=== PATIENT | male | born 1935 | race Caucasian/White ===

== ENCOUNTER 2017-02-03 10:08 | Emergency (ER) | payer MEDICARE, MEDICAID ==
[~2017-02-03] VITALS: Ht 177.8 cm; Wt 96.6 kg
[~2017-02-03 10:08] MED LIST: APIX2.5T PO; ESOM40CA PO; FAMO-63 PO; FERR-26 PO; FLUT30CR TP; FURO40TA4 PO; GLIP10TA13 PO; HYDR-210 PO; IBUP-1060 PO; INSU100I17 SQ; INSU100I18 SQ; LEVO50TA5 PO; LISI-338 PO; LISI1TAB3 PO; METF-620 PO; MONT10TA9 PO; POTA20TA12 PO; PROM25TA10 PO; SIMV40TA3 PO; SITA100T PO; VERA120C2 PO
[2017-02-03 10:49] LABS: BASO # 0.1 x10^3/uL (0.0-0.2); BASO % 1 % (0-3); EOS % 2 % (0-3); HEMATOCRIT 44.4 % (39.0-53.0); HEMOGLOBIN 14.3 g/dL (13.0-17.5); LYMPH # 1.1 x10^3/uL (1.0-4.8); LYMPH % 12 % (24-48); MEAN CORPUSCULAR HEMOGLOBIN 28 pg (25-35); MEAN CORPUSCULAR HGB CONC 32 g/dL (31-37); MEAN CORPUSCULAR VOLUME 85 fL (79-100); MONO % 7 % (0-9); NEUT % 79 % (31-73); PLATELET COUNT 201 x10^3/uL (140-400); RED BLOOD COUNT 5.19 x10^6/uL (4.30-5.70); RED CELL DISTRIBUTION WIDTH 14.8 % (11.5-14.5); WHITE BLOOD COUNT 9.1 x10^3/uL (4.0-11.0)
--- NOTE | 2017-02-03 10:51 | PHYS DOC ---
Past Medical History Past Medical History: Diabetes-Type II Past Surgical History: Appendectomy, Tonsillectomy Alcohol Use: None Drug Use: None Adult General Chief Complaint Chief Complaint: HYPOGLYCEMIA HPI HPI 81-year-old male presenting to the emergency department today with hypoglycemia. Patient reports taking his metformin and Levemir and NovoLog earlier this morning and not eating breakfast. The patient started having slurred speech and confusion. The patient's checked the blood sugar which was in the mid 60s and called the paramedics. Upon news internship arrival the patient 's blood sugar had dropped down to the mid 30s. They gave the patient IV dextrose which improved the patient's condition. He was awake and alert after this. They rechecked his blood sugar and it was in the 190s. Onset today. Location generalized. Duration intermittent. Alleviated by IV glucose. Review of systems is negative for chest pain shortness of breath nausea vomiting fevers or chills. All other review of systems is negative unless otherwise noted in history of present illness. ED course: 81-year-old gentleman presenting to the emergency department with insulin induced hypoglycemia which was improved by EMS. The patient was given a meal in the emergency department and monitored. Blood work obtained. Chronic kidney disease noted. Not acute. He was in discharged home in stable condition. The patient was then discharged home in stable condition to follow up with their primary care physician over the next 2-3 days. They were to return if their symptoms worsened or if they were concerned for any reason. [id number] discharge instructions and return precautions were given. Patient's questions were answered to their satisfaction. Patient is comfortable plan. Review of Systems Review of Systems SEE ABOVE. Allergies Allergies Allergies Coded Allergies Type Severity Reaction Last Updated Verified No Known Drug Allergies 08/16/13 No Physical Exam Physical Exam Constitutional: Well developed, well nourished, no acute distress, non-toxic appearance. [] Patient is awake and alert and eating breakfast when I examined him. HENT: Normocephalic, atraumatic, bilateral external ears normal, oropharynx moist, no oral exudates, nose normal. [] Eyes: PERRLA, EOMI, conjunctiva normal, no discharge. [] Neck: Normal range of motion, no tenderness, supple, no stridor. [] Cardiovascular:Heart rate regular rhythm, no murmur [] Lungs & Thorax: Bilateral breath sounds clear to auscultation [] Abdomen: Bowel sounds normal, soft, no tenderness, no masses, no pulsatile masses. [] Skin: Warm, dry, no erythema, no rash. [] Back: No tenderness, no CVA tenderness. [] Extremities: No tenderness, no cyanosis, no clubbing, ROM intact, no edema. [] Neurologic: Alert and oriented X 3, normal motor function, normal sensory function, no focal deficits noted. [] Psychologic: Affect normal, judgement normal, mood normal. [] Current Patient Data Vital Signs Vital Signs Date Time Temp Pulse Resp B/P (MAP) Pulse Ox O2 Delivery O2 Flow Rate FiO2 02/03/17 12:05 94.7 94.7 02/03/17 11:24 02/03/17 11:00 62 18 94 Room Air Lab Values Laboratory Tests Test 02/03/17 10:12 02/03/17 10:35 02/03/17 11:22 02/03/17 12:02 Glucose (Fingerstick) 99 mg/dL (70-99) 77 mg/dL (70-99) White Blood Count 9.1 x10^3/uL (4.0-11.0) Red Blood Count 5.19 x10^6/uL (4.30-5.70) Hemoglobin 14.3 g/dL (13.0-17.5) Hematocrit 44.4 % (39.0-53.0) Mean Corpuscular Volume 85 fL (79-100) Mean Corpuscular Hemoglobin 28 pg (25-35) Mean Corpuscular Hemoglobin Concent 32 g/dL (31-37) Red Cell Distribution Width 14.8 % (11.5-14.5) H Platelet Count 201 x10^3/uL (140-400) Neutrophils (%) (Auto) 79 % (31-73) H Lymphocytes (%) (Auto) 12 % (24-48) L Monocytes (%) (Auto) 7 % (0-9) Eosinophils (%) (Auto) 2 % (0-3) Basophils (%) (Auto) 1 % (0-3) Neutrophils # (Auto) 7.1 x10^3uL (1.8-7.7) Lymphocytes # (Auto) 1.1 x10^3/uL (1.0-4.8) Monocytes # (Auto) 0.6 x10^3/uL (0.0-1.1) Eosinophils # (Auto) 0.2 x10^3/uL (0.0-0.7) Basophils # (Auto) 0.1 x10^3/uL (0.0-0.2) Sodium Level 147 mmol/L (136-145) H Potassium Level 3.4 mmol/L (3.5-5.1) L Chloride Level 108 mmol/L (98-107) H Carbon Dioxide Level 30 mmol/L (21-32) Anion Gap 9 (6-14) Blood Urea Nitrogen 27 mg/dL (8-26) H Creatinine 2.4 mg/dL (0.7-1.3) H Estimated GFR (Cockcroft-Gault) 26.2 Glucose Level 69 mg/dL (70-99) L Calcium Level 9.1 mg/dL (8.5-10.1) Total Bilirubin 0.3 mg/dL (0.2-1.0) Direct Bilirubin 0.2 mg/dL (0.0-0.2) Aspartate Amino Transferase (AST) 17 U/L (15-37) Alanine Aminotransferase (ALT) 21 U/L (16-63) Alkaline Phosphatase 99 U/L (46-116) Troponin I Quantitative < 0.017 ng/mL (0.000-0.055) Total Protein 7.4 g/dL (6.4-8.2) Albumin 3.9 g/dL (3.4-5.0) Lipase 87 U/L (73-393) Urine Collection Type Unknown Urine Color Yellow Urine Clarity Clear Urine pH 5.5 Urine Specific [place] 1.010 Urine Protein Negative mg/dL (NEG-TRACE) Urine Glucose (UA) Negative mg/dL (NEG) Urine Ketones (Stick) Negative mg/dL (NEG) Urine Blood Negative (NEG) Urine Nitrite Negative (NEG) Urine Bilirubin Negative (NEG) Urine Urobilinogen Dipstick 0.2 mg/dL (0.2 mg/dL) Urine Leukocyte Esterase Negative (NEG) Urine RBC 0 /HPF (0-2) Urine WBC Rare /HPF (0-4) Urine Squamous Epithelial Cells Occ /LPF Urine Bacteria 0 /HPF (0-FEW) Urine Hyaline Casts Occasional /HPF Urine Mucus Slight /LPF Test 02/03/17 12:18 Glucose (Fingerstick) 135 mg/dL (70-99) H Laboratory Tests 02/03/17 10:35 Laboratory Tests 02/03/17 10:35 EKG EKG [] Radiology/Procedures Radiology/Procedures [] Course & Med Decision Making Course & Med Decision Making Pertinent Labs and Imaging studies reviewed. (See chart for details) [] Dragon Disclaimer Dragon Disclaimer This electronic medical record was generated, in whole or in part, using a voice recognition dictation system. Departure Departure Impression: Primary Impression: Hypoglycemia Disposition: HOME, SELF-CARE Condition: STABLE Referrals: TATYANA CHANG MD (PCP) Patient Instructions: Hypoglycemia (Low Blood Sugar) Additional Instructions: Thank you for allowing us to participate in your care today. Followup with your primary care physician within 3 days to evaluate insulin dosages. Call your Primary Doctor tomorrow and inform them of your visit today. If you do not have a primary care provider you can ask for a list of our primary care providers. Return to the emergency department you have any new or concerning findings. This should be evaluated by the primary care physician and any necessary consulting services for continued management within a few days after discharge. Return to emergency room if you have any new or concerning symptoms including but not limited to fever, chills, nausea, vomiting, intractable pain, any new rashes, chest pain, shortness of air, uncontrolled bleeding, difficulty breathing, and/or vision loss. MIGNON JUDGE MD Feb 03, 2017 10:51
--- NOTE | 2017-02-03 10:56 | EKG ---
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
[2017-02-03 10:57] LABS: CALCIUM 9.1 mg/dL (8.5-10.1); CREATININE 2.4 mg/dL (0.7-1.3); GFR 26.2; POTASSIUM 3.4 mmol/L (3.5-5.1)
[2017-02-03 11:00] VITALS: BP 136/64
[2017-02-03 11:10] LABS: ALBUMIN 3.9 g/dL (3.4-5.0); DIRECT BILIRUBIN 0.2 mg/dL (0.0-0.2); TOTAL BILIRUBIN 0.3 mg/dL (0.2-1.0); TOTAL PROTEIN 7.4 g/dL (6.4-8.2)
[2017-02-03 12:28] LABS: BILIRUBIN,URINE NEGATIVE (NEG); GLUCOSE,URINE NEGATIVE (NEG); NITRITE,URINE NEGATIVE (NEG); PH,URINE 5.5; PROTEIN,URINE NEGATIVE (NEG-TRACE); UROBILINOGEN,URINE 0.2 mg/dL (0.2 mg/dL)
[2017-02-03 12:29] LABS: BACTERIA,URINE 0 /HPF (0-FEW); RBC,URINE 0 /HPF (0-2); SQUAMOUS EPITHELIAL CELL,UR OCC /LPF; WBC,URINE RARE /HPF (0-4)
== END 2017-02-03 12:55 | disposition home or self-care (01) ==
LOC: ER 10:08
DX: E11.649 Type 2 diabetes mellitus with hypoglycemia without coma (principal)
CPT/HCPCS: 36415; 80048; 80076; 81001; 82962; 83690; 84484; 85027; 93005; 99285; P9612

== ENCOUNTER 2017-06-30 07:13 | Inpatient (IN) | payer MEDICARE, MEDICAID ==
[~2017-06-30] VITALS: Ht 177.8 cm; Wt 84.9 kg
[2017-06-30] MEDS: PANTOPRAZOLE 40 MG TABLET.DR. PO SCH (07:30)
--- NOTE | 2017-06-30 07:30 | PHYS DOC ---
Past Medical History Past Medical History: Diabetes-Type II Past Surgical History: Appendectomy, Tonsillectomy Alcohol Use: None Drug Use: None Adult General Chief Complaint Chief Complaint: HYPOGLYCEMIA HPI HPI Patient is a 81 year old male who presents with hypoglycemia. He states last night he vomited and then this morning he felt fine. According EMS he sat down to eat his breakfast took his insulin and before he could eat he passed out the table. EMS was called they noted his sugar to be in the 40s and he received 1 amp of D50 and upon recheck it was 203. According EMS he is slow to respond but GCS of 15 and they state according to his that is normal for him. He denies headache, fevers, he does state he has intermittent troubles breathing, denies any chest pain, abdominal discomfort he states comes and goes. He knows he is at the hospital and its 2017. He is unsure his primary care physician is at this time. Review of Systems Review of Systems Constitutional: Denies fever or chills [] Eyes: Denies change in visual acuity, redness, or eye pain [] HENT: Denies nasal congestion or sore throat [] Respiratory: Denies cough or shortness of breath [] Cardiovascular: No additional information not addressed in HPI [] GI: Denies abdominal pain, nausea, vomiting, bloody stools or diarrhea [] : Denies dysuria or hematuria [] Musculoskeletal: Denies back pain or joint pain [] Integument: Denies rash or skin lesions [] Neurologic: Denies headache, focal weakness or sensory changes [] Endocrine: Denies polyuria or polydipsia [] All other systems were reviewed and found to be within normal limits, except as documented in this note. Current Medications Current Medications Current Medications Medications (Trade) Dose Ordered Sig/Anna Start Time Stop Time Status Last Admin Dose Admin Dextrose (Dextrose 50%-Water Syringe) 25 gm STK-MED ONCE 06/30/17 08:11 06/30/17 08:12 DC Dextrose/Sodium Chloride 1,000 ml @ 100 mls/hr 1X ONCE 06/30/17 08:15 06/30/17 18:14 06/30/17 08:19 100 MLS/HR Ondansetron HCl (Zofran) 4 mg PRN Q8HRS PRN 06/30/17 09:30 07/01/17 09:29 Allergies Allergies Allergies Coded Allergies Type Severity Reaction Last Updated Verified No Known Drug Allergies 08/16/13 No Physical Exam Physical Exam Constitutional: Well developed, well nourished, no acute distress, non-toxic appearance. [] HENT: Normocephalic, atraumatic, bilateral external ears normal, oropharynx moist, no oral exudates, nose normal. [] Eyes: PERRLA, EOMI, conjunctiva normal, no discharge. [] Neck: Normal range of motion, no tenderness, supple, no stridor. [] Cardiovascular: Irregular rhythm, tachycardic, no murmurs appreciated Lungs & Thorax: Bilateral breath sounds clear to auscultation [] Abdomen: Bowel sounds normal, soft, no tenderness, no masses, no pulsatile masses. [] Skin: Warm, dry, no erythema, no rash. [] Back: No tenderness, no CVA tenderness. [] Extremities: No tenderness, no cyanosis, no clubbing, ROM intact, no edema. [] Neurologic: Alert and oriented X 3, normal motor function, normal sensory function, no focal deficits noted. Hard of hearing, sometimes answers questions that were not asked, for instance I asked of the stomach is bothering him and he answers regarding his lungs. Psychologic: Affect normal, judgement normal, mood normal. [] Current Patient Data Vital Signs Vital Signs Date Time Temp Pulse Resp B/P (MAP) Pulse Ox O2 Delivery O2 Flow Rate FiO2 06/30/17 08:46 80 18 111/67 (82) 93 Room Air Lab Values Laboratory Tests Test 06/30/17 07:40 06/30/17 08:07 06/30/17 08:28 06/30/17 09:19 White Blood Count 13.8 x10^3/uL (4.0-11.0) H Red Blood Count 5.67 x10^6/uL (4.30-5.70) Hemoglobin 14.1 g/dL (13.0-17.5) Hematocrit 45.0 % (39.0-53.0) Mean Corpuscular Volume 79 fL (79-100) Mean Corpuscular Hemoglobin 25 pg (25-35) Mean Corpuscular Hemoglobin Concent 31 g/dL (31-37) Red Cell Distribution Width 16.3 % (11.5-14.5) H Platelet Count 235 x10^3/uL (140-400) Neutrophils (%) (Auto) 85 % (31-73) H Lymphocytes (%) (Auto) 6 % (24-48) L Monocytes (%) (Auto) 8 % (0-9) Eosinophils (%) (Auto) 0 % (0-3) Basophils (%) (Auto) 1 % (0-3) Neutrophils # (Auto) 11.8 x10^3uL (1.8-7.7) H Lymphocytes # (Auto) 0.8 x10^3/uL (1.0-4.8) L Monocytes # (Auto) 1.1 x10^3/uL (0.0-1.1) Eosinophils # (Auto) 0.0 x10^3/uL (0.0-0.7) Basophils # (Auto) 0.1 x10^3/uL (0.0-0.2) Platelet Estimate Pending Prothrombin Time 13.7 SEC (11.7-14.0) Prothrombin Time INR 1.1 (0.8-1.1) Sodium Level 141 mmol/L (136-145) Potassium Level 3.2 mmol/L (3.5-5.1) L Chloride Level 99 mmol/L (98-107) Carbon Dioxide Level 31 mmol/L (21-32) Anion Gap 11 (6-14) Blood Urea Nitrogen 39 mg/dL (8-26) H Creatinine 2.5 mg/dL (0.7-1.3) H Estimated GFR (Cockcroft-Gault) 25.0 Glucose Level 69 mg/dL (70-99) L Calcium Level 9.4 mg/dL (8.5-10.1) Magnesium Level 1.9 mg/dL (1.8-2.4) Total Bilirubin 0.9 mg/dL (0.2-1.0) Direct Bilirubin 0.3 mg/dL (0.0-0.2) H Aspartate Amino Transferase (AST) 30 U/L (15-37) Alanine Aminotransferase (ALT) 23 U/L (16-63) Alkaline Phosphatase 113 U/L (46-116) Creatine Kinase 315 U/L (39-308) H Creatine Kinase MB (Mass) 2.4 ng/mL (0.0-3.6) Creatine Kinase MB Relative Index 0.8 % (0-4) Troponin I Quantitative < 0.017 ng/mL (0.000-0.055) SI-Ufx-G-Type Natriuretic Peptide 3965 pg/mL (0-449) H Total Protein 8.0 g/dL (6.4-8.2) Albumin 3.8 g/dL (3.4-5.0) Lipase 87 U/L (73-393) Thyroid Stimulating Hormone (TSH) 3.603 uIU/mL (0.358-3.74) Glucose (Fingerstick) 48 mg/dL (70-99) *L 117 mg/dL (70-99) H 131 mg/dL (70-99) H Laboratory Tests 06/30/17 07:40 Laboratory Tests 06/30/17 07:40 EKG EKG EKG shows irregular rhythm with a heart rate of [address] elevations or concerning T-wave inversions, left anterior fascicular block, right bundle beau block noted, QTC 519 ms, as interpreted by me. EKG is similar to one performed on 02/03/17 however in normal sinus at that time Radiology/Procedures Radiology/Procedures [facility] [address] [place] [address] IMAGING REPORT Signed PATIENT: CUONG CLAIRE ACCOUNT: [id number] : 1935 LOCATION: ER AGE: 81 SEX: M EXAM STATUS: REG ER ORD. PHYSICIAN: SOLEDAD UNDERWOOD MD REASON: AMS PROCEDURE: CT HEAD WO CONTRAST PQRS Compliance Statement: One or more of the following individualized dose reduction techniques were utilized for this examination: 1. Automated exposure control 2. Adjustment of the mA and/or kV according to patient size 3. Use of iterative reconstruction technique CT HEAD WITHOUT CONTRAST History: AMS . Patient went unresponsive after dinner last night. Comparison: None. Technique: Axial images are obtained of the head from the skull base through the vertex without IV contrast. Findings: No mass-effect, midline shift, hemorrhage or obvious acute infarction is identified. Basilar cisterns are patent. The ventricles and sulci are prominent, consistent with age-related cerebral atrophy. There is also cerebellar atrophy. Bone windows demonstrate no acute calvarial abnormality. Mild mucosal thickening posterior left maxillary sinus. Mastoid air cells are well aerated. IMPRESSION: 1. No acute intracranial abnormality. 2. Age-related cerebral atrophy. DICTATED and SIGNED BY: FUNMILAYO HUYNH MD DATE: 06/30/17815 CC: SOLEDAD UNDERWOOD MD; TATYANA CHANG MD ~ [facility] [address] [place] [address] IMAGING REPORT Signed PATIENT: CUONG CLAIRE ACCOUNT: [id number] : 1935 LOCATION: ER AGE: 81 SEX: M EXAM STATUS: REG ER ORD. PHYSICIAN: SOLEDAD UNDERWOOD MD REASON: afib PROCEDURE: PORTABLE CHEST 1V AP PORTABLE CHEST Clinical Indication: afib. Comparison: AP chest 03/04/2016. Findings: The cardiomediastinal silhouette is stable. There is cardiomegaly. Left basilar airspace disease. The right lung is clear. There is no pneumothorax. There is small left pleural effusion. No obvious right pleural effusion. There is no acute bone abnormality. IMPRESSION: Small left pleural effusion and mild left basilar airspace disease. DICTATED and SIGNED BY: FUNMILAYO HUYNH MD DATE: 06/30/17 0753 CC: SOLEDAD UNDERWOOD MD; TATYANA CHANG MD ~ Impressions: Hypoglycemia Diabetes Hypothyroidism Course & Med Decision Making Course & Med Decision Making Pertinent Labs and Imaging studies reviewed. (See chart for details) Repeat glucose in the room shows approximately 130s upon arrival to the ER. He is alert and oriented. I've ordered him a meal tray and his heart rate has improved from the 1 teens to high 90s. His repeat Accu-Chek is now on the 40s at 8:15 another half amp of D50 was given he started on D5 half-normal at 100 an hour. Patient will require hospitalization secondary to his hypoglycemia. His EKG indicates A. fib and he is on eliquist per information provided by the via telephone. Patient's being admitted to Dr. Osborne in stable condition at this time. Dr Osborne was informed of the patient's history and physical exam and pertinent labs findings and interventions in the emergency department. Dragon Disclaimer Dragon Disclaimer This electronic medical record was generated, in whole or in part, using a voice recognition dictation system. Departure Departure Impression: Primary Impression: IDDM (insulin dependent diabetes mellitus) Additional Impression: Hypoglycemia Disposition: ADMITTED INPATIENT Admitting Physician: Eleni Osborne Condition: STABLE Referrals: TATYANA CHANG MD (PCP) Problem Qualifiers SOLEDAD UNDERWOOD MD Jun 30, 2017 07:30
--- NOTE | 2017-06-30 08:01 | RAD ---
AP PORTABLE CHEST Clinical Indication: afib. Comparison: AP chest 03/04/2016. Findings: The cardiomediastinal silhouette is stable. There is cardiomegaly. Left basilar airspace disease. The right lung is clear. There is no pneumothorax. There is small left pleural effusion. No obvious right pleural effusion. There is no acute bone abnormality. IMPRESSION: Small left pleural effusion and mild left basilar airspace disease.
[2017-06-30 08:03] LABS: BASO # 0.1 x10^3/uL (0.0-0.2); BASO % 1 % (0-3); EOS % 0 % (0-3); HEMOGLOBIN 14.1 g/dL (13.0-17.5); LYMPH # 0.8 x10^3/uL (1.0-4.8); LYMPH % 6 % (24-48); MEAN CORPUSCULAR HEMOGLOBIN 25 pg (25-35); MEAN CORPUSCULAR HGB CONC 31 g/dL (31-37); MEAN CORPUSCULAR VOLUME 79 fL (79-100); MONO % 8 % (0-9); NEUT % 85 % (31-73); PLATELET COUNT 235 x10^3/uL (140-400); RED BLOOD COUNT 5.67 x10^6/uL (4.30-5.70); RED CELL DISTRIBUTION WIDTH 16.3 % (11.5-14.5); WHITE BLOOD COUNT 13.8 x10^3/uL (4.0-11.0)
[2017-06-30] MEDS ORDERED: DEXTROSE 50% 25 GM / 50ML DISP.SYRIN. IV ONE ×2 (08:11→08:45)
[2017-06-30 08:12] LABS: CALCIUM 9.4 mg/dL (8.5-10.1); CREATININE 2.5 mg/dL (0.7-1.3); POTASSIUM 3.2 mmol/L (3.5-5.1)
[2017-06-30] MEDS ORDERED: IV DEXTROSE 5 %-0.45 % NACL 1,000 ML IV ONE (08:15)
[2017-06-30 08:16] LABS: ALBUMIN 3.8 g/dL (3.4-5.0); DIRECT BILIRUBIN 0.3 mg/dL (0.0-0.2); MAGNESIUM 1.9 mg/dL (1.8-2.4); TOTAL BILIRUBIN 0.9 mg/dL (0.2-1.0)
[2017-06-30 08:22] LABS: CKMB MASS 2.4 ng/mL (0.0-3.6)
--- NOTE | 2017-06-30 08:24 | RAD ---
PQRS Compliance Statement: One or more of the following individualized dose reduction techniques were utilized for this examination: 1. Automated exposure control 2. Adjustment of the mA and/or kV according to patient size 3. Use of iterative reconstruction technique CT HEAD WITHOUT CONTRAST History: AMS . Patient went unresponsive after dinner last night. Comparison: None. Technique: Axial images are obtained of the head from the skull base through the vertex without IV contrast. Findings: No mass-effect, midline shift, hemorrhage or obvious acute infarction is identified. Basilar cisterns are patent. The ventricles and sulci are prominent, consistent with age-related cerebral atrophy. There is also cerebellar atrophy. Bone windows demonstrate no acute calvarial abnormality. Mild mucosal thickening posterior left maxillary sinus. Mastoid air cells are well aerated. IMPRESSION: 1. No acute intracranial abnormality. 2. Age-related cerebral atrophy.
[2017-06-30 08:26] LABS: INR 1.1 (0.8-1.1); PROTHROMBIN TIME PATIENT 13.7 SEC (11.7-14.0)
[2017-06-30] MEDS ORDERED: ONDANSETRON PF 4 MG/2 ML VIAL. IV PRN (09:30)
[2017-06-30 10:33] LABS: % EOS 2 % (0-5)
[2017-06-30 10:34] LABS: PLT ESTIMATE ADEQUATE (ADEQUATE)
[2017-06-30 11:30] VITALS: BP 110/66
--- NOTE | 2017-06-30 13:08 | EKG ---
[facility] [address] [place] [address] Test Date: 2017-06-30 Test Time: 08:32:10 Pat Name: CUONG CLAIRE Department: Room: [facility] Gender: M Construction Technician: : 1935 Requested By: SOLEDAD UNDERWOOD Order Number: [id number] Reading MD: Guille Modi MD Measurements Intervals [place] Rate: 91 P: WI: QRS: -36 QRSD: 150 T: 32 QT: 420 QTc: 519 Interpretive Statements POSSIBLE ATRIAL FIBRILLATION RBBB LAFB NON-SPECIFIC ST/T CHANGES Electronically Signed On 07-03-2017 11:40:02 CELLAR SUPERVISOR by Guille Modi MD
[2017-06-30] MEDS ORDERED: ISOS30TA4 PO (13:57)
[2017-06-30] MEDS ORDERED: HYDR12.53 PO (13:57)
[2017-06-30] MEDS ORDERED: BECL8.7A7 IH (13:57)
[2017-06-30 14:40] VITALS: BP 113/60
[2017-06-30] MEDS ORDERED: INFLUENZA VAX SCREEN BY RX. MC PRN (17:00)
[2017-06-30] MEDS ORDERED: PNEUMOCOCCAL VAX SCREEN BY RX. MC PRN (17:00)
[2017-06-30] MEDS ORDERED: FLU VACC QS2017-18 (36MOS+)/PF 0.5 ML SYRINGE. VAX IM ONE (17:15)
[2017-06-30] MEDS ORDERED: PNEUMOC CONJ VACC 23-VALENT 0.5 ML VIAL. VAX IM ONE (18:00)
--- NOTE | 2017-06-30 18:33 | PDOC1 ---
History and Physical Date of Admission Date of Admission DATE: 06/30/17 TIME: 18:20 Identification/Chief Complaint Chief Complaint nausea, poor PO intake, then hypoglycemia Problems: Source Source: Chart review, Patient History of Present Illness History of Present Illness Mr. Goff, is a 81 year old male admit s/p nausea and PO intake, then with hypoglycemia. He states last night he vomited, poor PO intake today took his insulin, then blood sugar 40 in field, D50 given, still low D5 half IV fluids started Patient feels improved, has had some PO intake, nausea is better, no pain Past Medical History Cardiovascular: HTN CENTRAL NERVOUS SYSTEM: Dementia Endocrine: Diabetes Past Surgical History Past Surgical History: Appendectomy, Tonsillectomy Family History Family History: Family History Unknown Social History Smoke: No ALCOHOL: none Drugs: None Current Problem List Problem List Problems Medical Problems: (1) Hypoglycemia Status: Acute (2) IDDM (insulin dependent diabetes mellitus) Status: Acute Problems: Current Medications Current Medications Current Medications Dextrose (Dextrose 50%-Water Syringe) 25 gm 1X ONCE IV Last administered on 08:18; Start 06/30/17 at 08:45; Stop 06/30/17 at 08:46; Status DC Dextrose (Dextrose 50%-Water Syringe) 25 gm STK-MED ONCE IV ; Start 06/30/17 at 08:11; Stop 06/30/17 at 08:12; Status DC Dextrose/Sodium Chloride 1,000 ml @ 100 mls/hr 1X ONCE IV Last administered on 06/30/17 08:19; Start 06/30/17 at 08:15; Stop 06/30/17 at 18:14; Status DC Ondansetron HCl (Zofran) 4 mg PRN Q8HRS PRN IV NAUSEA/VOMITING; Start at 09:30; Stop 07/01/17 at 09:29 Pneumococcal Polyvalent Vaccine (Do NOT chart on this placeholder) 1 each PRN 1X PRN MC SEE COMMENTS; Start 06/30/17 at 17:00; Status UNV Info (Do NOT chart on this placeholder) 1 each PRN 1X PRN MC SEE COMMENTS; Start 06/30/17 at 17:00; Status UNV Pneumococcal Polyvalent Vaccine (Pneumovax 23) 0.5 ml ONCE ONCE VAX IM Last administered on 06/30/17 18:02; Start 06/30/17 at 18:00; Stop 06/30/17 at 18 :01; Status DC Influenza Virus Vaccine Quadrival (Fluarix Quad 0460-0405 Syringe) 0.5 ml ONCE ONCE VAX IM Last administered on 06/30/17 18:01; Start 06/30/17 at 17:15; Stop 06/30/17 at 17:16; Status DC Active Scripts Active Reported Isosorbide Mononitrate Er (Isosorbide Mononitrate) 30 Mg Tab.er.24h 30 Mg PO DAILY Hydrochlorothiazide Capsule (Hydrochlorothiazide) 12.5 Mg Capsule 12.5 Mg PO DAILY Qvar 40MCG Inhaler (Beclomethasone Dipropionate) 8.7 Gm Aer.w.adap 1 Puff IH BID Levothyroxine Sodium 50 Mcg Tablet 1 Tab PO DAILY Eliquis (Apixaban) 2.5 Mg Tablet 2.5 Mg PO BID Verapamil Er (Verapamil Hcl) 120 Mg Cap24h.pel 120 Mg PO DAILY Nexium Capsule (Esomeprazole Magnesium) 40 Mg Capsule.dr 1 Cap PO DAILY Montelukast Sodium Tablet (Montelukast Sodium) 10 Mg Tablet 10 Mg PO QEVNG Pepcid (Famotidine) 20 Mg Tablet 20 Mg PO HS Potassium Chloride 20 Meq Tab.er.prt 1 Tab PO BID Lortab 7.5-500 Tablet (Hydrocodone Bit/Acetaminophen) 1 Each Tablet 1 Each PO PRN Q4HRS Ferrous Sulfate 325 Mg Tablet 325 Mg PO DAILY Simvastatin 40 Mg Tablet 40 Mg PO QHS Novolog Flexpen (Insulin Aspart) 100 Unit/1 Ml Insuln.pen 15 Unit SQ BIDAC Levemir Flexpen (Insulin Detemir) 100 Unit/1 Ml Insuln.pen 15 Unit SQ QHS Metformin Hcl 1,000 Mg Tablet 1,000 Mg PO BID Januvia (Sitagliptin Phosphate) 100 Mg Tablet 100 Mg PO DAILY Allergies Allergies: Coded Allergies: No Known Drug Allergies (Unverified , 08/16/13) ROS General: YES: Fatigue, Malaise, No: Chills, Night Sweats, Appetite, Other PSYCHOLOGICAL ROS: No: Anxiety, Behavioral Disorder, Concentration difficultie , Decreased libido, Depression, Disorientation, Hallucinations, Hostility, Irritablity, Memory difficulties, Mood Swings, Obsessive thoughts, Physical abuse, Sexual abuse, Sleep disturbances, Suicidal ideation, Other Eyes: No Blurry vision, No Decreased vision, No Double vision, No Dry eyes, No Excessive tearing, No Eye Pain, No Itchy Eyes, No Loss of vision, No Photophobia , No Scotomata, No Uses contacts, No Uses glasses, No Other HEENT: YES: Heacaches, No: Visual Changes, Hearing change, Nasal congestion, Nasal discharge, Oral lesions, Sinus pain, Sore Throat, Epistaxis, Sneezing, Snoring, Tinnitus, Vertigo, Vocal changes, Other Respiratory: No: Cough, Hemoptysis, Orthopnea, Pleuritic Pain, Shortness of breath, SOB with excertion, Sputum Changes, Stridor, Tachypnea, Wheezing, Other Cardiovascular: yes Chest Pain, No Palpitations, No Orthopnea, No Paroxysmal Noc. Dyspnea, No Edema, No Lt Headedness, No Other Gastrointestinal: No Nausea, No Vomiting, No Abdominal Pain, No Diarrhea, No Constipation, No Melena, No Hematochezia, No Other Genitourinary: No Dysuria, No Frequency, No Incontinence, No Hematuria, No Retention, No Discharge, No Urgency, No Pain, No Flank Pain, No Other, No , No , No , No , No , No , No Musculoskeletal: No Gait Disturbance, No Joint Pain, No Joint Stiffness, No Joint Swelling, No Muscle Pain, No Muscular Weakness, No Pain In:, No Swelling In:, No Other Neurological: No Behavorial Changes, No Bowel/Bladder ControlChng, No Confusion , No Dizziness, No Gait Disturbance, No Headaches, No Impaired Coord/balance, No Memory Loss, No Numbness/Tingling, No Seizures, No Speech Problems, No Tremors, No Visual Changes, No Weakness, No Other Skin: No Dry Skin, No Eczema, No Hair Changes, No Lumps, No Mole Changes, No Mottling, No Nail Changes, No Pruritus, No Rash, No Skin Lesion Changes, No Other, No Acne Physical Exam General: Alert, Cooperative, No acute distress, Other (poorly oriented) HEENT: Atraumatic, PERRLA Lungs: Clear to auscultation Heart: no murmurs Abdomen: Normal bowel sounds, Soft Extremities: No edema, Normal pulses Skin: No significant lesion Neuro: Normal speech, Sensation intact Psych/Mental Status: Mood NL Vitals Vitals Vital Signs Date Time Temp Pulse Resp B/P (MAP) Pulse Ox O2 Delivery O2 Flow Rate FiO2 06/30/17 14:40 98.6 85 18 113/60 (77) 92 Room Air 98.6 Labs Labs Laboratory Tests Test 06/30/17 07:40 06/30/17 08:07 06/30/17 08:28 06/30/17 09:19 White Blood Count 13.8 x10^3/uL (4.0-11.0) Red Blood Count 5.67 x10^6/uL (4.30-5.70) Hemoglobin 14.1 g/dL (13.0-17.5) Hematocrit 45.0 % (39.0-53.0) Mean Corpuscular Volume 79 fL (79-100) Mean Corpuscular Hemoglobin 25 pg (25-35) Mean Corpuscular Hemoglobin Concent 31 g/dL (31-37) Red Cell Distribution Width 16.3 % (11.5-14.5) Platelet Count 235 x10^3/uL (140-400) Neutrophils (%) (Auto) 85 % (31-73) Lymphocytes (%) (Auto) 6 % (24-48) Monocytes (%) (Auto) 8 % (0-9) Eosinophils (%) (Auto) 0 % (0-3) Basophils (%) (Auto) 1 % (0-3) Neutrophils # (Auto) 11.8 x10^3uL (1.8-7.7) Lymphocytes # (Auto) 0.8 x10^3/uL (1.0-4.8) Monocytes # (Auto) 1.1 x10^3/uL (0.0-1.1) Eosinophils # (Auto) 0.0 x10^3/uL (0.0-0.7) Basophils # (Auto) 0.1 x10^3/uL (0.0-0.2) Segmented Neutrophils % 80 % (35-66) Lymphocytes % 9 % (24-48) Monocytes % 9 % (0-10) Eosinophils % 2 % (0-5) Platelet Estimate Adequate (ADEQUATE) Prothrombin Time 13.7 SEC (11.7-14.0) Prothromb Time International Ratio 1.1 (0.8-1.1) Sodium Level 141 mmol/L (136-145) Potassium Level 3.2 mmol/L (3.5-5.1) Chloride Level 99 mmol/L (98-107) Carbon Dioxide Level 31 mmol/L (21-32) Anion Gap 11 (6-14) Blood Urea Nitrogen 39 mg/dL (8-26) Creatinine 2.5 mg/dL (0.7-1.3) Estimated GFR (Cockcroft-Gault) 25.0 Glucose Level 69 mg/dL (70-99) Calcium Level 9.4 mg/dL (8.5-10.1) Magnesium Level 1.9 mg/dL (1.8-2.4) Total Bilirubin 0.9 mg/dL (0.2-1.0) Direct Bilirubin 0.3 mg/dL (0.0-0.2) Aspartate Amino Transf (AST/SGOT) 30 U/L (15-37) Alanine Aminotransferase (ALT/SGPT) 23 U/L (16-63) Alkaline Phosphatase 113 U/L (46-116) Creatine Kinase 315 U/L (39-308) Creatine Kinase MB (Mass) 2.4 ng/mL (0.0-3.6) Creatine Kinase MB Relative Index 0.8 % (0-4) Troponin I Quantitative < 0.017 ng/mL (0.000-0.055) GN-Vpq-[id number]-Type Natriuretic Peptide 3965 pg/mL (0-449) Total Protein 8.0 g/dL (6.4-8.2) Albumin 3.8 g/dL (3.4-5.0) Lipase 87 U/L (73-393) Thyroid Stimulating Hormone (TSH) 3.603 uIU/mL (0.358-3.74) Glucose (Fingerstick) 48 mg/dL (70-99) 117 mg/dL (70-99) 131 mg/dL (70-99) Test 06/30/17 10:32 06/30/17 15:35 06/30/17 16:15 Glucose (Fingerstick) 136 mg/dL (70-99) 280 mg/dL (70-99) Troponin I Quantitative 0.021 ng/mL (0.000-0.055) Laboratory Tests Test 06/30/17 07:40 06/30/17 08:07 06/30/17 08:28 06/30/17 09:19 White Blood Count 13.8 x10^3/uL (4.0-11.0) Red Blood Count 5.67 x10^6/uL (4.30-5.70) Hemoglobin 14.1 g/dL (13.0-17.5) Hematocrit 45.0 % (39.0-53.0) Mean Corpuscular Volume 79 fL (79-100) Mean Corpuscular Hemoglobin 25 pg (25-35) Mean Corpuscular Hemoglobin Concent 31 g/dL (31-37) Red Cell Distribution Width 16.3 % (11.5-14.5) Platelet Count 235 x10^3/uL (140-400) Neutrophils (%) (Auto) 85 % (31-73) Lymphocytes (%) (Auto) 6 % (24-48) Monocytes (%) (Auto) 8 % (0-9) Eosinophils (%) (Auto) 0 % (0-3) Basophils (%) (Auto) 1 % (0-3) Neutrophils # (Auto) 11.8 x10^3uL (1.8-7.7) Lymphocytes # (Auto) 0.8 x10^3/uL (1.0-4.8) Monocytes # (Auto) 1.1 x10^3/uL (0.0-1.1) Eosinophils # (Auto) 0.0 x10^3/uL (0.0-0.7) Basophils # (Auto) 0.1 x10^3/uL (0.0-0.2) Segmented Neutrophils % 80 % (35-66) Lymphocytes % 9 % (24-48) Monocytes % 9 % (0-10) Eosinophils % 2 % (0-5) Platelet Estimate Adequate (ADEQUATE) Prothrombin Time 13.7 SEC (11.7-14.0) Prothromb Time International Ratio 1.1 (0.8-1.1) Sodium Level 141 mmol/L (136-145) Potassium Level 3.2 mmol/L (3.5-5.1) Chloride Level 99 mmol/L (98-107) Carbon Dioxide Level 31 mmol/L (21-32) Anion Gap 11 (6-14) Blood Urea Nitrogen 39 mg/dL (8-26) Creatinine 2.5 mg/dL (0.7-1.3) Estimated GFR (Cockcroft-Gault) 25.0 Glucose Level 69 mg/dL (70-99) Calcium Level 9.4 mg/dL (8.5-10.1) Magnesium Level 1.9 mg/dL (1.8-2.4) Total Bilirubin 0.9 mg/dL (0.2-1.0) Direct Bilirubin 0.3 mg/dL (0.0-0.2) Aspartate Amino Transf (AST/SGOT) 30 U/L (15-37) Alanine Aminotransferase (ALT/SGPT) 23 U/L (16-63) Alkaline Phosphatase 113 U/L (46-116) Creatine Kinase 315 U/L (39-308) Creatine Kinase MB (Mass) 2.4 ng/mL (0.0-3.6) Creatine Kinase MB Relative Index 0.8 % (0-4) Troponin I Quantitative < 0.017 ng/mL (0.000-0.055) ZM-Oke-O-Type Natriuretic Peptide 3965 pg/mL (0-449) Total Protein 8.0 g/dL (6.4-8.2) Albumin 3.8 g/dL (3.4-5.0) Lipase 87 U/L (73-393) Thyroid Stimulating Hormone (TSH) 3.603 uIU/mL (0.358-3.74) Glucose (Fingerstick) 48 mg/dL (70-99) 117 mg/dL (70-99) 131 mg/dL (70-99) Test 06/30/17 10:32 06/30/17 15:35 06/30/17 16:15 Glucose (Fingerstick) 136 mg/dL (70-99) 280 mg/dL (70-99) Troponin I Quantitative 0.021 ng/mL (0.000-0.055) VTE Prophylaxis Ordered VTE Prophylaxis Devices: No VTE Pharmacological Prophylaxi: Yes Assessment/Plan Assessment/Plan Dm2, insulin req. with acute symptomatic hypoglycemia D5 fluid today, will decrease Levemir dose, resume meal time insulin if PO intake cont to improve CKD 4 stop metformin, risk of acidosis nausea and vomiting, viral enteritis weakness and debility dementia, chronic encephalopathy mild acute metabolic encephalopathy from hypoglycemia, admit PT and OT and soc services, his wound like him placed, BONNIE CAMPA MD Jun 30, 2017 18:33
[2017-06-30 19:31] VITALS: BP 95/59
[2017-06-30] MEDS: BUDESONIDE 0.5 MG/2 ML NEBU. NEB SCH (20:36)
[2017-06-30] MEDS: FAMOTIDINE 20 MG TABLET. PO SCH (20:39)
[2017-06-30] MEDS: SIMVASTATIN 40 MG TABLET. PO SCH (20:39)
[2017-06-30] MEDS: APIXABAN 2.5 MG TABLET. PO SCH (20:39)
[2017-06-30] MEDS: INSULIN DETEMIR 300 UNITS/3 ML INSULN.PEN. SQ SCH (21:08)
[2017-06-30 22:44] VITALS: BP 135/70
[2017-07-01 03:51] VITALS: BP 109/60
[2017-07-01 05:25] LABS: BASO % 1 % (0-3); EOS % 1 % (0-3); HEMOGLOBIN 12.9 g/dL (13.0-17.5); LYMPH # 1.6 x10^3/uL (1.0-4.8); LYMPH % 21 % (24-48); MEAN CORPUSCULAR HEMOGLOBIN 25 pg (25-35); MEAN CORPUSCULAR HGB CONC 32 g/dL (31-37); MEAN CORPUSCULAR VOLUME 79 fL (79-100); MONO % 12 % (0-9); NEUT % 65 % (31-73); PLATELET COUNT 186 x10^3/uL (140-400); RED CELL DISTRIBUTION WIDTH 16.3 % (11.5-14.5); WHITE BLOOD COUNT 7.5 x10^3/uL (4.0-11.0)
[2017-07-01] MEDS: LEVOTHYROXINE 50 MCG TABLET PO SCH (06:05)
[2017-07-01 06:14] LABS: ALBUMIN 3.1 g/dL (3.4-5.0); ALBUMIN/GLOBULIN RATIO 0.9 (1.0-1.7); CALCIUM 8.9 mg/dL (8.5-10.1); CREATININE 2.1 mg/dL (0.7-1.3); GFR 30.5; POTASSIUM 3.5 mmol/L (3.5-5.1); TOTAL BILIRUBIN 0.7 mg/dL (0.2-1.0); TOTAL PROTEIN 6.7 g/dL (6.4-8.2)
[2017-07-01] MEDS: BUDESONIDE 0.5 MG/2 ML NEBU. NEB SCH ×2 (07:20→20:42)
[2017-07-01 07:37] VITALS: BP 111/71
[2017-07-01] MEDS: PANTOPRAZOLE 40 MG TABLET.DR. PO SCH (08:16)
[2017-07-01] MEDS: VERAPAMIL SR 120 MG TABLET.ER. PO SCH (08:17)
[2017-07-01] MEDS: hydroCHLOROthiazide 12.5 MG CAPSULE PO SCH (08:17)
[2017-07-01] MEDS: FERROUS SULFATE 325 MG TABLET. PO SCH (08:17)
[2017-07-01] MEDS: LINAGLIPTIN 5 MG TABLET PO SCH (08:17)
[2017-07-01] MEDS: POTASSIUM CHLORIDE 20 MEQ TABLET.ER. PO SCH ×2 (08:18→17:00)
[2017-07-01] MEDS: ISOSORBIDE MONONITRATE ER 30 MG TAB.ER.24H PO SCH (08:18)
[2017-07-01] MEDS: APIXABAN 2.5 MG TABLET. PO SCH ×2 (08:21→20:29)
[2017-07-01] MEDS: INSULIN ASPART 300 UNITS/3 ML INSULN.PEN SQ SCH ×3 (08:28→16:30)
[2017-07-01 10:36] VITALS: BP 115/70
--- NOTE | 2017-07-01 12:08 | PDOC ---
PROGRESS NOTES Chief Complaint Chief Complaint AMS ASSESSMENT AND PLAN: 1. Hypoglycemia: resolved 2. Acute encephalopathy: metabolic, resolved. 3. DM2: insulin dependent. metformin d/c.ed (CKD4). levemir dose adjusted. cont ISS 4. CKD4: stable creat 5. Hypokalemai: resolved. monitor 6. N/V: ?viral enteritis; improving 7. dementia 8. Weakness and debility: OT/PT eval, SNF History of Present Illness History of Present Illness states he has episodes of SOB that resolve spont. none since admit to hospital. no CP or other sx at this time Vitals Vitals Vital Signs Date Time Temp Pulse Resp B/P (MAP) Pulse Ox O2 Delivery O2 Flow Rate FiO2 07/01/17 10:36 98.3 101 20 115/70 (85) 96 Room Air 98.3 Physical Exam General: Alert, Cooperative, No acute distress, Other (poorly oriented) Heart: Regular rate Lungs: Clear, Other Abdomen: Normal bowel sounds, Soft, No tenderness Extremities: No edema Skin: No rashes Labs LABS Laboratory Tests Test 06/30/17 15:35 06/30/17 16:15 06/30/17 20:50 06/30/17 22:30 Troponin I Quantitative 0.021 ng/mL (0.000-0.055) 0.021 ng/mL (0.000-0.055) Glucose (Fingerstick) 280 mg/dL (70-99) 272 mg/dL (70-99) Test 07/01/17 03:00 07/01/17 07:15 07/01/17 10:58 White Blood Count 7.5 x10^3/uL (4.0-11.0) Red Blood Count 5.20 x10^6/uL (4.30-5.70) Hemoglobin 12.9 g/dL (13.0-17.5) Hematocrit 41.0 % (39.0-53.0) Mean Corpuscular Volume 79 fL (79-100) Mean Corpuscular Hemoglobin 25 pg (25-35) Mean Corpuscular Hemoglobin Concent 32 g/dL (31-37) Red Cell Distribution Width 16.3 % (11.5-14.5) Platelet Count 186 x10^3/uL (140-400) Neutrophils (%) (Auto) 65 % (31-73) Lymphocytes (%) (Auto) 21 % (24-48) Monocytes (%) (Auto) 12 % (0-9) Eosinophils (%) (Auto) 1 % (0-3) Basophils (%) (Auto) 1 % (0-3) Neutrophils # (Auto) 4.9 x10^3uL (1.8-7.7) Lymphocytes # (Auto) 1.6 x10^3/uL (1.0-4.8) Monocytes # (Auto) 0.9 x10^3/uL (0.0-1.1) Eosinophils # (Auto) 0.1 x10^3/uL (0.0-0.7) Basophils # (Auto) 0.0 x10^3/uL (0.0-0.2) Sodium Level 139 mmol/L (136-145) Potassium Level 3.5 mmol/L (3.5-5.1) Chloride Level 100 mmol/L (98-107) Carbon Dioxide Level 30 mmol/L (21-32) Anion Gap 9 (6-14) Blood Urea Nitrogen 36 mg/dL (8-26) Creatinine 2.1 mg/dL (0.7-1.3) Estimated GFR (Cockcroft-Gault) 30.5 BUN/Creatinine Ratio 17 (6-20) Glucose Level 249 mg/dL (70-99) Calcium Level 8.9 mg/dL (8.5-10.1) Total Bilirubin 0.7 mg/dL (0.2-1.0) Aspartate Amino Transf (AST/SGOT) 21 U/L (15-37) Alanine Aminotransferase (ALT/SGPT) 18 U/L (16-63) Alkaline Phosphatase 94 U/L (46-116) Total Protein 6.7 g/dL (6.4-8.2) Albumin 3.1 g/dL (3.4-5.0) Albumin/Globulin Ratio 0.9 (1.0-1.7) Glucose (Fingerstick) 178 mg/dL (70-99) 167 mg/dL (70-99) JUJU MOCK MD Jul 01, 2017 12:08
--- NOTE | 2017-07-01 13:56 | PDOC2 ---
CONSULT Date of Consult Date of Consult DATE: 07/01/17 TIME: 13:47 Reason for Consult Reason for Consult: CKD III Referring Physician Referring Physician: Dr Osborne/ Dr Crook Identification/Chief Complaint Chief Complaint "heart was not right" Hypoglycemia per ER note Problems: Source Source: Chart review, Patient History of Present Illness Reason for Visit: as dictated Past Medical History Cardiovascular: HTN CENTRAL NERVOUS SYSTEM: Dementia Renal/: Chronic renal insuff Endocrine: Diabetes Past Surgical History Past Surgical History: Appendectomy, Tonsillectomy Family History Family History: Family History Unknown Social History No ALCOHOL: none Drugs: None Lives: with Family Current Problem List Problem List Problems Medical Problems: (1) Hypoglycemia Status: Acute (2) IDDM (insulin dependent diabetes mellitus) Status: Acute Current Medications Current Medications Current Medications Dextrose (Dextrose 50%-Water Syringe) 25 gm 1X ONCE IV Last administered on 08:18; Start 06/30/17 at 08:45; Stop 06/30/17 at 08:46; Status DC Dextrose (Dextrose 50%-Water Syringe) 25 gm STK-MED ONCE IV ; Start 06/30/17 at 08:11; Stop 06/30/17 at 08:12; Status DC Dextrose/Sodium Chloride 1,000 ml @ 100 mls/hr 1X ONCE IV Last administered on 06/30/17 08:19; Start 06/30/17 at 08:15; Stop 06/30/17 at 18:14; Status DC Ondansetron HCl (Zofran) 4 mg PRN Q8HRS PRN IV NAUSEA/VOMITING; Start at 09:30; Stop 07/01/17 at 09:29; Status DC Pneumococcal Polyvalent Vaccine (Do NOT chart on this placeholder) 1 each PRN 1X PRN MC SEE COMMENTS; Start 06/30/17 at 17:00; Status UNV Info (Do NOT chart on this placeholder) 1 each PRN 1X PRN MC SEE COMMENTS; Start 06/30/17 at 17:00; Status UNV Pneumococcal Polyvalent Vaccine (Pneumovax 23) 0.5 ml ONCE ONCE VAX IM Last administered on 06/30/17 18:02; Start 06/30/17 at 18:00; Stop 06/30/17 at 18 :01; Status DC Influenza Virus Vaccine Quadrival (Fluarix Quad [id number] Syringe) 0.5 ml ONCE ONCE VAX IM Last administered on 06/30/17 18:01; Start 06/30/17 at 17:15; Stop 06/30/17 at 17:16; Status DC Apixaban (Eliquis) 2.5 mg BID PO Last administered on 07/01/17 08:21; Start 06/30/17 at 21:00 Famotidine (Pepcid) 20 mg HS PO Last administered on 06/30/17 20:39; Start 06/30/17 at 21:00 Ferrous Sulfate (Feosol) 325 mg DAILY08 PO Last administered on 07/01/17 08: 17; Start 07/01/17 at 08:00 Hydrochlorothiazide (Microzide) 12.5 mg DAILY PO Last administered on 08:17; Start 07/01/17 at 09:00 Isosorbide Mononitrate (Imdur) 30 mg DAILY PO Last administered on 07/01/17 08:18; Start 07/01/17 at 09:00 Levothyroxine Sodium (Synthroid) 50 mcg DAILY07 PO Last administered on 06:05; Start 07/01/17 at 07:00 Metformin HCl (Glucophage) 1,000 mg BID PO ; Start 06/30/17 at 21:00; Status UNV Montelukast Sodium (Singulair) 10 mg QEVNG PO ; Start 07/01/17 at 18:00 Potassium Chloride (Klor-Con) 20 meq BIDWMEALS PO Last administered on 08:18; Start 07/01/17 at 08:00 Simvastatin (Zocor) 40 mg QHS PO Last administered on 06/30/17 20:39; Start 06/30/17 at 21:00 Budesonide (Pulmicort) 0.5 mg RTBID NEB Last administered on 07/01/17 07:20; Start 06/30/17 at 20:00 Pantoprazole Sodium (Protonix) 40 mg DAILYAC PO Last administered on 08:16; Start 06/30/17 at 07:30 Linagliptin (Tradjenta) 5 mg DAILY PO Last administered on 07/01/17 08:17; Start 07/01/17 at 09:00 Verapamil HCl (Calan Sr) 120 mg DAILY PO Last administered on 07/01/17 08:17 ; Start 07/01/17 at 09:00 Insulin Detemir (Levemir) 8 units QHS SQ Last administered on 06/30/17 21:08 ; Start 06/30/17 at 21:00 Insulin Aspart (NovoLOG) 10 units TIDAC SQ Last administered on 07/01/17 12: 33; Start 07/01/17 at 07:30 Active Scripts Active Reported Isosorbide Mononitrate Er (Isosorbide Mononitrate) 30 Mg Tab.er.24h 30 Mg PO DAILY Hydrochlorothiazide Capsule (Hydrochlorothiazide) 12.5 Mg Capsule 12.5 Mg PO DAILY Qvar 40MCG Inhaler (Beclomethasone Dipropionate) 8.7 Gm Aer.w.adap 1 Puff IH BID Levothyroxine Sodium 50 Mcg Tablet 1 Tab PO DAILY Eliquis (Apixaban) 2.5 Mg Tablet 2.5 Mg PO BID Verapamil Er (Verapamil Hcl) 120 Mg Cap24h.pel 120 Mg PO DAILY Nexium Capsule (Esomeprazole Magnesium) 40 Mg Capsule.dr 1 Cap PO DAILY Montelukast Sodium Tablet (Montelukast Sodium) 10 Mg Tablet 10 Mg PO QEVNG Pepcid (Famotidine) 20 Mg Tablet 20 Mg PO HS Potassium Chloride 20 Meq Tab.er.prt 1 Tab PO BID Lortab 7.5-500 Tablet (Hydrocodone Bit/Acetaminophen) 1 Each Tablet 1 Each PO PRN Q4HRS Ferrous Sulfate 325 Mg Tablet 325 Mg PO DAILY Simvastatin 40 Mg Tablet 40 Mg PO QHS Novolog Flexpen (Insulin Aspart) 100 Unit/1 Ml Insuln.pen 15 Unit SQ BIDAC Levemir Flexpen (Insulin Detemir) 100 Unit/1 Ml Insuln.pen 15 Unit SQ QHS Metformin Hcl 1,000 Mg Tablet 1,000 Mg PO BID Januvia (Sitagliptin Phosphate) 100 Mg Tablet 100 Mg PO DAILY Allergies Allergies: Coded Allergies: No Known Drug Allergies (Unverified , 08/16/13) ROS Review of System Unable to reliably obtain for pt x as in HPI. He is [place] [employer] and ? may be due to underlying dementia. too Physical Exam Physical Exam General Appearance: Awake Alert Oriented x 0 In no Distress Eyes: VIsion Unchanged Conjunctiva Normal EN: No EN Drainage Mucous Memb. moist Neck: no JVD no JVP Supple no Thyromegaly CVS: S1 S2 no Murmur No Gallop No Rub no Edema Resp: few LLL Rales no Rhonchi no Acc. Muscle use GI: BS +ve NO Bruit Non Tender Non Distended : no CVA tenderness; no Suprapubic Tenderness SKIN: no Rashes Breast Exam deferred Mu.Sk: Adequate ROM min Muscle Atrophy Heme: Unable to palpate Obvious LAD no Splenomegaly NEURO: Good Strength and Tone no asterixis, underlying dementia Psych: ? Depressed no Active hallucination Vital Signs Vital Signs Date Time Temp Pulse Resp B/P (MAP) Pulse Ox O2 Delivery O2 Flow Rate FiO2 07/01/17 10:36 98.3 101 20 115/70 (85) 96 Room Air 98.3 Assessment & Plan CKD III/ IV - DM/ HTnsive / NS: Current FLuid and E-lyte status does not necessitate emergent need for Dialysis. Will re-evaluate for Dialysis in am, check renal US and 24-hr Urine collection HypoAlbuminemia - chek UA and U Pr/ cr ratio for losses. check PreAlb HTN: Current BP meds reviewed. See orders for changes. Renal Cyst - redo US to eval stability Hypo[place] OA - now resolved Labs Labs Laboratory Tests Test 06/30/17 07:40 06/30/17 08:07 06/30/17 08:28 06/30/17 09:19 White Blood Count 13.8 x10^3/uL (4.0-11.0) Red Blood Count 5.67 x10^6/uL (4.30-5.70) Hemoglobin 14.1 g/dL (13.0-17.5) Hematocrit 45.0 % (39.0-53.0) Mean Corpuscular Volume 79 fL (79-100) Mean Corpuscular Hemoglobin 25 pg (25-35) Mean Corpuscular Hemoglobin Concent 31 g/dL (31-37) Red Cell Distribution Width 16.3 % (11.5-14.5) Platelet Count 235 x10^3/uL (140-400) Neutrophils (%) (Auto) 85 % (31-73) Lymphocytes (%) (Auto) 6 % (24-48) Monocytes (%) (Auto) 8 % (0-9) Eosinophils (%) (Auto) 0 % (0-3) Basophils (%) (Auto) 1 % (0-3) Neutrophils # (Auto) 11.8 x10^3uL (1.8-7.7) Lymphocytes # (Auto) 0.8 x10^3/uL (1.0-4.8) Monocytes # (Auto) 1.1 x10^3/uL (0.0-1.1) Eosinophils # (Auto) 0.0 x10^3/uL (0.0-0.7) Basophils # (Auto) 0.1 x10^3/uL (0.0-0.2) Segmented Neutrophils % 80 % (35-66) Lymphocytes % 9 % (24-48) Monocytes % 9 % (0-10) Eosinophils % 2 % (0-5) Platelet Estimate Adequate (ADEQUATE) Prothrombin Time 13.7 SEC (11.7-14.0) Prothromb Time International Ratio 1.1 (0.8-1.1) Sodium Level 141 mmol/L (136-145) Potassium Level 3.2 mmol/L (3.5-5.1) Chloride Level 99 mmol/L (98-107) Carbon Dioxide Level 31 mmol/L (21-32) Anion Gap 11 (6-14) Blood Urea Nitrogen 39 mg/dL (8-26) Creatinine 2.5 mg/dL (0.7-1.3) Estimated GFR (Cockcroft-Gault) 25.0 Glucose Level 69 mg/dL (70-99) Calcium Level 9.4 mg/dL (8.5-10.1) Magnesium Level 1.9 mg/dL (1.8-2.4) Total Bilirubin 0.9 mg/dL (0.2-1.0) Direct Bilirubin 0.3 mg/dL (0.0-0.2) Aspartate Amino Transf (AST/SGOT) 30 U/L (15-37) Alanine Aminotransferase (ALT/SGPT) 23 U/L (16-63) Alkaline Phosphatase 113 U/L (46-116) Creatine Kinase 315 U/L (39-308) Creatine Kinase MB (Mass) 2.4 ng/mL (0.0-3.6) Creatine Kinase MB Relative Index 0.8 % (0-4) Troponin I Quantitative < 0.017 ng/mL (0.000-0.055) GZ-[id number]-Type Natriuretic Peptide 3965 pg/mL (0-449) Total Protein 8.0 g/dL (6.4-8.2) Albumin 3.8 g/dL (3.4-5.0) Lipase 87 U/L (73-393) Thyroid Stimulating Hormone (TSH) 3.603 uIU/mL (0.358-3.74) Glucose (Fingerstick) 48 mg/dL (70-99) 117 mg/dL (70-99) 131 mg/dL (70-99) Test 06/30/17 10:32 06/30/17 15:35 06/30/17 16:15 06/30/17 20:50 Glucose (Fingerstick) 136 mg/dL (70-99) 280 mg/dL (70-99) 272 mg/dL (70-99) Troponin I Quantitative 0.021 ng/mL (0.000-0.055) Test 06/30/17 22:30 07/01/17 03:00 07/01/17 07:15 07/01/17 10:58 Troponin I Quantitative 0.021 ng/mL (0.000-0.055) White Blood Count 7.5 x10^3/uL (4.0-11.0) Red Blood Count 5.20 x10^6/uL (4.30-5.70) Hemoglobin 12.9 g/dL (13.0-17.5) Hematocrit 41.0 % (39.0-53.0) Mean Corpuscular Volume 79 fL (79-100) Mean Corpuscular Hemoglobin 25 pg (25-35) Mean Corpuscular Hemoglobin Concent 32 g/dL (31-37) Red Cell Distribution Width 16.3 % (11.5-14.5) Platelet Count 186 x10^3/uL (140-400) Neutrophils (%) (Auto) 65 % (31-73) Lymphocytes (%) (Auto) 21 % (24-48) Monocytes (%) (Auto) 12 % (0-9) Eosinophils (%) (Auto) 1 % (0-3) Basophils (%) (Auto) 1 % (0-3) Neutrophils # (Auto) 4.9 x10^3uL (1.8-7.7) Lymphocytes # (Auto) 1.6 x10^3/uL (1.0-4.8) Monocytes # (Auto) 0.9 x10^3/uL (0.0-1.1) Eosinophils # (Auto) 0.1 x10^3/uL (0.0-0.7) Basophils # (Auto) 0.0 x10^3/uL (0.0-0.2) Sodium Level 139 mmol/L (136-145) Potassium Level 3.5 mmol/L (3.5-5.1) Chloride Level 100 mmol/L (98-107) Carbon Dioxide Level 30 mmol/L (21-32) Anion Gap 9 (6-14) Blood Urea Nitrogen 36 mg/dL (8-26) Creatinine 2.1 mg/dL (0.7-1.3) Estimated GFR (Cockcroft-Gault) 30.5 BUN/Creatinine Ratio 17 (6-20) Glucose Level 249 mg/dL (70-99) Hemoglobin A1c 6.9 % (4.8-5.6) Calcium Level 8.9 mg/dL (8.5-10.1) Total Bilirubin 0.7 mg/dL (0.2-1.0) Aspartate Amino Transf (AST/SGOT) 21 U/L (15-37) Alanine Aminotransferase (ALT/SGPT) 18 U/L (16-63) Alkaline Phosphatase 94 U/L (46-116) Total Protein 6.7 g/dL (6.4-8.2) Albumin 3.1 g/dL (3.4-5.0) Albumin/Globulin Ratio 0.9 (1.0-1.7) Glucose (Fingerstick) 178 mg/dL (70-99) 167 mg/dL (70-99) Laboratory Tests Test 06/30/17 15:35 06/30/17 16:15 06/30/17 20:50 06/30/17 22:30 Troponin I Quantitative 0.021 ng/mL (0.000-0.055) 0.021 ng/mL (0.000-0.055) Glucose (Fingerstick) 280 mg/dL (70-99) 272 mg/dL (70-99) Test 07/01/17 03:00 07/01/17 07:15 07/01/17 10:58 White Blood Count 7.5 x10^3/uL (4.0-11.0) Red Blood Count 5.20 x10^6/uL (4.30-5.70) Hemoglobin 12.9 g/dL (13.0-17.5) Hematocrit 41.0 % (39.0-53.0) Mean Corpuscular Volume 79 fL (79-100) Mean Corpuscular Hemoglobin 25 pg (25-35) Mean Corpuscular Hemoglobin Concent 32 g/dL (31-37) Red Cell Distribution Width 16.3 % (11.5-14.5) Platelet Count 186 x10^3/uL (140-400) Neutrophils (%) (Auto) 65 % (31-73) Lymphocytes (%) (Auto) 21 % (24-48) Monocytes (%) (Auto) 12 % (0-9) Eosinophils (%) (Auto) 1 % (0-3) Basophils (%) (Auto) 1 % (0-3) Neutrophils # (Auto) 4.9 x10^3uL (1.8-7.7) Lymphocytes # (Auto) 1.6 x10^3/uL (1.0-4.8) Monocytes # (Auto) 0.9 x10^3/uL (0.0-1.1) Eosinophils # (Auto) 0.1 x10^3/uL (0.0-0.7) Basophils # (Auto) 0.0 x10^3/uL (0.0-0.2) Sodium Level 139 mmol/L (136-145) Potassium Level 3.5 mmol/L (3.5-5.1) Chloride Level 100 mmol/L (98-107) Carbon Dioxide Level 30 mmol/L (21-32) Anion Gap 9 (6-14) Blood Urea Nitrogen 36 mg/dL (8-26) Creatinine 2.1 mg/dL (0.7-1.3) Estimated GFR (Cockcroft-Gault) 30.5 BUN/Creatinine Ratio 17 (6-20) Glucose Level 249 mg/dL (70-99) Hemoglobin A1c 6.9 % (4.8-5.6) Calcium Level 8.9 mg/dL (8.5-10.1) Total Bilirubin 0.7 mg/dL (0.2-1.0) Aspartate Amino Transf (AST/SGOT) 21 U/L (15-37) Alanine Aminotransferase (ALT/SGPT) 18 U/L (16-63) Alkaline Phosphatase 94 U/L (46-116) Total Protein 6.7 g/dL (6.4-8.2) Albumin 3.1 g/dL (3.4-5.0) Albumin/Globulin Ratio 0.9 (1.0-1.7) Glucose (Fingerstick) 178 mg/dL (70-99) 167 mg/dL (70-99) Images Images Renal US: DATE: 04/12/14 1. There is no hydronephrosis of either kidney. 2. There is slightly larger hypoechoic area of the mid left kidney although most likely a cyst. There is separate area of hyperechogenicity of the left kidney, uncertain if due to sequela of scar, echogenic mass less likely consideration. EBONY SIMMONS MD Jul 01, 2017 13:56
[2017-07-01] MEDS ORDERED: MAGNESIUM SULFATE 2GM 50 ML IV PRN (14:00)
[2017-07-01 14:45] VITALS: BP 105/68
--- NOTE | 2017-07-01 16:51 | RAD ---
COMPLETE RENAL ULTRASOUND Indication: Chronic kidney disease. Comparison: None. Procedure: Transabdominal ultrasound images are obtained of the kidneys and bladder. Findings: The kidneys demonstrate normal morphology and echotexture. There is no hydronephrosis. The right kidney measures 11.2 cm. The left kidney measures 11.4 cm. There is an exophytic cyst of the interpolar left kidney measuring up to 2.8 cm. Bilateral ureteral jets are identified. No urinary bladder wall thickening is identified. Abdominal aorta and IVC are not visualized. IMPRESSION: 1. No hydronephrosis. 2. Exophytic cyst of the left kidney.
[2017-07-01] MEDS: MONTELUKAST SODIUM 10 MG TABLET. PO SCH (18:00)
[2017-07-01 19:00] VITALS: BP 109/59
[2017-07-01] MEDS: FAMOTIDINE 20 MG TABLET. PO SCH (20:29)
[2017-07-01] MEDS: SIMVASTATIN 40 MG TABLET. PO SCH (20:30)
[2017-07-01] MEDS: INSULIN DETEMIR 300 UNITS/3 ML INSULN.PEN. SQ SCH (21:16)
[2017-07-01 23:00] VITALS: BP 105/59
--- NOTE | 2017-07-02 02:14 | CONS ---
DATE OF CONSULTATION: PRIMARY PHYSICIAN: Dr. Osborne. REASON FOR CONSULTATION: Chronic renal insufficiency. HISTORY OF PRESENT ILLNESS: The patient is a pleasant 81-year-old gentleman who does not appear to know who his underlying customer service coordinator is or how long he has been diabetic. I have reviewed his records in our system and it appears that he is known to have renal insufficiency going back at least 5 years. Baseline creatinine runs about 1.6-2.0. He has been as high as 2.7-2.8 in the past also. On asking him, he tells me that he had a problem with his heart and that is why he came to the hospital; however, the ER note reports that the patient was hypoglycemic. He did have some nausea, vomiting right around the time of his breakfast. Sugars were noted to be in the 40s per EMS and he was given dextrose. He does appear to be a poor historian. He does have a history of underlying dementia. REVIEW OF SYSTEMS: Not reliably obtainable. He is unable to tell me if he has taken NSAIDs or has any urinary difficulty per se. He is not able to tell me if he sees a customer service coordinator per se. PAST MEDICAL HISTORY: Also positive for history of cataract extractions, tonsillectomy, hard of hearing, congestive heart failure with EF of 50% on most recent echo about a year and a half ago, history of atrial fibrillation, asthma, emphysema, chronic arthritis, longstanding diabetes, hypothyroidism, off and on anemia, currently appears to be good. He is unable to provide me much in terms of family history. Given his advanced age, this may not be very relevant either. For the rest of the details, see electronic records. EBONY SIMMONS MD DR: GAETANO/christelle JOB#: [id number] / [id number]
[2017-07-02 03:00] VITALS: BP 126/69
[2017-07-02 05:23] LABS: BASO # 0.1 x10^3/uL (0.0-0.2); BASO % 1 % (0-3); EOS % 1 % (0-3); HEMATOCRIT 42.1 % (39.0-53.0); HEMOGLOBIN 13.5 g/dL (13.0-17.5); LYMPH # 2.3 x10^3/uL (1.0-4.8); LYMPH % 23 % (24-48); MEAN CORPUSCULAR HEMOGLOBIN 25 pg (25-35); MEAN CORPUSCULAR HGB CONC 32 g/dL (31-37); MEAN CORPUSCULAR VOLUME 79 fL (79-100); MONO % 10 % (0-9); NEUT % 65 % (31-73); PLATELET COUNT 200 x10^3/uL (140-400); RED BLOOD COUNT 5.34 x10^6/uL (4.30-5.70); RED CELL DISTRIBUTION WIDTH 16.5 % (11.5-14.5); WHITE BLOOD COUNT 9.8 x10^3/uL (4.0-11.0)
[2017-07-02 05:40] LABS: ALBUMIN 2.9 g/dL (3.4-5.0); CREATININE 1.9 mg/dL (0.7-1.3); GFR 34.3; PHOSPHORUS 2.9 mg/dL (2.6-4.7); POTASSIUM 3.6 mmol/L (3.5-5.1)
[2017-07-02] MEDS: LEVOTHYROXINE 50 MCG TABLET PO SCH (05:56)
[2017-07-02 07:00] VITALS: BP 147/57
[2017-07-02] MEDS: BUDESONIDE 0.5 MG/2 ML NEBU. NEB SCH ×2 (07:28→18:09)
[2017-07-02] MEDS: PANTOPRAZOLE 40 MG TABLET.DR. PO SCH (09:07)
[2017-07-02] MEDS: FERROUS SULFATE 325 MG TABLET. PO SCH (09:07)
[2017-07-02] MEDS: APIXABAN 2.5 MG TABLET. PO SCH ×2 (09:08→20:46)
[2017-07-02] MEDS: POTASSIUM CHLORIDE 20 MEQ TABLET.ER. PO SCH ×2 (09:08→17:53)
[2017-07-02] MEDS: VERAPAMIL SR 120 MG TABLET.ER. PO SCH (09:08)
[2017-07-02] MEDS: ISOSORBIDE MONONITRATE ER 30 MG TAB.ER.24H PO SCH (09:09)
[2017-07-02] MEDS: hydroCHLOROthiazide 12.5 MG CAPSULE PO SCH (09:09)
[2017-07-02] MEDS: LINAGLIPTIN 5 MG TABLET PO SCH (09:09)
[2017-07-02] MEDS: INSULIN ASPART 300 UNITS/3 ML INSULN.PEN SQ SCH ×3 (09:14→17:58)
--- NOTE | 2017-07-02 10:12 | PDOC ---
PROGRESS NOTES Chief Complaint Chief Complaint AMS ASSESSMENT AND PLAN: 1. Hypoglycemia: resolved 2. Acute encephalopathy: metabolic, resolved. 3. DM2: insulin dependent. metformin d/c.ed (CKD4). levemir dose adjusted. cont ISS 4. CKD 3- 4: stable creat 5. Hypokalemai: resolved. monitor 6. N/V: ?viral enteritis; improving 7. dementia 8. Weakness and debility: OT/PT eval, SNF History of Present Illness History of Present Illness HArd of Hearing CLaims SOA when laying down in bed so he prefers the chair FUrther hx very scant in this poor historian No leg edema I dont see nay midsternal scars PLAN: Check echo He did not participate with PT over weekend, hopefully today he will WIll definitely need SNU Vitals Vitals Vital Signs Date Time Temp Pulse Resp B/P (MAP) Pulse Ox O2 Delivery O2 Flow Rate FiO2 07/02/17 09:09 94 147/57 07/02/17 07:29 90 Room Air 07/02/17 07:00 97.9 20 97.9 Physical Exam General: Alert, Cooperative, No acute distress, Other (poorly oriented) Heart: Regular rate Lungs: Clear, Other Abdomen: Normal bowel sounds, Soft, No tenderness Extremities: No edema Skin: No rashes Labs LABS Laboratory Tests Test 07/01/17 10:58 07/01/17 16:33 07/01/17 20:57 07/02/17 04:15 Glucose (Fingerstick) 167 mg/dL (70-99) 106 mg/dL (70-99) 176 mg/dL (70-99) White Blood Count 9.8 x10^3/uL (4.0-11.0) Red Blood Count 5.34 x10^6/uL (4.30-5.70) Hemoglobin 13.5 g/dL (13.0-17.5) Hematocrit 42.1 % (39.0-53.0) Mean Corpuscular Volume 79 fL (79-100) Mean Corpuscular Hemoglobin 25 pg (25-35) Mean Corpuscular Hemoglobin Concent 32 g/dL (31-37) Red Cell Distribution Width 16.5 % (11.5-14.5) Platelet Count 200 x10^3/uL (140-400) Neutrophils (%) (Auto) 65 % (31-73) Lymphocytes (%) (Auto) 23 % (24-48) Monocytes (%) (Auto) 10 % (0-9) Eosinophils (%) (Auto) 1 % (0-3) Basophils (%) (Auto) 1 % (0-3) Neutrophils # (Auto) 6.3 x10^3uL (1.8-7.7) Lymphocytes # (Auto) 2.3 x10^3/uL (1.0-4.8) Monocytes # (Auto) 1.0 x10^3/uL (0.0-1.1) Eosinophils # (Auto) 0.1 x10^3/uL (0.0-0.7) Basophils # (Auto) 0.1 x10^3/uL (0.0-0.2) Sodium Level 141 mmol/L (136-145) Potassium Level 3.6 mmol/L (3.5-5.1) Chloride Level 105 mmol/L (98-107) Carbon Dioxide Level 26 mmol/L (21-32) Anion Gap 10 (6-14) Blood Urea Nitrogen 33 mg/dL (8-26) Creatinine 1.9 mg/dL (0.7-1.3) Estimated GFR (Cockcroft-Gault) 34.3 Glucose Level 155 mg/dL (70-99) Calcium Level 9.0 mg/dL (8.5-10.1) Phosphorus Level 2.9 mg/dL (2.6-4.7) Magnesium Level 2.0 mg/dL (1.8-2.4) Albumin 2.9 g/dL (3.4-5.0) Review of Systems Review of Systems hard of hearing, SOA on supine, no CP abd ,pain or leg edema Assessment and Plan Assessmemt and Plan Problems Medical Problems: (1) Hypoglycemia Status: Acute (2) IDDM (insulin dependent diabetes mellitus) Status: Acute Problems: Comment Review of Relevant I have reviewed the following items jack (where applicable) has been applied. Labs Laboratory Tests Test 06/30/17 10:32 06/30/17 15:35 06/30/17 16:15 06/30/17 20:50 Glucose (Fingerstick) 136 mg/dL (70-99) 280 mg/dL (70-99) 272 mg/dL (70-99) Troponin I Quantitative 0.021 ng/mL (0.000-0.055) Test 06/30/17 22:30 07/01/17 03:00 07/01/17 07:15 07/01/17 10:58 Troponin I Quantitative 0.021 ng/mL (0.000-0.055) White Blood Count 7.5 x10^3/uL (4.0-11.0) Red Blood Count 5.20 x10^6/uL (4.30-5.70) Hemoglobin 12.9 g/dL (13.0-17.5) Hematocrit 41.0 % (39.0-53.0) Mean Corpuscular Volume 79 fL (79-100) Mean Corpuscular Hemoglobin 25 pg (25-35) Mean Corpuscular Hemoglobin Concent 32 g/dL (31-37) Red Cell Distribution Width 16.3 % (11.5-14.5) Platelet Count 186 x10^3/uL (140-400) Neutrophils (%) (Auto) 65 % (31-73) Lymphocytes (%) (Auto) 21 % (24-48) Monocytes (%) (Auto) 12 % (0-9) Eosinophils (%) (Auto) 1 % (0-3) Basophils (%) (Auto) 1 % (0-3) Neutrophils # (Auto) 4.9 x10^3uL (1.8-7.7) Lymphocytes # (Auto) 1.6 x10^3/uL (1.0-4.8) Monocytes # (Auto) 0.9 x10^3/uL (0.0-1.1) Eosinophils # (Auto) 0.1 x10^3/uL (0.0-0.7) Basophils # (Auto) 0.0 x10^3/uL (0.0-0.2) Sodium Level 139 mmol/L (136-145) Potassium Level 3.5 mmol/L (3.5-5.1) Chloride Level 100 mmol/L (98-107) Carbon Dioxide Level 30 mmol/L (21-32) Anion Gap 9 (6-14) Blood Urea Nitrogen 36 mg/dL (8-26) Creatinine 2.1 mg/dL (0.7-1.3) Estimated GFR (Cockcroft-Gault) 30.5 BUN/Creatinine Ratio 17 (6-20) Glucose Level 249 mg/dL (70-99) Hemoglobin A1c 6.9 % (4.8-5.6) Calcium Level 8.9 mg/dL (8.5-10.1) Total Bilirubin 0.7 mg/dL (0.2-1.0) Aspartate Amino Transf (AST/SGOT) 21 U/L (15-37) Alanine Aminotransferase (ALT/SGPT) 18 U/L (16-63) Alkaline Phosphatase 94 U/L (46-116) Total Protein 6.7 g/dL (6.4-8.2) Albumin 3.1 g/dL (3.4-5.0) Albumin/Globulin Ratio 0.9 (1.0-1.7) Prealbumin 18.0 mg/dL (16.0-42.0) Glucose (Fingerstick) 178 mg/dL (70-99) 167 mg/dL (70-99) Test 07/01/17 16:33 07/01/17 20:57 07/02/17 04:15 Glucose (Fingerstick) 106 mg/dL (70-99) 176 mg/dL (70-99) White Blood Count 9.8 x10^3/uL (4.0-11.0) Red Blood Count 5.34 x10^6/uL (4.30-5.70) Hemoglobin 13.5 g/dL (13.0-17.5) Hematocrit 42.1 % (39.0-53.0) Mean Corpuscular Volume 79 fL (79-100) Mean Corpuscular Hemoglobin 25 pg (25-35) Mean Corpuscular Hemoglobin Concent 32 g/dL (31-37) Red Cell Distribution Width 16.5 % (11.5-14.5) Platelet Count 200 x10^3/uL (140-400) Neutrophils (%) (Auto) 65 % (31-73) Lymphocytes (%) (Auto) 23 % (24-48) Monocytes (%) (Auto) 10 % (0-9) Eosinophils (%) (Auto) 1 % (0-3) Basophils (%) (Auto) 1 % (0-3) Neutrophils # (Auto) 6.3 x10^3uL (1.8-7.7) Lymphocytes # (Auto) 2.3 x10^3/uL (1.0-4.8) Monocytes # (Auto) 1.0 x10^3/uL (0.0-1.1) Eosinophils # (Auto) 0.1 x10^3/uL (0.0-0.7) Basophils # (Auto) 0.1 x10^3/uL (0.0-0.2) Sodium Level 141 mmol/L (136-145) Potassium Level 3.6 mmol/L (3.5-5.1) Chloride Level 105 mmol/L (98-107) Carbon Dioxide Level 26 mmol/L (21-32) Anion Gap 10 (6-14) Blood Urea Nitrogen 33 mg/dL (8-26) Creatinine 1.9 mg/dL (0.7-1.3) Estimated GFR (Cockcroft-Gault) 34.3 Glucose Level 155 mg/dL (70-99) Calcium Level 9.0 mg/dL (8.5-10.1) Phosphorus Level 2.9 mg/dL (2.6-4.7) Magnesium Level 2.0 mg/dL (1.8-2.4) Albumin 2.9 g/dL (3.4-5.0) Laboratory Tests Test 07/01/17 10:58 07/01/17 16:33 07/01/17 20:57 07/02/17 04:15 Glucose (Fingerstick) 167 mg/dL (70-99) 106 mg/dL (70-99) 176 mg/dL (70-99) White Blood Count 9.8 x10^3/uL (4.0-11.0) Red Blood Count 5.34 x10^6/uL (4.30-5.70) Hemoglobin 13.5 g/dL (13.0-17.5) Hematocrit 42.1 % (39.0-53.0) Mean Corpuscular Volume 79 fL (79-100) Mean Corpuscular Hemoglobin 25 pg (25-35) Mean Corpuscular Hemoglobin Concent 32 g/dL (31-37) Red Cell Distribution Width 16.5 % (11.5-14.5) Platelet Count 200 x10^3/uL (140-400) Neutrophils (%) (Auto) 65 % (31-73) Lymphocytes (%) (Auto) 23 % (24-48) Monocytes (%) (Auto) 10 % (0-9) Eosinophils (%) (Auto) 1 % (0-3) Basophils (%) (Auto) 1 % (0-3) Neutrophils # (Auto) 6.3 x10^3uL (1.8-7.7) Lymphocytes # (Auto) 2.3 x10^3/uL (1.0-4.8) Monocytes # (Auto) 1.0 x10^3/uL (0.0-1.1) Eosinophils # (Auto) 0.1 x10^3/uL (0.0-0.7) Basophils # (Auto) 0.1 x10^3/uL (0.0-0.2) Sodium Level 141 mmol/L (136-145) Potassium Level 3.6 mmol/L (3.5-5.1) Chloride Level 105 mmol/L (98-107) Carbon Dioxide Level 26 mmol/L (21-32) Anion Gap 10 (6-14) Blood Urea Nitrogen 33 mg/dL (8-26) Creatinine 1.9 mg/dL (0.7-1.3) Estimated GFR (Cockcroft-Gault) 34.3 Glucose Level 155 mg/dL (70-99) Calcium Level 9.0 mg/dL (8.5-10.1) Phosphorus Level 2.9 mg/dL (2.6-4.7) Magnesium Level 2.0 mg/dL (1.8-2.4) Albumin 2.9 g/dL (3.4-5.0) Medications Current Medications Dextrose (Dextrose 50%-Water Syringe) 25 gm 1X ONCE IV Last administered on 08:18; Start 06/30/17 at 08:45; Stop 06/30/17 at 08:46; Status DC Dextrose (Dextrose 50%-Water Syringe) 25 gm STK-MED ONCE IV ; Start 06/30/17 at 08:11; Stop 06/30/17 at 08:12; Status DC Dextrose/Sodium Chloride 1,000 ml @ 100 mls/hr 1X ONCE IV Last administered on 06/30/17 08:19; Start 06/30/17 at 08:15; Stop 06/30/17 at 18:14; Status DC Ondansetron HCl (Zofran) 4 mg PRN Q8HRS PRN IV NAUSEA/VOMITING; Start at 09:30; Stop 07/01/17 at 09:29; Status DC Pneumococcal Polyvalent Vaccine (Do NOT chart on this placeholder) 1 each PRN 1X PRN MC SEE COMMENTS; Start 06/30/17 at 17:00; Status UNV Info (Do NOT chart on this placeholder) 1 each PRN 1X PRN MC SEE COMMENTS; Start 06/30/17 at 17:00; Status UNV Pneumococcal Polyvalent Vaccine (Pneumovax 23) 0.5 ml ONCE ONCE VAX IM Last administered on 06/30/17 18:02; Start 06/30/17 at 18:00; Stop 06/30/17 at 18 :01; Status DC Influenza Virus Vaccine Quadrival (Fluarix Quad [id number] Syringe) 0.5 ml ONCE ONCE VAX IM Last administered on 06/30/17 18:01; Start 06/30/17 at 17:15; Stop 06/30/17 at 17:16; Status DC Apixaban (Eliquis) 2.5 mg BID PO Last administered on 07/02/17 09:08; Start 06/30/17 at 21:00 Famotidine (Pepcid) 20 mg HS PO Last administered on 07/01/17 20:29; Start 06/30/17 at 21:00 Ferrous Sulfate (Feosol) 325 mg DAILY08 PO Last administered on 07/02/17 09: 07; Start 07/01/17 at 08:00 Hydrochlorothiazide (Microzide) 12.5 mg DAILY PO Last administered on 09:09; Start 07/01/17 at 09:00 Isosorbide Mononitrate (Imdur) 30 mg DAILY PO Last administered on 07/02/17 09:09; Start 07/01/17 at 09:00 Levothyroxine Sodium (Synthroid) 50 mcg DAILY07 PO Last administered on 05:56; Start 07/01/17 at 07:00 Metformin HCl (Glucophage) 1,000 mg BID PO ; Start 06/30/17 at 21:00; Status UNV Montelukast Sodium (Singulair) 10 mg QEVNG PO ; Start 07/01/17 at 18:00 Potassium Chloride (Klor-Con) 20 meq BIDWMEALS PO Last administered on 09:08; Start 07/01/17 at 08:00 Simvastatin (Zocor) 40 mg QHS PO Last administered on 07/01/17 20:30; Start 06/30/17 at 21:00 Budesonide (Pulmicort) 0.5 mg RTBID NEB Last administered on 07/02/17 07:28; Start 06/30/17 at 20:00 Pantoprazole Sodium (Protonix) 40 mg DAILYAC PO Last administered on 09:07; Start 06/30/17 at 07:30 Linagliptin (Tradjenta) 5 mg DAILY PO Last administered on 07/02/17 09:09; Start 07/01/17 at 09:00 Verapamil HCl (Calan Sr) 120 mg DAILY PO Last administered on 07/02/17 09:08 ; Start 07/01/17 at 09:00 Insulin Detemir (Levemir) 8 units QHS SQ Last administered on 07/01/17 21:16 ; Start 06/30/17 at 21:00 Insulin Aspart (NovoLOG) 10 units TIDAC SQ Last administered on 07/02/17 09: 14; Start 07/01/17 at 07:30 Magnesium Sulfate/ Dextrose 50 ml @ 25 mls/hr PRN DAILY PRN IV for Mag < 1.7 on am labs; Start 07/01/17 at 14:00 Active Scripts Active Reported Isosorbide Mononitrate Er (Isosorbide Mononitrate) 30 Mg Tab.er.24h 30 Mg PO DAILY Hydrochlorothiazide Capsule (Hydrochlorothiazide) 12.5 Mg Capsule 12.5 Mg PO DAILY Qvar 40MCG Inhaler (Beclomethasone Dipropionate) 8.7 Gm Aer.w.adap 1 Puff IH BID Levothyroxine Sodium 50 Mcg Tablet 1 Tab PO DAILY Eliquis (Apixaban) 2.5 Mg Tablet 2.5 Mg PO BID Verapamil Er (Verapamil Hcl) 120 Mg Cap24h.pel 120 Mg PO DAILY Nexium Capsule (Esomeprazole Magnesium) 40 Mg Capsule.dr 1 Cap PO DAILY Montelukast Sodium Tablet (Montelukast Sodium) 10 Mg Tablet 10 Mg PO QEVNG Pepcid (Famotidine) 20 Mg Tablet 20 Mg PO HS Potassium Chloride 20 Meq Tab.er.prt 1 Tab PO BID Lortab 7.5-500 Tablet (Hydrocodone Bit/Acetaminophen) 1 Each Tablet 1 Each PO PRN Q4HRS Ferrous Sulfate 325 Mg Tablet 325 Mg PO DAILY Simvastatin 40 Mg Tablet 40 Mg PO QHS Novolog Flexpen (Insulin Aspart) 100 Unit/1 Ml Insuln.pen 15 Unit SQ BIDAC Levemir Flexpen (Insulin Detemir) 100 Unit/1 Ml Insuln.pen 15 Unit SQ QHS Metformin Hcl 1,000 Mg Tablet 1,000 Mg PO BID Januvia (Sitagliptin Phosphate) 100 Mg Tablet 100 Mg PO DAILY Vitals/I & O Vital Sign - Last 24 Hours 07/01/17 07/01/17 07/01/17 07/01/17 10:36 14:45 19:00 20:44 Temp 98.3 98.2 97.8 98.3 98.2 97.8 Pulse 101 76 83 Resp B/P (MAP) 115/70 (85) 105/68 (80) 109/59 (76) Pulse Ox 96 94 94 O2 Delivery Room Air Room Air Room Air Room Air 07/01/17 07/02/17 07/02/17 07/02/17 23:00 03:00 07:00 07:29 Temp 97.5 97.8 97.9 97.5 97.8 97.9 Pulse 66 83 94 Resp B/P (MAP) 105/59 (74) 126/69 (88) 147/57 (87) Pulse Ox 96 96 96 90 O2 Delivery Room Air Room Air Room Air Room Air 07/02/17 07/02/17 09:08 09:09 Pulse 94 94 B/P (MAP) 147/57 147/57 Intake and Output 07/01/17 07/01/17 07/02/17 15:00 23:00 07:00 Intake Total 360 ml 300 ml Output Total 250 ml Balance 110 ml 300 ml BARBIE MUIR MD Jul 02, 2017 10:12
[2017-07-02 11:00] VITALS: BP 103/56
--- NOTE | 2017-07-02 11:14 | PDOC ---
SUBJECTIVE ROS CVS: [] Orthopnea, [] CP RESP: [] SOB, [] CATHERINE GI: [] Nausea, [] Vomiting : [] Dysuria, [] Urgency OBJECTIVE Vital Signs Vital Signs Date Time Temp Pulse Resp B/P (MAP) Pulse Ox O2 Delivery O2 Flow Rate FiO2 07/02/17 09:09 94 147/57 07/02/17 07:29 90 Room Air 07/02/17 07:00 97.9 20 97.9 I & 0 Intake and Output 07/02/17 07:00 Intake Total 660 ml Output Total 250 ml Balance 410 ml Intake Oral 660 ml Output Urine Total 250 ml # Voids 2 PHYSICAL EXAM Physical Exam General Appearance: Awake Alert Oriented x 0 In no Distress Eyes: VIsion Unchanged Conjunctiva Normal EN: No EN Drainage Mucous Memb. moist Neck: no JVD no JVP Supple no Thyromegaly CVS: S1 S2 no Murmur No Gallop No Rub no Edema Resp: few LLL Rales no Rhonchi no Acc. Muscle use GI: BS +ve NO Bruit Non Tender Non Distended : no CVA tenderness; no Suprapubic Tenderness Assessment & Plan CKD III/ IV - DM/ HTnsive / NS: Current FLuid and E-lyte status does not necessitate emergent need for Dialysis. Will re-evaluate for Dialysis in am, check renal US and 24-hr Urine collection HypoAlbuminemia - chek UA and U Pr/ cr ratio for losses. check PreAlb HTN: Current BP meds reviewed. See orders for changes. Renal Cyst - redo US to eval stability Hypo[place] OA - now resolved DIAGNOSIS/ASSESSMENT Assessment & Plan ESRD/ARF: Current fluid and E-lyte status does not necessitate emergent need for dialysis. Will re-evaluate for dialysis in the am and continue on [] schedule. ANEMIA; [] Aranap as ordered, [] Transfuse [] with next HD as needed HTN: Current BP meds as reviewed. See orders for changes. BONE & MINERAL: [] Discussed Plan of Care with family [] at bedside [] over the phone Problems: COMMENT/RELEVANT DATA Meds Current Medications Medications (Trade) Dose Ordered Sig/Anna Start Time Stop Time Status Last Admin Dose Admin Apixaban (Eliquis) 2.5 mg BID 06/30/17 21:00 11/20/17 09:08 2.5 MG Budesonide (Pulmicort) 0.5 mg RTBID 06/30/17 20:00 07/02/17 07:28 0.5 MG Dextrose (Dextrose 50%-Water Syringe) 25 gm STK-MED ONCE 06/30/17 08:11 06/30/17 08:12 DC Dextrose/Sodium Chloride 1,000 ml @ 100 mls/hr 1X ONCE 06/30/17 08:15 06/30/17 18:14 DC 06/30/17 08:19 100 MLS/HR Famotidine (Pepcid) 20 mg HS 06/30/17 21:00 07/01/17 20:29 20 MG Ferrous Sulfate (Feosol) 325 mg DAILY08 07/01/17 08:00 07/02/17 09:07 325 MG Hydrochlorothiazide (Microzide) 12.5 mg DAILY 07/01/17 09:00 07/02/17 09:09 12.5 MG Influenza Virus Vaccine Quadrival (Fluarix Quad [id number] Syringe) 0.5 ml ONCE ONCE 06/30/17 17:15 06/30/17 17:16 DC 06/30/17 18:01 0.5 ML Info (Do NOT chart on this placeholder) 1 each PRN 1X PRN 06/30/17 17:00 UNV Insulin Aspart (NovoLOG) 10 units TIDAC 07/01/17 07:30 07/02/17 09:14 10 UNITS Insulin Detemir (Levemir) 8 units QHS 06/30/17 21:00 07/01/17 21:16 8 UNITS Isosorbide Mononitrate (Imdur) 30 mg DAILY 07/01/17 09:00 07/02/17 09:09 30 MG Levothyroxine Sodium (Synthroid) 50 mcg DAILY07 07/01/17 07:00 07/02/17 05:56 50 MCG Linagliptin (Tradjenta) 5 mg DAILY 07/01/17 09:00 07/02/17 09:09 5 MG Magnesium Sulfate/ Dextrose 50 ml @ 25 mls/hr PRN DAILY PRN 07/01/17 14:00 Metformin HCl (Glucophage) 1,000 mg BID 06/30/17 21:00 UNV Montelukast Sodium (Singulair) 10 mg QEVNG 07/01/17 18:00 Ondansetron HCl (Zofran) 4 mg PRN Q8HRS PRN 06/30/17 09:30 07/01/17 09:29 DC Pantoprazole Sodium (Protonix) 40 mg DAILYAC 06/30/17 07:30 07/02/17 09:07 40 MG Pneumococcal Polyvalent Vaccine (Do NOT chart on this placeholder) 1 each PRN 1X PRN 06/30/17 17:00 UNV Pneumococcal Polyvalent Vaccine (Pneumovax 23) 0.5 ml ONCE ONCE 06/30/17 18:00 06/30/17 18:01 DC 06/30/17 18:02 0.5 ML Potassium Chloride (Klor-Con) 20 meq BIDWMEALS 07/01/17 08:00 07/02/17 09:08 20 MEQ Simvastatin (Zocor) 40 mg QHS 06/30/17 21:00 07/01/17 20:30 40 MG Verapamil HCl (Calan Sr) 120 mg DAILY 07/01/17 09:00 07/02/17 09:08 120 MG Lab Laboratory Tests Test 07/01/17 16:33 07/01/17 20:57 07/02/17 04:15 Glucose (Fingerstick) 106 mg/dL (70-99) 176 mg/dL (70-99) White Blood Count 9.8 x10^3/uL (4.0-11.0) Red Blood Count 5.34 x10^6/uL (4.30-5.70) Hemoglobin 13.5 g/dL (13.0-17.5) Hematocrit 42.1 % (39.0-53.0) Mean Corpuscular Volume 79 fL (79-100) Mean Corpuscular Hemoglobin 25 pg (25-35) Mean Corpuscular Hemoglobin Concent 32 g/dL (31-37) Red Cell Distribution Width 16.5 % (11.5-14.5) Platelet Count 200 x10^3/uL (140-400) Neutrophils (%) (Auto) 65 % (31-73) Lymphocytes (%) (Auto) 23 % (24-48) Monocytes (%) (Auto) 10 % (0-9) Eosinophils (%) (Auto) 1 % (0-3) Basophils (%) (Auto) 1 % (0-3) Neutrophils # (Auto) 6.3 x10^3uL (1.8-7.7) Lymphocytes # (Auto) 2.3 x10^3/uL (1.0-4.8) Monocytes # (Auto) 1.0 x10^3/uL (0.0-1.1) Eosinophils # (Auto) 0.1 x10^3/uL (0.0-0.7) Basophils # (Auto) 0.1 x10^3/uL (0.0-0.2) Sodium Level 141 mmol/L (136-145) Potassium Level 3.6 mmol/L (3.5-5.1) Chloride Level 105 mmol/L (98-107) Carbon Dioxide Level 26 mmol/L (21-32) Anion Gap 10 (6-14) Blood Urea Nitrogen 33 mg/dL (8-26) Creatinine 1.9 mg/dL (0.7-1.3) Estimated GFR (Cockcroft-Gault) 34.3 Glucose Level 155 mg/dL (70-99) Calcium Level 9.0 mg/dL (8.5-10.1) Phosphorus Level 2.9 mg/dL (2.6-4.7) Magnesium Level 2.0 mg/dL (1.8-2.4) Albumin 2.9 g/dL (3.4-5.0) EBONY SIMMONS MD Jul 02, 2017 11:14
--- NOTE | 2017-07-02 12:09 | CARD ---
APPROVED REPORT EXAM: Two-dimensional and M-mode echocardiogram with Doppler and color Doppler. Other Information Quality : Average INDICATION Arrhythmia LV Function:Systolic 2D DIMENSIONS Left Atrium(2D)4.9 (1.6-4.0cm)IVSd1.2 (0.7-1.1cm) Aortic Root(2D)3.8 (2.0-3.7cm)LVDd5.8 (3.9-5.9cm) LVOT Diameter2.2 (1.8-2.4cm)PWd1.2 (0.7-1.1cm) LVDs4.7 (2.5-4.0cm)FS (%) 19.8 % SV66.9 ml Aortic Valve AoV Peak Naeem.77.0cm/Corinne Peak GR.3.6mmHg LVOT Peak Naeem.64.0cm/sAVA (VMAX)3.13cm2 Mitral Valve MV E Izopieqq32.9cm/sMV DECEL [id number] MV A Velocity0.4cm/sE/A Xlsev199.8 Tricuspid Valve TR P. Euxtiuib442ir/sRAP [id number] TR Peak Gr.[id number] LEFT VENTRICLE The Left Ventricle is mildly dilated. There is mild concentric left ventricular hypertrophy. Left christa tricle systolic function is mildly impaired. The Ejection Fraction is 40-45%. There is mild global hy pokinesis of the left ventricle. Tissue Doppler imaging reveals abnormal left ventricular diastolic d ysfunction. RIGHT VENTRICLE The right ventricle is mildly dilated. The right ventricular systolic function is normal. ATRIA The left atrium is mild to moderately dilated. The right atrium is mildly dilated. The interatrial se ptum is intact with no evidence for an atrial septal defect or patent foramen ovale as noted on 2-D o r Doppler imaging. AORTIC VALVE The aortic valve is mildly thickened but opens well. Doppler and Color Flow revealed no significant a ortic regurgitation. There is no significant aortic valvular stenosis. MITRAL VALVE The mitral valve is calcified but opens well. There is no evidence of mitral valve prolapse. There is no mitral valve stenosis. Doppler and Color-flow revealed mild mitral regurgitation. TRICUSPID VALVE The tricuspid valve is normal in structure. Doppler and Color Flow revealed mild tricuspid regurgitat ion. The PA pressure was estimated at 25 mmHg. There is no tricuspid valve prolapse or vegetation. Th ere is no tricuspid valve stenosis. PULMONIC VALVE The pulmonic valve is borderline thickened. Doppler and Color Flow revealed trace pulmonic valvular r egurgitation. There is no pulmonic valvular stenosis. GREAT VESSELS The aortic root is normal in size. The ascending aorta is normal in size. The IVC is normal in size a nd collapses >50% with inspiration. PERICARDIAL EFFUSION There is no pleural effusion. There is no evidence of significant pericardial effusion. Critical Notification Critical Value: No <Conclusion> The Left Ventricle is mildly dilated. Left ventricle systolic function is mildly impaired. The Ejection Fraction is 40-45%. There is mild concentric left ventricular hypertrophy. There is no significant aortic valvular stenosis. Doppler and Color Flow revealed no significant aortic regurgitation. Doppler and Color-flow revealed mild mitral regurgitation. Doppler and Color Flow revealed mild tricuspid regurgitation. The PA pressure was estimated at 25 mmHg.
[2017-07-02] MEDS ORDERED: ANTI-COAG MONITOR BY PHARMACY. MC PRN (13:00)
[2017-07-02 15:00] VITALS: BP 91/48
[2017-07-02] MEDS: MONTELUKAST SODIUM 10 MG TABLET. PO SCH (18:37)
[2017-07-02 19:00] VITALS: BP 118/76
[2017-07-02] MEDS: FAMOTIDINE 20 MG TABLET. PO SCH (20:46)
[2017-07-02] MEDS: SIMVASTATIN 40 MG TABLET. PO SCH (20:46)
[2017-07-02] MEDS: INSULIN DETEMIR 300 UNITS/3 ML INSULN.PEN. SQ SCH (20:53)
[2017-07-02 23:00] VITALS: BP 120/73
[2017-07-03 03:00] VITALS: BP 134/72
[2017-07-03 04:21] LABS: TOTAL SERUM CREATININE 1.84 mg/dL (0.76-1.27); TOTAL URINE CREATININE 70.9 mg/dL (Not Estab.)
[2017-07-03 05:06] LABS: BASO # 0.1 x10^3/uL (0.0-0.2); BASO % 1 % (0-3); EOS % 2 % (0-3); HEMATOCRIT 44.8 % (39.0-53.0); HEMOGLOBIN 14.2 g/dL (13.0-17.5); LYMPH # 3.2 x10^3/uL (1.0-4.8); LYMPH % 29 % (24-48); MEAN CORPUSCULAR HEMOGLOBIN 25 pg (25-35); MEAN CORPUSCULAR HGB CONC 32 g/dL (31-37); MEAN CORPUSCULAR VOLUME 80 fL (79-100); MONO % 10 % (0-9); NEUT % 59 % (31-73); PLATELET COUNT 224 x10^3/uL (140-400); RED BLOOD COUNT 5.63 x10^6/uL (4.30-5.70); RED CELL DISTRIBUTION WIDTH 16.7 % (11.5-14.5)
--- NOTE | 2017-07-03 05:31 | EKG ---
[facility] [address] [place] [id number] Test Date: 2017-07-03 Test Time: 05:27:43 Pat Name: CUONG CLAIRE Department: Room: [facility] Gender: M [employer]: : [id number] Requested By: BONNIE CAMPA Order Number: [id number] Reading MD: Henrry Price Measurements Intervals [place] Rate: 107 P: MI: QRS: -47 QRSD: 136 T: 13 QT: 360 QTc: 486 Interpretive Statements ATRIAL FIBRILLATION ABNORMAL LEFT AXIS DEVIATION LEFT ANTERIOR FASCICULAR BLOCK RIGHT BUNDLE BRANCH BLOCK BIFASCICULAR BLOCK ABNORMAL ECG Electronically Signed On 07-16-2017 13:50:16 STICK WELDER by Henrry Price
[2017-07-03 05:36] LABS: ALBUMIN 3.1 g/dL (3.4-5.0); CALCIUM 9.1 mg/dL (8.5-10.1); GFR 32.3; MAGNESIUM 1.9 mg/dL (1.8-2.4); PHOSPHORUS 2.7 mg/dL (2.6-4.7)
[2017-07-03 06:55] LABS: CKMB MASS 1.2 ng/mL (0.0-3.6); CREATINE KINASE 50 U/L (39-308)
[2017-07-03 07:00] VITALS: BP 141/79
[2017-07-03] MEDS: BUDESONIDE 0.5 MG/2 ML NEBU. NEB SCH (07:08)
[2017-07-03] MEDS: LINAGLIPTIN 5 MG TABLET PO SCH (09:16)
[2017-07-03] MEDS: FERROUS SULFATE 325 MG TABLET. PO SCH (09:16)
[2017-07-03] MEDS: LEVOTHYROXINE 50 MCG TABLET PO SCH (09:16)
[2017-07-03] MEDS: PANTOPRAZOLE 40 MG TABLET.DR. PO SCH (09:17)
[2017-07-03] MEDS: APIXABAN 2.5 MG TABLET. PO SCH (09:17)
[2017-07-03] MEDS: POTASSIUM CHLORIDE 20 MEQ TABLET.ER. PO SCH (09:17)
[2017-07-03] MEDS: VERAPAMIL SR 120 MG TABLET.ER. PO SCH (09:18)
[2017-07-03] MEDS: ISOSORBIDE MONONITRATE ER 30 MG TAB.ER.24H PO SCH (09:18)
[2017-07-03] MEDS: hydroCHLOROthiazide 12.5 MG CAPSULE PO SCH (09:19)
[2017-07-03] MEDS: INSULIN ASPART 300 UNITS/3 ML INSULN.PEN SQ SCH ×2 (09:27→12:44)
[2017-07-03 10:49] VITALS: BP 110/64
--- NOTE | 2017-07-03 10:49 | PDOC2 ---
DANA EDDY PRODUCTION EXPEDITER 07/03/17 1049: CARDIAC CONSULT DATE OF CONSULT Date of Consult DATE: 07/03/17 TIME: 10:42 REASON FOR CONSULT Reason for Consult: Chest pain REFERRING PHYSICIAN Referring Physician: Dr. Baron SOURCE Source: Chart review, Patient HISTORY OF PRESENT ILLNESS HISTORY OF PRESENT ILLNESS This is an 81 yo male who presented secondary to hypoglycemia. Patient reports he is here for "heart problems." He is unable to provide me any further details. Has baseline dementia and is a poor historian. Per chart review, patient had passed out secondary to hypoglycemia. Patient reportedly took his insulin prior to breakfast and sat down to eat, but passed out prior to being able to eat. EMS noted his BS in the 40's. Patient had an episode of chest pain early this morning, which prompted this consult. Patient reports pain was located across his chest. Describes as "stinging" in nature. Associated with SOA. Denies any dizziness, diaphoresis, palpitations, or nausea/vomiting. Pain lasted approximately hour and improved with oxygen. No further pain since initial episode. PAST MEDICAL HISTORY Cardiovascular: AFIB, CHF, HTN, Hyperlipidemia Pulmonary: Asthma CENTRAL NERVOUS SYSTEM: Dementia, Periperal neuropathy GI: No pertinent hx Heme/Onc: No pertinent hx Hepatobiliary: No pertinent hx Psych: No pertinent hx Musculoskeletal: Osteoarthritis Rheumatologic: No pertinent hx Infectious disease: No pertinent hx ENT: No pertinent hx Renal/: Chronic renal insuff Endocrine: Diabetes, Hypothyroidism PAST SURGICAL HISTORY Past Surgical History: Appendectomy, Tonsillectomy FAMILY HISTORY Family History: Other (unknown) SOCIAL HISTORY Smoke: No ALCOHOL: none Drugs: None Lives: with Family CURRENT MEDICATIONS CURRENT MEDICATIONS Current Medications Medications (Trade) Dose Ordered Sig/Anna Route PRN Reason Start Time Stop Time Status Last Admin Dose Admin Info (Anti-Coagulation Monitoring By Pharmacy) 1 each PRN DAILY PRN MC SEE COMMENTS 07/02/17 13:00 07/02/17 12:52 ALLERGIES ALLERGIES: Coded Allergies: No Known Drug Allergies (Unverified , 08/16/13) ROS Review of System 14 point ROS conducted with pertinent positives noted above in HPI. PHYSICAL EXAM General: Alert, Oriented X3 (alert to person and place, MILLE LACS), Cooperative HEENT: Atraumatic, Mucous membr. moist/pink Lungs: Other (dimiished bases ) Heart: Normal S1, Normal S2, Other (IRR; tele AFIB rate 110-120. distant heart tones ) Abdomen: No tenderness Extremities: No edema, Normal pulses Skin: No breakdown, No significant lesion Neuro: Normal speech, Sensation intact Psych/Mental Status: Mood NL MUSCULOSKELETAL: Osteoarthritic changes both hands VITALS VITALS Vital Signs Date Time Temp Pulse Resp B/P (MAP) Pulse Ox O2 Delivery O2 Flow Rate FiO2 07/03/17 09:18 65 141/79 07/03/17 08:00 Nasal Cannula 2.0 07/03/17 07:08 98 07/03/17 07:00 97.7 18 97.7 LABS Lab: Laboratory Tests Test 07/02/17 12:02 07/02/17 16:57 07/02/17 20:37 07/03/17 04:15 Glucose (Fingerstick) 171 mg/dL (70-99) 141 mg/dL (70-99) 126 mg/dL (70-99) White Blood Count 11.0 x10^3/uL (4.0-11.0) Red Blood Count 5.63 x10^6/uL (4.30-5.70) Hemoglobin 14.2 g/dL (13.0-17.5) Hematocrit 44.8 % (39.0-53.0) Mean Corpuscular Volume 80 fL (79-100) Mean Corpuscular Hemoglobin 25 pg (25-35) Mean Corpuscular Hemoglobin Concent 32 g/dL (31-37) Red Cell Distribution Width 16.7 % (11.5-14.5) Platelet Count 224 x10^3/uL (140-400) Neutrophils (%) (Auto) 59 % (31-73) Lymphocytes (%) (Auto) 29 % (24-48) Monocytes (%) (Auto) 10 % (0-9) Eosinophils (%) (Auto) 2 % (0-3) Basophils (%) (Auto) 1 % (0-3) Neutrophils # (Auto) 6.4 x10^3uL (1.8-7.7) Lymphocytes # (Auto) 3.2 x10^3/uL (1.0-4.8) Monocytes # (Auto) 1.1 x10^3/uL (0.0-1.1) Eosinophils # (Auto) 0.2 x10^3/uL (0.0-0.7) Basophils # (Auto) 0.1 x10^3/uL (0.0-0.2) Sodium Level 143 mmol/L (136-145) Potassium Level 4.0 mmol/L (3.5-5.1) Chloride Level 106 mmol/L (98-107) Carbon Dioxide Level 28 mmol/L (21-32) Anion Gap 9 (6-14) Blood Urea Nitrogen 35 mg/dL (8-26) Creatinine 2.0 mg/dL (0.7-1.3) Estimated GFR (Cockcroft-Gault) 32.3 Glucose Level 180 mg/dL (70-99) Calcium Level 9.1 mg/dL (8.5-10.1) Phosphorus Level 2.7 mg/dL (2.6-4.7) Magnesium Level 1.9 mg/dL (1.8-2.4) Creatine Kinase 50 U/L (39-308) Creatine Kinase MB (Mass) 1.2 ng/mL (0.0-3.6) Creatine Kinase MB Relative Index % (0-4) Troponin I Quantitative 0.022 ng/mL (0.000-0.055) Albumin 3.1 g/dL (3.4-5.0) Test 07/03/17 05:14 07/03/17 07:20 Glucose (Fingerstick) 182 mg/dL (70-99) 158 mg/dL (70-99) ECHOCARDIOGRAM ECHOCARDIOGRAM <Conclusion> The Left Ventricle is mildly dilated. Left ventricle systolic function is mildly impaired. The Ejection Fraction is 40-45%. There is mild concentric left ventricular hypertrophy. There is no significant aortic valvular stenosis. Doppler and Color Flow revealed no significant aortic regurgitation. Doppler and Color-flow revealed mild mitral regurgitation. Doppler and Color Flow revealed mild tricuspid regurgitation. The PA pressure was estimated at 25 mmHg. DATE: 07/02/17 1200 ASSESSMENT/PLAN ASSESSMENT/PLAN 1. Chest pain, atypical. Initial trop negative 2. Hypoglycemia; resolved 3. AFIB with RVR; rate intermittently elevated 4. Mild acute on chronic systolic HF; LVEF 40-45%. HCTZ converted to Lasix 5. CKD 6. Diabetes; treat per IM 7. Dementia Recommendations Trend troponin check lipids Diuresis as per renal. Recommend converting Verapamil to Toprol for rate control given cardiomyopathy Continue Eliquis for stroke prophylaxis. Could consider further ischemic workup, but will need to determine goals of care with /family. Problems: GLEN CHIRINOS MD 07/03/17 1641: CARDIAC CONSULT ALLERGIES ALLERGIES: Coded Allergies: No Known Drug Allergies (Unverified , 08/16/13) ASSESSMENT/PLAN ASSESSMENT/PLAN Patient seen and examined. Agree with LAUNCHING PAD MECHANIC's assessment and plan. Chest pain with atypical features. Myocardial infarction ruled out. 2-D echo showed LVEF 40-45%. Agree with initiating beta blockers for better rate control of atrial fibrillation. Continue Eliquis for stroke prophylaxis. Nephrology team following patient for renal insufficiency. We will consider ischemic evaluation once active issues resolve, possibly as outpatient. Thank you for your consultation. Problems: DANA EDDY APRN Jul 03, 2017 10:49 GLEN CHIRINOS MD Jul 03, 2017 16:41
--- NOTE | 2017-07-03 11:02 | PDOC ---
SUBJECTIVE ROS CKD III doing ok overall but has occ CP and SOB CVS: no Orthopnea, + CP RESP: + SOB, ? CATHERINE GI: no Nausea, no Vomiting : no Dysuria, no Urgency OBJECTIVE Vital Signs Vital Signs Date Time Temp Pulse Resp B/P (MAP) Pulse Ox O2 Delivery O2 Flow Rate FiO2 07/03/17 10:49 97.7 90 20 110/64 (79) 97.7 07/03/17 08:00 Nasal Cannula 2.0 07/03/17 07:08 98 I & 0 Intake and Output 07/03/17 07:00 Output Total 250 ml Balance -250 ml Output Urine Total 250 ml # Voids 4 PHYSICAL EXAM Physical Exam General Appearance: Awake Alert Oriented x 0-1 In no Distress Eyes: VIsion Unchanged Conjunctiva Normal EN: No EN Drainage Mucous Memb. moist Neck: no JVD no JVP Supple no Thyromegaly CVS: S1 S2 ? Murmur No Gallop No Rub no Edema Resp: no audible Rales no Rhonchi no Acc. Muscle use GI: BS +ve NO Bruit Non Tender Non Distended : no CVA tenderness; no Suprapubic Tenderness Assessment & Plan CKD III/ IV - DM/ HTnsive / NS: Current FLuid and E-lyte status does not necessitate emergent need for Dialysis. Will re-evaluate for Dialysis in am, GFR close to Crcl by 24-hr Urine collection HypoAlbuminemia - U Pr/ cr ratio is min for urinary losses.WNL PreAlb also HTN: Current BP meds reviewed. See orders for changes. Renal Cyst - redo US shows benign cyst with stability Subj SOB with Dec EF, ? Sys CHF - change HCTZ to Lasix COMMENT/RELEVANT DATA Meds Current Medications Medications (Trade) Dose Ordered Sig/Anna Start Time Stop Time Status Last Admin Dose Admin Apixaban (Eliquis) 2.5 mg BID 06/30/17 21:00 07/03/17 09:17 2.5 MG Budesonide (Pulmicort) 0.5 mg RTBID 06/30/17 20:00 07/03/17 07:08 0.5 MG Dextrose (Dextrose 50%-Water Syringe) 25 gm STK-MED ONCE 06/30/17 08:11 06/30/17 08:12 DC Dextrose/Sodium Chloride 1,000 ml @ 100 mls/hr 1X ONCE 06/30/17 08:15 06/30/17 18:14 DC 06/30/17 08:19 100 MLS/HR Famotidine (Pepcid) 20 mg HS 06/30/17 21:00 07/02/17 20:46 20 MG Ferrous Sulfate (Feosol) 325 mg DAILY08 07/01/17 08:00 07/03/17 09:16 325 MG Hydrochlorothiazide (Microzide) 12.5 mg DAILY 07/01/17 09:00 07/03/17 09:19 12.5 MG Influenza Virus Vaccine Quadrival (Fluarix Quad 9066-1156 Syringe) 0.5 ml ONCE ONCE 06/30/17 17:15 06/30/17 17:16 DC 06/30/17 18:01 0.5 ML Info (Anti-Coagulation Monitoring By Pharmacy) 1 each PRN DAILY PRN 07/02/17 13:00 07/02/17 12:52 1 EACH Info (Do NOT chart on this placeholder) 1 each PRN 1X PRN 06/30/17 17:00 UNV Insulin Aspart (NovoLOG) 10 units TIDAC 07/01/17 07:30 07/03/17 09:27 10 UNITS Insulin Detemir (Levemir) 8 units QHS 06/30/17 21:00 07/02/17 20:53 8 UNITS Isosorbide Mononitrate (Imdur) 30 mg DAILY 07/01/17 09:00 07/03/17 09:18 30 MG Levothyroxine Sodium (Synthroid) 50 mcg DAILY07 07/01/17 07:00 07/03/17 09:16 50 MCG Linagliptin (Tradjenta) 5 mg DAILY 07/01/17 09:00 07/03/17 09:16 5 MG Magnesium Sulfate/ Dextrose 50 ml @ 25 mls/hr PRN DAILY PRN 07/01/17 14:00 Metformin HCl (Glucophage) 1,000 mg BID 06/30/17 21:00 UNV Montelukast Sodium (Singulair) 10 mg QEVNG 07/01/17 18:00 07/02/17 18:37 10 MG Ondansetron HCl (Zofran) 4 mg PRN Q8HRS PRN 06/30/17 09:30 07/01/17 09:29 DC Pantoprazole Sodium (Protonix) 40 mg DAILYAC 06/30/17 07:30 07/03/17 09:17 40 MG Pneumococcal Polyvalent Vaccine (Do NOT chart on this placeholder) 1 each PRN 1X PRN 06/30/17 17:00 UNV Pneumococcal Polyvalent Vaccine (Pneumovax 23) 0.5 ml ONCE ONCE 06/30/17 18:00 06/30/17 18:01 DC 06/30/17 18:02 0.5 ML Potassium Chloride (Klor-Con) 20 meq BIDWMEALS 07/01/17 08:00 07/03/17 09:17 20 MEQ Simvastatin (Zocor) 40 mg QHS 06/30/17 21:00 07/02/17 20:46 40 MG Verapamil HCl (Calan Sr) 120 mg DAILY 07/01/17 09:00 07/03/17 09:18 120 MG Lab Laboratory Tests Test 07/02/17 12:02 07/02/17 16:57 07/02/17 20:37 07/03/17 04:15 Glucose (Fingerstick) 171 mg/dL (70-99) 141 mg/dL (70-99) 126 mg/dL (70-99) White Blood Count 11.0 x10^3/uL (4.0-11.0) Red Blood Count 5.63 x10^6/uL (4.30-5.70) Hemoglobin 14.2 g/dL (13.0-17.5) Hematocrit 44.8 % (39.0-53.0) Mean Corpuscular Volume 80 fL (79-100) Mean Corpuscular Hemoglobin 25 pg (25-35) Mean Corpuscular Hemoglobin Concent 32 g/dL (31-37) Red Cell Distribution Width 16.7 % (11.5-14.5) Platelet Count 224 x10^3/uL (140-400) Neutrophils (%) (Auto) 59 % (31-73) Lymphocytes (%) (Auto) 29 % (24-48) Monocytes (%) (Auto) 10 % (0-9) Eosinophils (%) (Auto) 2 % (0-3) Basophils (%) (Auto) 1 % (0-3) Neutrophils # (Auto) 6.4 x10^3uL (1.8-7.7) Lymphocytes # (Auto) 3.2 x10^3/uL (1.0-4.8) Monocytes # (Auto) 1.1 x10^3/uL (0.0-1.1) Eosinophils # (Auto) 0.2 x10^3/uL (0.0-0.7) Basophils # (Auto) 0.1 x10^3/uL (0.0-0.2) Sodium Level 143 mmol/L (136-145) Potassium Level 4.0 mmol/L (3.5-5.1) Chloride Level 106 mmol/L (98-107) Carbon Dioxide Level 28 mmol/L (21-32) Anion Gap 9 (6-14) Blood Urea Nitrogen 35 mg/dL (8-26) Creatinine 2.0 mg/dL (0.7-1.3) Estimated GFR (Cockcroft-Gault) 32.3 Glucose Level 180 mg/dL (70-99) Calcium Level 9.1 mg/dL (8.5-10.1) Phosphorus Level 2.7 mg/dL (2.6-4.7) Magnesium Level 1.9 mg/dL (1.8-2.4) Creatine Kinase 50 U/L (39-308) Creatine Kinase MB (Mass) 1.2 ng/mL (0.0-3.6) Creatine Kinase MB Relative Index % (0-4) Troponin I Quantitative 0.022 ng/mL (0.000-0.055) Albumin 3.1 g/dL (3.4-5.0) Test 07/03/17 05:14 07/03/17 07:20 Glucose (Fingerstick) 182 mg/dL (70-99) 158 mg/dL (70-99) Other IMPRESSION: 1. No hydronephrosis. 2. Exophytic cyst of the left kidney. EBONY SIMMONS MD Jul 03, 2017 11:02
[2017-07-03 11:04] VITALS: BP 110/64
--- NOTE | 2017-07-03 12:22 | PDOC3 ---
Discharge Summary Visit Information Date of Admission: Jun 30, 2017 Date of Discharge: Jul 03, 2017 Admitting Diagnosis Comment: 1. Hypoglycemia: resolved 2. Acute encephalopathy: metabolic, resolved. 3. DM2: insulin dependent. metformin d/c.ed (CKD4). levemir dose adjusted. cont ISS 4. CKD 3- 4: stable creat 5. Hypokalemai: resolved. monitor 6. N/V: ?viral enteritis; improving 7. dementia 8. Weakness and debility: OT/PT eval, SNF Final Diagnosis Problems Medical Problems: (1) Hypoglycemia Status: Acute (2) IDDM (insulin dependent diabetes mellitus) Status: Acute Brief Hospital Course Allergies Allergies Coded Allergies Type Severity Reaction Last Updated Verified No Known Drug Allergies 08/16/13 No Vital Signs Vital Signs Date Time Temp Pulse Resp B/P (MAP) Pulse Ox O2 Delivery O2 Flow Rate FiO2 07/03/17 11:04 97.7 90 18 110/64 (79) 99 Nasal Cannula 3.0 97.7 Lab Results Laboratory Tests Test 07/01/17 15:35 07/01/17 16:33 07/01/17 20:57 07/02/17 04:15 Urine Protein 10.7 mg/dL (Not Estab.) Urine Creatinine 24 Hour 872 mg/24 hr (7225-6043) Creatinine Clearance 24 Hour 33 mL/min (97-137) Urine Protein 24 Hr Calculated 132 mg/24 hr (30-150) Creatinine 1.84 mg/dL (0.76-1.27) 1.9 mg/dL (0.7-1.3) Estimated GFR (Non- 34 (>59) EGFR 39 (>59) Glucose (Fingerstick) 106 mg/dL (70-99) 176 mg/dL (70-99) White Blood Count 9.8 x10^3/uL (4.0-11.0) Red Blood Count 5.34 x10^6/uL (4.30-5.70) Hemoglobin 13.5 g/dL (13.0-17.5) Hematocrit 42.1 % (39.0-53.0) Mean Corpuscular Volume 79 fL (79-100) Mean Corpuscular Hemoglobin 25 pg (25-35) Mean Corpuscular Hemoglobin Concent 32 g/dL (31-37) Red Cell Distribution Width 16.5 % (11.5-14.5) Platelet Count 200 x10^3/uL (140-400) Neutrophils (%) (Auto) 65 % (31-73) Lymphocytes (%) (Auto) 23 % (24-48) Monocytes (%) (Auto) 10 % (0-9) Eosinophils (%) (Auto) 1 % (0-3) Basophils (%) (Auto) 1 % (0-3) Neutrophils # (Auto) 6.3 x10^3uL (1.8-7.7) Lymphocytes # (Auto) 2.3 x10^3/uL (1.0-4.8) Monocytes # (Auto) 1.0 x10^3/uL (0.0-1.1) Eosinophils # (Auto) 0.1 x10^3/uL (0.0-0.7) Basophils # (Auto) 0.1 x10^3/uL (0.0-0.2) Sodium Level 141 mmol/L (136-145) Potassium Level 3.6 mmol/L (3.5-5.1) Chloride Level 105 mmol/L (98-107) Carbon Dioxide Level 26 mmol/L (21-32) Anion Gap 10 (6-14) Blood Urea Nitrogen 33 mg/dL (8-26) Estimated GFR (Cockcroft-Gault) 34.3 Glucose Level 155 mg/dL (70-99) Calcium Level 9.0 mg/dL (8.5-10.1) Phosphorus Level 2.9 mg/dL (2.6-4.7) Magnesium Level 2.0 mg/dL (1.8-2.4) Albumin 2.9 g/dL (3.4-5.0) Test 07/02/17 12:02 07/02/17 16:57 07/02/17 20:37 07/03/17 04:15 Glucose (Fingerstick) 171 mg/dL (70-99) 141 mg/dL (70-99) 126 mg/dL (70-99) White Blood Count 11.0 x10^3/uL (4.0-11.0) Red Blood Count 5.63 x10^6/uL (4.30-5.70) Hemoglobin 14.2 g/dL (13.0-17.5) Hematocrit 44.8 % (39.0-53.0) Mean Corpuscular Volume 80 fL (79-100) Mean Corpuscular Hemoglobin 25 pg (25-35) Mean Corpuscular Hemoglobin Concent 32 g/dL (31-37) Red Cell Distribution Width 16.7 % (11.5-14.5) Platelet Count 224 x10^3/uL (140-400) Neutrophils (%) (Auto) 59 % (31-73) Lymphocytes (%) (Auto) 29 % (24-48) Monocytes (%) (Auto) 10 % (0-9) Eosinophils (%) (Auto) 2 % (0-3) Basophils (%) (Auto) 1 % (0-3) Neutrophils # (Auto) 6.4 x10^3uL (1.8-7.7) Lymphocytes # (Auto) 3.2 x10^3/uL (1.0-4.8) Monocytes # (Auto) 1.1 x10^3/uL (0.0-1.1) Eosinophils # (Auto) 0.2 x10^3/uL (0.0-0.7) Basophils # (Auto) 0.1 x10^3/uL (0.0-0.2) Sodium Level 143 mmol/L (136-145) Potassium Level 4.0 mmol/L (3.5-5.1) Chloride Level 106 mmol/L (98-107) Carbon Dioxide Level 28 mmol/L (21-32) Anion Gap 9 (6-14) Blood Urea Nitrogen 35 mg/dL (8-26) Creatinine 2.0 mg/dL (0.7-1.3) Estimated GFR (Cockcroft-Gault) 32.3 Glucose Level 180 mg/dL (70-99) Calcium Level 9.1 mg/dL (8.5-10.1) Phosphorus Level 2.7 mg/dL (2.6-4.7) Magnesium Level 1.9 mg/dL (1.8-2.4) Creatine Kinase 50 U/L (39-308) Creatine Kinase MB (Mass) 1.2 ng/mL (0.0-3.6) Creatine Kinase MB Relative Index % (0-4) Troponin I Quantitative 0.022 ng/mL (0.000-0.055) Albumin 3.1 g/dL (3.4-5.0) Test 07/03/17 05:14 07/03/17 07:20 07/03/17 11:14 Glucose (Fingerstick) 182 mg/dL (70-99) 158 mg/dL (70-99) 214 mg/dL (70-99) Laboratory Tests Test 07/02/17 16:57 07/02/17 20:37 07/03/17 04:15 07/03/17 05:14 Glucose (Fingerstick) 141 mg/dL (70-99) 126 mg/dL (70-99) 182 mg/dL (70-99) White Blood Count 11.0 x10^3/uL (4.0-11.0) Red Blood Count 5.63 x10^6/uL (4.30-5.70) Hemoglobin 14.2 g/dL (13.0-17.5) Hematocrit 44.8 % (39.0-53.0) Mean Corpuscular Volume 80 fL (79-100) Mean Corpuscular Hemoglobin 25 pg (25-35) Mean Corpuscular Hemoglobin Concent 32 g/dL (31-37) Red Cell Distribution Width 16.7 % (11.5-14.5) Platelet Count 224 x10^3/uL (140-400) Neutrophils (%) (Auto) 59 % (31-73) Lymphocytes (%) (Auto) 29 % (24-48) Monocytes (%) (Auto) 10 % (0-9) Eosinophils (%) (Auto) 2 % (0-3) Basophils (%) (Auto) 1 % (0-3) Neutrophils # (Auto) 6.4 x10^3uL (1.8-7.7) Lymphocytes # (Auto) 3.2 x10^3/uL (1.0-4.8) Monocytes # (Auto) 1.1 x10^3/uL (0.0-1.1) Eosinophils # (Auto) 0.2 x10^3/uL (0.0-0.7) Basophils # (Auto) 0.1 x10^3/uL (0.0-0.2) Sodium Level 143 mmol/L (136-145) Potassium Level 4.0 mmol/L (3.5-5.1) Chloride Level 106 mmol/L (98-107) Carbon Dioxide Level 28 mmol/L (21-32) Anion Gap 9 (6-14) Blood Urea Nitrogen 35 mg/dL (8-26) Creatinine 2.0 mg/dL (0.7-1.3) Estimated GFR (Cockcroft-Gault) 32.3 Glucose Level 180 mg/dL (70-99) Calcium Level 9.1 mg/dL (8.5-10.1) Phosphorus Level 2.7 mg/dL (2.6-4.7) Magnesium Level 1.9 mg/dL (1.8-2.4) Creatine Kinase 50 U/L (39-308) Creatine Kinase MB (Mass) 1.2 ng/mL (0.0-3.6) Creatine Kinase MB Relative Index % (0-4) Troponin I Quantitative 0.022 ng/mL (0.000-0.055) Albumin 3.1 g/dL (3.4-5.0) Test 07/03/17 07:20 07/03/17 11:14 Glucose (Fingerstick) 158 mg/dL (70-99) 214 mg/dL (70-99) Brief Hospital Course Mr. Goff is a 81 old male with signif dementia, had a hypoglycemic episode bec he injected insulin and fell asleep before eating, Lots of long stories, tangential interaction with him in his 3 MN stay, NO other acute issues throughout stay, Needs SNU, SW looking at life care ctr Seen and examined MAR in chart Discharge Information Condition at Discharge: Improved, Stable Disposition/Orders: Other (snu) Scheduled Apixaban (Eliquis), 2.5 MG PO BID, (Reported) Beclomethasone Dipropionate (Qvar 40MCG Inhaler), 1 PUFF IH BID, (Reported) Esomeprazole Magnesium (Nexium Capsule), 1 CAP PO DAILY, (Reported) Famotidine (Pepcid), 20 MG PO HS, (Reported) Ferrous Sulfate (Ferrous Sulfate), 325 MG PO DAILY, (Reported) Hydrochlorothiazide (Hydrochlorothiazide Capsule ), 12.5 MG PO DAILY, ( Reported) Hydrocodone Bit/Acetaminophen (Lortab 7.5-500 Tablet), 1 EACH PO PRN Q4HRS, ( Reported) Insulin Aspart (Novolog Flexpen), 15 UNIT SQ BIDAC, (Reported) Insulin Detemir (Levemir Flexpen), 15 UNIT SQ QHS, (Reported) Isosorbide Mononitrate (Isosorbide Mononitrate Er), 30 MG PO DAILY, (Reported) Levothyroxine Sodium (Levothyroxine Sodium), 1 TAB PO DAILY, (Reported) Metformin Hcl (Metformin Hcl), 1,000 MG PO BID, (Reported) Montelukast Sodium (Montelukast Sodium Tablet), 10 MG PO QEVNG, (Reported) Potassium Chloride (Potassium Chloride), 1 TAB PO BID, (Reported) Simvastatin (Simvastatin), 40 MG PO QHS, (Reported) Sitagliptin Phosphate (Januvia), 100 MG PO DAILY, (Reported) Verapamil Hcl (Verapamil Er), 120 MG PO DAILY, (Reported) Discontinued Medications Furosemide (Furosemide), 40 MG PO BID, (Reported) BARBIE MUIR MD Jul 03, 2017 12:22
[2017-07-03 12:46] LABS: CHOLESTEROL/HDL RATIO 2.4
[2017-07-03] MEDS ORDERED: METOPROLOL SUCC 24HR ER 50 MG TAB.ER.24H. PO SCH (13:00)
[2017-07-03 15:19] VITALS: BP 118/61
[2017-07-04] MEDS ORDERED: POTASSIUM CHLORIDE 20 MEQ TABLET.ER. PO SCH (09:00)
[2017-07-04] MEDS ORDERED: FUROSEMIDE 40 MG TABLET. PO SCH (09:00)
== END 2017-07-03 16:38 | disposition home health service (06) | DRG 637 ==
LOC: ER 07:13 → 5 SOUTH 09:00
PROVIDERS: ADMIT Internal Medicine; ATTEND Internal Medicine
DX: E11.649 Type 2 diabetes mellitus with hypoglycemia without coma (principal); G93.41 Metabolic encephalopathy; I50.23 Acute on chronic systolic (congestive) heart failure; N18.4 Chronic kidney disease, stage 4 (severe); R65.10 Systemic inflammatory response syndrome (SIRS) of non-infectious origin without acute organ dysfunction; I48.91 Unspecified atrial fibrillation; N17.9 Acute kidney failure, unspecified; E11.22 Type 2 diabetes mellitus with diabetic chronic kidney disease; I13.0 Hypertensive heart and chronic kidney disease with heart failure and stage 1 through stage 4 chronic kidney disease, or unspecified chronic kidney disease; N28.1 Cyst of kidney, acquired; E11.42 Type 2 diabetes mellitus with diabetic polyneuropathy; H91.90 Unspecified hearing loss, unspecified ear; R53.1 Weakness; E87.6 Hypokalemia; E03.9 Hypothyroidism, unspecified; M19.90 Unspecified osteoarthritis, unspecified site; J45.909 Unspecified asthma, uncomplicated; J43.9 Emphysema, unspecified; E78.5 Hyperlipidemia, unspecified; D64.9 Anemia, unspecified; R07.89 Other chest pain; F03.90 Unspecified dementia, unspecified severity, without behavioral disturbance, psychotic disturbance, mood disturbance, and anxiety; A08.4 Viral intestinal infection, unspecified; Z90.49 Acquired absence of other specified parts of digestive tract; Z79.4 Long term (current) use of insulin; Z98.49 Cataract extraction status, unspecified eye
CPT/HCPCS: 36415; 70450; 71010; 76770; 80048; 80053; 80061; 80069; 80076; 82553; 82575; 82962; 83036; 83690; 83735; 83880; 84134; 84156; 84443; 84484; 85007; 85025; 85610; 90686; 90732; 93005; 93306; 94250; 94640; 94760; 96374; 96376; J1815; J7042; J7626; P9612; 99285-25

== ENCOUNTER 2017-07-09 06:29 | Inpatient (IN) | payer MEDICARE, MEDICAID ==
[~2017-07-09] VITALS: Ht 177.8 cm; Wt 82.1 kg
[~2017-07-09 06:29] MED LIST changes: +BECL8.7A7 IH; +HYDR12.53 PO; +ISOS30TA4 PO
[2017-07-09] MEDS ORDERED: IV NORMAL SALINE 1000ML BAG 1,000 ML IV SCH (06:50)
[2017-07-09 07:00] LABS: BASO % 0 % (0-3); EOS % 1 % (0-3); HEMATOCRIT 42.8 % (39.0-53.0); HEMOGLOBIN 13.6 g/dL (13.0-17.5); LYMPH # 1.8 x10^3/uL (1.0-4.8); LYMPH % 17 % (24-48); MEAN CORPUSCULAR HEMOGLOBIN 25 pg (25-35); MEAN CORPUSCULAR HGB CONC 32 g/dL (31-37); MEAN CORPUSCULAR VOLUME 80 fL (79-100); MONO % 11 % (0-9); NEUT % 71 % (31-73); PLATELET COUNT 221 x10^3/uL (140-400); RED BLOOD COUNT 5.39 x10^6/uL (4.30-5.70); RED CELL DISTRIBUTION WIDTH 17.1 % (11.5-14.5); WHITE BLOOD COUNT 10.4 x10^3/uL (4.0-11.0)
[2017-07-09] MEDS ORDERED: IV DEXTROSE 10% 1,000 ML IV ONE (07:00)
[2017-07-09] MEDS ORDERED: 0.9 % SODIUM CHLORIDE 10 ML DISP.SYRIN. IV PRN (07:00)
[2017-07-09] MEDS ORDERED: LABETALOL 20 MG/4 ML DISP.SYRIN. IVP ONE (07:00)
--- NOTE | 2017-07-09 07:01 | PHYS DOC ---
Past Medical History Past Medical History: Diabetes-Type II, High Cholesterol, Hypertension Past Surgical History: Appendectomy, Tonsillectomy Alcohol Use: None Drug Use: None Adult General Chief Complaint Chief Complaint: HYPOGLYCEMIA HPI HPI he is a pleasant 81-year-old male with a known history of hypertension, hyperlipidemia, and diabetes on Levemir and NovoLog as well as oral metformin with altered mental status found down in the bathroom this morning. EMS was dispatched to the home found him on the toilet seat with a sugar of 37. Patient was fed happy. But or joint sandwich which should improve his mentation but unfortunately he is not able to explain exactly what happened. He said he took his regular medications this morning to include Levemir and his NovoLog as well as his metformin and his other cardiovascular medications when he presented with hypoglycemia. He does not claim to have any change in medications, denies any headache, denies any focal neurologic deficits, chest pain, abdominal pain, or other symptoms. He feels somewhat shaky and tired. He denies any trauma. Denies any recent URI symptoms or sick contacts. There've been no changes specifically to his Levemir and NovoLog dosing. Review of Systems Review of Systems Constitutional: Denies fever or chills he feels generally fatigued. Eyes: Denies change in visual acuity, redness, or eye pain [] HENT: Denies nasal congestion or sore throat [] Respiratory: Denies cough or shortness of breath [] Cardiovascular: No additional information not addressed in HPI [] GI: Denies abdominal pain, nausea, vomiting, bloody stools or diarrhea [] : Denies dysuria or hematuria [] Musculoskeletal: Denies back pain or joint pain [] Integument: Denies rash or skin lesions [] Neurologic: he does not have a headache but feels generally weak and shaky. Endocrine: Denies polyuria or polydipsia [] All other systems were reviewed and found to be within normal limits, except as documented in this note. Current Medications Current Medications Current Medications Medications (Trade) Dose Ordered Sig/Anna Start Time Stop Time Status Last Admin Dose Admin Dextrose 1,000 ml @ 200 mls/hr 1X ONCE 07/09/17 07:00 07/09/17 11:59 07/09/17 08:11 200 MLS/HR Labetalol HCl (Normodyne) 20 mg 1X ONCE 07/09/17 07:00 07/09/17 07:01 DC Sodium Chloride (Normal Saline Flush) 10 ml QSHIFT PRN 07/09/17 07:00 Allergies Allergies Allergies Coded Allergies Type Severity Reaction Last Updated Verified No Known Drug Allergies 08/16/13 No Physical Exam Physical Exam Vital signs on the chart patient noted to be very tachycardic at 143 and hypertensive at 220/120. Constitutional: Well developed, well nourished, he is somewhat disheveled in no acute distress nontoxic in appearance with significant leg dry skin and pallorous color. HENT: Normocephalic, atraumatic, bilateral external ears normal, oropharynx very dry, no oral exudates, nose normal. [] Eyes: PERRLA, EOMI, conjunctiva normal, no discharge. [] Neck: Normal range of motion, no tenderness, supple, no stridor. [] Cardiovascular: Accardi with no murmurs gallops or rubs. Lungs & Thorax: Bilateral breath sounds clear to auscultation [] Abdomen: Bowel sounds normal, soft, no tenderness, no masses, no pulsatile masses. [] Skin: Warm, dry, no erythema, no rash. [] Extremities: No tenderness, no cyanosis, no clubbing, ROM intact, no edema. [] Neurologic:normal motor function, normal sensory function, no focal deficits noted. Patient is somewhat slow to respond but awake alert and oriented 4 like resting tremor but patient's mentation is normal.[] Psychologic: Affect normal, judgement normal, mood normal. [] Current Patient Data Vital Signs Vital Signs Date Time Temp Pulse Resp B/P (MAP) Pulse Ox O2 Delivery O2 Flow Rate FiO2 07/09/17 06:35 143 22 212/152 (172) 95 Room Air Lab Values Laboratory Tests Test 07/09/17 06:45 White Blood Count 10.4 x10^3/uL (4.0-11.0) Red Blood Count 5.39 x10^6/uL (4.30-5.70) Hemoglobin 13.6 g/dL (13.0-17.5) Hematocrit 42.8 % (39.0-53.0) Mean Corpuscular Volume 80 fL (79-100) Mean Corpuscular Hemoglobin 25 pg (25-35) Mean Corpuscular Hemoglobin Concent 32 g/dL (31-37) Red Cell Distribution Width 17.1 % (11.5-14.5) H Platelet Count 221 x10^3/uL (140-400) Neutrophils (%) (Auto) 71 % (31-73) Lymphocytes (%) (Auto) 17 % (24-48) L Monocytes (%) (Auto) 11 % (0-9) H Eosinophils (%) (Auto) 1 % (0-3) Basophils (%) (Auto) 0 % (0-3) Neutrophils # (Auto) 7.4 x10^3uL (1.8-7.7) Lymphocytes # (Auto) 1.8 x10^3/uL (1.0-4.8) Monocytes # (Auto) 1.1 x10^3/uL (0.0-1.1) Eosinophils # (Auto) 0.1 x10^3/uL (0.0-0.7) Basophils # (Auto) 0.0 x10^3/uL (0.0-0.2) Sodium Level 144 mmol/L (136-145) Potassium Level 4.1 mmol/L (3.5-5.1) Chloride Level 106 mmol/L (98-107) Carbon Dioxide Level 23 mmol/L (21-32) Anion Gap 15 (6-14) H Blood Urea Nitrogen 39 mg/dL (8-26) H Creatinine 2.1 mg/dL (0.7-1.3) H Estimated GFR (Cockcroft-Gault) 30.5 Glucose Level 128 mg/dL (70-99) H Calcium Level 9.0 mg/dL (8.5-10.1) Magnesium Level 1.9 mg/dL (1.8-2.4) Total Bilirubin 0.5 mg/dL (0.2-1.0) Direct Bilirubin 0.2 mg/dL (0.0-0.2) Aspartate Amino Transferase (AST) 24 U/L (15-37) Alanine Aminotransferase (ALT) 21 U/L (16-63) Alkaline Phosphatase 105 U/L (46-116) Creatine Kinase 191 U/L (39-308) Creatine Kinase MB (Mass) 3.6 ng/mL (0.0-3.6) Creatine Kinase MB Relative Index 1.9 % (0-4) Troponin I Quantitative 0.126 ng/mL (0.000-0.055) AZ-Stw-N-Type Natriuretic Peptide 8080 pg/mL (0-449) H Total Protein 6.9 g/dL (6.4-8.2) Albumin 3.7 g/dL (3.4-5.0) Lipase 108 U/L (73-393) Thyroid Stimulating Hormone (TSH) 3.864 uIU/mL (0.358-3.74) H Laboratory Tests 07/09/17 06:45 Laboratory Tests 07/09/17 06:45 EKG EKG []EKG timed 7:27 AM read by me demonstrates an irregular rhythm with an irregular intervals with a heart rate of 119 showing age or fibrillation with RVR patient has a widened QRS complex of 132 with significant left anterior fascicular block and likely right bundle-branch block RR prime patient is a Q- wave in lead 1 this is abnormal EKG but there is no ST segment elevation consistent with acute cord ischemia. There is questionable ST segment depression in the lateral leads which may be rate related. Radiology/Procedures Radiology/Procedures [] Course & Med Decision Making Course & Med Decision Making Pertinent Labs and Imaging studies reviewed. (See chart for details) []My differential. Acute ischemic or hemorrhagic stroke, particularly lobar hemorrhage subdural hematoma Subarachnoid hemorrhage subarachnoid hemorrhage Traumatic brain injury Hypoxic-ischemic injury Brain abscess Meningitis or encephalitis Acute symptomatic seizures may also be caused by an acute medical illness, metabolic disturbance, substance ingestion or withdrawal, and medication exposure Hypoglycemia Hyperglycemia Nonketotic hyperglycemia Hyponatremia Hypocalcemia Hypomagnesemia Uremia secondary to renal failure Hyperthyroidism Acute intermittent porphyria (AIP) Drug intoxication, poisoning, and overdose `` Cocaine, amphetamines, and other illicit substances may cause seizures after acute intoxication. Prescribed medications that may lower the seizure threshold or cause seizures in overdose are listed in the table Cerebrovascular disease Primary or metastatic brain tumors Vascular malformations Prior central nervous system infection, such as neurocysticercosis Head injury (see "Post-traumatic seizures and epilepsy") Neurodegenerative dementia, including Alzheimer disease DIFFERENTIAL DIAGNOSIS Seizure is primarily a clinical diagnosis, and accurate diagnosis requires differentiating seizure from other common clinical events that can mimic seizure. In adults, the primary conditions to consider in patients presenting with transient or paroxysmal neurologic events Syncope Transient ischemic attack (particularly in older adults) Migraine Panic attack and anxiety Psychogenic nonepileptic seizure Transient global amnesia (rare before the age of 50 years) Narcolepsy with cataplexy Paroxysmal movement disorders Presents with what I believe is hyperglycemic event secondary to decreased oral intake. And forcibly because he is on Levemir in addition to NovoLog and metformin he may require a bit longer. Of observation. He is mentating and normal standard right now with AAox 3 with a normal nonfocal mental status and neuro exam. Our goal will be to treat his hypertension his tachycardia and dehydration as well as treating his hypoglycemia. We will attempt to give him D10 over a 250 mL bolus over the next hour as well as try to feed him. Over the course of his evaluation patient has an abnormal EKG upon arrival. There is no obvious signs of ST segment elevation or acute cardiac ischemia contributing to his hyperglycemic event. This may be medication related and decreased dietary intake. But given his age and prior medical problems the dehydration may be adding some added stress to his heart. Washcloth Folder note: Internal medicine physician Dr. Beverly Washcloth Folder called at of the service: Service initially paged at 7:15 AM Consult called back at 7:17 AM Discussed the case I presented and they agreed with admission. Time of acceptance 7:17 AM. 8:08 AM patient is oriented been admitted to the hospital for prolonged. Of observation secondary to the hypoglycemia associate with Levemir. We were alerted to an elevated troponin 0.126 which might be related to his chronic cardiac disease the rate related dehydration and A. fib and RVR which is improved already with fluids. Patient was initially very hypertensive upon arrival to 220/120 now his heart rate is below 100 and his blood pressure is 147 /89. At this point patient's BUN/creatinine also noted to be very elevated at 39 and 2.1 patient noted to be dehydrated on physical exam. Continuing to monitor his cardiac status with repeated troponins. Dragon Disclaimer Dragon Disclaimer This electronic medical record was generated, in whole or in part, using a voice recognition dictation system. Departure Departure Impression: Primary Impression: Dementia Additional Impressions: IDDM (insulin dependent diabetes mellitus) Dehydration Hypertension Hypoglycemia Elevated troponin Renal insufficiency Referrals: TATYANA CHANG MD (PCP) Problem Qualifiers JAC CARRINGTON MD Jul 09, 2017 07:01
[2017-07-09] MEDS ORDERED: LABETALOL 20 MG/4 ML DISP.SYRIN. IVP PRN (07:30)
--- NOTE | 2017-07-09 07:32 | EKG ---
[facility] [address] [place] [address] Test Date: 2017-07-09 Test Time: 07:27:34 Pat Name: CUONG CLAIRE Department: Room: Gender: M Rental Counter Clerk: : [id number] Requested By: JAC CARRINGTON Order Number: [id number] Reading MD: Schuyler Kyle Measurements Intervals [place] Rate: 119 P: SD: QRS: -40 QRSD: 132 T: 15 QT: 346 QTc: 487 Interpretive Statements IRREGULAR RHYTHM, NO P-WAVE FOUND VENTRICULAR PREMATURE COMPLEX(ES) ABNORMAL LEFT AXIS DEVIATION LEFT ANTERIOR FASCICULAR BLOCK RIGHT BUNDLE BRANCH BLOCK RVH WITH REPOLARIZATION ABNORMALITY ABNORMAL ECG RI6.01 Compared to ECG 06/30/2017 08:32:10 Left-axis deviation now present Right ventricular hypertrophy now present Early repolarization now present Electronically Signed On 07-09-2017 17:47:53 BOWL ATTENDANT by Schuyler Kyle
[2017-07-09] MEDS ORDERED: FURO40TA4 PO (07:38)
[2017-07-09 07:40] LABS: ALBUMIN 3.7 g/dL (3.4-5.0); DIRECT BILIRUBIN 0.2 mg/dL (0.0-0.2); GFR 30.5; MAGNESIUM 1.9 mg/dL (1.8-2.4); POTASSIUM 4.1 mmol/L (3.5-5.1); TOTAL BILIRUBIN 0.5 mg/dL (0.2-1.0); TOTAL PROTEIN 6.9 g/dL (6.4-8.2)
[2017-07-09 07:45] LABS: CREATININE 2.1 mg/dL (0.7-1.3)
[2017-07-09 07:46] LABS: CKMB MASS 3.6 ng/mL (0.0-3.6)
--- NOTE | 2017-07-09 07:52 | RAD ---
PORTABLE CHEST 1V Clinical Indication: ams Comparison: Chest radiograph dated 06/30/2017 Findings: Unchanged elevation of the left hemidiaphragm. No new consolidation. Stable pulmonary vasculature. Stable small left pleural effusion. No pneumothorax. Stable cardiomegaly. The great vessels of the thorax are stable. No acute osseous abnormality. IMPRESSION: 1. No new consolidation. 2. Stable small left pleural effusion. 3. Stable cardiomegaly.
[2017-07-09] MEDS ORDERED: VERAPAMIL SR 120 MG TABLET.ER. PO SCH (09:00)
[2017-07-09] MEDS ORDERED: BECLOMETHASONE DIPROPIONATE IH SCH (09:00)
[2017-07-09] MEDS ORDERED: hydroCHLOROthiazide 12.5 MG CAPSULE PO SCH (09:00)
--- NOTE | 2017-07-09 11:27 | PDOC1 ---
History and Physical Date of Admission Date of Admission DATE: 07/09/17 TIME: 11:20 Identification/Chief Complaint Chief Complaint low BS Problems: Source Source: Caregiver, Chart review, Patient History of Present Illness History of Present Illness 81 y.o male, signif dementia, I just dcd few days ago when he was admitted for same reason, HYPOGLYCEMIA. That admission he passed out from the hypogly, He needed SNU that time but family decided to go with . NO family with him at ER in my visit, he needs SNU as he keeps on forgetting to eat before he gives himself the insulin, He is on levemir and metformin at home , which I remember I have stoppped last admit given age anyways (metformin), THis time, he needs SNU - will re consult . I need to talk to family if they refuse SNU this time Past Medical History Cardiovascular: AFIB, CHF, HTN, Hyperlipidemia Pulmonary: Asthma CENTRAL NERVOUS SYSTEM: Dementia, Periperal neuropathy GI: No pertinent hx Heme/Onc: No pertinent hx Hepatobiliary: No pertinent hx Psych: No pertinent hx Musculoskeletal: Osteoarthritis Rheumatologic: No pertinent hx Infectious disease: No pertinent hx Renal/: Chronic renal insuff Endocrine: Diabetes, Hypothyroidism Past Surgical History Past Surgical History: Appendectomy, Tonsillectomy Family History Family History: Other Social History Smoke: No ALCOHOL: none Drugs: None Current Problem List Problem List Problems Medical Problems: (1) Dehydration Status: Acute (2) Elevated troponin Status: Acute (3) Hypertension Status: Acute (4) Hypoglycemia Status: Acute (5) IDDM (insulin dependent diabetes mellitus) Status: Acute (6) Renal insufficiency Status: Acute Problems: Current Medications Current Medications Current Medications Sodium Chloride 1,000 ml @ 1,000 mls/hr Q1H IV Last administered on t 07:15; Start 07/09/17 at 06:50; Stop 07/09/17 at 07:49; Status DC Sodium Chloride (Normal Saline Flush) 10 ml QSHIFT PRN IV AFTER MEDS AND BLOOD DRAWS; Start 07/09/17 at 07:00 Labetalol HCl (Normodyne) 20 mg 1X ONCE IVP ; Start 07/09/17 at 07:00; Stop 07/09/17 at 07:01; Status DC Dextrose 1,000 ml @ 200 mls/hr 1X ONCE IV Last administered on 07/09/17t 08: 11; Start 07/09/17 at 07:00; Stop 07/09/17 at 11:59 Labetalol HCl (Normodyne) 10 mg PRN Q2HR PRN IVP HYPERTENSION, SEE COMMENTS; Start 07/09/17 at 07:30 Apixaban (Eliquis) 2.5 mg BID PO ; Start 07/09/17 at 09:00 Famotidine (Pepcid) 20 mg HS PO ; Start 07/09/17 at 21:00 Ferrous Sulfate (Feosol) 325 mg DAILYWBKFT PO ; Start 07/09/17 at 09:00 Hydrochlorothiazide (Microzide) 12.5 mg DAILY PO ; Start 07/09/17 at 09:00 Isosorbide Mononitrate (Imdur) 30 mg DAILY PO ; Start 07/09/17 at 09:00 Levothyroxine Sodium (Synthroid) 50 mcg DAILY06 PO ; Start 07/09/17 at 07:45 Montelukast Sodium (Singulair) 10 mg QHS PO ; Start 07/09/17 at 21:00 Potassium Chloride (Klor-Con) 20 meq BIDWMEALS PO ; Start 07/09/17 at 08:00 Simvastatin (Zocor) 40 mg QHS PO ; Start 07/09/17 at 21:00 Non-Formulary Medication 1 puff BID IH ; Start 07/09/17 at 09:00; Status UNV Pantoprazole Sodium (Protonix) 40 mg DAILYAC PO ; Start 07/09/17 at 07:30 Acetaminophen/ Hydrocodone Bitart (Lortab 7.5/325) 1 tab PRN Q4HRS PRN PO PAIN ; Start 07/09/17 at 07:30 Verapamil HCl (Calan Sr) 120 mg DAILY PO ; Start 07/09/17 at 09:00 Budesonide (Pulmicort) 0.5 mg RTBID NEB ; Start 07/09/17 at 08:00 Active Scripts Active Reported Furosemide 40 Mg Tablet 40 Mg PO BID Isosorbide Mononitrate Er (Isosorbide Mononitrate) 30 Mg Tab.er.24h 30 Mg PO DAILY Hydrochlorothiazide Capsule (Hydrochlorothiazide) 12.5 Mg Capsule 12.5 Mg PO DAILY Qvar 40MCG Inhaler (Beclomethasone Dipropionate) 8.7 Gm Aer.w.adap 1 Puff IH BID Levothyroxine Sodium 50 Mcg Tablet 1 Tab PO DAILY Eliquis (Apixaban) 2.5 Mg Tablet 2.5 Mg PO BID Verapamil Er (Verapamil Hcl) 120 Mg Cap24h.pel 120 Mg PO DAILY Nexium Capsule (Esomeprazole Magnesium) 40 Mg Capsule.dr 1 Cap PO DAILY Montelukast Sodium Tablet (Montelukast Sodium) 10 Mg Tablet 10 Mg PO QEVNG Pepcid (Famotidine) 20 Mg Tablet 20 Mg PO HS Potassium Chloride 20 Meq Tab.er.prt 1 Tab PO BID Lortab 7.5-500 Tablet (Hydrocodone Bit/Acetaminophen) 1 Each Tablet 1 Each PO PRN Q4HRS Ferrous Sulfate 325 Mg Tablet 325 Mg PO DAILY Simvastatin 40 Mg Tablet 40 Mg PO QHS Novolog Flexpen (Insulin Aspart) 100 Unit/1 Ml Insuln.pen 18 Unit SQ DAILYWBKFT Levemir Flexpen (Insulin Detemir) 100 Unit/1 Ml Insuln.pen 40 Unit SQ QHS Metformin Hcl 1,000 Mg Tablet 1,000 Mg PO BID Allergies Allergies: Coded Allergies: No Known Drug Allergies (Unverified , 08/16/13) ROS Review of System limited, dementia Physical Exam General: No acute distress, Other (shaky) HEENT: Atraumatic, PERRLA, EOMI, Mucous membr. moist/pink Lungs: Clear to auscultation, Normal air movement Heart: S1S2, RRR, no thrills, no rubs Cardiovascular: S1, S2 Abdomen: Normal bowel sounds, Soft, No tenderness, No hepatosplenomegaly, No masses Male Genitals Exam: normal genitalia, normal prostate Rectal Exam: not examined PELVIC: Other Extremities: No cyanosis, Other (very shaky) Skin: No rashes, No breakdown, No significant lesion Neuro: Normal gait, Normal speech, Strength at 5/5 X4 ext, Normal tone, Sensation intact, Cranial nerves 3-12 NL, Reflexes 2+ Vitals Vitals Vital Signs Date Time Temp Pulse Resp B/P (MAP) Pulse Ox O2 Delivery O2 Flow Rate FiO2 07/09/17 10:30 114 24 105/74 (84) 96 Room Air Labs Labs Laboratory Tests Test 07/09/17 06:34 07/09/17 06:45 07/09/17 07:58 07/09/17 10:33 Glucose (Fingerstick) 130 mg/dL (70-99) 123 mg/dL (70-99) 297 mg/dL (70-99) White Blood Count 10.4 x10^3/uL (4.0-11.0) Red Blood Count 5.39 x10^6/uL (4.30-5.70) Hemoglobin 13.6 g/dL (13.0-17.5) Hematocrit 42.8 % (39.0-53.0) Mean Corpuscular Volume 80 fL (79-100) Mean Corpuscular Hemoglobin 25 pg (25-35) Mean Corpuscular Hemoglobin Concent 32 g/dL (31-37) Red Cell Distribution Width 17.1 % (11.5-14.5) Platelet Count 221 x10^3/uL (140-400) Neutrophils (%) (Auto) 71 % (31-73) Lymphocytes (%) (Auto) 17 % (24-48) Monocytes (%) (Auto) 11 % (0-9) Eosinophils (%) (Auto) 1 % (0-3) Basophils (%) (Auto) 0 % (0-3) Neutrophils # (Auto) 7.4 x10^3uL (1.8-7.7) Lymphocytes # (Auto) 1.8 x10^3/uL (1.0-4.8) Monocytes # (Auto) 1.1 x10^3/uL (0.0-1.1) Eosinophils # (Auto) 0.1 x10^3/uL (0.0-0.7) Basophils # (Auto) 0.0 x10^3/uL (0.0-0.2) Sodium Level 144 mmol/L (136-145) Potassium Level 4.1 mmol/L (3.5-5.1) Chloride Level 106 mmol/L (98-107) Carbon Dioxide Level 23 mmol/L (21-32) Anion Gap 15 (6-14) Blood Urea Nitrogen 39 mg/dL (8-26) Creatinine 2.1 mg/dL (0.7-1.3) Estimated GFR (Cockcroft-Gault) 30.5 Glucose Level 128 mg/dL (70-99) Calcium Level 9.0 mg/dL (8.5-10.1) Magnesium Level 1.9 mg/dL (1.8-2.4) Total Bilirubin 0.5 mg/dL (0.2-1.0) Direct Bilirubin 0.2 mg/dL (0.0-0.2) Aspartate Amino Transf (AST/SGOT) 24 U/L (15-37) Alanine Aminotransferase (ALT/SGPT) 21 U/L (16-63) Alkaline Phosphatase 105 U/L (46-116) Creatine Kinase 191 U/L (39-308) Creatine Kinase MB (Mass) 3.6 ng/mL (0.0-3.6) Creatine Kinase MB Relative Index 1.9 % (0-4) Troponin I Quantitative 0.126 ng/mL (0.000-0.055) BV-Dgb-Y-Type Natriuretic Peptide 8080 pg/mL (0-449) Total Protein 6.9 g/dL (6.4-8.2) Albumin 3.7 g/dL (3.4-5.0) Lipase 108 U/L (73-393) Thyroid Stimulating Hormone (TSH) 3.864 uIU/mL (0.358-3.74) Laboratory Tests Test 07/09/17 06:34 07/09/17 06:45 07/09/17 07:58 07/09/17 10:33 Glucose (Fingerstick) 130 mg/dL (70-99) 123 mg/dL (70-99) 297 mg/dL (70-99) White Blood Count 10.4 x10^3/uL (4.0-11.0) Red Blood Count 5.39 x10^6/uL (4.30-5.70) Hemoglobin 13.6 g/dL (13.0-17.5) Hematocrit 42.8 % (39.0-53.0) Mean Corpuscular Volume 80 fL (79-100) Mean Corpuscular Hemoglobin 25 pg (25-35) Mean Corpuscular Hemoglobin Concent 32 g/dL (31-37) Red Cell Distribution Width 17.1 % (11.5-14.5) Platelet Count 221 x10^3/uL (140-400) Neutrophils (%) (Auto) 71 % (31-73) Lymphocytes (%) (Auto) 17 % (24-48) Monocytes (%) (Auto) 11 % (0-9) Eosinophils (%) (Auto) 1 % (0-3) Basophils (%) (Auto) 0 % (0-3) Neutrophils # (Auto) 7.4 x10^3uL (1.8-7.7) Lymphocytes # (Auto) 1.8 x10^3/uL (1.0-4.8) Monocytes # (Auto) 1.1 x10^3/uL (0.0-1.1) Eosinophils # (Auto) 0.1 x10^3/uL (0.0-0.7) Basophils # (Auto) 0.0 x10^3/uL (0.0-0.2) Sodium Level 144 mmol/L (136-145) Potassium Level 4.1 mmol/L (3.5-5.1) Chloride Level 106 mmol/L (98-107) Carbon Dioxide Level 23 mmol/L (21-32) Anion Gap 15 (6-14) Blood Urea Nitrogen 39 mg/dL (8-26) Creatinine 2.1 mg/dL (0.7-1.3) Estimated GFR (Cockcroft-Gault) 30.5 Glucose Level 128 mg/dL (70-99) Calcium Level 9.0 mg/dL (8.5-10.1) Magnesium Level 1.9 mg/dL (1.8-2.4) Total Bilirubin 0.5 mg/dL (0.2-1.0) Direct Bilirubin 0.2 mg/dL (0.0-0.2) Aspartate Amino Transf (AST/SGOT) 24 U/L (15-37) Alanine Aminotransferase (ALT/SGPT) 21 U/L (16-63) Alkaline Phosphatase 105 U/L (46-116) Creatine Kinase 191 U/L (39-308) Creatine Kinase MB (Mass) 3.6 ng/mL (0.0-3.6) Creatine Kinase MB Relative Index 1.9 % (0-4) Troponin I Quantitative 0.126 ng/mL (0.000-0.055) FI-Vdv-I-Type Natriuretic Peptide 8080 pg/mL (0-449) Total Protein 6.9 g/dL (6.4-8.2) Albumin 3.7 g/dL (3.4-5.0) Lipase 108 U/L (73-393) Thyroid Stimulating Hormone (TSH) 3.864 uIU/mL (0.358-3.74) VTE Prophylaxis Ordered VTE Prophylaxis Devices: Yes VTE Pharmacological Prophylaxi: Yes Assessment/Plan Assessment/Plan 1. Hypoglycemia - basically it is bec he is so demented and needs help - needs SNU 2. DM2 on OHA and insulin - I WILL STOP FOR THE SECOND TIME METFORMIN, hold insulin of course for now, Reg diet 3. HTN, CAD, CHF, GERD etc - on AC - hIGH FALL RISK, bleeding in an elderly always a risk in elderly on AC re falls etc 4. HIgh fall risk 5. Tremors PLAn: ADmit SW SNU PT/.OT HOld OHA and insulin dextrose iVF if needed COnsult neuro re the tremors/shakes.dementia -need discussion with family, he needs rehab modalities and someone to help him with his meds, He had HH arranged last dc (within the week) seen at [facility] MD Jul 09, 2017 11:27
[2017-07-09] MEDS: PANTOPRAZOLE 40 MG TABLET.DR. PO SCH (11:56)
[2017-07-09] MEDS: LEVOTHYROXINE 50 MCG TABLET PO SCH (12:15)
[2017-07-09] MEDS: ISOSORBIDE MONONITRATE ER 30 MG TAB.ER.24H PO SCH (12:38)
[2017-07-09] MEDS: FERROUS SULFATE 325 MG TABLET. PO SCH (12:39)
[2017-07-09] MEDS: APIXABAN 2.5 MG TABLET. PO SCH ×2 (12:39→21:11)
[2017-07-09] MEDS: POTASSIUM CHLORIDE 20 MEQ TABLET.ER. PO SCH ×2 (12:42→17:00)
[2017-07-09] MEDS: BUDESONIDE 0.5 MG/2 ML NEBU. NEB SCH ×2 (12:52→19:53)
[2017-07-09] MEDS ORDERED: dilTIAZem IV PUSH 25 MG/5 ML VIAL IVP ONE (13:45)
--- NOTE | 2017-07-09 14:25 | PDOC2 ---
NEUROLOGY CONSULT Date of Admission Date of Admission DATE: 07/09/17 TIME: 14:17 Reason for Consult Reason for Consult: Altered mental status Referring Physician Referring Physician: Dr. Beverly Source Source: Caregiver, Chart review, Patient History of Present Illness History of Present Illness The patient is an 81-year-old right-handed male admitted for altered mental status, found to have hypoglycemia. He had same problem last time. There is a question that he is giving himself too much insulin and that he may lack the mental capacity to stay at home. Patient's says that they get along well at home. They help each other pay bills. They cannot afford a car so he do not drive, but could if they had a car. The patient has never had a stroke, seizure , or head injury. The patient does have occasional tremors, but the readily differentiates these from seizures that her niece has. Past Medical History Cardiovascular: AFIB, CAD, CHF, HTN, Hyperlipidemia Pulmonary: Asthma, COPD CENTRAL NERVOUS SYSTEM: Periperal neuropathy Musculoskeletal: low back pain, Osteoarthritis ENT: Other (hearing loss) Endocrine: Diabetes, Hypothyroidism Past Surgical History Past Surgical History: Cataract Removal, Tonsillectomy (/adenoidectomy), Other (hand surgery) Family History Family History: Cancer, DM Social History Social History , quit using alcohol and tobacco more than 15 years ago, retired Current Medications Current Medications Current Medications Sodium Chloride 1,000 ml @ 1,000 mls/hr Q1H IV Last administered on 07:15; Start 07/09/17 at 06:50; Stop 07/09/17 at 07:49; Status DC Sodium Chloride (Normal Saline Flush) 10 ml QSHIFT PRN IV AFTER MEDS AND BLOOD DRAWS; Start 07/09/17 at 07:00 Labetalol HCl (Normodyne) 20 mg 1X ONCE IVP ; Start 07/09/17 at 07:00; Stop 07/09/17 at 07:01; Status DC Dextrose 1,000 ml @ 200 mls/hr 1X ONCE IV Last administered on 07/09/17 08: 11; Start 07/09/17 at 07:00; Stop 07/09/17 at 11:59; Status DC Labetalol HCl (Normodyne) 10 mg PRN Q2HR PRN IVP HYPERTENSION, SEE COMMENTS; Start 07/09/17 at 07:30 Apixaban (Eliquis) 2.5 mg BID PO Last administered on 07/09/17 12:39; Start 07/09/17 at 09:00 Famotidine (Pepcid) 20 mg HS PO ; Start 07/09/17 at 21:00 Ferrous Sulfate (Feosol) 325 mg DAILYWBKFT PO Last administered on 07/09/17 12:39; Start 07/09/17 at 09:00 Hydrochlorothiazide (Microzide) 12.5 mg DAILY PO Last administered on 12:36; Start 07/09/17 at 09:00 Isosorbide Mononitrate (Imdur) 30 mg DAILY PO Last administered on 07/09/17 12:38; Start 07/09/17 at 09:00 Levothyroxine Sodium (Synthroid) 50 mcg DAILY06 PO Last administered on 12:15; Start 07/09/17 at 07:45 Montelukast Sodium (Singulair) 10 mg QHS PO ; Start 07/09/17 at 21:00 Potassium Chloride (Klor-Con) 20 meq BIDWMEALS PO Last administered on 12:42; Start 07/09/17 at 08:00 Simvastatin (Zocor) 40 mg QHS PO ; Start 07/09/17 at 21:00 Non-Formulary Medication 1 puff BID IH ; Start 07/09/17 at 09:00; Status UNV Pantoprazole Sodium (Protonix) 40 mg DAILYAC PO Last administered on 11:56; Start 07/09/17 at 07:30 Acetaminophen/ Hydrocodone Bitart (Lortab 7.5/325) 1 tab PRN Q4HRS PRN PO PAIN ; Start 07/09/17 at 07:30 Verapamil HCl (Calan Sr) 120 mg DAILY PO Last administered on 07/09/17 12:38 ; Start 07/09/17 at 09:00 Budesonide (Pulmicort) 0.5 mg RTBID NEB Last administered on 07/09/17 12:52; Start 07/09/17 at 08:00 Diltiazem HCl (Cardizem) 10 mg 1X ONCE IVP Last administered on 11/27/17at 14: 03; Start 07/09/17 at 13:45; Stop 07/09/17 at 13:46; Status DC Active Scripts Active Reported Furosemide 40 Mg Tablet 40 Mg PO BID Isosorbide Mononitrate Er (Isosorbide Mononitrate) 30 Mg Tab.er.24h 30 Mg PO DAILY Hydrochlorothiazide Capsule (Hydrochlorothiazide) 12.5 Mg Capsule 12.5 Mg PO DAILY Qvar 40MCG Inhaler (Beclomethasone Dipropionate) 8.7 Gm Aer.w.adap 1 Puff IH BID Levothyroxine Sodium 50 Mcg Tablet 1 Tab PO DAILY Eliquis (Apixaban) 2.5 Mg Tablet 2.5 Mg PO BID Verapamil Er (Verapamil Hcl) 120 Mg Cap24h.pel 120 Mg PO DAILY Nexium Capsule (Esomeprazole Magnesium) 40 Mg Capsule.dr 1 Cap PO DAILY Montelukast Sodium Tablet (Montelukast Sodium) 10 Mg Tablet 10 Mg PO QEVNG Pepcid (Famotidine) 20 Mg Tablet 20 Mg PO HS Potassium Chloride 20 Meq Tab.er.prt 1 Tab PO BID Lortab 7.5-500 Tablet (Hydrocodone Bit/Acetaminophen) 1 Each Tablet 1 Each PO PRN Q4HRS Ferrous Sulfate 325 Mg Tablet 325 Mg PO DAILY Simvastatin 40 Mg Tablet 40 Mg PO QHS Novolog Flexpen (Insulin Aspart) 100 Unit/1 Ml Insuln.pen 18 Unit SQ DAILYWBKFT Levemir Flexpen (Insulin Detemir) 100 Unit/1 Ml Insuln.pen 40 Unit SQ QHS Metformin Hcl 1,000 Mg Tablet 1,000 Mg PO BID Allergies Allergies: Coded Allergies: No Known Drug Allergies (Unverified , 08/16/13) ROS Review of System Patient denies fevers, chills, weight loss, dyspnea, angina, abdominal pain, change in bowels, or dysuria. 14 point review of systems is negative. Physical Exam Physical Examination PHYSICAL EXAMINATION: Vital signs: see above. General appearance is normal and in no acute distress. HEENT: Normocephalic and nontraumatic. Eyes, nose, ears, and throat are unremarkable. Neck is supple. No lymphadenopathy. No bruits are heard over the carotid artery. No crepitus. NEUROLOGICAL EXAMINATION: Mental Status Examination: Alert. Oriented to time, place, and person.Answers questions and follows commends. He is hard of hearing. Pupils are equal round and reactive to light and accommodation. Funduscopic exam: No papilledema. Extraocular movements are intact. Visual field exam shows no defect on the direct confrontation. No motor or sensory deficits on the facial exam. Uvula in the midline and the soft palate elevated symmetrically. No deviation of the tongue to any direction. Gross hearing is normal. Shoulder shrug normal. Muscle tone is normal. Muscle strength is 5. Deep tendon reflexes are 1+ all around. Plantar reflex is with flexion response bilaterally. Nosoub-gr-rnyh test performance is accurate. Alternative movements are accurate. Gait not tested. Sensory exam shows stocking loss. No cerebellar signs are elicited. Vitals VITALS Vital Signs Date Time Temp Pulse Resp B/P (MAP) Pulse Ox O2 Delivery O2 Flow Rate FiO2 07/09/17 14:05 101 22 109/58 (75) 95 Room Air Labs Labs Laboratory Tests Test 07/09/17 06:34 07/09/17 06:45 07/09/17 07:58 07/09/17 10:33 Glucose (Fingerstick) 130 mg/dL (70-99) 123 mg/dL (70-99) 297 mg/dL (70-99) White Blood Count 10.4 x10^3/uL (4.0-11.0) Red Blood Count 5.39 x10^6/uL (4.30-5.70) Hemoglobin 13.6 g/dL (13.0-17.5) Hematocrit 42.8 % (39.0-53.0) Mean Corpuscular Volume 80 fL (79-100) Mean Corpuscular Hemoglobin 25 pg (25-35) Mean Corpuscular Hemoglobin Concent 32 g/dL (31-37) Red Cell Distribution Width 17.1 % (11.5-14.5) Platelet Count 221 x10^3/uL (140-400) Neutrophils (%) (Auto) 71 % (31-73) Lymphocytes (%) (Auto) 17 % (24-48) Monocytes (%) (Auto) 11 % (0-9) Eosinophils (%) (Auto) 1 % (0-3) Basophils (%) (Auto) 0 % (0-3) Neutrophils # (Auto) 7.4 x10^3uL (1.8-7.7) Lymphocytes # (Auto) 1.8 x10^3/uL (1.0-4.8) Monocytes # (Auto) 1.1 x10^3/uL (0.0-1.1) Eosinophils # (Auto) 0.1 x10^3/uL (0.0-0.7) Basophils # (Auto) 0.0 x10^3/uL (0.0-0.2) Sodium Level 144 mmol/L (136-145) Potassium Level 4.1 mmol/L (3.5-5.1) Chloride Level 106 mmol/L (98-107) Carbon Dioxide Level 23 mmol/L (21-32) Anion Gap 15 (6-14) Blood Urea Nitrogen 39 mg/dL (8-26) Creatinine 2.1 mg/dL (0.7-1.3) Estimated GFR (Cockcroft-Gault) 30.5 Glucose Level 128 mg/dL (70-99) Calcium Level 9.0 mg/dL (8.5-10.1) Magnesium Level 1.9 mg/dL (1.8-2.4) Total Bilirubin 0.5 mg/dL (0.2-1.0) Direct Bilirubin 0.2 mg/dL (0.0-0.2) Aspartate Amino Transf (AST/SGOT) 24 U/L (15-37) Alanine Aminotransferase (ALT/SGPT) 21 U/L (16-63) Alkaline Phosphatase 105 U/L (46-116) Creatine Kinase 191 U/L (39-308) Creatine Kinase MB (Mass) 3.6 ng/mL (0.0-3.6) Creatine Kinase MB Relative Index 1.9 % (0-4) Troponin I Quantitative 0.126 ng/mL (0.000-0.055) RS-How-H-Type Natriuretic Peptide 8080 pg/mL (0-449) Total Protein 6.9 g/dL (6.4-8.2) Albumin 3.7 g/dL (3.4-5.0) Lipase 108 U/L (73-393) Thyroid Stimulating Hormone (TSH) 3.864 uIU/mL (0.358-3.74) Laboratory Tests Test 07/09/17 06:34 07/09/17 06:45 07/09/17 07:58 07/09/17 10:33 Glucose (Fingerstick) 130 mg/dL (70-99) 123 mg/dL (70-99) 297 mg/dL (70-99) White Blood Count 10.4 x10^3/uL (4.0-11.0) Red Blood Count 5.39 x10^6/uL (4.30-5.70) Hemoglobin 13.6 g/dL (13.0-17.5) Hematocrit 42.8 % (39.0-53.0) Mean Corpuscular Volume 80 fL (79-100) Mean Corpuscular Hemoglobin 25 pg (25-35) Mean Corpuscular Hemoglobin Concent 32 g/dL (31-37) Red Cell Distribution Width 17.1 % (11.5-14.5) Platelet Count 221 x10^3/uL (140-400) Neutrophils (%) (Auto) 71 % (31-73) Lymphocytes (%) (Auto) 17 % (24-48) Monocytes (%) (Auto) 11 % (0-9) Eosinophils (%) (Auto) 1 % (0-3) Basophils (%) (Auto) 0 % (0-3) Neutrophils # (Auto) 7.4 x10^3uL (1.8-7.7) Lymphocytes # (Auto) 1.8 x10^3/uL (1.0-4.8) Monocytes # (Auto) 1.1 x10^3/uL (0.0-1.1) Eosinophils # (Auto) 0.1 x10^3/uL (0.0-0.7) Basophils # (Auto) 0.0 x10^3/uL (0.0-0.2) Sodium Level 144 mmol/L (136-145) Potassium Level 4.1 mmol/L (3.5-5.1) Chloride Level 106 mmol/L (98-107) Carbon Dioxide Level 23 mmol/L (21-32) Anion Gap 15 (6-14) Blood Urea Nitrogen 39 mg/dL (8-26) Creatinine 2.1 mg/dL (0.7-1.3) Estimated GFR (Cockcroft-Gault) 30.5 Glucose Level 128 mg/dL (70-99) Calcium Level 9.0 mg/dL (8.5-10.1) Magnesium Level 1.9 mg/dL (1.8-2.4) Total Bilirubin 0.5 mg/dL (0.2-1.0) Direct Bilirubin 0.2 mg/dL (0.0-0.2) Aspartate Amino Transf (AST/SGOT) 24 U/L (15-37) Alanine Aminotransferase (ALT/SGPT) 21 U/L (16-63) Alkaline Phosphatase 105 U/L (46-116) Creatine Kinase 191 U/L (39-308) Creatine Kinase MB (Mass) 3.6 ng/mL (0.0-3.6) Creatine Kinase MB Relative Index 1.9 % (0-4) Troponin I Quantitative 0.126 ng/mL (0.000-0.055) KT-Jja-V-Type Natriuretic Peptide 8080 pg/mL (0-449) Total Protein 6.9 g/dL (6.4-8.2) Albumin 3.7 g/dL (3.4-5.0) Lipase 108 U/L (73-393) Thyroid Stimulating Hormone (TSH) 3.864 uIU/mL (0.358-3.74) Images Images CT HEAD WITHOUT CONTRAST, 06/30/17 Findings: No mass-effect, midline shift, hemorrhage or obvious acute infarction is identified. Basilar cisterns are patent. The ventricles and sulci are prominent, consistent with age-related cerebral atrophy. There is also cerebellar atrophy. Bone windows demonstrate no acute calvarial abnormality. Mild mucosal thickening posterior left maxillary sinus. Mastoid air cells are well aerated. IMPRESSION: 1. No acute intracranial abnormality. 2. Age-related cerebral atrophy. Assessment/Plan Assessment/Plan Impression: I do not find evidence for dementia, he does have some decrease level of intelligence I suppose, as does his by talking to her on the phone, but they seemed to get along well at home. He does have some hearing loss. The is convinced that the hypoglycemia is related to new medications the patient is receiving. Evidence of peripheral neuropathy most likely from diabetes, rule out other causes. History of tremor, not apparent on examination right now. By description this sounds like some mild essential tremor. Recommendations: I will have speech therapy check out his cognition for a second opinion. Laboratory studies for other causes of neuropathy and dementia. At this point I cannot say that the patient is so incompetent that he cannot live on his own. Thank you for letting me help the patient's care. SCOTT DAVIDSON MD Jul 09, 2017 14:25
--- NOTE | 2017-07-09 14:26 | PDOC2 ---
ALLISON RAZO FINANCIAL SYSTEMS ANALYST 07/09/17 1426: CARDIAC CONSULT DATE OF CONSULT Date of Consult DATE: 07/09/17 TIME: 14:18 REASON FOR CONSULT Reason for Consult: Afib RVR REFERRING PHYSICIAN Referring Physician: Siria SOURCE Source: Chart review, Patient HISTORY OF PRESENT ILLNESS HISTORY OF PRESENT ILLNESS This is a 81 yo male admitted for noted altered mental status. He is a poor historian. He was noted at the floor of the bathroom but it does not appear that pt fell. Pt is hard of hearing and reported to me that he lives with his . He has dementia by hx. He was noted to be more confuse by family and per EMS noted with BG in the 30s. Upon admission he was noted with AFIB RVR. It is unclear in regards to the dosages of his insulin therapy and who admisters it as family is not at the bedside. Denies any CP and pt denies any SOA at rest. Presently he is in no distress and after cardizem was given his AFIB is no rate controlled. PAST MEDICAL HISTORY Past Medical History Cardiovascular: AFIB, CHF, HTN, Hyperlipidemia Pulmonary: Asthma CENTRAL NERVOUS SYSTEM: Dementia, Peripheral neuropathy GI: diverticulosis Heme/Onc: No pertinent hx Hepatobiliary: No pertinent hx Psych: No pertinent hx Musculoskeletal: Osteoarthritis Rheumatologic: No pertinent hx Infectious disease: No pertinent hx ENT: No pertinent hx Renal/: Chronic renal insuff, adrenal nodule, incontinence Endocrine: Diabetes, Hypothyroidism PAST SURGICAL HISTORY Past Surgical History Appendectomy, Tonsillectomy FAMILY HISTORY Family History: Family History Unknown SOCIAL HISTORY Smoke: No ALCOHOL: none Drugs: None Lives: with Family CURRENT MEDICATIONS CURRENT MEDICATIONS Current Medications Medications (Trade) Dose Ordered Sig/Anna Route PRN Reason Start Time Stop Time Status Last Admin Dose Admin Sodium Chloride 1,000 ml @ 1,000 mls/hr Q1H IV 07/09/17 06:50 07/09/17 07:49 DC 07/09/17 07:15 Dextrose 1,000 ml @ 200 mls/hr 1X ONCE IV 07/09/17 07:00 07/09/17 11:59 DC 07/09/17 08:11 Apixaban (Eliquis) 2.5 mg BID PO 07/09/17 09:00 07/09/17 12:39 Ferrous Sulfate (Feosol) 325 mg DAILYWBKFT PO 07/09/17 09:00 11/27/17 12:39 Hydrochlorothiazide (Microzide) 12.5 mg DAILY PO 07/09/17 09:00 07/09/17 12:36 Isosorbide Mononitrate (Imdur) 30 mg DAILY PO 07/09/17 09:00 07/09/17 12:38 Levothyroxine Sodium (Synthroid) 50 mcg DAILY06 PO 07/09/17 07:45 07/09/17 12:15 Potassium Chloride (Klor-Con) 20 meq BIDWMEALS PO 07/09/17 08:00 07/09/17 12:42 Pantoprazole Sodium (Protonix) 40 mg DAILYAC PO 07/09/17 07:30 07/09/17 11:56 Verapamil HCl (Calan Sr) 120 mg DAILY PO 07/09/17 09:00 07/09/17 12:38 Budesonide (Pulmicort) 0.5 mg RTBID NEB 07/09/17 08:00 07/09/17 12:52 Diltiazem HCl (Cardizem) 10 mg 1X ONCE IVP 07/09/17 13:45 07/09/17 13:46 DC 07/09/17 14:03 ALLERGIES ALLERGIES: Coded Allergies: No Known Drug Allergies (Unverified , 08/16/13) ROS Review of System limited, poor historian PHYSICAL EXAM General: Alert, Cooperative, No acute distress HEENT: Atraumatic, Mucous membr. moist/pink Heart: Other (2/6 systolic murmur to LLs border; AFIB) Abdomen: Soft, No tenderness Extremities: No cyanosis, Other (2+ bilateral LE pitting edema) Skin: No breakdown Neuro: Normal speech, Sensation intact Psych/Mental Status: Mood NL MUSCULOSKELETAL: Osteoarthritic changes both hands VITALS VITALS Vital Signs Date Time Temp Pulse Resp B/P (MAP) Pulse Ox O2 Delivery O2 Flow Rate FiO2 07/09/17 14:05 101 22 109/58 (75) 95 Room Air LABS Lab: Laboratory Tests Test 07/09/17 06:34 07/09/17 06:45 07/09/17 07:58 07/09/17 10:33 Glucose (Fingerstick) 130 mg/dL (70-99) 123 mg/dL (70-99) 297 mg/dL (70-99) White Blood Count 10.4 x10^3/uL (4.0-11.0) Red Blood Count 5.39 x10^6/uL (4.30-5.70) Hemoglobin 13.6 g/dL (13.0-17.5) Hematocrit 42.8 % (39.0-53.0) Mean Corpuscular Volume 80 fL (79-100) Mean Corpuscular Hemoglobin 25 pg (25-35) Mean Corpuscular Hemoglobin Concent 32 g/dL (31-37) Red Cell Distribution Width 17.1 % (11.5-14.5) Platelet Count 221 x10^3/uL (140-400) Neutrophils (%) (Auto) 71 % (31-73) Lymphocytes (%) (Auto) 17 % (24-48) Monocytes (%) (Auto) 11 % (0-9) Eosinophils (%) (Auto) 1 % (0-3) Basophils (%) (Auto) 0 % (0-3) Neutrophils # (Auto) 7.4 x10^3uL (1.8-7.7) Lymphocytes # (Auto) 1.8 x10^3/uL (1.0-4.8) Monocytes # (Auto) 1.1 x10^3/uL (0.0-1.1) Eosinophils # (Auto) 0.1 x10^3/uL (0.0-0.7) Basophils # (Auto) 0.0 x10^3/uL (0.0-0.2) Sodium Level 144 mmol/L (136-145) Potassium Level 4.1 mmol/L (3.5-5.1) Chloride Level 106 mmol/L (98-107) Carbon Dioxide Level 23 mmol/L (21-32) Anion Gap 15 (6-14) Blood Urea Nitrogen 39 mg/dL (8-26) Creatinine 2.1 mg/dL (0.7-1.3) Estimated GFR (Cockcroft-Gault) 30.5 Glucose Level 128 mg/dL (70-99) Calcium Level 9.0 mg/dL (8.5-10.1) Magnesium Level 1.9 mg/dL (1.8-2.4) Total Bilirubin 0.5 mg/dL (0.2-1.0) Direct Bilirubin 0.2 mg/dL (0.0-0.2) Aspartate Amino Transf (AST/SGOT) 24 U/L (15-37) Alanine Aminotransferase (ALT/SGPT) 21 U/L (16-63) Alkaline Phosphatase 105 U/L (46-116) Creatine Kinase 191 U/L (39-308) Creatine Kinase MB (Mass) 3.6 ng/mL (0.0-3.6) Creatine Kinase MB Relative Index 1.9 % (0-4) Troponin I Quantitative 0.126 ng/mL (0.000-0.055) KP-Gcw-F-Type Natriuretic Peptide 8080 pg/mL (0-449) Total Protein 6.9 g/dL (6.4-8.2) Albumin 3.7 g/dL (3.4-5.0) Lipase 108 U/L (73-393) Thyroid Stimulating Hormone (TSH) 3.864 uIU/mL (0.358-3.74) ECHOCARDIOGRAM ECHOCARDIOGRAM <Conclusion> The Left Ventricle is mildly dilated. Left ventricle systolic function is mildly impaired. The Ejection Fraction is 40-45%. There is mild concentric left ventricular hypertrophy. There is no significant aortic valvular stenosis. Doppler and Color Flow revealed no significant aortic regurgitation. Doppler and Color-flow revealed mild mitral regurgitation. Doppler and Color Flow revealed mild tricuspid regurgitation. The PA pressure was estimated at 25 mmHg. DATE: 07/02/17 1208 ASSESSMENT/PLAN ASSESSMENT/PLAN 1. AFIB RVR with RBBB: rate better after IV cardizem 2. Chronic systolic CHF: last LVEF 40-45%. 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 DM2 5. Metabolic encephalopathy with underlying dementia 6. Hypoglycemia: remains to have hypoglycemic episodes with insulin therapy. It is unclear who administers and dosage modification 7. Elevated troponin: initial at 0.126, likely induced by AFIB RVR and hypoglycemic reaction Recommendations 1. DC home verapamil and will start on cardizem IR and transition to CD tomorrow. 2. Continue with low dose eliquis for stroke prevention, unless frequent falls then would reconsider ASA instead. 3. Continue with secondary prevention. 4. Would not recommend metformin and HCTZ. Start PO lasix 5. Will need to note goals of care and would consider for future ischemic workup. 6. Would prefer SNU moving forward upon DC then home health. . Problems: GLEN CHIRINOS MD 07/09/17 1644: CARDIAC CONSULT ALLERGIES ALLERGIES: Coded Allergies: No Known Drug Allergies (Unverified , 08/16/13) ASSESSMENT/PLAN ASSESSMENT/PLAN Patient seen and examined. Agree with COMBINATION WELDER APPRENTICE's assessment and plan. A. fib rate better controlled with Cardizem infusion. Change this to by mouth. Recent 2-D echo showed LVEF 40-45%. He is probably a poor candidate for long-term anticoagulation secondary to fall risk. Slight troponin elevation probably secondary to rapid ventricular response. We will consider ischemic workup as an outpatient. Thank you for your consultation. Problems: ALLISON RAZO APRN Jul 09, 2017 14:26 GLEN CHIRINOS MD Jul 09, 2017 16:44
[2017-07-09] MEDS: dilTIAZem HCL 30 MG TABLET PO SCH ×2 (15:00→22:18)
[2017-07-09 15:38] VITALS: BP 94/52
[2017-07-09 19:00] VITALS: BP 106/55
[2017-07-09] MEDS: SIMVASTATIN 40 MG TABLET. PO SCH (21:11)
[2017-07-09] MEDS: MONTELUKAST SODIUM 10 MG TABLET. PO SCH (21:11)
[2017-07-09] MEDS: FAMOTIDINE 20 MG TABLET. PO SCH (21:11)
[2017-07-09 23:25] VITALS: BP 119/56
[2017-07-10] MEDS: HYDROcodone/APAP 7.5/325MG 1 TAB TABLET PO PRN (03:23)
[2017-07-10 03:30] VITALS: BP 127/76
[2017-07-10] MEDS: LEVOTHYROXINE 50 MCG TABLET PO SCH (06:08)
[2017-07-10] MEDS: dilTIAZem HCL 30 MG TABLET PO SCH (06:08)
[2017-07-10 07:00] VITALS: BP 130/76
[2017-07-10] MEDS: BUDESONIDE 0.5 MG/2 ML NEBU. NEB SCH ×2 (08:01→19:35)
[2017-07-10 08:15] LABS: FOLATE 15.32 ng/ml (3.2-20.0)
[2017-07-10] MEDS: ISOSORBIDE MONONITRATE ER 30 MG TAB.ER.24H PO SCH (09:00)
[2017-07-10] MEDS ORDERED: CYANOCOBALAMIN (VITAMIN B-12) 1,000 MCG/ML VIAL IM SCH (09:00)
--- NOTE | 2017-07-10 09:03 | PDOC ---
ALLISON RAZO CRATE BUILDER 07/10/17 0903: CARDIO Progress Notes Date and Time Date of Service 07/10/2017 Time of Evaluation 0850 Subjective Subjective: No Chest Pain, No shortness of breath, No Palpitations Vitals Vitals Vital Signs Date Time Temp Pulse Resp B/P (MAP) Pulse Ox O2 Delivery O2 Flow Rate FiO2 07/10/17 08:03 Room Air 07/10/17 06:08 90 128/79 07/10/17 04:26 96 07/10/17 03:30 98.0 21 98.0 Weight Weight [ ] Input and Output Intake and Output Intake and Output 07/10/17 07:00 Intake Total 1850 ml Balance 1850 ml Intake Oral 400 ml IV Total 1450 ml # Voids 4 Laboratory Labs Laboratory Tests Test 07/09/17 10:33 07/09/17 16:23 07/09/17 21:33 07/10/17 05:28 Glucose (Fingerstick) 297 mg/dL (70-99) 226 mg/dL (70-99) 202 mg/dL (70-99) Erythrocyte Sedimentation Rate 32 (0-15) Troponin I Quantitative 0.093 ng/mL (0.000-0.055) Vitamin B12 Level 141 pg/mL (247-911) Serum Folate 15.32 ng/ml (3.2-20.0) Test 07/10/17 08:20 Glucose (Fingerstick) 182 mg/dL (70-99) Physical Exam HEENT: Neck Supple W Full Motion Chest: Symmetric LUNGS: Other (faint basilar crackles) Heart: S1S2, no rubs, irregularly irregular (AFIB) Abdomen: Soft N/T Extremities: No Calf Tenderness, Other (2+ bilateral LE pitting edema) Neurology: alert, oriented, follow commands Assessment Assessment 1. AFIB RVR: appears chronic. rate controlled 2. Chronic systolic CHF: last LVEF 40-45%. 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 DM2 5. Metabolic encephalopathy with underlying dementia: mentation better. Neurology following 6. Multiple Hypoglycemic episodes: with insulin therapy. no further event so far. 7. Elevated troponin: peaked at 0.126, likely induced by AFIB RVR and hypoglycemic reaction Recommendations 1. Cardizem CD at 240 mg daily. Continue with po lasix 2. Continue with low dose eliquis for stroke prevention, unless frequent falls then would reconsider ASA instead. 3. Continue with secondary prevention. 4. Will need to note goals of care and would consider for outpt ischemic workup. family remains not available. 5. Would prefer SNU moving forward upon DC then home health. . 6. Follow up in office in 3-4 weeks. GLEN CHIRINOS MD 07/10/17 1446: CARDIO Progress Notes Assessment Assessment Patient seen and examined. Agree with LEGAL ANALYST's assessment and plan. Permanent atrial fibrillation, rate well-controlled. Chronic systolic heart failure well compensated. Continue current medical regimen and follow-up with our office in 1 month. ALLISON RAZO APRN Jul 10, 2017 09:03 GLEN CHIRINOS MD Jul 10, 2017 14:46
[2017-07-10 09:12] LABS: CALCIUM 9.1 mg/dL (8.5-10.1); CREATININE 1.8 mg/dL (0.7-1.3); GFR 36.5; MAGNESIUM 1.8 mg/dL (1.8-2.4); POTASSIUM 4.7 mmol/L (3.5-5.1)
[2017-07-10] MEDS: PANTOPRAZOLE 40 MG TABLET.DR. PO SCH (09:14)
[2017-07-10] MEDS: FERROUS SULFATE 325 MG TABLET. PO SCH (09:14)
[2017-07-10] MEDS: FUROSEMIDE 40 MG TABLET. PO SCH (09:15)
[2017-07-10] MEDS: APIXABAN 2.5 MG TABLET. PO SCH ×2 (09:15→21:52)
[2017-07-10] MEDS: POTASSIUM CHLORIDE 20 MEQ TABLET.ER. PO SCH ×2 (09:15→17:00)
--- NOTE | 2017-07-10 10:00 | PDOC ---
PROGRESS NOTES Chief Complaint Chief Complaint Hypoglycemia AMS HTN History of Present Illness History of Present Illness Pt seen in Cardiac Unit, Sitting upright in hospital attire, Pt Awake and Alert , NAD DW- RN Vitals Vitals Vital Signs Date Time Temp Pulse Resp B/P (MAP) Pulse Ox O2 Delivery O2 Flow Rate FiO2 07/10/17 09:15 94 130/76 07/10/17 08:03 Room Air 07/10/17 07:00 97.4 18 90 97.4 Physical Exam General: Alert, Cooperative, No acute distress Heart: Other (2/6 systolic murmur to LLs border; AFIB) Lungs: Clear, Other (No RRW) Abdomen: Soft, No tenderness Extremities: No clubbing, No cyanosis Skin: No breakdown Labs LABS Laboratory Tests Test 07/09/17 10:33 07/09/17 16:23 07/09/17 21:33 07/10/17 05:28 Glucose (Fingerstick) 297 mg/dL (70-99) 226 mg/dL (70-99) 202 mg/dL (70-99) Erythrocyte Sedimentation Rate 32 (0-15) Sodium Level 142 mmol/L (136-145) Potassium Level 4.7 mmol/L (3.5-5.1) Chloride Level 106 mmol/L (98-107) Carbon Dioxide Level 27 mmol/L (21-32) Anion Gap 9 (6-14) Blood Urea Nitrogen 29 mg/dL (8-26) Creatinine 1.8 mg/dL (0.7-1.3) Estimated GFR (Cockcroft-Gault) 36.5 Glucose Level 207 mg/dL (70-99) Calcium Level 9.1 mg/dL (8.5-10.1) Magnesium Level 1.8 mg/dL (1.8-2.4) Troponin I Quantitative 0.093 ng/mL (0.000-0.055) Vitamin B12 Level 141 pg/mL (247-911) Serum Folate 15.32 ng/ml (3.2-20.0) Test 07/10/17 08:20 Glucose (Fingerstick) 182 mg/dL (70-99) Review of Systems Review of Systems General: No Fever, Fatigue, Hunger Pulm: No SOB, Dyspnea Assessment and Plan Assessmemt and Plan Assessment: Dehydration Elevated troponin Hypertension Hypoglycemia DDM (insulin dependent diabetes mellitus) Renal insufficiency Plan: Continue Cardiac Monitoring Continue Serial Enzymes, EKG Continue Anti-Coag monitoring Continue Home Meds Continue PT/OT Recheck Labs DC- SNU probable, needs LT care, awaiting subspecialty and SW input Problems: Comment Review of Relevant I have reviewed the following items ajck (where applicable) has been applied. Labs Laboratory Tests Test 07/09/17 06:34 07/09/17 06:45 07/09/17 07:58 07/09/17 10:33 Glucose (Fingerstick) 130 mg/dL (70-99) 123 mg/dL (70-99) 297 mg/dL (70-99) White Blood Count 10.4 x10^3/uL (4.0-11.0) Red Blood Count 5.39 x10^6/uL (4.30-5.70) Hemoglobin 13.6 g/dL (13.0-17.5) Hematocrit 42.8 % (39.0-53.0) Mean Corpuscular Volume 80 fL (79-100) Mean Corpuscular Hemoglobin 25 pg (25-35) Mean Corpuscular Hemoglobin Concent 32 g/dL (31-37) Red Cell Distribution Width 17.1 % (11.5-14.5) Platelet Count 221 x10^3/uL (140-400) Neutrophils (%) (Auto) 71 % (31-73) Lymphocytes (%) (Auto) 17 % (24-48) Monocytes (%) (Auto) 11 % (0-9) Eosinophils (%) (Auto) 1 % (0-3) Basophils (%) (Auto) 0 % (0-3) Neutrophils # (Auto) 7.4 x10^3uL (1.8-7.7) Lymphocytes # (Auto) 1.8 x10^3/uL (1.0-4.8) Monocytes # (Auto) 1.1 x10^3/uL (0.0-1.1) Eosinophils # (Auto) 0.1 x10^3/uL (0.0-0.7) Basophils # (Auto) 0.0 x10^3/uL (0.0-0.2) Sodium Level 144 mmol/L (136-145) Potassium Level 4.1 mmol/L (3.5-5.1) Chloride Level 106 mmol/L (98-107) Carbon Dioxide Level 23 mmol/L (21-32) Anion Gap 15 (6-14) Blood Urea Nitrogen 39 mg/dL (8-26) Creatinine 2.1 mg/dL (0.7-1.3) Estimated GFR (Cockcroft-Gault) 30.5 Glucose Level 128 mg/dL (70-99) Calcium Level 9.0 mg/dL (8.5-10.1) Magnesium Level 1.9 mg/dL (1.8-2.4) Total Bilirubin 0.5 mg/dL (0.2-1.0) Direct Bilirubin 0.2 mg/dL (0.0-0.2) Aspartate Amino Transf (AST/SGOT) 24 U/L (15-37) Alanine Aminotransferase (ALT/SGPT) 21 U/L (16-63) Alkaline Phosphatase 105 U/L (46-116) Creatine Kinase 191 U/L (39-308) Creatine Kinase MB (Mass) 3.6 ng/mL (0.0-3.6) Creatine Kinase MB Relative Index 1.9 % (0-4) Troponin I Quantitative 0.126 ng/mL (0.000-0.055) RU-Rrs-[id number]-Type Natriuretic Peptide 8080 pg/mL (0-449) Total Protein 6.9 g/dL (6.4-8.2) Albumin 3.7 g/dL (3.4-5.0) Lipase 108 U/L (73-393) Thyroid Stimulating Hormone (TSH) 3.864 uIU/mL (0.358-3.74) Test 07/09/17 16:23 07/09/17 21:33 07/10/17 05:28 07/10/17 08:20 Glucose (Fingerstick) 226 mg/dL (70-99) 202 mg/dL (70-99) 182 mg/dL (70-99) Erythrocyte Sedimentation Rate 32 (0-15) Sodium Level 142 mmol/L (136-145) Potassium Level 4.7 mmol/L (3.5-5.1) Chloride Level 106 mmol/L (98-107) Carbon Dioxide Level 27 mmol/L (21-32) Anion Gap 9 (6-14) Blood Urea Nitrogen 29 mg/dL (8-26) Creatinine 1.8 mg/dL (0.7-1.3) Estimated GFR (Cockcroft-Gault) 36.5 Glucose Level 207 mg/dL (70-99) Calcium Level 9.1 mg/dL (8.5-10.1) Magnesium Level 1.8 mg/dL (1.8-2.4) Troponin I Quantitative 0.093 ng/mL (0.000-0.055) Vitamin B12 Level 141 pg/mL (247-911) Serum Folate 15.32 ng/ml (3.2-20.0) Laboratory Tests Test 07/09/17 10:33 07/09/17 16:23 07/09/17 21:33 07/10/17 05:28 Glucose (Fingerstick) 297 mg/dL (70-99) 226 mg/dL (70-99) 202 mg/dL (70-99) Erythrocyte Sedimentation Rate 32 (0-15) Sodium Level 142 mmol/L (136-145) Potassium Level 4.7 mmol/L (3.5-5.1) Chloride Level 106 mmol/L (98-107) Carbon Dioxide Level 27 mmol/L (21-32) Anion Gap 9 (6-14) Blood Urea Nitrogen 29 mg/dL (8-26) Creatinine 1.8 mg/dL (0.7-1.3) Estimated GFR (Cockcroft-Gault) 36.5 Glucose Level 207 mg/dL (70-99) Calcium Level 9.1 mg/dL (8.5-10.1) Magnesium Level 1.8 mg/dL (1.8-2.4) Troponin I Quantitative 0.093 ng/mL (0.000-0.055) Vitamin B12 Level 141 pg/mL (247-911) Serum Folate 15.32 ng/ml (3.2-20.0) Test 07/10/17 08:20 Glucose (Fingerstick) 182 mg/dL (70-99) Medications Current Medications Sodium Chloride 1,000 ml @ 1,000 mls/hr Q1H IV Last administered on t 07:15; Start 07/09/17 at 06:50; Stop 07/09/17 at 07:49; Status DC Sodium Chloride (Normal Saline Flush) 10 ml QSHIFT PRN IV AFTER MEDS AND BLOOD DRAWS; Start 07/09/17 at 07:00 Labetalol HCl (Normodyne) 20 mg 1X ONCE IVP ; Start 07/09/17 at 07:00; Stop 07/09/17 at 07:01; Status DC Dextrose 1,000 ml @ 200 mls/hr 1X ONCE IV Last administered on 07/09/17 08: 11; Start 07/09/17 at 07:00; Stop 07/09/17 at 11:59; Status DC Labetalol HCl (Normodyne) 10 mg PRN Q2HR PRN IVP HYPERTENSION, SEE COMMENTS; Start 07/09/17 at 07:30 Apixaban (Eliquis) 2.5 mg BID PO Last administered on 07/10/17 09:15; Start 07/09/17 at 09:00 Famotidine (Pepcid) 20 mg HS PO Last administered on 07/09/17 21:11; Start 07/09/17 at 21:00 Ferrous Sulfate (Feosol) 325 mg DAILYWBKFT PO Last administered on 07/10/17 09:14; Start 07/09/17 at 09:00 Hydrochlorothiazide (Microzide) 12.5 mg DAILY PO Last administered on 12:36; Start 07/09/17 at 09:00; Stop 07/09/17 at 14:54; Status DC Isosorbide Mononitrate (Imdur) 30 mg DAILY PO Last administered on 07/09/17 12:38; Start 07/09/17 at 09:00 Levothyroxine Sodium (Synthroid) 50 mcg DAILY06 PO Last administered on 06:08; Start 07/09/17 at 07:45 Montelukast Sodium (Singulair) 10 mg QHS PO Last administered on 07/09/17 21: 11; Start 07/09/17 at 21:00 Potassium Chloride (Klor-Con) 20 meq BIDWMEALS PO Last administered on 09:15; Start 07/09/17 at 08:00 Simvastatin (Zocor) 40 mg QHS PO Last administered on 07/09/17 21:11; Start 07/09/17 at 21:00 Non-Formulary Medication 1 puff BID IH ; Start 07/09/17 at 09:00; Status UNV Pantoprazole Sodium (Protonix) 40 mg DAILYAC PO Last administered on 09:14; Start 07/09/17 at 07:30 Acetaminophen/ Hydrocodone Bitart (Lortab 7.5/325) 1 tab PRN Q4HRS PRN PO PAIN Last administered on 07/10/17 03:23; Start 07/09/17 at 07:30 Verapamil HCl (Calan Sr) 120 mg DAILY PO Last administered on 07/09/17 12:38 ; Start 07/09/17 at 09:00; Stop 07/09/17 at 14:54; Status DC Budesonide (Pulmicort) 0.5 mg RTBID NEB Last administered on 07/10/17 08:01; Start 07/09/17 at 08:00 Diltiazem HCl (Cardizem) 10 mg 1X ONCE IVP Last administered on 07/09/17 14: 03; Start 07/09/17 at 13:45; Stop 07/09/17 at 13:46; Status DC Furosemide (Lasix) 40 mg DAILY PO Last administered on 07/10/17 09:15; Start 07/10/17 at 09:00 Diltiazem HCl (Cardizem) 60 mg Q8HRS PO Last administered on 07/10/17 06:08; Start 07/09/17 at 15:00; Stop 07/10/17 at 08:18; Status DC Diltiazem HCl (Cardizem 24hr Cd) 240 mg DAILY PO Last administered on 09:15; Start 07/10/17 at 09:00 Cyanocobalamin (Vitamin B-12) 1,000 mcg QMONTH IM Last administered on 09:16; Start 07/10/17 at 09:00 Info (Anti-Coagulation Monitoring By Pharmacy) 1 each PRN DAILY PRN [facility] SEE COMMENTS; Start 07/10/17 at 09:30 Active Scripts Active Reported Furosemide 40 Mg Tablet 40 Mg PO BID Isosorbide Mononitrate Er (Isosorbide Mononitrate) 30 Mg Tab.er.24h 30 Mg PO DAILY Hydrochlorothiazide Capsule (Hydrochlorothiazide) 12.5 Mg Capsule 12.5 Mg PO DAILY Qvar 40MCG Inhaler (Beclomethasone Dipropionate) 8.7 Gm Aer.w.adap 1 Puff IH BID Levothyroxine Sodium 50 Mcg Tablet 1 Tab PO DAILY Eliquis (Apixaban) 2.5 Mg Tablet 2.5 Mg PO BID Verapamil Er (Verapamil Hcl) 120 Mg Cap24h.pel 120 Mg PO DAILY Nexium Capsule (Esomeprazole Magnesium) 40 Mg Capsule.dr 1 Cap PO DAILY Montelukast Sodium Tablet (Montelukast Sodium) 10 Mg Tablet 10 Mg PO QEVNG Pepcid (Famotidine) 20 Mg Tablet 20 Mg PO HS Potassium Chloride 20 Meq Tab.er.prt 1 Tab PO BID Lortab 7.5-500 Tablet (Hydrocodone Bit/Acetaminophen) 1 Each Tablet 1 Each PO PRN Q4HRS Ferrous Sulfate 325 Mg Tablet 325 Mg PO DAILY Simvastatin 40 Mg Tablet 40 Mg PO QHS Novolog Flexpen (Insulin Aspart) 100 Unit/1 Ml Insuln.pen 18 Unit SQ DAILYWBKFT Levemir Flexpen (Insulin Detemir) 100 Unit/1 Ml Insuln.pen 40 Unit SQ QHS Metformin Hcl 1,000 Mg Tablet 1,000 Mg PO BID Vitals/I & O Vital Sign - Last 24 Hours 07/09/17 07/09/17 07/09/17 07/09/17 10:30 11:55 12:38 12:38 Pulse 114 101 113 110 Resp 24 20 B/P (MAP) 105/74 (84) 117/73 (88) 140/85 140/85 Pulse Ox 96 95 O2 Delivery Room Air 07/09/17 07/09/17 07/09/17 07/09/17 12:42 12:54 14:03 14:05 Pulse 116 138 101 Resp 20 22 B/P (MAP) 140/85 (103) 140/86 109/58 (75) Pulse Ox 99 96 95 O2 Delivery Room Air Room Air Room Air 07/09/17 07/09/17 07/09/17 07/09/17 15:30 15:38 19:00 19:55 Temp 98.4 98.2 98.4 98.2 Pulse 64 82 Resp 20 20 B/P (MAP) 94/52 (66) 106/55 (72) Pulse Ox 94 95 95 O2 Delivery Room Air Room Air Room Air Room Air 07/09/17 07/09/17 07/09/17 07/10/17 20:00 22:18 23:25 03:23 Temp 98.3 98.3 Pulse 87 87 Resp 17 B/P (MAP) 112/84 119/56 (77) Pulse Ox 95 95 O2 Delivery Room Air Room Air Room Air 07/10/17 07/10/17 07/10/17 07/10/17 03:30 04:26 06:08 07:00 Temp 98.0 97.4 98.0 97.4 Pulse 99 90 77 Resp 21 18 B/P (MAP) 127/76 (93) 128/79 130/76 (94) Pulse Ox 96 96 90 O2 Delivery Room Air Room Air Room Air 07/10/17 07/10/17 07/10/17 07:20 08:03 09:15 Pulse 94 B/P (MAP) 130/76 O2 Delivery Room Air Room Air Intake and Output 07/09/17 07/09/17 07/10/17 15:00 23:00 07:00 Intake Total 1450 ml 400 ml Balance 1450 ml 400 ml AGNES NUNN III DO Jul 10, 2017 10:00
--- NOTE | 2017-07-10 10:41 | PDOC ---
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 History of tremor, not apparent on examination right now. By description this sounds like some mild essential tremor. Plan B-12 replacement Home or correction Subjective Wants to go home Objective Vital Signs Date Time Temp Pulse Resp B/P (MAP) Pulse Ox O2 Delivery O2 Flow Rate FiO2 07/10/17 09:15 94 130/76 07/10/17 08:03 Room Air 07/10/17 07:00 97.4 18 90 97.4 Intake and Output 07/10/17 07:00 Intake Total 1850 ml Balance 1850 ml Intake Oral 400 ml IV Total 1450 ml # Voids 4 PHYSICAL EXAM Alert. Oriented to time, place and person. PERRL. EOMI. CN: no focal findings. Hard of hearing Muscle tone: normal. Muscle strength: 5/5 DTR: 1+ Plantar reflex: flexor Gait: not examined in bed. Sensory exam: stocking loss. No cerebellar signs elicited. Review of Relevant I have reviewed the following items jack (where applicable) has been applied. Labs Laboratory Tests Test 07/09/17 06:34 07/09/17 06:45 07/09/17 07:58 07/09/17 10:33 Glucose (Fingerstick) 130 mg/dL (70-99) 123 mg/dL (70-99) 297 mg/dL (70-99) White Blood Count 10.4 x10^3/uL (4.0-11.0) Red Blood Count 5.39 x10^6/uL (4.30-5.70) Hemoglobin 13.6 g/dL (13.0-17.5) Hematocrit 42.8 % (39.0-53.0) Mean Corpuscular Volume 80 fL (79-100) Mean Corpuscular Hemoglobin 25 pg (25-35) Mean Corpuscular Hemoglobin Concent 32 g/dL (31-37) Red Cell Distribution Width 17.1 % (11.5-14.5) Platelet Count 221 x10^3/uL (140-400) Neutrophils (%) (Auto) 71 % (31-73) Lymphocytes (%) (Auto) 17 % (24-48) Monocytes (%) (Auto) 11 % (0-9) Eosinophils (%) (Auto) 1 % (0-3) Basophils (%) (Auto) 0 % (0-3) Neutrophils # (Auto) 7.4 x10^3uL (1.8-7.7) Lymphocytes # (Auto) 1.8 x10^3/uL (1.0-4.8) Monocytes # (Auto) 1.1 x10^3/uL (0.0-1.1) Eosinophils # (Auto) 0.1 x10^3/uL (0.0-0.7) Basophils # (Auto) 0.0 x10^3/uL (0.0-0.2) Sodium Level 144 mmol/L (136-145) Potassium Level 4.1 mmol/L (3.5-5.1) Chloride Level 106 mmol/L (98-107) Carbon Dioxide Level 23 mmol/L (21-32) Anion Gap 15 (6-14) Blood Urea Nitrogen 39 mg/dL (8-26) Creatinine 2.1 mg/dL (0.7-1.3) Estimated GFR (Cockcroft-Gault) 30.5 Glucose Level 128 mg/dL (70-99) Calcium Level 9.0 mg/dL (8.5-10.1) Magnesium Level 1.9 mg/dL (1.8-2.4) Total Bilirubin 0.5 mg/dL (0.2-1.0) Direct Bilirubin 0.2 mg/dL (0.0-0.2) Aspartate Amino Transf (AST/SGOT) 24 U/L (15-37) Alanine Aminotransferase (ALT/SGPT) 21 U/L (16-63) Alkaline Phosphatase 105 U/L (46-116) Creatine Kinase 191 U/L (39-308) Creatine Kinase MB (Mass) 3.6 ng/mL (0.0-3.6) Creatine Kinase MB Relative Index 1.9 % (0-4) Troponin I Quantitative 0.126 ng/mL (0.000-0.055) BN-Laj-T-Type Natriuretic Peptide 8080 pg/mL (0-449) Total Protein 6.9 g/dL (6.4-8.2) Albumin 3.7 g/dL (3.4-5.0) Lipase 108 U/L (73-393) Thyroid Stimulating Hormone (TSH) 3.864 uIU/mL (0.358-3.74) Test 07/09/17 16:23 07/09/17 21:33 07/10/17 05:28 07/10/17 08:20 Glucose (Fingerstick) 226 mg/dL (70-99) 202 mg/dL (70-99) 182 mg/dL (70-99) Erythrocyte Sedimentation Rate 32 (0-15) Sodium Level 142 mmol/L (136-145) Potassium Level 4.7 mmol/L (3.5-5.1) Chloride Level 106 mmol/L (98-107) Carbon Dioxide Level 27 mmol/L (21-32) Anion Gap 9 (6-14) Blood Urea Nitrogen 29 mg/dL (8-26) Creatinine 1.8 mg/dL (0.7-1.3) Estimated GFR (Cockcroft-Gault) 36.5 Glucose Level 207 mg/dL (70-99) Calcium Level 9.1 mg/dL (8.5-10.1) Magnesium Level 1.8 mg/dL (1.8-2.4) Troponin I Quantitative 0.093 ng/mL (0.000-0.055) Vitamin B12 Level 141 pg/mL (247-911) Serum Folate 15.32 ng/ml (3.2-20.0) Laboratory Tests Test 07/09/17 16:23 07/09/17 21:33 07/10/17 05:28 07/10/17 08:20 Glucose (Fingerstick) 226 mg/dL (70-99) 202 mg/dL (70-99) 182 mg/dL (70-99) Erythrocyte Sedimentation Rate 32 (0-15) Sodium Level 142 mmol/L (136-145) Potassium Level 4.7 mmol/L (3.5-5.1) Chloride Level 106 mmol/L (98-107) Carbon Dioxide Level 27 mmol/L (21-32) Anion Gap 9 (6-14) Blood Urea Nitrogen 29 mg/dL (8-26) Creatinine 1.8 mg/dL (0.7-1.3) Estimated GFR (Cockcroft-Gault) 36.5 Glucose Level 207 mg/dL (70-99) Calcium Level 9.1 mg/dL (8.5-10.1) Magnesium Level 1.8 mg/dL (1.8-2.4) Troponin I Quantitative 0.093 ng/mL (0.000-0.055) Vitamin B12 Level 141 pg/mL (247-911) Serum Folate 15.32 ng/ml (3.2-20.0) Medications Current Medications Sodium Chloride 1,000 ml @ 1,000 mls/hr Q1H IV Last administered on 07:15; Start 07/09/17 at 06:50; Stop 07/09/17 at 07:49; Status DC Sodium Chloride (Normal Saline Flush) 10 ml QSHIFT PRN IV AFTER MEDS AND BLOOD DRAWS; Start 07/09/17 at 07:00 Labetalol HCl (Normodyne) 20 mg 1X ONCE IVP ; Start 07/09/17 at 07:00; Stop 07/09/17 at 07:01; Status DC Dextrose 1,000 ml @ 200 mls/hr 1X ONCE IV Last administered on 07/09/17 08: 11; Start 07/09/17 at 07:00; Stop 07/09/17 at 11:59; Status DC Labetalol HCl (Normodyne) 10 mg PRN Q2HR PRN IVP HYPERTENSION, SEE COMMENTS; Start 07/09/17 at 07:30 Apixaban (Eliquis) 2.5 mg BID PO Last administered on 07/10/17 09:15; Start 07/09/17 at 09:00 Famotidine (Pepcid) 20 mg HS PO Last administered on 07/09/17 21:11; Start 07/09/17 at 21:00 Ferrous Sulfate (Feosol) 325 mg DAILYWBKFT PO Last administered on 07/10/17 09:14; Start 07/09/17 at 09:00 Hydrochlorothiazide (Microzide) 12.5 mg DAILY PO Last administered on 12:36; Start 07/09/17 at 09:00; Stop 07/09/17 at 14:54; Status DC Isosorbide Mononitrate (Imdur) 30 mg DAILY PO Last administered on 07/09/17 12:38; Start 07/09/17 at 09:00 Levothyroxine Sodium (Synthroid) 50 mcg DAILY06 PO Last administered on 06:08; Start 07/09/17 at 07:45 Montelukast Sodium (Singulair) 10 mg QHS PO Last administered on 07/09/17 21: 11; Start 07/09/17 at 21:00 Potassium Chloride (Klor-Con) 20 meq BIDWMEALS PO Last administered on 09:15; Start 07/09/17 at 08:00 Simvastatin (Zocor) 40 mg QHS PO Last administered on 07/09/17 21:11; Start 07/09/17 at 21:00 Non-Formulary Medication 1 puff BID IH ; Start 07/09/17 at 09:00; Status UNV Pantoprazole Sodium (Protonix) 40 mg DAILYAC PO Last administered on 09:14; Start 07/09/17 at 07:30 Acetaminophen/ Hydrocodone Bitart (Lortab 7.5/325) 1 tab PRN Q4HRS PRN PO PAIN Last administered on 07/10/17 03:23; Start 07/09/17 at 07:30 Verapamil HCl (Calan Sr) 120 mg DAILY PO Last administered on 07/09/17 12:38 ; Start 07/09/17 at 09:00; Stop 07/09/17 at 14:54; Status DC Budesonide (Pulmicort) 0.5 mg RTBID NEB Last administered on 07/10/17 08:01; Start 07/09/17 at 08:00 Diltiazem HCl (Cardizem) 10 mg 1X ONCE IVP Last administered on 07/09/17 14: 03; Start 07/09/17 at 13:45; Stop 07/09/17 at 13:46; Status DC Furosemide (Lasix) 40 mg DAILY PO Last administered on 07/10/17 09:15; Start 07/10/17 at 09:00 Diltiazem HCl (Cardizem) 60 mg Q8HRS PO Last administered on 07/10/17 06:08; Start 07/09/17 at 15:00; Stop 07/10/17 at 08:18; Status DC Diltiazem HCl (Cardizem 24hr Cd) 240 mg DAILY PO Last administered on 09:15; Start 07/10/17 at 09:00 Cyanocobalamin (Vitamin B-12) 1,000 mcg QMONTH IM Last administered on 09:16; Start 07/10/17 at 09:00 Info (Anti-Coagulation Monitoring By Pharmacy) 1 each PRN DAILY PRN [facility] SEE COMMENTS; Start 07/10/17 at 09:30 Active Scripts Active Reported Furosemide 40 Mg Tablet 40 Mg PO BID Isosorbide Mononitrate Er (Isosorbide Mononitrate) 30 Mg Tab.er.24h 30 Mg PO DAILY Hydrochlorothiazide Capsule (Hydrochlorothiazide) 12.5 Mg Capsule 12.5 Mg PO DAILY Qvar 40MCG Inhaler (Beclomethasone Dipropionate) 8.7 Gm Aer.w.adap 1 Puff IH BID Levothyroxine Sodium 50 Mcg Tablet 1 Tab PO DAILY Eliquis (Apixaban) 2.5 Mg Tablet 2.5 Mg PO BID Verapamil Er (Verapamil Hcl) 120 Mg Cap24h.pel 120 Mg PO DAILY Nexium Capsule (Esomeprazole Magnesium) 40 Mg Capsule.dr 1 Cap PO DAILY Montelukast Sodium Tablet (Montelukast Sodium) 10 Mg Tablet 10 Mg PO QEVNG Pepcid (Famotidine) 20 Mg Tablet 20 Mg PO HS Potassium Chloride 20 Meq Tab.er.prt 1 Tab PO BID Lortab 7.5-500 Tablet (Hydrocodone Bit/Acetaminophen) 1 Each Tablet 1 Each PO PRN Q4HRS Ferrous Sulfate 325 Mg Tablet 325 Mg PO DAILY Simvastatin 40 Mg Tablet 40 Mg PO QHS Novolog Flexpen (Insulin Aspart) 100 Unit/1 Ml Insuln.pen 18 Unit SQ DAILYWBKFT Levemir Flexpen (Insulin Detemir) 100 Unit/1 Ml Insuln.pen 40 Unit SQ QHS Metformin Hcl 1,000 Mg Tablet 1,000 Mg PO BID Vitals/I & O Vital Sign - Last 24 Hours 07/09/17 07/09/17 07/09/17 07/09/17 11:55 12:38 12:38 12:42 Pulse 101 113 110 116 Resp 20 20 B/P (MAP) 117/73 (88) 140/85 140/85 140/85 (103) Pulse Ox 95 99 O2 Delivery Room Air 07/09/17 07/09/17 07/09/17 07/09/17 12:54 14:03 14:05 15:30 Pulse 138 101 Resp 22 B/P (MAP) 140/86 109/58 (75) Pulse Ox 96 95 O2 Delivery Room Air Room Air Room Air 07/09/17 07/09/17 07/09/17 07/09/17 15:38 19:00 19:55 20:00 Temp 98.4 98.2 98.4 98.2 Pulse 64 82 Resp 20 20 B/P (MAP) 94/52 (66) 106/55 (72) Pulse Ox 94 95 95 O2 Delivery Room Air Room Air Room Air Room Air 07/09/17 07/09/17 07/10/17 07/10/17 22:18 23:25 03:23 03:30 Temp 98.3 98.0 98.3 98.0 Pulse 87 87 99 Resp 17 21 B/P (MAP) 112/84 119/56 (77) 127/76 (93) Pulse Ox 95 95 96 O2 Delivery Room Air Room Air Room Air 07/10/17 07/10/17 07/10/17 07/10/17 04:26 06:08 07:00 07:20 Temp 97.4 97.4 Pulse 90 77 Resp 18 B/P (MAP) 128/79 130/76 (94) Pulse Ox 96 90 O2 Delivery Room Air Room Air Room Air 07/10/17 07/10/17 08:03 09:15 Pulse 94 B/P (MAP) 130/76 O2 Delivery Room Air Intake and Output 07/09/17 07/09/17 07/10/17 15:00 23:00 07:00 Intake Total 1450 ml 400 ml Balance 1450 ml 400 ml SCOTT DAVIDSON MD Jul 10, 2017 10:41
[2017-07-10 11:09] VITALS: BP 129/71
[2017-07-10] MEDS: ANTI-COAG MONITOR BY PHARMACY. MC PRN (12:53)
[2017-07-10 15:00] VITALS: BP 120/58
[2017-07-10 20:33] VITALS: BP 139/71
[2017-07-10] MEDS: MONTELUKAST SODIUM 10 MG TABLET. PO SCH (21:52)
[2017-07-10] MEDS: SIMVASTATIN 40 MG TABLET. PO SCH (21:52)
[2017-07-10] MEDS: FAMOTIDINE 20 MG TABLET. PO SCH (21:52)
[2017-07-10 23:48] VITALS: BP 139/71
[2017-07-11 04:17] VITALS: BP 132/68
[2017-07-11] MEDS: HYDROcodone/APAP 7.5/325MG 1 TAB TABLET PO PRN ×2 (05:07→15:47)
[2017-07-11] MEDS: LEVOTHYROXINE 50 MCG TABLET PO SCH (06:07)
[2017-07-11 07:00] VITALS: BP 130/73
[2017-07-11] MEDS: BUDESONIDE 0.5 MG/2 ML NEBU. NEB SCH ×2 (07:57→19:09)
[2017-07-11] MEDS: FERROUS SULFATE 325 MG TABLET. PO SCH (08:45)
[2017-07-11] MEDS: FUROSEMIDE 40 MG TABLET. PO SCH (08:46)
[2017-07-11] MEDS: APIXABAN 2.5 MG TABLET. PO SCH ×2 (08:46→21:43)
[2017-07-11] MEDS: ISOSORBIDE MONONITRATE ER 30 MG TAB.ER.24H PO SCH (08:46)
[2017-07-11] MEDS: POTASSIUM CHLORIDE 20 MEQ TABLET.ER. PO SCH ×2 (08:46→17:36)
[2017-07-11] MEDS: ANTI-COAG MONITOR BY PHARMACY. MC PRN (09:13)
--- NOTE | 2017-07-11 09:33 | PDOC ---
PROGRESS NOTES Chief Complaint Chief Complaint 1. Hypoglycemia - 2. DM2 on OHA and insulin - 3. HTN, CAD, CHF, GERD etc - on AC - hIGH FALL RISK, 4. HIgh fall risk 5. 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 for dyspnea Sats lowest 90s, CXR stable mild pleural effusion, maybe atelectasis, no fevers , no leukocytosis PLAN: Pulmo consulted high fall risk This is his second time of admit for same reason - in the last 5 days , so I was recommending more than HH Bobby Rodriguez Vitals Vitals Vital Signs Date Time Temp Pulse Resp B/P (MAP) Pulse Ox O2 Delivery O2 Flow Rate FiO2 07/11/17 08:46 84 130/73 07/11/17 07:57 93 Nasal Cannula 1.0 07/11/17 07:00 97.4 18 97.4 Physical Exam General: Alert, Cooperative, No acute distress Heart: Other (2/6 systolic murmur to LLs border; AFIB) Lungs: Clear, Other (No RRW) Abdomen: Soft, No tenderness Extremities: No clubbing, No cyanosis Skin: No breakdown Labs LABS Laboratory Tests Test 07/10/17 11:38 07/10/17 16:58 07/10/17 21:17 Glucose (Fingerstick) 188 mg/dL (70-99) 182 mg/dL (70-99) 230 mg/dL (70-99) Review of Systems Review of Systems hard of hearing. SOA, no CP no abd pain Assessment and Plan Assessmemt and Plan Problems Medical Problems: (1) Dehydration Status: Acute (2) Elevated troponin Status: Acute (3) Hypertension Status: Acute (4) Hypoglycemia Status: Acute (5) IDDM (insulin dependent diabetes mellitus) Status: Acute (6) Renal insufficiency Status: Acute Problems: Comment Review of Relevant I have reviewed the following items jack (where applicable) has been applied. Labs Laboratory Tests Test 07/09/17 10:33 07/09/17 16:23 07/09/17 21:33 07/10/17 05:28 Glucose (Fingerstick) 297 mg/dL (70-99) 226 mg/dL (70-99) 202 mg/dL (70-99) Erythrocyte Sedimentation Rate 32 (0-15) Sodium Level 142 mmol/L (136-145) Potassium Level 4.7 mmol/L (3.5-5.1) Chloride Level 106 mmol/L (98-107) Carbon Dioxide Level 27 mmol/L (21-32) Anion Gap 9 (6-14) Blood Urea Nitrogen 29 mg/dL (8-26) Creatinine 1.8 mg/dL (0.7-1.3) Estimated GFR (Cockcroft-Gault) 36.5 Glucose Level 207 mg/dL (70-99) Calcium Level 9.1 mg/dL (8.5-10.1) Magnesium Level 1.8 mg/dL (1.8-2.4) Troponin I Quantitative 0.093 ng/mL (0.000-0.055) Vitamin B12 Level 141 pg/mL (247-911) Serum Folate 15.32 ng/ml (3.2-20.0) Test 07/10/17 08:20 07/10/17 11:38 07/10/17 16:58 07/10/17 21:17 Glucose (Fingerstick) 182 mg/dL (70-99) 188 mg/dL (70-99) 182 mg/dL (70-99) 230 mg/dL (70-99) Laboratory Tests Test 07/10/17 11:38 07/10/17 16:58 07/10/17 21:17 Glucose (Fingerstick) 188 mg/dL (70-99) 182 mg/dL (70-99) 230 mg/dL (70-99) Medications Current Medications Sodium Chloride 1,000 ml @ 1,000 mls/hr Q1H IV Last administered on t 07:15; Start 07/09/17 at 06:50; Stop 07/09/17 at 07:49; Status DC Sodium Chloride (Normal Saline Flush) 10 ml QSHIFT PRN IV AFTER MEDS AND BLOOD DRAWS; Start 07/09/17 at 07:00 Labetalol HCl (Normodyne) 20 mg 1X ONCE IVP ; Start 07/09/17 at 07:00; Stop 07/09/17 at 07:01; Status DC Dextrose 1,000 ml @ 200 mls/hr 1X ONCE IV Last administered on 07/09/17 08: 11; Start 07/09/17 at 07:00; Stop 07/09/17 at 11:59; Status DC Labetalol HCl (Normodyne) 10 mg PRN Q2HR PRN IVP HYPERTENSION, SEE COMMENTS; Start 07/09/17 at 07:30 Apixaban (Eliquis) 2.5 mg BID PO Last administered on 07/11/17 08:46; Start 07/09/17 at 09:00 Famotidine (Pepcid) 20 mg HS PO Last administered on 07/10/17 21:52; Start 07/09/17 at 21:00 Ferrous Sulfate (Feosol) 325 mg DAILYWBKFT PO Last administered on 07/11/17 08:45; Start 07/09/17 at 09:00 Hydrochlorothiazide (Microzide) 12.5 mg DAILY PO Last administered on 12:36; Start 07/09/17 at 09:00; Stop 07/09/17 at 14:54; Status DC Isosorbide Mononitrate (Imdur) 30 mg DAILY PO Last administered on 07/11/17 08:46; Start 07/09/17 at 09:00 Levothyroxine Sodium (Synthroid) 50 mcg DAILY06 PO Last administered on 06:07; Start 07/09/17 at 07:45 Montelukast Sodium (Singulair) 10 mg QHS PO Last administered on 07/10/17 21: 52; Start 07/09/17 at 21:00 Potassium Chloride (Klor-Con) 20 meq BIDWMEALS PO Last administered on 08:46; Start 07/09/17 at 08:00 Simvastatin (Zocor) 40 mg QHS PO Last administered on 07/10/17 21:52; Start 07/09/17 at 21:00 Non-Formulary Medication 1 puff BID IH ; Start 07/09/17 at 09:00; Status UNV Pantoprazole Sodium (Protonix) 40 mg DAILYAC PO Last administered on 09:14; Start 07/09/17 at 07:30; Stop 07/10/17 at 12:55; Status DC Acetaminophen/ Hydrocodone Bitart (Lortab 7.5/325) 1 tab PRN Q4HRS PRN PO PAIN Last administered on 07/11/17 05:07; Start 07/09/17 at 07:30 Verapamil HCl (Calan Sr) 120 mg DAILY PO Last administered on 07/09/17 12:38 ; Start 07/09/17 at 09:00; Stop 07/09/17 at 14:54; Status DC Budesonide (Pulmicort) 0.5 mg RTBID NEB Last administered on 07/11/17 07:57; Start 07/09/17 at 08:00 Diltiazem HCl (Cardizem) 10 mg 1X ONCE IVP Last administered on 07/09/17 14: 03; Start 07/09/17 at 13:45; Stop 07/09/17 at 13:46; Status DC Furosemide (Lasix) 40 mg DAILY PO Last administered on 07/11/17 08:46; Start 07/10/17 at 09:00 Diltiazem HCl (Cardizem) 60 mg Q8HRS PO Last administered on 07/10/17 06:08; Start 07/09/17 at 15:00; Stop 07/10/17 at 08:18; Status DC Diltiazem HCl (Cardizem 24hr Cd) 240 mg DAILY PO Last administered on 08:46; Start 07/10/17 at 09:00 Cyanocobalamin (Vitamin B-12) 1,000 mcg QMONTH IM Last administered on 09:16; Start 07/10/17 at 09:00 Info (Anti-Coagulation Monitoring By Pharmacy) 1 each PRN DAILY PRN MC SEE COMMENTS Last administered on 07/11/17 09:13; Start 07/10/17 at 09:30 Active Scripts Active Reported Furosemide 40 Mg Tablet 40 Mg PO BID Isosorbide Mononitrate Er (Isosorbide Mononitrate) 30 Mg Tab.er.24h 30 Mg PO DAILY Hydrochlorothiazide Capsule (Hydrochlorothiazide) 12.5 Mg Capsule 12.5 Mg PO DAILY Qvar 40MCG Inhaler (Beclomethasone Dipropionate) 8.7 Gm Aer.w.adap 1 Puff IH BID Levothyroxine Sodium 50 Mcg Tablet 1 Tab PO DAILY Eliquis (Apixaban) 2.5 Mg Tablet 2.5 Mg PO BID Verapamil Er (Verapamil Hcl) 120 Mg Cap24h.pel 120 Mg PO DAILY Nexium Capsule (Esomeprazole Magnesium) 40 Mg Capsule.dr 1 Cap PO DAILY Montelukast Sodium Tablet (Montelukast Sodium) 10 Mg Tablet 10 Mg PO QEVNG Pepcid (Famotidine) 20 Mg Tablet 20 Mg PO HS Potassium Chloride 20 Meq Tab.er.prt 1 Tab PO BID Lortab 7.5-500 Tablet (Hydrocodone Bit/Acetaminophen) 1 Each Tablet 1 Each PO PRN Q4HRS Ferrous Sulfate 325 Mg Tablet 325 Mg PO DAILY Simvastatin 40 Mg Tablet 40 Mg PO QHS Novolog Flexpen (Insulin Aspart) 100 Unit/1 Ml Insuln.pen 18 Unit SQ DAILYWBKFT Levemir Flexpen (Insulin Detemir) 100 Unit/1 Ml Insuln.pen 40 Unit SQ QHS Vitals/I & O Vital Sign - Last 24 Hours 07/10/17 07/10/17 07/10/17 07/10/17 11:09 15:00 19:38 19:50 Temp 97.5 97.9 97.5 97.9 Pulse 72 76 Resp 18 18 B/P (MAP) 129/71 (90) 120/58 (78) Pulse Ox 95 96 95 O2 Delivery Room Air Nasal Cannula Room Air Room Air O2 Flow Rate 1.0 07/10/17 07/10/17 07/11/17 07/11/17 20:33 23:48 03:59 04:17 Temp 97.4 98.5 97.9 97.4 98.5 97.9 Pulse 89 89 80 Resp 20 16 22 B/P (MAP) 139/71 (93) 139/71 (93) 132/68 (89) Pulse Ox 94 97 95 O2 Delivery Nasal Cannula Nasal Cannula Nasal Cannula Nasal Cannula O2 Flow Rate 1.5 1.5 1.0 07/11/17 07/11/17 07/11/17 07/11/17 05:07 06:08 07:00 07:55 Temp 97.4 97.4 Pulse 84 Resp 18 B/P (MAP) 130/73 (92) Pulse Ox 95 95 92 O2 Delivery Nasal Cannula Nasal Cannula Room Air Room Air O2 Flow Rate 2.0 1.0 07/11/17 07/11/17 07/11/17 07:57 08:46 08:46 Pulse 84 84 B/P (MAP) 130/73 130/73 Pulse Ox 93 O2 Delivery Nasal Cannula O2 Flow Rate 1.0 Intake and Output 07/10/17 07/10/17 07/11/17 15:00 23:00 07:00 Intake Total 240 ml 800 ml 250 ml Balance 240 ml 800 ml 250 ml BARBIE MUIR MD Jul 11, 2017 09:33
[2017-07-11 11:00] VITALS: BP 100/58
[2017-07-11] MEDS ORDERED: FUROSEMIDE 20 MG/2 ML VIAL. IVP ONE (11:00)
--- NOTE | 2017-07-11 11:13 | CONS ---
DATE OF CONSULTATION: ATTENDING PHYSICIAN: Dr. Beverly. REASON FOR CONSULTATION: Dyspnea. HISTORY OF PRESENT ILLNESS: The patient is an 81-year-old male who has dementia. He came into the hospital after he passed out from hypoglycemia. The patient was noted to have some shortness of breath today requiring 1-2 liters of oxygen. I have reviewed patient's chest x-ray, which was done on the and there was no evidence of any consolidation. The vascularity appears to be at the upper limit of normal and there was a small left pleural effusion. The patient denies any significant tobacco history. He has been on no home oxygen. He has a dry cough, but no purulent sputum production. His ejection fraction was 40-45% on his previous echocardiogram. He has renal insufficiency. I have been asked to see him for further evaluation. PAST MEDICAL HISTORY: Significant for history of dementia, AFib, CHF, hypertension, cardiomyopathy, hyperlipidemia, asthma, hypothyroidism, chronic renal insufficiency. ALLERGIES: None. PAST SURGICAL HISTORY: Appendectomy and tonsillectomy. REVIEW OF SYSTEMS: Ten-point system obtained. Pertinent positives discussed in history of present illness, otherwise noncontributory. All systems that were negative were reviewed as well. MEDICATIONS: Reviewed as listed in the MRAD. SOCIAL HISTORY: No history of tobacco use. PHYSICAL EXAMINATION: GENERAL: He is awake, following commands. VITAL SIGNS: Pulse ox is 92% on 1 liter, afebrile. Blood pressure is stable. HEENT: Sclerae nonicteric. NECK: Supple. LUNGS: Diminished breath sounds. No wheezing. CARDIOVASCULAR: Regular rate and rhythm. ABDOMEN: Soft, obese. EXTREMITIES: With 1+ pitting edema bilaterally. LABORATORY DATA: Reviewed. BUN 29, creatinine 1.8. Magnesium 1.8. White cell count 10.4, hemoglobin 13.6 and platelets are 221. IMPRESSION: 1. Dyspnea with mild hypoxia which corrects with supplemental oxygen. This is a patient who has known cardiomyopathy with an EF of 40-45% and has been short of breath since yesterday, requiring 1 liter of oxygen. I suspect congestive heart failure as the most likely etiology and I will repeat a chest x-ray and if it shows congestive heart failure, then may give an extra IV dose of Lasix. 2. No clinical signs of pneumonia. 3. Initial admission for hypoglycemia, which is resolved. 4. Known cardiomyopathy with an EF of 40-45%. 5. No history of tobacco use. RECOMMENDATIONS: 1. Repeat chest x-ray. 2. Consider extra dose of IV Lasix. 3. Continue present oxygen and eventually taper off if sats are 92 and above on room air. 4. Continue home medications. 5. We will follow along with you. Discuss with RN. CHRIST KRUEGER MD DR: RAY/christelle JOB#: [id number] / [id number]
--- NOTE | 2017-07-11 11:26 | PDOC ---
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 History of tremor, not apparent on examination right now. By description this sounds like some mild essential tremor. He keeps complaining of dyspnea, no abnormalities of oxygenation or chest x-ray Plan B-12 replacement Pulmonary consultation He is competent to make a decision regarding going home versus group home, he wants to go home, okay for me for discharge. Follow-up with neurology as needed. Subjective He complains of dyspnea. Objective Vital Signs Date Time Temp Pulse Resp B/P (MAP) Pulse Ox O2 Delivery O2 Flow Rate FiO2 07/11/17 08:46 84 130/73 07/11/17 07:57 93 Nasal Cannula 1.0 07/11/17 07:00 97.4 18 97.4 Intake and Output 07/11/17 07:00 Intake Total 1290 ml Balance 1290 ml Intake Oral 1290 ml # Voids 5 PHYSICAL EXAM Alert. Oriented to time, place and person. PERRL. EOMI. CN: no focal findings. Hard of hearing Muscle tone: normal. Muscle strength: 5/5 DTR: 1+ Plantar reflex: flexor Gait: not examined in bed. Sensory exam: stocking loss. No cerebellar signs elicited. Review of Relevant I have reviewed the following items jack (where applicable) has been applied. Labs Laboratory Tests Test 07/09/17 16:23 07/09/17 21:33 07/10/17 05:28 07/10/17 08:20 Glucose (Fingerstick) 226 mg/dL (70-99) 202 mg/dL (70-99) 182 mg/dL (70-99) Erythrocyte Sedimentation Rate 32 (0-15) Sodium Level 142 mmol/L (136-145) Potassium Level 4.7 mmol/L (3.5-5.1) Chloride Level 106 mmol/L (98-107) Carbon Dioxide Level 27 mmol/L (21-32) Anion Gap 9 (6-14) Blood Urea Nitrogen 29 mg/dL (8-26) Creatinine 1.8 mg/dL (0.7-1.3) Estimated GFR (Cockcroft-Gault) 36.5 Glucose Level 207 mg/dL (70-99) Calcium Level 9.1 mg/dL (8.5-10.1) Magnesium Level 1.8 mg/dL (1.8-2.4) Troponin I Quantitative 0.093 ng/mL (0.000-0.055) Vitamin B12 Level 141 pg/mL (247-911) Serum Folate 15.32 ng/ml (3.2-20.0) Test 07/10/17 11:38 07/10/17 16:58 07/10/17 21:17 Glucose (Fingerstick) 188 mg/dL (70-99) 182 mg/dL (70-99) 230 mg/dL (70-99) Laboratory Tests Test 07/10/17 11:38 07/10/17 16:58 07/10/17 21:17 Glucose (Fingerstick) 188 mg/dL (70-99) 182 mg/dL (70-99) 230 mg/dL (70-99) Medications Current Medications Sodium Chloride 1,000 ml @ 1,000 mls/hr Q1H IV Last administered on 07:15; Start 07/09/17 at 06:50; Stop 07/09/17 at 07:49; Status DC Sodium Chloride (Normal Saline Flush) 10 ml QSHIFT PRN IV AFTER MEDS AND BLOOD DRAWS; Start 07/09/17 at 07:00 Labetalol HCl (Normodyne) 20 mg 1X ONCE IVP ; Start 07/09/17 at 07:00; Stop 07/09/17 at 07:01; Status DC Dextrose 1,000 ml @ 200 mls/hr 1X ONCE IV Last administered on 07/09/17 08: 11; Start 07/09/17 at 07:00; Stop 07/09/17 at 11:59; Status DC Labetalol HCl (Normodyne) 10 mg PRN Q2HR PRN IVP HYPERTENSION, SEE COMMENTS; Start 07/09/17 at 07:30 Apixaban (Eliquis) 2.5 mg BID PO Last administered on 07/11/17 08:46; Start 07/09/17 at 09:00 Famotidine (Pepcid) 20 mg HS PO Last administered on 07/10/17 21:52; Start 07/09/17 at 21:00 Ferrous Sulfate (Feosol) 325 mg DAILYWBKFT PO Last administered on 07/11/17 08:45; Start 07/09/17 at 09:00 Hydrochlorothiazide (Microzide) 12.5 mg DAILY PO Last administered on 12:36; Start 07/09/17 at 09:00; Stop 07/09/17 at 14:54; Status DC Isosorbide Mononitrate (Imdur) 30 mg DAILY PO Last administered on 07/11/17 08:46; Start 07/09/17 at 09:00 Levothyroxine Sodium (Synthroid) 50 mcg DAILY06 PO Last administered on 06:07; Start 07/09/17 at 07:45 Montelukast Sodium (Singulair) 10 mg QHS PO Last administered on 07/10/17 21: 52; Start 07/09/17 at 21:00 Potassium Chloride (Klor-Con) 20 meq BIDWMEALS PO Last administered on 08:46; Start 07/09/17 at 08:00 Simvastatin (Zocor) 40 mg QHS PO Last administered on 07/10/17 21:52; Start 07/09/17 at 21:00 Non-Formulary Medication 1 puff BID IH ; Start 07/09/17 at 09:00; Status UNV Pantoprazole Sodium (Protonix) 40 mg DAILYAC PO Last administered on 09:14; Start 07/09/17 at 07:30; Stop 07/10/17 at 12:55; Status DC Acetaminophen/ Hydrocodone Bitart (Lortab 7.5/325) 1 tab PRN Q4HRS PRN PO PAIN Last administered on 07/11/17 05:07; Start 07/09/17 at 07:30 Verapamil HCl (Calan Sr) 120 mg DAILY PO Last administered on 07/09/17 12:38 ; Start 07/09/17 at 09:00; Stop 07/09/17 at 14:54; Status DC Budesonide (Pulmicort) 0.5 mg RTBID NEB Last administered on 07/11/17 07:57; Start 07/09/17 at 08:00 Diltiazem HCl (Cardizem) 10 mg 1X ONCE IVP Last administered on 07/09/17 14: 03; Start 07/09/17 at 13:45; Stop 07/09/17 at 13:46; Status DC Furosemide (Lasix) 40 mg DAILY PO Last administered on 07/11/17 08:46; Start 07/10/17 at 09:00 Diltiazem HCl (Cardizem) 60 mg Q8HRS PO Last administered on 07/10/17 06:08; Start 07/09/17 at 15:00; Stop 07/10/17 at 08:18; Status DC Diltiazem HCl (Cardizem 24hr Cd) 240 mg DAILY PO Last administered on 08:46; Start 07/10/17 at 09:00 Cyanocobalamin (Vitamin B-12) 1,000 mcg QMONTH IM Last administered on 09:16; Start 07/10/17 at 09:00 Info (Anti-Coagulation Monitoring By Pharmacy) 1 each PRN DAILY PRN MC SEE COMMENTS Last administered on 07/11/17 09:13; Start 07/10/17 at 09:30 Furosemide (Lasix) 20 mg 1X ONCE IVP ; Start 07/11/17 at 11:00; Stop at 11:01; Status DC Active Scripts Active Reported Furosemide 40 Mg Tablet 40 Mg PO BID Isosorbide Mononitrate Er (Isosorbide Mononitrate) 30 Mg Tab.er.24h 30 Mg PO DAILY Hydrochlorothiazide Capsule (Hydrochlorothiazide) 12.5 Mg Capsule 12.5 Mg PO DAILY Qvar 40MCG Inhaler (Beclomethasone Dipropionate) 8.7 Gm Aer.w.adap 1 Puff IH BID Levothyroxine Sodium 50 Mcg Tablet 1 Tab PO DAILY Eliquis (Apixaban) 2.5 Mg Tablet 2.5 Mg PO BID Verapamil Er (Verapamil Hcl) 120 Mg Cap24h.pel 120 Mg PO DAILY Nexium Capsule (Esomeprazole Magnesium) 40 Mg Capsule.dr 1 Cap PO DAILY Montelukast Sodium Tablet (Montelukast Sodium) 10 Mg Tablet 10 Mg PO QEVNG Pepcid (Famotidine) 20 Mg Tablet 20 Mg PO HS Potassium Chloride 20 Meq Tab.er.prt 1 Tab PO BID Lortab 7.5-500 Tablet (Hydrocodone Bit/Acetaminophen) 1 Each Tablet 1 Each PO PRN Q4HRS Ferrous Sulfate 325 Mg Tablet 325 Mg PO DAILY Simvastatin 40 Mg Tablet 40 Mg PO QHS Novolog Flexpen (Insulin Aspart) 100 Unit/1 Ml Insuln.pen 18 Unit SQ DAILYWBKFT Levemir Flexpen (Insulin Detemir) 100 Unit/1 Ml Insuln.pen 40 Unit SQ QHS Vitals/I & O Vital Sign - Last 24 Hours 07/10/17 07/10/17 07/10/17 07/10/17 15:00 19:38 19:50 20:33 Temp 97.9 97.4 97.9 97.4 Pulse 76 89 Resp 18 20 B/P (MAP) 120/58 (78) 139/71 (93) Pulse Ox 96 95 94 O2 Delivery Nasal Cannula Room Air Room Air Nasal Cannula O2 Flow Rate 1.0 1.5 07/10/17 07/11/17 07/11/17 07/11/17 23:48 03:59 04:17 05:07 Temp 98.5 97.9 98.5 97.9 Pulse 89 80 Resp 16 22 B/P (MAP) 139/71 (93) 132/68 (89) Pulse Ox 97 95 95 O2 Delivery Nasal Cannula Nasal Cannula Nasal Cannula Nasal Cannula O2 Flow Rate 1.5 1.0 2.0 07/11/17 07/11/17 07/11/17 07/11/17 06:08 07:00 07:55 07:57 Temp 97.4 97.4 Pulse 84 Resp 18 B/P (MAP) 130/73 (92) Pulse Ox 95 92 93 O2 Delivery Nasal Cannula Room Air Room Air Nasal Cannula O2 Flow Rate 1.0 1.0 07/11/17 07/11/17 08:46 08:46 Pulse 84 84 B/P (MAP) 130/73 130/73 Intake and Output 07/10/17 07/10/17 07/11/17 15:00 23:00 07:00 Intake Total 240 ml 800 ml 250 ml Balance 240 ml 800 ml 250 ml SCOTT DAVIDSON MD Jul 11, 2017 11:26
[2017-07-11 14:56] VITALS: BP 103/70
--- NOTE | 2017-07-11 16:48 | RAD ---
Portable chest, 07/11/2017: History: Congestive heart failure Comparison is made to a study from 07/09/2017. The heart is enlarged. The pulmonary vascularity is mildly prominent. There is increasing left basilar opacity compatible pleural fluid and underlying atelectasis/infiltrate. No significant right lung infiltrate is seen. IMPRESSION: 1. Cardiomegaly with borderline vascular congestion. 2. Increasing left pleural fluid and underlying basilar atelectasis/infiltrate.
[2017-07-11 19:00] VITALS: BP_SYST 111; BP_SYST 116; BP_DIAS 65; BP_DIAS 67
[2017-07-11] MEDS: SIMVASTATIN 40 MG TABLET. PO SCH (21:42)
[2017-07-11] MEDS: FAMOTIDINE 20 MG TABLET. PO SCH (21:42)
[2017-07-11] MEDS: MONTELUKAST SODIUM 10 MG TABLET. PO SCH (21:42)
[2017-07-11 23:48] VITALS: BP 111/67
[2017-07-12 03:00] VITALS: BP 125/56
[2017-07-12] MEDS: LEVOTHYROXINE 50 MCG TABLET PO SCH (06:03)
[2017-07-12 07:00] VITALS: BP 137/75
[2017-07-12] MEDS: BUDESONIDE 0.5 MG/2 ML NEBU. NEB SCH ×2 (07:06→18:31)
[2017-07-12] MEDS: FUROSEMIDE 40 MG TABLET. PO SCH (09:06)
[2017-07-12] MEDS: ISOSORBIDE MONONITRATE ER 30 MG TAB.ER.24H PO SCH (09:07)
[2017-07-12] MEDS: FERROUS SULFATE 325 MG TABLET. PO SCH (09:07)
[2017-07-12] MEDS: APIXABAN 2.5 MG TABLET. PO SCH ×2 (09:07→20:10)
[2017-07-12] MEDS: POTASSIUM CHLORIDE 20 MEQ TABLET.ER. PO SCH ×2 (09:08→20:10)
[2017-07-12 11:00] VITALS: BP 108/57
--- NOTE | 2017-07-12 12:15 | PDOC ---
PULMONARY PROGRESS NOTES Subjective no soa Vitals Vital Signs Date Time Temp Pulse Resp B/P (MAP) Pulse Ox O2 Delivery O2 Flow Rate FiO2 07/12/17 11:34 95 Room Air 07/12/17 09:08 74 125/56 07/12/17 07:00 97.6 19 97.6 07/11/17 16:45 1.0 General: Alert, Oriented X4, No acute distress HEENT: Other Lungs: Other (decrease bases) Cardiovascular: S1, S2 Abdomen: Soft, Non-tender Neuro Exam: Alert Extremities: No Edema Labs Laboratory Tests Test 07/10/17 16:58 07/10/17 21:17 07/11/17 08:10 07/11/17 11:48 Glucose (Fingerstick) 182 mg/dL (70-99) 230 mg/dL (70-99) 176 mg/dL (70-99) 291 mg/dL (70-99) Test 07/11/17 16:30 07/11/17 20:50 07/12/17 08:21 Glucose (Fingerstick) 228 mg/dL (70-99) 252 mg/dL (70-99) 191 mg/dL (70-99) Laboratory Tests Test 07/11/17 16:30 07/11/17 20:50 07/12/17 08:21 Glucose (Fingerstick) 228 mg/dL (70-99) 252 mg/dL (70-99) 191 mg/dL (70-99) Medications Active Scripts Medications Dose Route/Sig Max Daily Dose Days Date Category Furosemide 40 Mg Tablet 40 Mg PO BID 07/09/17 Reported Isosorbide Mononitrate Er (Isosorbide Mononitrate) 30 Mg Tab.er.24h 30 Mg PO DAILY 06/30/17 Reported Hydrochlorothiazide Capsule (Hydrochlorothiazide) 12.5 Mg Capsule 12.5 Mg PO DAILY 06/30/17 Reported Qvar 40MCG Inhaler (Beclomethasone Dipropionate) 8.7 Gm Aer.w.adap 1 Puff IH BID 06/30/17 Reported Levothyroxine Sodium 50 Mcg Tablet 1 Tab PO DAILY 03/05/16 Reported Eliquis (Apixaban) 2.5 Mg Tablet 2.5 Mg PO BID 03/05/16 Reported Verapamil Er (Verapamil Hcl) 120 Mg Cap24h.pel 120 Mg PO DAILY 03/05/16 Reported Nexium Capsule (Esomeprazole Magnesium) 40 Mg Capsule.dr 1 Cap PO DAILY 03/05/16 Reported Montelukast Sodium Tablet (Montelukast Sodium) 10 Mg Tablet 10 Mg PO QEVNG 03/05/16 Reported Pepcid (Famotidine) 20 Mg Tablet 20 Mg PO HS 03/05/16 Reported Potassium Chloride 20 Meq Tab.er.prt 1 Tab PO BID 04/10/14 Reported Lortab 7.5-500 Tablet (Hydrocodone Bit/Acetaminophen) 1 Each Tablet 1 Each PO PRN Q4HRS 08/19/13 Reported Ferrous Sulfate 325 Mg Tablet 325 Mg PO DAILY 08/17/13 Reported Simvastatin 40 Mg Tablet 40 Mg PO QHS 08/17/13 Reported Novolog Flexpen (Insulin Aspart) 100 Unit/1 Ml Insuln.pen 18 Unit SQ DAILYWBKFT 08/16/13 Reported Levemir Flexpen (Insulin Detemir) 100 Unit/1 Ml Insuln.pen 40 Unit SQ QHS 08/16/13 Reported Impression . 1. Dyspnea with mild hypoxia which corrects with supplemental oxygen. This is a patient who has known cardiomyopathy with an EF of 40-45% and has been short of breath since 07/11, I suspect congestive heart failure / increasing left effusion 2. No clinical signs of pneumonia. 3. Initial admission for hypoglycemia, which is resolved. 4. Known cardiomyopathy with an EF of 40-45%. 5. No history of tobacco use. Plan . 1. ct chest today to better assess for effusion and infiltrate 2. Lasix. 3. off o2 4. Continue home medications. 5. Discuss with LAYNE. CHRIST KRUEGER MD Jul 12, 2017 12:15
--- NOTE | 2017-07-12 14:32 | RAD ---
CT chest without contrast Indication: Left pleural effusion Technique: CT chest without IV contrast with multiplanar reformats. Comparison: Previous study from 03/01 fossa 16 and most recent chest x-ray from 07/11/2017 Findings: Neck bases clear. No axillary, mediastinal or hilar adenopathy. Heart is mildly enlarged in size. No pericardial effusion. Small left pleural effusion, stable from previous CT from 2016. Coronary artery disease noted. Breathing motion artifact noted in the lungs limiting evaluation. There is consolidation in the lingula and left lower lobe. The right lung looks clear. Visualized sections through the liver, spleen, pancreas, adrenals and kidneys are within normal limits. 3.1 cm simple cyst in the left kidney. Gallstone noted. No pericholecystic fluid or gallbladder wall thickening. Diffuse atherosclerotic disease of the descending thoracic aorta and abdominal aorta are noted. Impression: 1. Stable small left pleural effusion when compared to previous CT from 03/06/2016. 2. Consolidation in the left lower lobe and lingula may be secondary to passive atelectasis from the adjacent pleural effusion or pneumonia. 3. Cholelithiasis without imaging evidence for acute cholecystitis. 4. Mild cardiomegaly. PQRS Compliance Statement: One or more of the following individualized dose reduction techniques were utilized for this examination: 1. Automated exposure control 2. Adjustment of the mA and/or kV according to patient size 3. Use of iterative reconstruction technique
[2017-07-12] MEDS: ANTI-COAG MONITOR BY PHARMACY. MC PRN (14:41)
[2017-07-12] MEDS ORDERED: DILT240C2 PO (14:47)
--- NOTE | 2017-07-12 14:57 | PDOC ---
PROGRESS NOTES Assessment Problems Medical Problems: (1) Dehydration Status: Acute (2) Elevated troponin Status: Acute (3) Hypertension Status: Acute (4) Hypoglycemia Status: Acute (5) IDDM (insulin dependent diabetes mellitus) Status: Acute (6) Renal insufficiency Status: Acute No evidence for dementia, as confirmed by speech therapy Hearing loss Hypoglycemic episodes B12 deficiency Peripheral neuropathy most likely from diabetes, but also has very low B12 level. History of tremor, not apparent on examination right now. By description this sounds like some mild essential tremor. Dyspnea, pulmonary is seeing Plan B-12 replacement He is competent to make a decision regarding going home versus custodial, he wants to go home, okay for me for discharge. Follow-up with neurology as needed. Subjective no complaints, wants to go home Objective Vital Signs Date Time Temp Pulse Resp B/P (MAP) Pulse Ox O2 Delivery O2 Flow Rate FiO2 07/12/17 11:34 95 Room Air 07/12/17 11:00 97.6 71 19 108/57 (74) 97.6 07/11/17 16:45 1.0 Intake and Output 07/12/17 07:00 Intake Total 1540 ml Balance 1540 ml Intake Oral 1540 ml # Voids 9 PHYSICAL EXAM Alert. Oriented to time, place and person. Severe hearing loss PERRL. EOMI. CN: no focal findings. Hard of hearing Muscle tone: normal. Muscle strength: 5/5 DTR: 1+ Plantar reflex: flexor Gait: not examined in bed. Sensory exam: stocking loss. No cerebellar signs elicited. Review of Relevant I have reviewed the following items jack (where applicable) has been applied. Labs Laboratory Tests Test 07/10/17 16:58 07/10/17 21:17 07/11/17 08:10 07/11/17 11:48 Glucose (Fingerstick) 182 mg/dL (70-99) 230 mg/dL (70-99) 176 mg/dL (70-99) 291 mg/dL (70-99) Test 07/11/17 16:30 07/11/17 20:50 07/12/17 08:21 07/12/17 11:47 Glucose (Fingerstick) 228 mg/dL (70-99) 252 mg/dL (70-99) 191 mg/dL (70-99) 304 mg/dL (70-99) Laboratory Tests Test 07/11/17 16:30 07/11/17 20:50 07/12/17 08:21 07/12/17 11:47 Glucose (Fingerstick) 228 mg/dL (70-99) 252 mg/dL (70-99) 191 mg/dL (70-99) 304 mg/dL (70-99) Medications Current Medications Sodium Chloride 1,000 ml @ 1,000 mls/hr Q1H IV Last administered on 07:15; Start 07/09/17 at 06:50; Stop 07/09/17 at 07:49; Status DC Sodium Chloride (Normal Saline Flush) 10 ml QSHIFT PRN IV AFTER MEDS AND BLOOD DRAWS; Start 07/09/17 at 07:00 Labetalol HCl (Normodyne) 20 mg 1X ONCE IVP ; Start 07/09/17 at 07:00; Stop 07/09/17 at 07:01; Status DC Dextrose 1,000 ml @ 200 mls/hr 1X ONCE IV Last administered on 07/09/17 08: 11; Start 07/09/17 at 07:00; Stop 07/09/17 at 11:59; Status DC Labetalol HCl (Normodyne) 10 mg PRN Q2HR PRN IVP HYPERTENSION, SEE COMMENTS; Start 07/09/17 at 07:30 Apixaban (Eliquis) 2.5 mg BID PO Last administered on 07/12/17 09:07; Start 07/09/17 at 09:00 Famotidine (Pepcid) 20 mg HS PO Last administered on 07/11/17 21:42; Start 07/09/17 at 21:00 Ferrous Sulfate (Feosol) 325 mg DAILYWBKFT PO Last administered on 07/12/17 09:07; Start 07/09/17 at 09:00 Hydrochlorothiazide (Microzide) 12.5 mg DAILY PO Last administered on 12:36; Start 07/09/17 at 09:00; Stop 07/09/17 at 14:54; Status DC Isosorbide Mononitrate (Imdur) 30 mg DAILY PO Last administered on 07/12/17 09:07; Start 07/09/17 at 09:00 Levothyroxine Sodium (Synthroid) 50 mcg DAILY06 PO Last administered on 06:03; Start 07/09/17 at 07:45 Montelukast Sodium (Singulair) 10 mg QHS PO Last administered on 07/11/17 21: 42; Start 07/09/17 at 21:00 Potassium Chloride (Klor-Con) 20 meq BIDWMEALS PO Last administered on 09:08; Start 07/09/17 at 08:00 Simvastatin (Zocor) 40 mg QHS PO Last administered on 07/11/17 21:42; Start 07/09/17 at 21:00 Non-Formulary Medication 1 puff BID IH ; Start 07/09/17 at 09:00; Status UNV Pantoprazole Sodium (Protonix) 40 mg DAILYAC PO Last administered on 09:14; Start 07/09/17 at 07:30; Stop 07/10/17 at 12:55; Status DC Acetaminophen/ Hydrocodone Bitart (Lortab 7.5/325) 1 tab PRN Q4HRS PRN PO PAIN Last administered on 07/11/17 15:47; Start 07/09/17 at 07:30 Verapamil HCl (Calan Sr) 120 mg DAILY PO Last administered on 07/09/17 12:38 ; Start 07/09/17 at 09:00; Stop 07/09/17 at 14:54; Status DC Budesonide (Pulmicort) 0.5 mg RTBID NEB Last administered on 07/12/17 07:06; Start 07/09/17 at 08:00 Diltiazem HCl (Cardizem) 10 mg 1X ONCE IVP Last administered on 07/09/17 14: 03; Start 07/09/17 at 13:45; Stop 07/09/17 at 13:46; Status DC Furosemide (Lasix) 40 mg DAILY PO Last administered on 07/12/17 09:06; Start 07/10/17 at 09:00 Diltiazem HCl (Cardizem) 60 mg Q8HRS PO Last administered on 07/10/17 06:08; Start 07/09/17 at 15:00; Stop 07/10/17 at 08:18; Status DC Diltiazem HCl (Cardizem 24hr Cd) 240 mg DAILY PO Last administered on 09:08; Start 07/10/17 at 09:00 Cyanocobalamin (Vitamin B-12) 1,000 mcg QMONTH IM Last administered on 09:16; Start 07/10/17 at 09:00 Info (Anti-Coagulation Monitoring By Pharmacy) 1 each PRN DAILY PRN MC SEE COMMENTS Last administered on 07/12/17 14:41; Start 07/10/17 at 09:30 Furosemide (Lasix) 20 mg 1X ONCE IVP Last administered on 07/11/17 11:40; Start 07/11/17 at 11:00; Stop 07/11/17 at 11:01; Status DC Active Scripts Active Cardizem Cd (Diltiazem Hcl) 240 Mg Cap.er.24h 1 Cap PO DAILY Reported Furosemide 40 Mg Tablet 40 Mg PO BID Isosorbide Mononitrate Er (Isosorbide Mononitrate) 30 Mg Tab.er.24h 30 Mg PO DAILY Hydrochlorothiazide Capsule (Hydrochlorothiazide) 12.5 Mg Capsule 12.5 Mg PO DAILY Qvar 40MCG Inhaler (Beclomethasone Dipropionate) 8.7 Gm Aer.w.adap 1 Puff IH BID Levothyroxine Sodium 50 Mcg Tablet 1 Tab PO DAILY Eliquis (Apixaban) 2.5 Mg Tablet 2.5 Mg PO BID Verapamil Er (Verapamil Hcl) 120 Mg Cap24h.pel 120 Mg PO DAILY Nexium Capsule (Esomeprazole Magnesium) 40 Mg Capsule.dr 1 Cap PO DAILY Montelukast Sodium Tablet (Montelukast Sodium) 10 Mg Tablet 10 Mg PO QEVNG Pepcid (Famotidine) 20 Mg Tablet 20 Mg PO HS Potassium Chloride 20 Meq Tab.er.prt 1 Tab PO BID Lortab 7.5-500 Tablet (Hydrocodone Bit/Acetaminophen) 1 Each Tablet 1 Each PO PRN Q4HRS Ferrous Sulfate 325 Mg Tablet 325 Mg PO DAILY Simvastatin 40 Mg Tablet 40 Mg PO QHS Novolog Flexpen (Insulin Aspart) 100 Unit/1 Ml Insuln.pen 18 Unit SQ DAILYWBKFT Levemir Flexpen (Insulin Detemir) 100 Unit/1 Ml Insuln.pen 40 Unit SQ QHS Vitals/I & O Vital Sign - Last 24 Hours 07/11/17 07/11/17 07/11/17 07/11/17 14:56 15:47 16:45 19:00 Temp 97.6 97.5 97.6 97.5 Pulse 76 80 Resp 18 18 B/P (MAP) 103/70 (81) 116/65 (82) Pulse Ox 93 93 93 93 O2 Delivery Room Air Room Air Room Air Room Air O2 Flow Rate 1.0 1.0 07/11/17 07/11/17 07/11/17 07/12/17 19:10 20:00 23:48 03:00 Temp 96.4 97.7 96.4 97.7 Pulse 76 74 Resp 18 20 B/P (MAP) 111/67 (82) 125/56 (79) Pulse Ox 93 94 94 O2 Delivery Room Air Room Air Room Air Room Air 07/12/17 07/12/17 07/12/17 07/12/17 07:00 07:08 09:07 09:08 Temp 97.6 97.6 Pulse 82 74 74 Resp 19 B/P (MAP) 137/75 (95) 125/56 125/56 Pulse Ox 98 95 O2 Delivery Room Air Room Air 07/12/17 07/12/17 11:00 11:34 Temp 97.6 97.6 Pulse 71 Resp 19 B/P (MAP) 108/57 (74) Pulse Ox 92 95 O2 Delivery Room Air Room Air Intake and Output 07/11/17 07/11/17 07/12/17 15:00 23:00 07:00 Intake Total 1200 ml 340 ml Balance 1200 ml 340 ml SCOTT DAVIDSON MD Jul 12, 2017 14:57
[2017-07-12 15:00] VITALS: BP 128/67
[2017-07-12 19:00] VITALS: BP 117/59
[2017-07-12] MEDS: MONTELUKAST SODIUM 10 MG TABLET. PO SCH (20:10)
[2017-07-12] MEDS: SIMVASTATIN 40 MG TABLET. PO SCH (20:11)
[2017-07-12] MEDS: FAMOTIDINE 20 MG TABLET. PO SCH (20:11)
--- NOTE | 2017-07-12 21:02 | DS ---
DATE OF DISCHARGE: 07/12/2017 CHIEF COMPLAINT: Hypoglycemia and hypertension. HOSPITAL COURSE: The patient is an 81-year-old gentleman with multiple medical problems including diabetes, hypertension, CAD, CHF and tremors who presented to the Emergency Room for the second time in less than a week for hypoglycemia and mental status changes. He was admitted. Blood sugars normalized with adjustment in his regimen. Cardiology, Pulmonary and neurological services were consulted. He had complained of shortness of breath, which was most likely secondary to mild CHF. Pneumonia could not be confirmed. Echocardiogram showed EF of 40-45%. He was continued on Lasix, which will be monitored on outpatient basis as well. Neurological services were obtained for history of expressive aphasia, which actually is improving. Mild essential tremor was not consistently present. The patient has generalized weakness and is at high risk for fall. Once again, PT/OT recommendations of transfer to SNF for subacute rehab was declined by patient and family. He actually even declined home health, and he was therefore sent home with family. Given his medical issues, I suspect he will return shortly for the third time. PHYSICAL EXAMINATION: VITAL SIGNS: Show a blood pressure of 128/67, heart rate of 86 and respiratory rate at 19. No fevers. GENERAL: An 81-year-old gentleman, well nourished, in no acute distress. LUNGS: Fairly clear. HEART: Regular rate and rhythm. ABDOMEN: Positive bowel sounds. Soft and nontender. EXTREMITIES: No edema. NEUROLOGIC: Very hard of hearing. Minimal essential tremor. DISCHARGE DIAGNOSES: Hypoglycemia and congestive heart failure. DISCHARGE DISPOSITION: To home. DISCHARGE CONDITION: Improved. DISCHARGE MEDICATIONS: Please refer to MAR. DISCHARGE INSTRUCTIONS: The patient will follow up with PCP in 1 week. JUJU MOCK MD DR: UR/nts JOB#: [id number] / [id number] TATYANA Bonds MD MTDD
[2017-07-12 23:00] VITALS: BP 131/58
[2017-07-13 03:45] VITALS: BP 132/72
[2017-07-13] MEDS: LEVOTHYROXINE 50 MCG TABLET PO SCH (06:25)
[2017-07-13 07:00] VITALS: BP 128/71
[2017-07-13] MEDS: BUDESONIDE 0.5 MG/2 ML NEBU. NEB SCH (08:07)
[2017-07-13] MEDS: FERROUS SULFATE 325 MG TABLET. PO SCH (08:56)
[2017-07-13] MEDS: FUROSEMIDE 40 MG TABLET. PO SCH (08:56)
[2017-07-13] MEDS: APIXABAN 2.5 MG TABLET. PO SCH (08:56)
[2017-07-13] MEDS: ISOSORBIDE MONONITRATE ER 30 MG TAB.ER.24H PO SCH (08:57)
[2017-07-13] MEDS: POTASSIUM CHLORIDE 20 MEQ TABLET.ER. PO SCH (08:57)
--- NOTE | 2017-07-13 09:45 | PDOC ---
PROGRESS NOTES Assessment Problems Medical Problems: (1) Dehydration Status: Acute (2) Elevated troponin Status: Acute (3) Hypertension Status: Acute (4) Hypoglycemia Status: Acute (5) IDDM (insulin dependent diabetes mellitus) Status: Acute (6) Renal insufficiency Status: Acute No evidence for dementia, as confirmed by speech therapy Hearing loss Hypoglycemic episodes B12 deficiency Peripheral neuropathy most likely from diabetes, but also has very low B12 level. History of tremor, not apparent on examination right now. By description this sounds like some mild essential tremor. Dyspnea, pulmonary is seeing Plan B-12 replacement He is competent to make a decision regarding going home versus nursing home, he wants to go home, okay for me for discharge. Follow-up with neurology as needed. Subjective He says that his dyspnea and abdominal pain have all resolved. Objective Vital Signs Date Time Temp Pulse Resp B/P (MAP) Pulse Ox O2 Delivery O2 Flow Rate FiO2 07/13/17 08:57 85 07/13/17 08:08 97 Room Air 07/13/17 07:00 97.6 18 128/71 (90) 97.6 Intake and Output 07/13/17 07:00 Intake Total 1650 ml Output Total 200 ml Balance 1450 ml Intake Oral 1650 ml Output Urine Total 200 ml # Voids 2 PHYSICAL EXAM Alert. Oriented to time, place and person. Severe hearing loss PERRL. EOMI. CN: no focal findings. Hard of hearing Muscle tone: normal. Muscle strength: 5/5 DTR: 1+ Plantar reflex: flexor Gait: not examined in bed. Sensory exam: stocking loss. No cerebellar signs elicited. Review of Relevant I have reviewed the following items jack (where applicable) has been applied. Labs Laboratory Tests Test 07/11/17 11:48 07/11/17 16:30 07/11/17 20:50 07/12/17 08:21 Glucose (Fingerstick) 291 mg/dL (70-99) 228 mg/dL (70-99) 252 mg/dL (70-99) 191 mg/dL (70-99) Test 07/12/17 11:47 07/12/17 17:23 07/12/17 20:09 07/13/17 07:50 Glucose (Fingerstick) 304 mg/dL (70-99) 233 mg/dL (70-99) 299 mg/dL (70-99) 173 mg/dL (70-99) Laboratory Tests Test 07/12/17 11:47 07/12/17 17:23 07/12/17 20:09 07/13/17 07:50 Glucose (Fingerstick) 304 mg/dL (70-99) 233 mg/dL (70-99) 299 mg/dL (70-99) 173 mg/dL (70-99) Medications Current Medications Sodium Chloride 1,000 ml @ 1,000 mls/hr Q1H IV Last administered on 07:15; Start 07/09/17 at 06:50; Stop 07/09/17 at 07:49; Status DC Sodium Chloride (Normal Saline Flush) 10 ml QSHIFT PRN IV AFTER MEDS AND BLOOD DRAWS; Start 07/09/17 at 07:00 Labetalol HCl (Normodyne) 20 mg 1X ONCE IVP ; Start 07/09/17 at 07:00; Stop 07/09/17 at 07:01; Status DC Dextrose 1,000 ml @ 200 mls/hr 1X ONCE IV Last administered on 07/09/17 08: 11; Start 07/09/17 at 07:00; Stop 07/09/17 at 11:59; Status DC Labetalol HCl (Normodyne) 10 mg PRN Q2HR PRN IVP HYPERTENSION, SEE COMMENTS; Start 07/09/17 at 07:30 Apixaban (Eliquis) 2.5 mg BID PO Last administered on 07/13/17 08:56; Start 07/09/17 at 09:00 Famotidine (Pepcid) 20 mg HS PO Last administered on 07/12/17 20:11; Start 07/09/17 at 21:00 Ferrous Sulfate (Feosol) 325 mg DAILYWBKFT PO Last administered on 07/13/17 08 :56; Start 07/09/17 at 09:00 Hydrochlorothiazide (Microzide) 12.5 mg DAILY PO Last administered on 12:36; Start 07/09/17 at 09:00; Stop 07/09/17 at 14:54; Status DC Isosorbide Mononitrate (Imdur) 30 mg DAILY PO Last administered on 07/13/17 08 :57; Start 07/09/17 at 09:00 Levothyroxine Sodium (Synthroid) 50 mcg DAILY06 PO Last administered on 06:25; Start 07/09/17 at 07:45 Montelukast Sodium (Singulair) 10 mg QHS PO Last administered on 07/12/17 20: 10; Start 07/09/17 at 21:00 Potassium Chloride (Klor-Con) 20 meq BIDWMEALS PO Last administered on 08:57; Start 07/09/17 at 08:00 Simvastatin (Zocor) 40 mg QHS PO Last administered on 07/12/17 20:11; Start 07/09/17 at 21:00 Non-Formulary Medication 1 puff BID IH ; Start 07/09/17 at 09:00; Status UNV Pantoprazole Sodium (Protonix) 40 mg DAILYAC PO Last administered on 09:14; Start 07/09/17 at 07:30; Stop 07/10/17 at 12:55; Status DC Acetaminophen/ Hydrocodone Bitart (Lortab 7.5/325) 1 tab PRN Q4HRS PRN PO PAIN Last administered on 07/11/17 15:47; Start 07/09/17 at 07:30 Verapamil HCl (Calan Sr) 120 mg DAILY PO Last administered on 07/09/17 12:38 ; Start 07/09/17 at 09:00; Stop 07/09/17 at 14:54; Status DC Budesonide (Pulmicort) 0.5 mg RTBID NEB Last administered on 07/13/17 08:07; Start 07/09/17 at 08:00 Diltiazem HCl (Cardizem) 10 mg 1X ONCE IVP Last administered on 07/09/17 14: 03; Start 07/09/17 at 13:45; Stop 07/09/17 at 13:46; Status DC Furosemide (Lasix) 40 mg DAILY PO Last administered on 07/13/17 08:56; Start 07/10/17 at 09:00 Diltiazem HCl (Cardizem) 60 mg Q8HRS PO Last administered on 07/10/17 06:08; Start 07/09/17 at 15:00; Stop 07/10/17 at 08:18; Status DC Diltiazem HCl (Cardizem 24hr Cd) 240 mg DAILY PO Last administered on 08:57; Start 07/10/17 at 09:00 Cyanocobalamin (Vitamin B-12) 1,000 mcg QMONTH IM Last administered on 09:16; Start 07/10/17 at 09:00 Info (Anti-Coagulation Monitoring By Pharmacy) 1 each PRN DAILY PRN MC SEE COMMENTS Last administered on 07/12/17 14:41; Start 07/10/17 at 09:30 Furosemide (Lasix) 20 mg 1X ONCE IVP Last administered on 07/11/17 11:40; Start 07/11/17 at 11:00; Stop 07/11/17 at 11:01; Status DC Levofloxacin (Levaquin) 500 mg 1X ONCE PO Last administered on 07/12/17 20: 10; Start 07/12/17 at 18:00; Stop 07/12/17 at 18:01; Status DC Levofloxacin (Levaquin) 250 mg DAILY06 PO Last administered on 07/13/17 06:25 ; Start 07/13/17 at 06:00 Active Scripts Active Cardizem Cd (Diltiazem Hcl) 240 Mg Cap.er.24h 1 Cap PO DAILY Reported Furosemide 40 Mg Tablet 40 Mg PO BID Isosorbide Mononitrate Er (Isosorbide Mononitrate) 30 Mg Tab.er.24h 30 Mg PO DAILY Hydrochlorothiazide Capsule (Hydrochlorothiazide) 12.5 Mg Capsule 12.5 Mg PO DAILY Qvar 40MCG Inhaler (Beclomethasone Dipropionate) 8.7 Gm Aer.w.adap 1 Puff IH BID Levothyroxine Sodium 50 Mcg Tablet 1 Tab PO DAILY Eliquis (Apixaban) 2.5 Mg Tablet 2.5 Mg PO BID Verapamil Er (Verapamil Hcl) 120 Mg Cap24h.pel 120 Mg PO DAILY Nexium Capsule (Esomeprazole Magnesium) 40 Mg Capsule.dr 1 Cap PO DAILY Montelukast Sodium Tablet (Montelukast Sodium) 10 Mg Tablet 10 Mg PO QEVNG Pepcid (Famotidine) 20 Mg Tablet 20 Mg PO HS Potassium Chloride 20 Meq Tab.er.prt 1 Tab PO BID Lortab 7.5-500 Tablet (Hydrocodone Bit/Acetaminophen) 1 Each Tablet 1 Each PO PRN Q4HRS Ferrous Sulfate 325 Mg Tablet 325 Mg PO DAILY Simvastatin 40 Mg Tablet 40 Mg PO QHS Novolog Flexpen (Insulin Aspart) 100 Unit/1 Ml Insuln.pen 18 Unit SQ DAILYWBKFT Levemir Flexpen (Insulin Detemir) 100 Unit/1 Ml Insuln.pen 40 Unit SQ QHS Vitals/I & O Vital Sign - Last 24 Hours 07/12/17 07/12/17 07/12/17 07/12/17 11:00 11:34 15:00 18:31 Temp 97.6 97.6 97.6 97.6 Pulse 71 86 Resp 19 19 B/P (MAP) 108/57 (74) 128/67 (87) Pulse Ox 92 95 97 95 O2 Delivery Room Air Room Air Room Air Room Air 07/12/17 07/12/17 07/12/17 07/13/17 19:00 19:55 23:00 03:45 Temp 98.0 97.8 97.8 98.0 97.8 97.8 Pulse 78 61 86 Resp 22 20 16 B/P (MAP) 117/59 (78) 131/58 (82) 132/72 (92) Pulse Ox 91 93 97 O2 Delivery Room Air Room Air Room Air Room Air 07/13/17 07/13/17 07/13/17 07/13/17 07:00 08:08 08:57 08:57 Temp 97.6 97.6 Pulse 85 85 85 Resp 18 B/P (MAP) 128/71 (90) Pulse Ox 96 97 O2 Delivery Room Air Room Air Intake and Output 07/12/17 07/12/17 07/13/17 15:00 23:00 07:00 Intake Total 500 ml 1050 ml 100 ml Output Total 200 ml Balance 500 ml 850 ml 100 ml SCOTT DAVIDSON MD Jul 13, 2017 09:45
[2017-07-13 11:00] VITALS: BP 108/68
[2017-07-13] MEDS ORDERED: LEVO500T59 PO (12:42)
[2017-07-13] MEDS ORDERED: IPRA3AMP NEB (12:43)
--- NOTE | 2017-07-13 12:45 | PDOC ---
PULMONARY PROGRESS NOTES Subjective no soa Vitals Vital Signs Date Time Temp Pulse Resp B/P (MAP) Pulse Ox O2 Delivery O2 Flow Rate FiO2 07/13/17 11:00 98.3 88 16 108/68 (81) 97 Room Air 98.3 General: Alert, Oriented X4, No acute distress HEENT: Other Lungs: Other (decrease bases) Cardiovascular: S1, S2 Abdomen: Soft, Non-tender Neuro Exam: Alert Extremities: No Edema Labs Laboratory Tests Test 07/11/17 16:30 07/11/17 20:50 07/12/17 08:21 07/12/17 11:47 Glucose (Fingerstick) 228 mg/dL (70-99) 252 mg/dL (70-99) 191 mg/dL (70-99) 304 mg/dL (70-99) Test 07/12/17 17:23 07/12/17 20:09 07/13/17 07:50 07/13/17 11:25 Glucose (Fingerstick) 233 mg/dL (70-99) 299 mg/dL (70-99) 173 mg/dL (70-99) 267 mg/dL (70-99) Laboratory Tests Test 07/12/17 17:23 07/12/17 20:09 07/13/17 07:50 07/13/17 11:25 Glucose (Fingerstick) 233 mg/dL (70-99) 299 mg/dL (70-99) 173 mg/dL (70-99) 267 mg/dL (70-99) Medications Active Scripts Medications Dose Route/Sig Max Daily Dose Days Date Category Furosemide 40 Mg Tablet 40 Mg PO BID 07/09/17 Reported Isosorbide Mononitrate Er (Isosorbide Mononitrate) 30 Mg Tab.er.24h 30 Mg PO DAILY 06/30/17 Reported Hydrochlorothiazide Capsule (Hydrochlorothiazide) 12.5 Mg Capsule 12.5 Mg PO DAILY 06/30/17 Reported Qvar 40MCG Inhaler (Beclomethasone Dipropionate) 8.7 Gm Aer.w.adap 1 Puff IH BID 06/30/17 Reported Levothyroxine Sodium 50 Mcg Tablet 1 Tab PO DAILY 03/05/16 Reported Eliquis (Apixaban) 2.5 Mg Tablet 2.5 Mg PO BID 03/05/16 Reported Verapamil Er (Verapamil Hcl) 120 Mg Cap24h.pel 120 Mg PO DAILY 03/05/16 Reported Nexium Capsule (Esomeprazole Magnesium) 40 Mg Capsule.dr 1 Cap PO DAILY 03/05/16 Reported Montelukast Sodium Tablet (Montelukast Sodium) 10 Mg Tablet 10 Mg PO QEVNG 03/05/16 Reported Pepcid (Famotidine) 20 Mg Tablet 20 Mg PO HS 03/05/16 Reported Potassium Chloride 20 Meq Tab.er.prt 1 Tab PO BID 04/10/14 Reported Lortab 7.5-500 Tablet (Hydrocodone Bit/Acetaminophen) 1 Each Tablet 1 Each PO PRN Q4HRS 08/19/13 Reported Ferrous Sulfate 325 Mg Tablet 325 Mg PO DAILY 08/17/13 Reported Simvastatin 40 Mg Tablet 40 Mg PO QHS 08/17/13 Reported Novolog Flexpen (Insulin Aspart) 100 Unit/1 Ml Insuln.pen 18 Unit SQ DAILYWBKFT 08/16/13 Reported Levemir Flexpen (Insulin Detemir) 100 Unit/1 Ml Insuln.pen 40 Unit SQ QHS 08/16/13 Reported Impression . 1. Dyspnea with mild hypoxia which corrects with supplemental oxygen. This is a patient who has known cardiomyopathy with an EF of 40-45% and has been short of breath since 07/11, I suspect congestive heart failure / increasing left effusion 2. Possible PNEUMONIA LLL 3. Initial admission for hypoglycemia, which is resolved. 4. Known cardiomyopathy with an EF of 40-45%. 5. No history of tobacco use. Plan . 1. ct chest reviewed 2. Lasix. 3. off o2 4. Continue home medications. 5. Discuss with RN.home on PO CHRIST Oakes MD Jul 13, 2017 12:45
== END 2017-07-13 13:00 | disposition home health service (06) | DRG 291 ==
LOC: ER 06:29 → ED HOLD 07:11 → 6 SOUTH 13:25 → 2 SOUTH 14:21
PROVIDERS: ADMIT Internal Medicine; ATTEND Internal Medicine
DX: I13.0 Hypertensive heart and chronic kidney disease with heart failure and stage 1 through stage 4 chronic kidney disease, or unspecified chronic kidney disease (principal); G93.41 Metabolic encephalopathy; E11.22 Type 2 diabetes mellitus with diabetic chronic kidney disease; E11.42 Type 2 diabetes mellitus with diabetic polyneuropathy; E86.0 Dehydration; E11.649 Type 2 diabetes mellitus with hypoglycemia without coma; I48.2 Chronic atrial fibrillation; R47.01 Aphasia; I50.23 Acute on chronic systolic (congestive) heart failure; I42.9 Cardiomyopathy, unspecified; E27.8 Other specified disorders of adrenal gland; F03.90 Unspecified dementia, unspecified severity, without behavioral disturbance, psychotic disturbance, mood disturbance, and anxiety; G25.0 Essential tremor; H91.90 Unspecified hearing loss, unspecified ear; I25.10 Atherosclerotic heart disease of native coronary artery without angina pectoris; I45.10 Unspecified right bundle-branch block; R09.02 Hypoxemia; J45.909 Unspecified asthma, uncomplicated; K21.9 Gastro-esophageal reflux disease without esophagitis; N18.3 Chronic kidney disease, stage 3 (moderate); K57.90 Diverticulosis of intestine, part unspecified, without perforation or abscess without bleeding; M19.90 Unspecified osteoarthritis, unspecified site; R74.8 Abnormal levels of other serum enzymes; Z79.4 Long term (current) use of insulin; E03.9 Hypothyroidism, unspecified; E53.8 Deficiency of other specified B group vitamins; E78.00 Pure hypercholesterolemia, unspecified; E78.5 Hyperlipidemia, unspecified; Z91.81 History of falling; Z90.49 Acquired absence of other specified parts of digestive tract; Z83.3 Family history of diabetes mellitus; J44.9 Chronic obstructive pulmonary disease, unspecified
CPT/HCPCS: 36415; 71010; 71250; 80048; 80076; 82553; 82607; 82746; 82962; 83690; 83735; 83880; 84443; 84484; 85025; 85651; 93005; 94250; 94640; 94760; J3420; J3490; J7030; J7626; 92523; 97116; 99285-25

== ENCOUNTER 2017-09-05 14:15 | Emergency (ER) | payer MEDICARE, MEDICAID ==
[2017-09-05 14:33] LABS: POC GLUCOSE 427 mg/dL (70-99)
[2017-09-05 14:53] LABS: AGAP ISTAT 19 mmol/L (6-14); BUN ISTAT 31 mg/dL (8-26); CHLORIDE ISTAT 92 mmol/L (98-110); CREATININE ISTAT 2.3 mg/dL (0.5-1.4); GLUCOSE ISTAT 467 mg/dL (70-99); HEMATOCRIT ISTAT 40 % (37-52); HEMOGLOBIN ISTAT 13.6 g/dL (14-18); ION CA ISTAT 1.08 mmol/L (1.13-1.32); POTASSIUM ISTAT 3.5 mmol/L (3.5-5.0); SODIUM ISTAT 133 mmol/L (135-145); TOT CO2 ISTAT 27 mmol/L (23-32)
[2017-09-05 15:13] LABS: BILIRUBIN,URINE NEGATIVE (NEG); CLARITY,URINE CLEAR; COLOR,URINE YELLOW; GLUCOSE,URINE >=1000 mg/dL (NEG); NITRITE,URINE NEGATIVE (NEG); PH,URINE 5.5; PROTEIN,URINE NEGATIVE (NEG-TRACE)
[2017-09-05 15:24] LABS: RBC,URINE OCC /HPF (0-2); WBC,URINE OCC /HPF (0-4)
[2017-09-05 15:25] LABS: AMORPHOUS SEDIMENT,UR PRESENT /HPF; BACTERIA,URINE 0 /HPF (0-FEW); HYALINE CASTS, URINE MODERATE /HPF
[2017-09-05] MEDS: INSULIN REGULAR 100 UNIT/ML 10ML VIAL. IV (15:37)
[2017-09-05 16:05] LABS: POC GLUCOSE 362 mg/dL (70-99)
== END 2017-09-05 17:24 | disposition home or self-care (01) ==
LOC: ER 14:15
DX: E11.65 Type 2 diabetes mellitus with hyperglycemia (principal); E78.00 Pure hypercholesterolemia, unspecified; I10 Essential (primary) hypertension; Z90.49 Acquired absence of other specified parts of digestive tract; Z87.891 Personal history of nicotine dependence; Z79.4 Long term (current) use of insulin
CPT/HCPCS: 80047; 81001; 82962; 96374; 99284-25; J1815

== ENCOUNTER 2017-09-12 18:45 | Inpatient (IN) | payer MEDICARE, MEDICAID ==
[2017-09-12] MEDS: IV NORMAL SALINE 1000ML BAG 1,000 ML IV (19:00)
[2017-09-12] MEDS: ONDANSETRON PF 4 MG/2 ML VIAL. IV (19:00)
[2017-09-12 19:36] LABS: ANION GAP 12 (6-14); BLOOD UREA NITROGEN 38 mg/dL (8-26); BUN/CREATININE RATIO 17 (6-20); CALCIUM 8.9 mg/dL (8.5-10.1); CARBON DIOXIDE 27 mmol/L (21-32); CHLORIDE 96 mmol/L (98-107); CREATININE 2.3 mg/dL (0.7-1.3); GFR 27.5; GLUCOSE 252 mg/dL (70-99); POTASSIUM 3.5 mmol/L (3.5-5.1); SODIUM 135 mmol/L (136-145)
[2017-09-12 19:41] LABS: TROPONINI < 0.017 ng/mL (0.000-0.055)
[2017-09-12 19:41] LABS: ALBUMIN 3.3 g/dL (3.4-5.0); ALBUMIN/GLOBULIN RATIO 0.8 (1.0-1.7); ALK PHOS 88 U/L (46-116); ALT (SGPT) 12 U/L (16-63); AST (SGOT) 13 U/L (15-37); TOTAL BILIRUBIN 0.8 mg/dL (0.2-1.0); TOTAL PROTEIN 7.2 g/dL (6.4-8.2)
[2017-09-12 19:44] LABS: NT-PRO BNP 5535 pg/mL (0-449)
[2017-09-12 20:57] LABS: ADD MAN DIFF? NO
[2017-09-12 21:00] LABS: BASO # 0.1 x10^3/uL (0.0-0.2); BASO % 1 % (0-3); EOS % 0 % (0-3); HEMATOCRIT 41.4 % (39.0-53.0); HEMOGLOBIN 13.6 g/dL (13.0-17.5); LYMPH # 0.8 x10^3/uL (1.0-4.8); LYMPH % 7 % (24-48); MEAN CORPUSCULAR HEMOGLOBIN 26 pg (25-35); MEAN CORPUSCULAR HGB CONC 33 g/dL (31-37); MEAN CORPUSCULAR VOLUME 78 fL (79-100); MONO % 9 % (0-9); NEUT # 9.5 x10^3uL (1.8-7.7); NEUT % 83 % (31-73); PLATELET COUNT 147 x10^3/uL (140-400); RED BLOOD COUNT 5.29 x10^6/uL (4.30-5.70); RED CELL DISTRIBUTION WIDTH 17.2 % (11.5-14.5); WHITE BLOOD COUNT 11.4 x10^3/uL (4.0-11.0)
[2017-09-12 21:45] LABS: LACTIC ACID 1.5 mmol/L (0.4-2.0)
[2017-09-12 22:07] LABS: INFLUENZA B PATIENT NEGATIVE (NEGATIVE); OBC FLU VALID
[2017-09-12 22:08] LABS: INFLUENZA A PATIENT POSITIVE (NEGATIVE)
[2017-09-12] MEDS ORDERED: ONDANSETRON PF 4 MG/2 ML VIAL. IV (23:00)
[2017-09-12 23:09] LABS: BILIRUBIN,URINE NEGATIVE (NEG); CLARITY,URINE CLEAR; COLOR,URINE YELLOW; GLUCOSE,URINE NEGATIVE (NEG); NITRITE,URINE NEGATIVE (NEG); PROTEIN,URINE NEGATIVE (NEG-TRACE)
[2017-09-12 23:20] LABS: BACTERIA,URINE MODERATE /HPF (0-FEW); GRANULAR CASTS,URINE FEW /HPF; HYALINE CASTS, URINE MANY /HPF; RBC,URINE OCC /HPF (0-2); SQUAMOUS EPITHELIAL CELL,UR MANY /LPF; WBC,URINE OCC /HPF (0-4)
[2017-09-13] MEDS: ACETAMINOPHEN 325 MG TABLET. PO ×2 (03:18→21:42)
[2017-09-13 05:37] LABS: TROPONINI 0.028 ng/mL (0.000-0.055)
[2017-09-13] MEDS ORDERED: ACETAMINOPHEN 325 MG TABLET. PO (10:45)
[2017-09-13] MEDS ORDERED: traMADol 50 MG TABLET PO (10:45)
[2017-09-13] MEDS ORDERED: MORPHINE SULFATE 2 MG/ML DISP.SYRIN. IV (10:45)
[2017-09-13] MEDS ORDERED: DOCUSATE SODIUM 100 MG CAPSULE. PO (10:45)
[2017-09-13] MEDS ORDERED: DEXTROSE 50% 25 GM / 50ML DISP.SYRIN. IV ×2 (10:45→12:45)
[2017-09-13] MEDS ORDERED: hydrALAZINE 20 MG/ML VIAL. IVP (10:45)
[2017-09-13] MEDS ORDERED: HYDROcodone/APAP 7.5/325MG 1 TAB TABLET PO (11:00)
[2017-09-13 11:25] LABS: TROPONINI 0.017 ng/mL (0.000-0.055)
[2017-09-13] MEDS: BUDESONIDE 0.5 MG/2 ML NEBU. NEB ×2 (11:49→20:18)
[2017-09-13] MEDS: ISOSORBIDE MONONITRATE ER 30 MG TAB.ER.24H PO (12:08)
[2017-09-13] MEDS: POTASSIUM CHLORIDE 20 MEQ TABLET.ER. PO ×2 (12:08→20:41)
[2017-09-13] MEDS: PANTOPRAZOLE 40 MG TABLET.DR. PO (12:08)
[2017-09-13] MEDS: APIXABAN 2.5 MG TABLET. PO ×2 (12:08→20:40)
[2017-09-13] MEDS: FUROSEMIDE 40 MG TABLET. PO ×2 (12:08→17:46)
[2017-09-13] MEDS: OSELTAMIVIR 30 MG CAPSULE PO ×2 (12:09→20:40)
[2017-09-13] MEDS: FERROUS SULFATE 325 MG TABLET. PO (12:09)
[2017-09-13] MEDS: LEVOTHYROXINE 50 MCG TABLET PO (12:09)
[2017-09-13 17:25] LABS: POC GLUCOSE 276 mg/dL (70-99)
[2017-09-13] MEDS: MONTELUKAST SODIUM 10 MG TABLET. PO (17:46)
[2017-09-13] MEDS: INSULIN ASPART 300 UNITS/3 ML INSULN.PEN SQ ×2 (17:49→21:12)
[2017-09-13 20:26] LABS: POC GLUCOSE 342 mg/dL (70-99)
[2017-09-13] MEDS: FAMOTIDINE 20 MG TABLET. PO (20:40)
[2017-09-13] MEDS: SIMVASTATIN 40 MG TABLET. PO (20:40)
[2017-09-13] MEDS ORDERED: BECLOMETHASONE DIPROPIONATE IH (21:00)
[2017-09-13] MEDS ORDERED: HEPARIN PF for SUB-Q USE 5,000 UNIT/0.5 ML VIAL. SQ (22:00)
[2017-09-14 05:22] LABS: ADD MAN DIFF? NO
[2017-09-14 05:39] LABS: BASO % 1 % (0-3); EOS % 0 % (0-3); HEMATOCRIT 41.2 % (39.0-53.0); HEMOGLOBIN 13.5 g/dL (13.0-17.5); LYMPH # 1.8 x10^3/uL (1.0-4.8); LYMPH % 29 % (24-48); MEAN CORPUSCULAR HEMOGLOBIN 26 pg (25-35); MEAN CORPUSCULAR HGB CONC 33 g/dL (31-37); MEAN CORPUSCULAR VOLUME 78 fL (79-100); MONO # 0.9 x10^3/uL (0.0-1.1); MONO % 14 % (0-9); NEUT # 3.5 x10^3uL (1.8-7.7); NEUT % 56 % (31-73); PLATELET COUNT 130 x10^3/uL (140-400); RED BLOOD COUNT 5.26 x10^6/uL (4.30-5.70); RED CELL DISTRIBUTION WIDTH 17.2 % (11.5-14.5); WHITE BLOOD COUNT 6.3 x10^3/uL (4.0-11.0)
[2017-09-14 06:10] LABS: ANION GAP 10 (6-14); BLOOD UREA NITROGEN 43 mg/dL (8-26); CALCIUM 8.9 mg/dL (8.5-10.1); CARBON DIOXIDE 28 mmol/L (21-32); CHLORIDE 102 mmol/L (98-107); GFR 32.3; GLUCOSE 94 mg/dL (70-99); SODIUM 140 mmol/L (136-145)
[2017-09-14] MEDS: LEVOTHYROXINE 50 MCG TABLET PO (06:13)
[2017-09-14] MEDS: PANTOPRAZOLE 40 MG TABLET.DR. PO (06:13)
[2017-09-14] MEDS: BUDESONIDE 0.5 MG/2 ML NEBU. NEB ×2 (07:04→18:16)
[2017-09-14] MEDS: ANTI-COAG MONITOR BY PHARMACY. MC (07:50)
[2017-09-14] MEDS: INSULIN ASPART 300 UNITS/3 ML INSULN.PEN SQ ×3 (08:00→21:16)
[2017-09-14] MEDS: FERROUS SULFATE 325 MG TABLET. PO (08:13)
[2017-09-14] MEDS: OSELTAMIVIR 30 MG CAPSULE PO ×2 (08:13→21:10)
[2017-09-14] MEDS: POTASSIUM CHLORIDE 20 MEQ TABLET.ER. PO ×3 (08:13→21:10)
[2017-09-14] MEDS: FUROSEMIDE 40 MG TABLET. PO ×2 (08:13→17:16)
[2017-09-14] MEDS: ISOSORBIDE MONONITRATE ER 30 MG TAB.ER.24H PO (08:14)
[2017-09-14] MEDS: APIXABAN 2.5 MG TABLET. PO ×2 (08:14→21:10)
[2017-09-14 08:51] LABS: POC GLUCOSE 122 mg/dL (70-99)
[2017-09-14 12:53] LABS: POC GLUCOSE 332 mg/dL (70-99)
[2017-09-14 16:39] LABS: POC GLUCOSE 351 mg/dL (70-99)
[2017-09-14] MEDS: MONTELUKAST SODIUM 10 MG TABLET. PO (17:16)
[2017-09-14] MEDS: FAMOTIDINE 20 MG TABLET. PO (21:10)
[2017-09-14] MEDS: SIMVASTATIN 40 MG TABLET. PO (21:10)
[2017-09-14 21:18] LABS: POC GLUCOSE 236 mg/dL (70-99)
[2017-09-15] MEDS: LEVOTHYROXINE 50 MCG TABLET PO (06:00)
[2017-09-15] MEDS: PANTOPRAZOLE 40 MG TABLET.DR. PO (06:00)
[2017-09-15 06:41] LABS: ADD MAN DIFF? NO
[2017-09-15 07:03] LABS: BASO % 0 % (0-3); EOS % 0 % (0-3); HEMATOCRIT 40.9 % (39.0-53.0); HEMOGLOBIN 13.3 g/dL (13.0-17.5); LYMPH # 1.6 x10^3/uL (1.0-4.8); LYMPH % 27 % (24-48); MEAN CORPUSCULAR HEMOGLOBIN 26 pg (25-35); MEAN CORPUSCULAR HGB CONC 33 g/dL (31-37); MEAN CORPUSCULAR VOLUME 79 fL (79-100); MONO # 0.8 x10^3/uL (0.0-1.1); MONO % 14 % (0-9); NEUT # 3.6 x10^3uL (1.8-7.7); NEUT % 60 % (31-73); PLATELET COUNT 134 x10^3/uL (140-400); RED CELL DISTRIBUTION WIDTH 17.1 % (11.5-14.5); WHITE BLOOD COUNT 6.1 x10^3/uL (4.0-11.0)
[2017-09-15 07:07] LABS: ANION GAP 10 (6-14); BLOOD UREA NITROGEN 40 mg/dL (8-26); CALCIUM 8.8 mg/dL (8.5-10.1); CARBON DIOXIDE 28 mmol/L (21-32); CHLORIDE 99 mmol/L (98-107); CREATININE 1.9 mg/dL (0.7-1.3); GFR 34.3; GLUCOSE 241 mg/dL (70-99); MAGNESIUM 1.6 mg/dL (1.8-2.4); POTASSIUM 3.4 mmol/L (3.5-5.1); SODIUM 137 mmol/L (136-145)
[2017-09-15 08:21] LABS: POC GLUCOSE 216 mg/dL (70-99)
[2017-09-15] MEDS: OSELTAMIVIR 30 MG CAPSULE PO ×2 (09:01→20:09)
[2017-09-15] MEDS: ISOSORBIDE MONONITRATE ER 30 MG TAB.ER.24H PO (09:02)
[2017-09-15] MEDS: FUROSEMIDE 40 MG TABLET. PO ×2 (09:02→17:33)
[2017-09-15] MEDS: FERROUS SULFATE 325 MG TABLET. PO (09:02)
[2017-09-15] MEDS: APIXABAN 2.5 MG TABLET. PO ×2 (09:02→20:09)
[2017-09-15] MEDS: POTASSIUM CHLORIDE 20 MEQ TABLET.ER. PO ×3 (09:02→20:09)
[2017-09-15] MEDS: INSULIN ASPART 300 UNITS/3 ML INSULN.PEN SQ ×4 (09:15→20:16)
[2017-09-15] MEDS: BUDESONIDE 0.5 MG/2 ML NEBU. NEB ×2 (09:42→19:09)
[2017-09-15] MEDS: MAGNESIUM SULFATE 2GM 50 ML IV (10:03)
[2017-09-15 11:54] LABS: POC GLUCOSE 277 mg/dL (70-99)
[2017-09-15 16:30] LABS: POC GLUCOSE 286 mg/dL (70-99)
[2017-09-15] MEDS: MONTELUKAST SODIUM 10 MG TABLET. PO (17:33)
[2017-09-15] MEDS: FAMOTIDINE 20 MG TABLET. PO (20:09)
[2017-09-15] MEDS: SIMVASTATIN 40 MG TABLET. PO (20:10)
[2017-09-15] MEDS: INSULIN DETEMIR 300 UNITS/3 ML INSULN.PEN. SQ (20:16)
[2017-09-15 20:19] LABS: POC GLUCOSE 248 mg/dL (70-99)
[2017-09-16 05:09] LABS: ADD MAN DIFF? NO
[2017-09-16 05:32] LABS: BASO % 0 % (0-3); EOS % 0 % (0-3); HEMATOCRIT 41.5 % (39.0-53.0); HEMOGLOBIN 13.8 g/dL (13.0-17.5); LYMPH # 1.7 x10^3/uL (1.0-4.8); LYMPH % 30 % (24-48); MEAN CORPUSCULAR HEMOGLOBIN 26 pg (25-35); MEAN CORPUSCULAR HGB CONC 33 g/dL (31-37); MEAN CORPUSCULAR VOLUME 78 fL (79-100); MONO # 0.7 x10^3/uL (0.0-1.1); MONO % 12 % (0-9); NEUT # 3.3 x10^3uL (1.8-7.7); NEUT % 57 % (31-73); PLATELET COUNT 148 x10^3/uL (140-400); RED BLOOD COUNT 5.31 x10^6/uL (4.30-5.70); RED CELL DISTRIBUTION WIDTH 17.6 % (11.5-14.5); WHITE BLOOD COUNT 5.7 x10^3/uL (4.0-11.0)
[2017-09-16 05:40] LABS: ANION GAP 10 (6-14); BLOOD UREA NITROGEN 35 mg/dL (8-26); CALCIUM 9.1 mg/dL (8.5-10.1); CARBON DIOXIDE 26 mmol/L (21-32); CHLORIDE 101 mmol/L (98-107); CREATININE 1.8 mg/dL (0.7-1.3); GFR 36.5; GLUCOSE 200 mg/dL (70-99); MAGNESIUM 1.9 mg/dL (1.8-2.4); POTASSIUM 3.7 mmol/L (3.5-5.1); SODIUM 137 mmol/L (136-145)
[2017-09-16] MEDS: PANTOPRAZOLE 40 MG TABLET.DR. PO (06:02)
[2017-09-16] MEDS: LEVOTHYROXINE 50 MCG TABLET PO (06:02)
[2017-09-16 07:37] LABS: POC GLUCOSE 211 mg/dL (70-99)
[2017-09-16] MEDS: BUDESONIDE 0.5 MG/2 ML NEBU. NEB ×2 (08:26→20:56)
[2017-09-16] MEDS: FUROSEMIDE 40 MG TABLET. PO ×2 (08:35→17:34)
[2017-09-16] MEDS: OSELTAMIVIR 30 MG CAPSULE PO ×2 (08:35→21:02)
[2017-09-16] MEDS: APIXABAN 2.5 MG TABLET. PO ×2 (08:35→21:02)
[2017-09-16] MEDS: FERROUS SULFATE 325 MG TABLET. PO (08:35)
[2017-09-16] MEDS: POTASSIUM CHLORIDE 20 MEQ TABLET.ER. PO ×2 (08:36→21:02)
[2017-09-16] MEDS: ISOSORBIDE MONONITRATE ER 30 MG TAB.ER.24H PO (08:38)
[2017-09-16] MEDS: INSULIN ASPART 300 UNITS/3 ML INSULN.PEN SQ ×6 (08:45→21:00)
[2017-09-16 11:47] LABS: POC GLUCOSE 235 mg/dL (70-99)
[2017-09-16] MEDS: ONDANSETRON PF 4 MG/2 ML VIAL. IV (13:23)
[2017-09-16 17:07] LABS: POC GLUCOSE 136 mg/dL (70-99)
[2017-09-16] MEDS: MONTELUKAST SODIUM 10 MG TABLET. PO (17:39)
[2017-09-16] MEDS: ALBUTEROL SULFATE 2.5 MG/3 ML NEBU. NEB (20:58)
[2017-09-16] MEDS: SIMVASTATIN 40 MG TABLET. PO (21:02)
[2017-09-16] MEDS: FAMOTIDINE 20 MG TABLET. PO (21:02)
[2017-09-16] MEDS: INSULIN DETEMIR 300 UNITS/3 ML INSULN.PEN. SQ (21:06)
[2017-09-16 21:22] LABS: POC GLUCOSE 114 mg/dL (70-99)
[2017-09-16] MEDS: DIGOXIN IV 500 MCG/2 ML AMPUL. IV (21:38)
[2017-09-17] MEDS: BUDESONIDE 0.5 MG/2 ML NEBU. NEB (07:05)
[2017-09-17 07:27] LABS: POC GLUCOSE 147 mg/dL (70-99)
[2017-09-17] MEDS: INSULIN ASPART 300 UNITS/3 ML INSULN.PEN SQ ×4 (07:30→12:49)
[2017-09-17] MEDS: LEVOTHYROXINE 50 MCG TABLET PO (08:57)
[2017-09-17] MEDS: ISOSORBIDE MONONITRATE ER 30 MG TAB.ER.24H PO (08:58)
[2017-09-17] MEDS: POTASSIUM CHLORIDE 20 MEQ TABLET.ER. PO (08:58)
[2017-09-17] MEDS: FERROUS SULFATE 325 MG TABLET. PO (08:58)
[2017-09-17] MEDS: APIXABAN 2.5 MG TABLET. PO (08:58)
[2017-09-17] MEDS: OSELTAMIVIR 30 MG CAPSULE PO ×2 (08:58→16:51)
[2017-09-17] MEDS: FUROSEMIDE 40 MG TABLET. PO ×2 (08:58→16:51)
[2017-09-17] MEDS: PANTOPRAZOLE 40 MG TABLET.DR. PO (08:59)
[2017-09-17] MEDS: ANTI-COAG MONITOR BY PHARMACY. MC (11:16)
[2017-09-17 12:40] LABS: POC GLUCOSE 244 mg/dL (70-99)
== END 2017-09-17 18:06 | disposition home health service (06) | DRG 871 ==
LOC: ER 18:45 → 2 NORTH 21:56
DX: A41.9 Sepsis, unspecified organism (principal); J96.00 Acute respiratory failure, unspecified whether with hypoxia or hypercapnia; J11.08 Influenza due to unidentified influenza virus with specified pneumonia; I50.23 Acute on chronic systolic (congestive) heart failure; N18.4 Chronic kidney disease, stage 4 (severe); E11.22 Type 2 diabetes mellitus with diabetic chronic kidney disease; N17.9 Acute kidney failure, unspecified; E11.42 Type 2 diabetes mellitus with diabetic polyneuropathy; I13.0 Hypertensive heart and chronic kidney disease with heart failure and stage 1 through stage 4 chronic kidney disease, or unspecified chronic kidney disease; E11.65 Type 2 diabetes mellitus with hyperglycemia; I48.2 Chronic atrial fibrillation; E03.9 Hypothyroidism, unspecified; E78.5 Hyperlipidemia, unspecified; E83.42 Hypomagnesemia; E87.6 Hypokalemia; F03.90 Unspecified dementia, unspecified severity, without behavioral disturbance, psychotic disturbance, mood disturbance, and anxiety; H91.90 Unspecified hearing loss, unspecified ear; I25.10 Atherosclerotic heart disease of native coronary artery without angina pectoris; K57.90 Diverticulosis of intestine, part unspecified, without perforation or abscess without bleeding; J44.9 Chronic obstructive pulmonary disease, unspecified; Z53.20 Procedure and treatment not carried out because of patient's decision for unspecified reasons; Z87.891 Personal history of nicotine dependence; Z90.49 Acquired absence of other specified parts of digestive tract; Z98.49 Cataract extraction status, unspecified eye
CPT/HCPCS: 36415; 71045; 80048; 80053; 81001; 82962; 83605; 83735; 83880; 84484; 85025; 87086; 87804; 87804-59; 93005; 94640; 94760; 96360; 97162-GP; 97165-GO; 97530-GP; 99285-25; J1160; J1815; J2405; J7030; J7060; J7613; J7626

== ENCOUNTER 2018-08-06 18:15 | Inpatient (IN) | payer MEDICARE, MEDICAID ==
[~2018-08-06] VITALS: Ht 177.8 cm; Wt 82.7 kg
[~2018-08-06 18:15] MED LIST changes: +ALBU2.5V8 INH; +BUDE10.22 IH; +CARV3.1210 PO; +DILT120C2 PO; +DILT240C2 PO; -FERR-26 PO; +FERR325T14 PO; +FLUT1DIS IH; +FURO-68 PO; -HYDR12.53 PO; +HYDR12.575 PO; +INSU100C4 SQ; +INSU100I27 SQ; +IPRA3AMP29 NEB; +LEVO500T59 PO; -METF-620 PO; +METF10007 PO; +OMEP40CA5 PO; +SACU1TAB PO
[2018-08-06] MEDS ORDERED: ONDANSETRON PF 4 MG/2 ML VIAL. IV ONE ×4 (18:45→23:00)
[2018-08-06] MEDS ORDERED: DEXTROSE 50% 25 GM / 50ML DISP.SYRIN. IV ONE ×2 (19:00→19:30)
[2018-08-06 19:04] LABS: BASO # 0.1 x10^3/uL (0.0-0.2); BASO % 1 % (0-3); EOS # 0.1 x10^3/uL (0.0-0.7); EOS % 1 % (0-3); HEMATOCRIT 43.1 % (39.0-53.0); HEMOGLOBIN 14.3 g/dL (13.0-17.5); LYMPH # 4.6 x10^3/uL (1.0-4.8); LYMPH % 47 % (24-48); MEAN CORPUSCULAR HEMOGLOBIN 29 pg (25-35); MEAN CORPUSCULAR HGB CONC 33 g/dL (31-37); MEAN CORPUSCULAR VOLUME 86 fL (79-100); MONO # 1.3 x10^3/uL (0.0-1.1); MONO % 13 % (0-9); NEUT # 3.7 x10^3uL (1.8-7.7); NEUT % 38 % (31-73); PLATELET COUNT 228 x10^3/uL (140-400); RED BLOOD COUNT 5.02 x10^6/uL (4.30-5.70); RED CELL DISTRIBUTION WIDTH 13.8 % (11.5-14.5); WHITE BLOOD COUNT 9.8 x10^3/uL (4.0-11.0)
[2018-08-06] MEDS ORDERED: IV NORMAL SALINE 500ML BAG 500 ML IV ONE ×2 (19:15→20:45)
[2018-08-06 19:17] LABS: ACETAMIN < 2 mcg/ml (10-30); SALIC < 2.8 mg/dL (2.8-20.0)
[2018-08-06 19:18] LABS: ALBUMIN 3.5 g/dL (3.4-5.0); CALCIUM 9.2 mg/dL (8.5-10.1); CREATININE 2.7 mg/dL (0.7-1.3); DIRECT BILIRUBIN 0.1 mg/dL (0.0-0.2); GFR 22.8; POTASSIUM 3.8 mmol/L (3.5-5.1); TOTAL BILIRUBIN 0.5 mg/dL (0.2-1.0); TOTAL PROTEIN 7.5 g/dL (6.4-8.2)
--- NOTE | 2018-08-06 19:18 | RAD ---
EXAM: AP View of the chest DATE: 08/06/2018 6:45 PM INDICATION: ALTERED MENTAL STATUS COMPARISON: 01/31/2018, 11/15/2017 FINDINGS: Moderate cardiomegaly. Small left pleural effusion. Bibasilar parenchymal opacities possibly atelectasis. Associated interstitial prominence is seen bilaterally which may be seen with pulmonary edema. No pneumothorax. IMPRESSION: 1. Cardiomegaly with left pleural effusion and interstitial prominence may be seen with pulmonary edema. 2. Left lung base opacities, possibly atelectasis given the adjacent effusion although superimposed consolidative process such as pneumonia is not excluded. Electronically signed by: Edmond Champion MD (08/06/2018 7:13 PM) [facility]
[2018-08-06] MEDS ORDERED: CALCIUM GLUCONATE 1,000 MG/10 ML VIAL. IVP ONE ×2 (19:45)
[2018-08-06] MEDS ORDERED: IV NORMAL SALINE 1000ML BAG 1,000 ML IV ONE (19:45)
[2018-08-06] MEDS ORDERED: GLUCAGON,HUMAN RECOMBINANT 1 MG/ML VIAL. IV ONE (21:00)
[2018-08-06] MEDS ORDERED: VANCOMYCIN PER PHARMACY MC PRN (21:15)
[2018-08-06] MEDS ORDERED: PIP/TAZO PER PHARMACY MC PRN (21:15)
[2018-08-06] MEDS: PIPERACILLIN/TAZOBACTAM 2.25 GM in IV NORMAL SALINE 50ML 50 ML IV SCH (21:35)
[2018-08-06] MEDS ORDERED: VANCOMYCIN 2 GM in IV NORMAL SALINE 500ML BAG 500 ML IV ONE (22:00)
[2018-08-06] MEDS ORDERED: DEXTROSE 5% IM ONE (22:30)
[2018-08-06] MEDS ORDERED: GLUCAGON HUMAN RECOMBINANT IM ONE (22:30)
[2018-08-06] MEDS ORDERED: GLUCAGON HUMAN RECOMBINANT IV ONE (22:30)
[2018-08-06] MEDS ORDERED: DEXTROSE 5% IV ONE (22:30)
[2018-08-06] MEDS ORDERED: DEXTROSE 50% 25 GM / 50ML DISP.SYRIN. IV PRN (22:45)
[2018-08-06 23:00] VITALS: BP 88/52
[2018-08-06] MEDS ORDERED: INSULIN REGULAR VIAL 150 UNIT in 0.9 % SODIUM CHLORIDE 150ML 150 ML IV PRN ×2 (23:00→23:15)
[2018-08-06] MEDS ORDERED: IV DEXTROSE 10% 500 ML IV ONE (23:00)
[2018-08-06] MEDS ORDERED: ALBUTEROL SULFATE 2.5 MG/3 ML NEBU. NEB PRN (23:00)
[2018-08-06] MEDS ORDERED: ALBUTEROL SULFATE 2.5 MG/3 ML NEBU. NEB ONE (23:00)
[2018-08-06] MEDS ORDERED: INSULIN REGULAR 100 UNIT/ML 3ML VIAL. IV ONE (23:00)
--- NOTE | 2018-08-06 23:08 | PHYS DOC ---
Past Medical History Past Medical History: Diabetes-Type II, High Cholesterol, Hypertension Past Surgical History: Appendectomy, Tonsillectomy Alcohol Use: None Drug Use: None Adult General Chief Complaint Chief Complaint: NAUSEA/VOMITING/DIARRHA HPI HPI Patient is a 82 year old male who presents with nausea and vomiting. The patient was brought to the emergency department for a 2 to 3 history of nausea and vomiting. This is reported per EMS. On arrival and during the initial interview, the patient was awake with eyes open but unresponsive to any questioning. He was found to have a blood sugar level of 17. Glucose was not checked in route to the hospital. Patient was given D50 and did have improvement in his mental status. The patient is hard of hearing but he was able to answer questions. Patient did say he had been feeling poorly for 3 days. No fever. Denies chest pain or shortness of breath. He is uncertain how many episodes of emesis he had. He denied abdominal pain. Review of Systems Review of Systems Constitutional: Denies fever or chills Eyes: Denies change in visual acuity HENT: Denies nasal congestion Respiratory: Denies cough or shortness of breath Cardiovascular: No additional information not addressed in HPI GI: Denies abdominal pain, nausea : Denies dysuria Musculoskeletal: Denies back pain Integument: Denies rash or skin lesions Neurologic: Denies headache Endocrine: Denies polyuria All other systems were reviewed and found to be within normal limits, except as documented in this note. Current Medications Current Medications Current Medications Medications (Trade) Dose Ordered Sig/Anna Start Time Stop Time Status Last Admin Dose Admin Calcium Gluconate (Calcium Gluconate) 1,000 mg 1X ONCE 08/06/18 19:45 08/06/18 19:48 DC 08/06/18 19:45 1,000 MG Dextrose (Dextrose 50%-Water Syringe) 25 gm 1X ONCE 08/06/18 19:30 08/06/18 19:31 DC 08/06/18 19:45 25 GM Dopamine HCl/ Dextrose 250 ml @ 0 mls/hr 1X ONCE 08/06/18 20:00 08/06/18 20:01 DC 08/06/18 20:04 8.1 MLS/HR Ondansetron HCl (Zofran) 4 mg 1X ONCE 08/06/18 18:45 08/06/18 18:48 DC 08/06/18 19:15 4 MG Sodium Chloride 1,000 ml @ 1,000 mls/hr 1X ONCE 08/06/18 19:45 08/06/18 20:44 DC 08/06/18 19:35 1,000 MLS/HR Allergies Allergies Allergies Coded Allergies Type Severity Reaction Last Updated Verified No Known Drug Allergies 08/16/13 No Physical Exam Physical Exam Constitutional: Well developed, well nourished, male who is poorly responsive during initial interview HENT: Normocephalic, atraumatic, bilateral external ears normal, oropharynx dry Eyes: PERRLA, EOMI Neck: Normal range of motion, no tenderness, supple, no jvd Cardiovascular: irregular bradycardic rhythm Lungs & Thorax: Bilateral breath sounds clear to auscultation Abdomen: Bowel sounds normal, soft, no tenderness Skin: pale, diaphoretic Extremities: equal pulses in all extremities Neurologic: Alert and oriented X 3 after dextrose Current Patient Data Vital Signs Vital Signs Date Time Temp Pulse Resp B/P (MAP) Pulse Ox O2 Delivery O2 Flow Rate FiO2 08/06/18 20:40 70 12 85/36 (52) 90 08/06/18 20:15 Room Air 08/06/18 18:15 98.0 98.0 Lab Values Laboratory Tests Test 08/06/18 18:25 08/06/18 18:59 08/06/18 19:21 08/06/18 19:41 White Blood Count 9.8 x10^3/uL (4.0-11.0) Red Blood Count 5.02 x10^6/uL (4.30-5.70) Hemoglobin 14.3 g/dL (13.0-17.5) Hematocrit 43.1 % (39.0-53.0) Mean Corpuscular Volume 86 fL (79-100) Mean Corpuscular Hemoglobin 29 pg (25-35) Mean Corpuscular Hemoglobin Concent 33 g/dL (31-37) Red Cell Distribution Width 13.8 % (11.5-14.5) Platelet Count 228 x10^3/uL (140-400) Neutrophils (%) (Auto) 38 % (31-73) Lymphocytes (%) (Auto) 47 % (24-48) Monocytes (%) (Auto) 13 % (0-9) H Eosinophils (%) (Auto) 1 % (0-3) Basophils (%) (Auto) 1 % (0-3) Neutrophils # (Auto) 3.7 x10^3uL (1.8-7.7) Lymphocytes # (Auto) 4.6 x10^3/uL (1.0-4.8) Monocytes # (Auto) 1.3 x10^3/uL (0.0-1.1) H Eosinophils # (Auto) 0.1 x10^3/uL (0.0-0.7) Basophils # (Auto) 0.1 x10^3/uL (0.0-0.2) D-Dimer (Evelyn) 1.04 ug/mlFEU (0.00-0.50) H Sodium Level 143 mmol/L (136-145) Potassium Level 3.8 mmol/L (3.5-5.1) Chloride Level 104 mmol/L (98-107) Carbon Dioxide Level 27 mmol/L (21-32) Anion Gap 12 (6-14) Blood Urea Nitrogen 46 mg/dL (8-26) H Creatinine 2.7 mg/dL (0.7-1.3) H Estimated GFR (Cockcroft-Gault) 22.8 Glucose Level 30 mg/dL (70-99) *L Lactic Acid Level 1.9 mmol/L (0.4-2.0) Calcium Level 9.2 mg/dL (8.5-10.1) Magnesium Level 1.7 mg/dL (1.8-2.4) L Total Bilirubin 0.5 mg/dL (0.2-1.0) Direct Bilirubin 0.1 mg/dL (0.0-0.2) Aspartate Amino Transferase (AST) 18 U/L (15-37) Alanine Aminotransferase (ALT) 16 U/L (16-63) Alkaline Phosphatase 101 U/L (46-116) Troponin I Quantitative < 0.017 ng/mL (0.000-0.055) Total Protein 7.5 g/dL (6.4-8.2) Albumin 3.5 g/dL (3.4-5.0) Procalcitonin 0.28 ng/mL (0.00-0.10) H Salicylates Level < 2.8 mg/dL (2.8-20.0) L Salicylate Last Dose Date Unk Salicylate Last Dose Time Unk Acetaminophen Level < 2 mcg/ml (10-30) L Acetaminophen Last Dose Date Unk Acetaminophen Last Dose Time Unk Glucose (Fingerstick) 17 mg/dL (70-99) *L 157 mg/dL (70-99) H 119 mg/dL (70-99) H Test 08/06/18 20:35 Glucose (Fingerstick) 127 mg/dL (70-99) H Laboratory Tests 08/06/18 18:25 Laboratory Tests 08/06/18 18:25 EKG EKG atrial fibrillation, bradycardia Radiology/Procedures Radiology/Procedures FINDINGS: Heart is not enlarged. Aorta is mildly tortuous. Interstitial prominence bilateral lung bases. Patchy opacities peripheral right lung base likely atelectasis or consolidation. No pleural effusion or pneumothorax. AC joint degenerative changes are seen. IMPRESSION: Bilateral interstitial prominence is nonspecific, not significant changed. Patchy opacities peripheral right lung base, possibly atelectasis or consolidation. Course & Med Decision Making Course & Med Decision Making Pertinent Labs and Imaging studies reviewed. (See chart for details) Patient was evaluated in the emergency department. He was initially noted to be unresponsive and hypoglycemic. He required multiple doses of D50 to maintain blood sugars above 100. Patient also was noted to have atrial fibrillation on the monitor with hypotension sometimes with systolic blood pressures in the 60s. I consult with cardiology early in this patient's course and spoke to Dr. Modi. The patient was placed on small dose of dopamine, initially 5 g. Review of the patient's medication list reveal that he does take diltiazem as well as Coreg. The patient's blood pressure and heart rate did not improve with dopamine. Suspicion was present for beta nelly overdose given the patient's persistent bradycardia, hypotension, and hypoglycemia. Lactate was not elevated. There was no leukocytosis. Patient did have some findings on chest x- ray suspicious for pneumonia so empiric antibiotics were started. Abdominal exam was benign. The patient remained unresponsive to dopamine so a bolus of 5 mg of glucagon was given. The patient did respond to this medication his blood pressure increased to 95 systolic. His heart rate jumped to the 80s. This further raise concern for beta nelly overdose. I did ask the patient if he could've possibly taken too much of his medication. The patient states it is a possibility. Patient cannot give a reliable medication history. Consult was made with poison control who recommended continued glucagon but also high-dose insulin and dextrose therapies. These were ordered on the patient. I spoke to Dr. Zhong who will primarily admit the patient. The patient was taken to the ICU prior to starting insulin and dextrose therapies. Blood pressure upon discharge from the ER was in the 80s systolic. I spent 60 minutes of critical care time in the management of this patient including consultation with specialists, direct patient care, calculated drug doses, and discussions with [facility] as well as the poison control center. Dragon Disclaimer Dragon Disclaimer This electronic medical record was generated, in whole or in part, using a voice recognition dictation system. Departure Departure Disposition: ADMITTED INPATIENT Condition: GUARDED Referrals: TATYANA CHANG MD (PCP) FARTUN CARLTON DO Aug 06, 2018 23:08
[2018-08-06 23:15] VITALS: BP 82/56
[2018-08-06] MEDS ORDERED: BISACODYL 10 MG SUPP.RECT. PR PRN (23:15)
[2018-08-06] MEDS ORDERED: PROCHLORPERAZINE 25 MG SUPP.RECT. PR PRN (23:15)
[2018-08-06] MEDS ORDERED: PROCHLORPERAZINE 10 MG/2 ML VIAL. IV PRN (23:15)
[2018-08-06] MEDS ORDERED: HYDROcodone/APAP 7.5/325MG 1 TAB TABLET PO PRN (23:15)
[2018-08-06] MEDS ORDERED: 0.9 % SODIUM CHLORIDE 10 ML DISP.SYRIN. IV PRN (23:15)
[2018-08-06 23:30] VITALS: BP 80/45
[2018-08-06] MEDS ORDERED: VASOPRESSIN 40 UNIT in IV DEXTROSE 5% 100ML 100 ML IV PRN (23:30)
--- NOTE | 2018-08-06 23:44 | PDOC1 ---
History and Physical Date of Admission Date of Admission DATE: 08/06/18 TIME: 22:43 Identification/Chief Complaint Chief Complaint Hypoglycemia Source Source: Caregiver, Chart review, Patient History of Present Illness History of Present Illness Mr Goff is an 81yo M w/ PMHx AFIB, CAD, CHF, HTN, Hyperlipidemia, Asthma, COPD, Periperal neuropathy, Osteoarthritis, Chronic renal insufficiency, Diabetes, Hypothyroidism who p/w abdominal pain, nausea, and vomiting for the past 3 days. Has not been taking PO well. Noted enroute with hypoglycemia, glucose of 17, and 30 after glucose. Also with confusion, hypotension and bradycardia. Also with Cr to 2.7 from baseline 1.8 this past February. He did note cough as well and had CXR showing LLL infiltrate and concern for pleural effusion as well. He is on diltiazem and carvedilol and ED suspects BB and CCB overdose, given glucagon and calcium in ED and started on dopamine. Past Medical History Cardiovascular: AFIB, CAD, CHF, HTN, Hyperlipidemia Pulmonary: Asthma, COPD, Other CENTRAL NERVOUS SYSTEM: Periperal neuropathy GI: GERD Heme/Onc: No pertinent hx Hepatobiliary: No pertinent hx Psych: No pertinent hx Musculoskeletal: low back pain, Osteoarthritis Rheumatologic: Other Infectious disease: No pertinent hx Renal/: Chronic renal insuff Endocrine: Diabetes, Hypothyroidism Past Surgical History Past Surgical History: Cataract Removal, Tonsillectomy, Other Family History Family History: Family History Unknown Social History ALCOHOL: none Drugs: None Current Medications Current Medications Current Medications Ondansetron HCl (Zofran) 4 mg 1X ONCE IV Last administered on 08/06/18at 19:15 ; Start 08/06/18 at 18:45; Stop 08/06/18 at 18:48; Status DC Dextrose (Dextrose 50%-Water Syringe) 25 gm STK-MED ONCE IV ; Start 08/06/18 at 19:00; Stop 08/06/18 at 19:01; Status DC Sodium Chloride 500 ml @ 500 mls/hr 1X ONCE IV Last administered on at 19:15; Start 08/06/18 at 19:15; Stop 08/06/18 at 20:14; Status DC Dextrose (Dextrose 50%-Water Syringe) 25 gm 1X ONCE IV Last administered on at 19:45; Start 08/06/18 at 19:30; Stop 08/06/18 at 19:31; Status DC Sodium Chloride 1,000 ml @ 1,000 mls/hr 1X ONCE IV Last administered on 08/06at 19:35; Start 08/06/18 at 19:45; Stop 08/06/18 at 20:44; Status DC Calcium Gluconate (Calcium Gluconate) 1,000 mg 1X ONCE IVP Last administered on 08/06/18at 19:50; Start 08/06/18 at 19:45; Stop 08/06/18 at 19:48; Status DC Calcium Gluconate (Calcium Gluconate) 1,000 mg 1X ONCE IVP Last administered on 08/06/18at 19:45; Start 08/06/18 at 19:45; Stop 08/06/18 at 19:48; Status DC Dopamine HCl/ Dextrose 250 ml @ 0 mls/hr 1X ONCE IV Last administered on 08/06at 20:04; Start 08/06/18 at 20:00; Stop 08/06/18 at 20:01; Status DC Sodium Chloride 500 ml @ 500 mls/hr 1X ONCE IV Last administered on at 20:40; Start 08/06/18 at 20:45; Stop 08/06/18 at 21:45; Status DC Glucagon (Glucagen) 5 mg 1X ONCE IV Last administered on 08/06/18at 20:58; Start 08/06/18 at 21:00; Stop 08/06/18 at 21:01; Status DC Vancomycin HCl (Vanco Per Pharmacy) 1 each PRN DAILY PRN [facility] SEE COMMENTS; Start 08/06/18 at 21:15 Piperacillin Sod/ Tazobactam Sod (Zosyn Per Pharmacy) 1 each PRN DAILY PRN [facility] SEE COMMENTS; Start 08/06/18 at 21:15 Piperacillin Sod/ Tazobactam Sod 2.25 gm/Sodium Chloride 50 ml @ 100 mls/hr Q6HRS IV Last administered on 08/06/18at 21:35; Start 08/06/18 at 22:00 Vancomycin HCl 2 gm/Sodium Chloride 500 ml @ 250 mls/hr 1X ONCE IV Last administered on 08/06/18at 21:56; Start 08/06/18 at 22:00; Stop 08/06/18 at 23 :59 Ondansetron HCl (Zofran) 4 mg 1X ONCE IV Last administered on 08/06/18at 22:00 ; Start 08/06/18 at 22:00; Stop 08/06/18 at 22:01; Status DC Glucagon 5 mg/ Dextrose 255 ml @ 250 mls/hr 1X ONCE IM ; Start 08/06/18 at 22 :30; Stop 08/06/18 at 22:30; Status DC Glucagon 5 mg/ Dextrose 255 ml @ 250 mls/hr 1X ONCE IV Last administered on 08/06/18at 22:07; Start 08/06/18 at 22:30; Stop 08/06/18 at 23:31 Insulin Human Regular 150 unit/ Sodium Chloride 151.5 ml @ 42.5 mls/hr CONT PRN IV SEE I/O RECORD; Start 08/06/18 at 23:00 Insulin Human Regular (HumuLIN R VIAL) 85 unit 1X ONCE IV ; Start 08/06/18 at 23:00; Stop 08/06/18 at 23:01 Ondansetron HCl (Zofran) 4 mg 1X ONCE IV ; Start 08/06/18 at 23:00; Stop at 23:01 Ondansetron HCl (Zofran) 4 mg 1X ONCE IV ; Start 08/06/18 at 23:00; Stop at 23:01 Dextrose (Dextrose 50%-Water Syringe) 12.5 gm PRN Q15MIN PRN IV LOW BLOOD SUGAR ; Start 08/06/18 at 22:45 Active Scripts Active Proair Hfa Inhaler (Albuterol Sulfate) 8.5 Gm Hfa.aer.ad 1 Puff INH PRN Q6HRS PRN Symbicort 80-4.5 Mcg Inhaler (Budesonide/Formoterol Fumarate) 10.2 Gm Hfa.aer.ad 2 Puff IH BID Cardizem Cd (Diltiazem Hcl) 120 Mg Cap.er.24h 120 Mg PO DAILY Reported Lasix (Furosemide) 40 Mg Tablet 1 Tab PO QPM Lasix (Furosemide) 40 Mg Tablet 1.5 Tab PO DAILYWBKFT Isosorbide Mononitrate Er (Isosorbide Mononitrate) 30 Mg Tab.er.24h 1 Tab PO BID Omeprazole 40 Mg Capsule.dr 1 Cap PO DAILY Carvedilol 3.125 Mg Tablet 1 Tab PO BID Entresto 24 mg-26 mg Tablet (Sacubitril/Valsartan) 1 Each Tablet 1 Each PO DAILY Novolog (Insulin Aspart) 100 Unit/1 Ml Cartridge 16 Unit SQ TID Hydrochlorothiazide Capsule (Hydrochlorothiazide) 12.5 Mg Capsule 12.5 Mg PO DAILY Levothyroxine Sodium 50 Mcg Tablet 1 Tab PO DAILY Eliquis (Apixaban) 2.5 Mg Tablet 2.5 Mg PO BID Montelukast Sodium Tablet (Montelukast Sodium) 10 Mg Tablet 10 Mg PO QEVNG Potassium Chloride 20 Meq Tab.er.prt 1 Tab PO BID Lortab 7.5-500 Tablet (Hydrocodone Bit/Acetaminophen) 1 Each Tablet 1 Each PO PRN Q4HRS Simvastatin 40 Mg Tablet 40 Mg PO QHS Allergies Allergies: Coded Allergies: No Known Drug Allergies (Unverified , 08/16/13) ROS General: YES: Fatigue, Malaise; No: Chills, Night Sweats, Appetite, Other PSYCHOLOGICAL ROS: YES: Disorientation; No: Anxiety, Behavioral Disorder, Concentration difficultie, Decreased libido , Depression, Hallucinations, Hostility, Irritablity, Memory difficulties, Mood Swings, Obsessive thoughts, Physical abuse, Sexual abuse, Sleep disturbances, Suicidal ideation, Other Eyes: No Blurry vision, No Decreased vision, No Double vision, No Dry eyes, No Excessive tearing, No Eye Pain, No Itchy Eyes, No Loss of vision, No Photophobia , No Scotomata, No Uses contacts, No Uses glasses, No Other HEENT: No: Heacaches, Visual Changes, Hearing change, Nasal congestion, Nasal discharge, Oral lesions, Sinus pain, Sore Throat, Epistaxis, Sneezing, Snoring, Tinnitus, Vertigo, Vocal changes, Other ALLERGY AND IMMUNOLOGY: No: Hives, Insect Bite Sensitivity, Itchy/Watery Eyes, Nasal Congestion, Post Nasal Drip, Seasonal Allergies, Other Hematological and Lymphatic: No: Bleeding Problems, Blood Clots, Blood Transfusions, Brusing, Night Sweats, Pallor, Swollen Lymph Nodes, Other ENDOCRINE: No: Breast Changes, Galactorrhea, Hair Pattern Changes, Hot Flashes , Malaise/lethargy, Mood Swings, Palpitations, Polydipsia/polyuria, Skin Changes , Temperature Intolerance, Unexpected Weight Changes, Other Breast: No New/Changing Breast Lumps, No Nipple changes, No Nipple discharge, No Other Respiratory: YES: Cough; No: Hemoptysis, Orthopnea, Pleuritic Pain, Shortness of breath, SOB with excertion, Sputum Changes, Stridor, Tachypnea, Wheezing, Other Cardiovascular: No Chest Pain, No Palpitations, No Orthopnea, No Paroxysmal Noc. Dyspnea, No Edema, No Lt Headedness, No Other Gastrointestinal: Yes Nausea, Yes Vomiting, Yes Abdominal Pain; No Diarrhea, No Constipation, No Melena, No Hematochezia, No Other Genitourinary: No Dysuria, No Frequency, No Incontinence, No Hematuria, No Retention, No Discharge, No Urgency, No Pain, No Flank Pain, No Other, No , No , No , No , No , No , No Musculoskeletal: No Gait Disturbance, No Joint Pain, No Joint Stiffness, No Joint Swelling, No Muscle Pain, No Muscular Weakness, No Pain In:, No Swelling In:, No Other Neurological: No Behavorial Changes, No Bowel/Bladder ControlChng, No Confusion , No Dizziness, No Gait Disturbance, No Headaches, No Impaired Coord/balance, No Memory Loss, No Numbness/Tingling, No Seizures, No Speech Problems, No Tremors, No Visual Changes, No Weakness, No Other Skin: No Dry Skin, No Eczema, No Hair Changes, No Lumps, No Mole Changes, No Mottling, No Nail Changes, No Pruritus, No Rash, No Skin Lesion Changes, No Other, No Acne Physical Exam General: Alert, Cooperative, moderate distress HEENT: Atraumatic, PERRLA, EOMI, Mucous membr. moist/pink Lungs: Other (Decreased left basilar sounds, slight crackles) Heart: S1S2, irregularly irregular Abdomen: Normal bowel sounds, No hepatosplenomegaly, Other (diffusely mildly tender) Extremities: No clubbing, No cyanosis, No edema, Normal pulses, No tenderness/ swelling Skin: No rashes, No breakdown, No significant lesion Neuro: Normal speech, Strength at 5/5 X4 ext, Normal tone, Cranial nerves 3-12 NL, Reflexes 2+ Psych/Mental Status: Mood NL, Other (Confused. Hard of hearing) Vitals Vitals Vital Signs Date Time Temp Pulse Resp B/P (MAP) Pulse Ox O2 Delivery O2 Flow Rate FiO2 08/06/18 21:20 82 14 92/44 (60) 92 08/06/18 21:15 Nasal Cannula 2.0 08/06/18 18:15 98.0 98.0 Labs Labs Laboratory Tests Test 08/06/18 18:25 08/06/18 18:59 08/06/18 19:21 08/06/18 19:41 White Blood Count 9.8 x10^3/uL (4.0-11.0) Red Blood Count 5.02 x10^6/uL (4.30-5.70) Hemoglobin 14.3 g/dL (13.0-17.5) Hematocrit 43.1 % (39.0-53.0) Mean Corpuscular Volume 86 fL (79-100) Mean Corpuscular Hemoglobin 29 pg (25-35) Mean Corpuscular Hemoglobin Concent 33 g/dL (31-37) Red Cell Distribution Width 13.8 % (11.5-14.5) Platelet Count 228 x10^3/uL (140-400) Neutrophils (%) (Auto) 38 % (31-73) Lymphocytes (%) (Auto) 47 % (24-48) Monocytes (%) (Auto) 13 % (0-9) Eosinophils (%) (Auto) 1 % (0-3) Basophils (%) (Auto) 1 % (0-3) Neutrophils # (Auto) 3.7 x10^3uL (1.8-7.7) Lymphocytes # (Auto) 4.6 x10^3/uL (1.0-4.8) Monocytes # (Auto) 1.3 x10^3/uL (0.0-1.1) Eosinophils # (Auto) 0.1 x10^3/uL (0.0-0.7) Basophils # (Auto) 0.1 x10^3/uL (0.0-0.2) D-Dimer (Evelyn) 1.04 ug/mlFEU (0.00-0.50) Sodium Level 143 mmol/L (136-145) Potassium Level 3.8 mmol/L (3.5-5.1) Chloride Level 104 mmol/L (98-107) Carbon Dioxide Level 27 mmol/L (21-32) Anion Gap 12 (6-14) Blood Urea Nitrogen 46 mg/dL (8-26) Creatinine 2.7 mg/dL (0.7-1.3) Estimated GFR (Cockcroft-Gault) 22.8 Glucose Level 30 mg/dL (70-99) Lactic Acid Level 1.9 mmol/L (0.4-2.0) Calcium Level 9.2 mg/dL (8.5-10.1) Magnesium Level 1.7 mg/dL (1.8-2.4) Total Bilirubin 0.5 mg/dL (0.2-1.0) Direct Bilirubin 0.1 mg/dL (0.0-0.2) Aspartate Amino Transf (AST/SGOT) 18 U/L (15-37) Alanine Aminotransferase (ALT/SGPT) 16 U/L (16-63) Alkaline Phosphatase 101 U/L (46-116) Troponin I Quantitative < 0.017 ng/mL (0.000-0.055) Total Protein 7.5 g/dL (6.4-8.2) Albumin 3.5 g/dL (3.4-5.0) Procalcitonin 0.28 ng/mL (0.00-0.10) Salicylates Level < 2.8 mg/dL (2.8-20.0) Salicylate Last Dose Date Unk Salicylate Last Dose Time Unk Acetaminophen Level < 2 mcg/ml (10-30) Acetaminophen Last Dose Date Unk Acetaminophen Last Dose Time Unk Glucose (Fingerstick) 17 mg/dL (70-99) 157 mg/dL (70-99) 119 mg/dL (70-99) Test 08/06/18 20:35 08/06/18 21:25 Glucose (Fingerstick) 127 mg/dL (70-99) 156 mg/dL (70-99) Laboratory Tests Test 08/06/18 18:25 08/06/18 18:59 08/06/18 19:21 08/06/18 19:41 White Blood Count 9.8 x10^3/uL (4.0-11.0) Red Blood Count 5.02 x10^6/uL (4.30-5.70) Hemoglobin 14.3 g/dL (13.0-17.5) Hematocrit 43.1 % (39.0-53.0) Mean Corpuscular Volume 86 fL (79-100) Mean Corpuscular Hemoglobin 29 pg (25-35) Mean Corpuscular Hemoglobin Concent 33 g/dL (31-37) Red Cell Distribution Width 13.8 % (11.5-14.5) Platelet Count 228 x10^3/uL (140-400) Neutrophils (%) (Auto) 38 % (31-73) Lymphocytes (%) (Auto) 47 % (24-48) Monocytes (%) (Auto) 13 % (0-9) Eosinophils (%) (Auto) 1 % (0-3) Basophils (%) (Auto) 1 % (0-3) Neutrophils # (Auto) 3.7 x10^3uL (1.8-7.7) Lymphocytes # (Auto) 4.6 x10^3/uL (1.0-4.8) Monocytes # (Auto) 1.3 x10^3/uL (0.0-1.1) Eosinophils # (Auto) 0.1 x10^3/uL (0.0-0.7) Basophils # (Auto) 0.1 x10^3/uL (0.0-0.2) D-Dimer (Evelyn) 1.04 ug/mlFEU (0.00-0.50) Sodium Level 143 mmol/L (136-145) Potassium Level 3.8 mmol/L (3.5-5.1) Chloride Level 104 mmol/L (98-107) Carbon Dioxide Level 27 mmol/L (21-32) Anion Gap 12 (6-14) Blood Urea Nitrogen 46 mg/dL (8-26) Creatinine 2.7 mg/dL (0.7-1.3) Estimated GFR (Cockcroft-Gault) 22.8 Glucose Level 30 mg/dL (70-99) Lactic Acid Level 1.9 mmol/L (0.4-2.0) Calcium Level 9.2 mg/dL (8.5-10.1) Magnesium Level 1.7 mg/dL (1.8-2.4) Total Bilirubin 0.5 mg/dL (0.2-1.0) Direct Bilirubin 0.1 mg/dL (0.0-0.2) Aspartate Amino Transf (AST/SGOT) 18 U/L (15-37) Alanine Aminotransferase (ALT/SGPT) 16 U/L (16-63) Alkaline Phosphatase 101 U/L (46-116) Troponin I Quantitative < 0.017 ng/mL (0.000-0.055) Total Protein 7.5 g/dL (6.4-8.2) Albumin 3.5 g/dL (3.4-5.0) Procalcitonin 0.28 ng/mL (0.00-0.10) Salicylates Level < 2.8 mg/dL (2.8-20.0) Salicylate Last Dose Date Unk Salicylate Last Dose Time Unk Acetaminophen Level < 2 mcg/ml (10-30) Acetaminophen Last Dose Date Unk Acetaminophen Last Dose Time Unk Glucose (Fingerstick) 17 mg/dL (70-99) 157 mg/dL (70-99) 119 mg/dL (70-99) Test 08/06/18 20:35 08/06/18 21:25 Glucose (Fingerstick) 127 mg/dL (70-99) 156 mg/dL (70-99) VTE Prophylaxis Ordered VTE Prophylaxis Devices: No VTE Pharmacological Prophylaxi: Yes Assessment/Plan Assessment/Plan A/P: Hypoglycemia - known diabetic, but this may be a BB/CCB overdose. D5 infusion with insulin GTT, discussed with pharmacy, q15 minute glucose checks for 1 hour followed by hourly glucose monitoring Hypotension - with bradycardia, suspect BB/CCB overdose, will use q2 hour albuterol nebs. had calcium and will get 85u insulin followed by D50 x2 and D5 1 /2NSS 20meq KCL at 200cc/hr. Vasopressin, dopamine for now, can add levophed if necessary Left lower lobe pneumonia - given empiric antibiotics per ED, has pleural effusion as well, this could be 2/2 pneumonic process or more likely from his h/ o CHF. Will consult pulm AFIB - chronic on BB, CCB and eliquis, hold rate control, cont eliquis 2.5mg BID CAD - stable on meds CHF - hold BB for hypotension and MIGUE for , statin. HTN - hypotensive currently, will monitor Hyperlipidemia - cont statin Asthma with COPD - will give aggressive albuterol nebs for possible overdose and for respiratory status Peripheral neuropathy - likely 2/2 DM Osteoarthritis - will control pain with topical voltaren prn DAVID on Chronic renal insufficiency - will monitor, IVF for likely vasomotor nephropathy Diabetes - with hypoglycemia - will place on insulin GTT overnight for possible BB/CCB overdose, change to sliding scale once he is eating tomorrow Hypothyroidism - cont synthroid Abdominal pain - with nausea and vomiting. Will obtain abdominal imaging once stabilized FEN - NPO for now, fluids as above PPX - Eliquis 2.5mg BID FULL CODE ICU for critical hypoglycemia, hypotension, confusion. 115 minutes of critical care time spent with patient including supervision of central line placement. ACE MYERS MD Aug 06, 2018 23:44
[2018-08-06 23:45] VITALS: BP 86/51
[2018-08-07] VITALS (24 sets, daily range): BP systolic 84–158; BP diastolic 38–76
[2018-08-07] MEDS: DEXTROSE 50% 25 GM / 50ML DISP.SYRIN. IV PRN ×6 (00:20→07:52)
--- NOTE | 2018-08-07 00:23 | RAD ---
AP portable chest 08/06/2018. Reason for exam: Central line placement. Comparison is made with a study done earlier in the day. A right IJ central line has been placed. Its tip is somewhat indistinct, but probably lies near the cavoatrial junction or upper right atrium. No pneumothorax is seen. There is still some opacity at the left base, and this may have increased some. The heart remains enlarged. IMPRESSION: Placement of central line without apparent pneumothorax. Possible increase in left basilar opacity. Electronically signed by: Merritt Ang Jr., MD (08/07/2018 12:19 AM) [id number]
[2018-08-07] MEDS: POTASSIUM CL 20MEQ D5-0.45NACL 1,000 ML IV SCH ×2 (00:26→07:00)
[2018-08-07] MEDS: ANTI-COAG MONITOR BY PHARMACY. MC PRN ×2 (01:40→08:44)
[2018-08-07] MEDS: PIPERACILLIN/TAZOBACTAM 2.25 GM in IV NORMAL SALINE 50ML 50 ML IV SCH ×3 (05:40→17:53)
[2018-08-07] MEDS: LEVOTHYROXINE 50 MCG TABLET PO SCH (06:01)
[2018-08-07 06:53] LABS: BASO % 0 % (0-3); EOS % 0 % (0-3); HEMATOCRIT 36.1 % (39.0-53.0); HEMOGLOBIN 12.1 g/dL (13.0-17.5); LYMPH % 15 % (24-48); MEAN CORPUSCULAR HEMOGLOBIN 29 pg (25-35); MEAN CORPUSCULAR HGB CONC 34 g/dL (31-37); MEAN CORPUSCULAR VOLUME 85 fL (79-100); MONO # 1.4 x10^3/uL (0.0-1.1); MONO % 20 % (0-9); NEUT # 4.4 x10^3uL (1.8-7.7); NEUT % 64 % (31-73); PLATELET COUNT 154 x10^3/uL (140-400); RED BLOOD COUNT 4.25 x10^6/uL (4.30-5.70); RED CELL DISTRIBUTION WIDTH 13.4 % (11.5-14.5); WHITE BLOOD COUNT 6.9 x10^3/uL (4.0-11.0)
--- NOTE | 2018-08-07 06:54 | EKG ---
[facility] [address] [place] [address] Test Date: 2018-08-06 Test Time: 18:24:18 Pat Name: CUONG CLAIRE Department: Room: Gender: M Rubber Molder: : 1935 Requested By: FARTUN CARLTON Order Number: [id number] Reading MD: Measurements Intervals [place] Rate: 69 P: MO: QRS: -54 QRSD: 138 T: 27 QT: 452 QTc: 491 Interpretive Statements IRREGULAR RHYTHM, NO P-WAVE FOUND ABNORMAL LEFT AXIS DEVIATION S1,S2,S3 PATTERN LEFT ANTERIOR FASCICULAR BLOCK RIGHT BUNDLE BRANCH BLOCK BIFASCICULAR BLOCK ABNORMAL ECG RI6.01 No previous ECG available for comparison
--- NOTE | 2018-08-07 06:54 | EKG ---
[facility] [address] [place] [address] Test Date: 2018-08-06 Test Time: 19:26:58 Pat Name: CUONG CLAIRE Department: Room: Gender: M Business Teacher: : 1935 Requested By: FARTUN CARLTON Order Number: [id number] Reading MD: Measurements Intervals [place] Rate: 51 P: NV: QRS: -44 QRSD: 134 T: 0 QT: 494 QTc: 457 Interpretive Statements ATRIAL FIBRILLATION ABNORMAL LEFT AXIS DEVIATION LEFT ANTERIOR FASCICULAR BLOCK RIGHT BUNDLE BRANCH BLOCK BIFASCICULAR BLOCK ABNORMAL ECG No previous ECG available for comparison
[2018-08-07 07:08] LABS: CALCIUM 8.3 mg/dL (8.5-10.1); CREATININE 2.4 mg/dL (0.7-1.3); GFR 26.1; POTASSIUM 3.3 mmol/L (3.5-5.1)
--- NOTE | 2018-08-07 07:45 | RAD ---
Abdominal ultrasound, 08/07/2018: HISTORY: Abdominal pain The gallbladder is mildly distended. It contains a 2.5 cm echogenic structure with posterior acoustic shadowing compatible with a gallstone. There is borderline thickening of the gallbladder wall which measures approximately 4 mm. No pericholecystic edema is seen. The common hepatic duct measures 5 to 6 mm. No intrahepatic bile duct dilatation is seen. There is no evidence of a hepatic mass. The pancreas was obscured by overlying bowel. The spleen was not adequately delineated. There is calcific plaquing of the abdominal aorta. The upper abdominal aorta is of normal caliber. The distal abdominal aorta and much of the inferior vena cava were obscured by overlying bowel. A 2.7 cm left renal cyst is noted. The kidneys are otherwise unremarkable. IMPRESSION: 1. Cholelithiasis with mild gallbladder distention and borderline gallbladder wall thickening. 2. Small left renal cyst. 3. The pancreas and much of the central retroperitoneum were obscured by overlying bowel. Electronically signed by: David Lopez MD (08/07/2018 7:41 AM) [facility]
[2018-08-07] MEDS ORDERED: IV DEXTROSE 10% 1,000 ML IV SCH (08:00)
[2018-08-07 08:09] LABS: % LYMPHS 20 % (24-48); % MONOS 14 % (0-10); % SEGS 66 % (35-66)
[2018-08-07 08:11] LABS: PLT ESTIMATE ADEQUATE (ADEQUATE); POLYCHROMASIA SLIGHT
[2018-08-07] MEDS: ALBUTEROL SULFATE 2.5 MG/3 ML NEBU. INH SCH ×4 (08:27→19:39)
[2018-08-07] MEDS: BUDESONIDE 0.5 MG/2 ML NEBU. NEB SCH ×2 (08:27→19:39)
[2018-08-07] MEDS: ELECTROLYTE (ICU) PROTOCOL. MC SCH (08:37)
[2018-08-07] MEDS: POTASSIUM CHLORIDE 20 MEQ TABLET.ER. PO SCH ×2 (08:40→22:15)
[2018-08-07] MEDS: PANTOPRAZOLE 40 MG TABLET.DR. PO SCH (08:40)
[2018-08-07] MEDS: APIXABAN 2.5 MG TABLET. PO SCH ×2 (08:40→22:15)
--- NOTE | 2018-08-07 08:41 | PDOC2 ---
CARDIAC CONSULT DATE OF CONSULT Date of Consult DATE: 08/07/18 TIME: 08:16 REASON FOR CONSULT Reason for Consult: BB/CCB overdose? REFERRING PHYSICIAN Referring Physician: Dr. Snyder SOURCE Source: Chart review, Patient HISTORY OF PRESENT ILLNESS HISTORY OF PRESENT ILLNESS This is a 82 yo male who presented secondary nausea and vomiting x 3 days. Somewhat of a poor historian and also limited due to limited hearing. Patient states he had difficulty eating and drinking for the last 2-3 days. Anything he ate or drank who come up. Despite vomiting, was still able to take routine medications during this period. He denies any dizziness, lethargy, lightheadedness, diaphoresis, chest pain, SOA, or LE edema. He and his set up pill weekly organizer together, but he takes them himself. Did not seem to think he could have taken additional medications. Called , she states he could have potentially be taking 2 Coreg rather than 1 in the morning, but she is unsure of this. She states that he has had nausea and vomiting for 3 days. Nearly anything he ate/drink, he would vomit back up. She reports no complaints altered mental status, dizziness, diaphoresis, lightheadedness, syncope, SOA, or chest pain. Upon arrival, was awake and opening eyes, but was not responsive. Was noted to be bradycardic in the 30's and hypotensive with SBP in the 60's. Blood sugar was check and noted at 17; was given D50. BB/CCB overdose was suspected. Was started on Dopamine in ED without any significant response. Patient was given glucagon and calcium, which patient seemed to response better with. Vasopressin was initiated due to hypotension. Was started on Dextrose and high-dose insulin therapy. Patient feeling much better this am. No further nausea/vomiting. BP low- normotensive on vasopressin. HR stable in the 80's in AFIB. Having intermittent low blood sugars. Follows with volumetric weigher, Dr. Jermaine López. Saw last Sunday and everything was reported to be okay. PAST MEDICAL HISTORY Past Medical History Cardiovascular: AFIB, CHF, HTN, Hyperlipidemia Pulmonary: Asthma CENTRAL NERVOUS SYSTEM: Dementia, Peripheral neuropathy GI: diverticulosis Heme/Onc: No pertinent hx Hepatobiliary: No pertinent hx Psych: No pertinent hx Musculoskeletal: Osteoarthritis Rheumatologic: No pertinent hx Infectious disease: No pertinent hx ENT: No pertinent hx Renal/: Chronic renal insuff, adrenal nodule, incontinence Endocrine: Diabetes, Hypothyroidism PAST SURGICAL HISTORY Past Surgical History Appendectomy, Tonsillectomy SOCIAL HISTORY Social History Smoke: No ALCOHOL: none Drugs: None Lives: with Family CURRENT MEDICATIONS CURRENT MEDICATIONS Current Medications Medications (Trade) Dose Ordered Sig/Anna Route PRN Reason Start Time Stop Time Status Last Admin Dose Admin Ondansetron HCl (Zofran) 4 mg 1X ONCE IV 08/06/18 18:45 08/06/18 18:48 DC 08/06/18 19:15 Sodium Chloride 500 ml @ 500 mls/hr 1X ONCE IV 08/06/18 19:15 08/06/18 20:14 DC 08/06/18 19:15 Dextrose (Dextrose 50%-Water Syringe) 25 gm 1X ONCE IV 08/06/18 19:30 08/06/18 19:31 DC 08/06/18 19:45 Sodium Chloride 1,000 ml @ 1,000 mls/hr 1X ONCE IV 08/06/18 19:45 08/06/18 20:44 DC 08/06/18 19:35 Calcium Gluconate (Calcium Gluconate) 1,000 mg 1X ONCE IVP 08/06/18 19:45 08/06/18 19:48 DC 08/06/18 19:50 Calcium Gluconate (Calcium Gluconate) 1,000 mg 1X ONCE IVP 08/06/18 19:45 08/06/18 19:48 DC 08/06/18 19:45 Dopamine HCl/ Dextrose 250 ml @ 0 mls/hr 1X ONCE IV 08/06/18 20:00 08/06/18 20:01 DC 08/06/18 20:04 Sodium Chloride 500 ml @ 500 mls/hr 1X ONCE IV 08/06/18 20:45 08/06/18 21:45 DC 08/06/18 20:40 Glucagon (Glucagen) 5 mg 1X ONCE IV 08/06/18 21:00 08/06/18 21:01 DC 08/06/18 20:58 Vancomycin HCl (Vanco Per Pharmacy) 1 each PRN DAILY PRN MC SEE COMMENTS 08/06/18 21:15 08/07/18 01:43 Piperacillin Sod/ Tazobactam Sod 2.25 gm/Sodium Chloride 50 ml @ 100 mls/hr Q6HRS IV 08/06/18 22:00 08/07/18 05:40 Vancomycin HCl 2 gm/Sodium Chloride 500 ml @ 250 mls/hr 1X ONCE IV 08/06/18 22:00 08/06/18 23:59 DC 08/06/18 21:56 Ondansetron HCl (Zofran) 4 mg 1X ONCE IV 08/06/18 22:00 08/06/18 22:01 DC 08/06/18 22:00 Glucagon 5 mg/ Dextrose 255 ml @ 250 mls/hr 1X ONCE IV 08/06/18 22:30 08/06/18 23:31 DC 08/06/18 22:07 Insulin Human Regular 150 unit/ Sodium Chloride 151.5 ml @ 42.5 mls/hr CONT PRN IV SEE I/O RECORD 08/06/18 23:00 08/07/18 05:00 DC 08/07/18 00:23 Insulin Human Regular (HumuLIN R VIAL) 85 unit 1X ONCE IV 08/06/18 23:00 08/06/18 23:01 DC 08/07/18 00:24 Potassium Chloride/Dextrose/ Sod Cl 1,000 ml @ 125 mls/hr Q8H IV 08/06/18 23:00 08/07/18 07:38 DC 08/07/18 00:26 Albuterol Sulfate (Ventolin Neb Soln) 2.5 mg 1X ONCE NEB 08/06/18 23:00 08/06/18 23:01 DC 08/07/18 00:25 Albuterol Sulfate (Ventolin Neb Soln) 2.5 mg PRN Q2HR PRN NEB SHORTNESS OF BREATH 08/06/18 23:00 08/07/18 02:42 Levothyroxine Sodium (Synthroid) 50 mcg DAILY06 PO 08/07/18 06:00 08/07/18 06:01 Prochlorperazine Edisylate (Compazine) 10 mg PRN Q6HRS PRN IV NAUSEA/VOMITING 2ND CHOICE 08/06/18 23:15 08/07/18 00:25 Info (Anti-Coagulation Monitoring By Pharmacy) 1 each PRN DAILY PRN MC SEE COMMENTS 08/06/18 23:15 08/07/18 01:40 Dextrose (Dextrose 50%-Water Syringe) 12.5 gm PRN Q15MIN PRN IV LOW BLOOD SUGAR 08/06/18 23:15 08/07/18 07:52 ALLERGIES ALLERGIES: Coded Allergies: No Known Drug Allergies (Unverified , 08/16/13) ROS Review of System 14 point ROS conducted with pertinent positives noted above in HPI. PHYSICAL EXAM General: Alert, Oriented X3, Cooperative, No acute distress, Other ([place]) HEENT: Atraumatic, Mucous membr. moist/pink Lungs: Normal air movement, Other (fine expiratory wheezes) Heart: Other (IRR; tele AFIB with controlled rate) Abdomen: Soft, No tenderness Extremities: No edema, Normal pulses Skin: No significant lesion Neuro: Normal speech, Sensation intact Psych/Mental Status: Mental status NL, Mood NL MUSCULOSKELETAL: Osteoarthritic changes both hands VITALS VITALS Vital Signs Date Time Temp Pulse Resp B/P (MAP) Pulse Ox O2 Delivery O2 Flow Rate FiO2 08/07/18 07:00 68 20 131/54 (79) 97 Nasal Cannula 3.0 08/07/18 06:00 98.6 98.6 LABS Lab: Laboratory Tests Test 08/06/18 18:25 08/06/18 18:59 08/06/18 19:21 08/06/18 19:41 White Blood Count 9.8 x10^3/uL (4.0-11.0) Red Blood Count 5.02 x10^6/uL (4.30-5.70) Hemoglobin 14.3 g/dL (13.0-17.5) Hematocrit 43.1 % (39.0-53.0) Mean Corpuscular Volume 86 fL (79-100) Mean Corpuscular Hemoglobin 29 pg (25-35) Mean Corpuscular Hemoglobin Concent 33 g/dL (31-37) Red Cell Distribution Width 13.8 % (11.5-14.5) Platelet Count 228 x10^3/uL (140-400) Neutrophils (%) (Auto) 38 % (31-73) Lymphocytes (%) (Auto) 47 % (24-48) Monocytes (%) (Auto) 13 % (0-9) Eosinophils (%) (Auto) 1 % (0-3) Basophils (%) (Auto) 1 % (0-3) Neutrophils # (Auto) 3.7 x10^3uL (1.8-7.7) Lymphocytes # (Auto) 4.6 x10^3/uL (1.0-4.8) Monocytes # (Auto) 1.3 x10^3/uL (0.0-1.1) Eosinophils # (Auto) 0.1 x10^3/uL (0.0-0.7) Basophils # (Auto) 0.1 x10^3/uL (0.0-0.2) D-Dimer (Evelyn) 1.04 ug/mlFEU (0.00-0.50) Sodium Level 143 mmol/L (136-145) Potassium Level 3.8 mmol/L (3.5-5.1) Chloride Level 104 mmol/L (98-107) Carbon Dioxide Level 27 mmol/L (21-32) Anion Gap 12 (6-14) Blood Urea Nitrogen 46 mg/dL (8-26) Creatinine 2.7 mg/dL (0.7-1.3) Estimated GFR (Cockcroft-Gault) 22.8 Glucose Level 30 mg/dL (70-99) Lactic Acid Level 1.9 mmol/L (0.4-2.0) Calcium Level 9.2 mg/dL (8.5-10.1) Magnesium Level 1.7 mg/dL (1.8-2.4) Total Bilirubin 0.5 mg/dL (0.2-1.0) Direct Bilirubin 0.1 mg/dL (0.0-0.2) Aspartate Amino Transf (AST/SGOT) 18 U/L (15-37) Alanine Aminotransferase (ALT/SGPT) 16 U/L (16-63) Alkaline Phosphatase 101 U/L (46-116) Troponin I Quantitative < 0.017 ng/mL (0.000-0.055) Total Protein 7.5 g/dL (6.4-8.2) Albumin 3.5 g/dL (3.4-5.0) Procalcitonin 0.28 ng/mL (0.00-0.10) Thyroid Stimulating Hormone (TSH) 3.160 uIU/mL (0.358-3.74) Salicylates Level < 2.8 mg/dL (2.8-20.0) Salicylate Last Dose Date Unk Salicylate Last Dose Time Unk Acetaminophen Level < 2 mcg/ml (10-30) Acetaminophen Last Dose Date Unk Acetaminophen Last Dose Time Unk Glucose (Fingerstick) 17 mg/dL (70-99) 157 mg/dL (70-99) 119 mg/dL (70-99) Test 08/06/18 20:35 18 21:25 18 00:00 Glucose (Fingerstick) 127 mg/dL (70-99) 156 mg/dL (70-99) White Blood Count 6.9 x10^3/uL (4.0-11.0) Red Blood Count 4.25 x10^6/uL (4.30-5.70) Hemoglobin 12.1 g/dL (13.0-17.5) Hematocrit 36.1 % (39.0-53.0) Mean Corpuscular Volume 85 fL (79-100) Mean Corpuscular Hemoglobin 29 pg (25-35) Mean Corpuscular Hemoglobin Concent 34 g/dL (31-37) Red Cell Distribution Width 13.4 % (11.5-14.5) Platelet Count 154 x10^3/uL (140-400) Neutrophils (%) (Auto) 64 % (31-73) Lymphocytes (%) (Auto) 15 % (24-48) Monocytes (%) (Auto) 20 % (0-9) Eosinophils (%) (Auto) 0 % (0-3) Basophils (%) (Auto) 0 % (0-3) Neutrophils # (Auto) 4.4 x10^3uL (1.8-7.7) Lymphocytes # (Auto) 1.0 x10^3/uL (1.0-4.8) Monocytes # (Auto) 1.4 x10^3/uL (0.0-1.1) Eosinophils # (Auto) 0.0 x10^3/uL (0.0-0.7) Basophils # (Auto) 0.0 x10^3/uL (0.0-0.2) Segmented Neutrophils % 66 % (35-66) Lymphocytes % 20 % (24-48) Monocytes % 14 % (0-10) Platelet Estimate Adequate (ADEQUATE) Large Platelets Occ Polychromasia Slight Sodium Level 143 mmol/L (136-145) Potassium Level 3.3 mmol/L (3.5-5.1) Chloride Level 107 mmol/L (98-107) Carbon Dioxide Level 24 mmol/L (21-32) Anion Gap 12 (6-14) Blood Urea Nitrogen 43 mg/dL (8-26) Creatinine 2.4 mg/dL (0.7-1.3) Estimated GFR (Cockcroft-Gault) 26.1 Glucose Level 76 mg/dL (70-99) Calcium Level 8.3 mg/dL (8.5-10.1) ECHOCARDIOGRAM ECHOCARDIOGRAM <Conclusion> The Left Ventricle is mildly dilated. Left ventricle systolic function is mildly impaired. The Ejection Fraction is 40-45%. There is mild concentric left ventricular hypertrophy. There is no significant aortic valvular stenosis. Doppler and Color Flow revealed no significant aortic regurgitation. Doppler and Color-flow revealed mild mitral regurgitation. Doppler and Color Flow revealed mild tricuspid regurgitation. The PA pressure was estimated at 25 mmHg. DATE: 07/02/17 1208 ASSESSMENT/PLAN ASSESSMENT/PLAN 1. Permanent atrial fibrillation presenting with bradycardia. Treated with Dopamine and glucagon. ? related to severe hypoglycemia versus CCB/BB effects. On Cardizem and Coreg at home. HR now stable off Dopamine. Will hold rate control therapy for now. 2. Diabetes, II with hypoglycemia; Glucose 17 upon arrival 3. Hypotension; on vasopressin. Titrate as warrant. Hold antihypertensives. 4. DAVID on CKD; Cr 2.7 with baseline near 1.8. IVFs 5. Chronic systolic CHF; LVEF 40-45% (06/29) 6. Hyperlipidemia; statin 7. Hypokalemia/hypomagnesemia; replace. Monitor lytes 8. Abdominal pain/nausea and vomiting 9. Hypothyroidism; TSH WNL DANA EDDY APRN Aug 07, 2018 08:41
[2018-08-07] MEDS ORDERED: SACUBITRIL/VALSARTAN 24/26MG TABLET. PO SCH (09:00)
--- NOTE | 2018-08-07 09:52 | PDOC ---
PROGRESS NOTES Chief Complaint Chief Complaint Hypoglycemia Hypotension BB/CCB overdose Left lower lobe pneumonia AFIB CAD CHF HTN Hyperlipidemia Asthma with COPD Peripheral neuropathy Osteoarthritis DAVID on Chronic renal insufficiency Diabetes type 2 Hypothyroidism Abdominal pain History of Present Illness History of Present Illness Mr Goff is an 81yo M w/ PMHx AFIB, CAD, CHF, HTN, Hyperlipidemia, Asthma, COPD, Periperal neuropathy, Osteoarthritis, Chronic renal insufficiency, Diabetes, Hypothyroidism who p/w abdominal pain, nausea, and vomiting for the past 3 days. Has not been taking PO well. Noted enroute with hypoglycemia, glucose of 17, and 30 after glucose. Also with confusion, hypotension and bradycardia. Also with Cr to 2.7 from baseline 1.8 this past February. He did note cough as well and had CXR showing LLL infiltrate and concern for pleural effusion as well. Treated overnight initially for his hypotension, bradycardia and hypoglycemia as a BB and CCB overdose, given glucagon and calcium in ED and started on dopamine, large dose insulin and D5 and D10 gtt. Central line placed urgently last night. Some further hypoglycemia this morning. BP up even with down-titration of dopamine, still on vasopressin. He is feeling better, asking for a diet, given ADA breakfast. A/P: Hypoglycemia - known diabetic, but this may be a BB/CCB overdose. D5 infusion with insulin GTT, discussed with pharmacy, q15 minute glucose checks for 1 hour followed by hourly glucose monitoring. I am ok getting him off the toxicology protocol as his BB half life would have , though with the hypoglycemia still present could be 2/2 renal failure and poor insulin clearance Hypotension - with bradycardia, suspect BB/CCB overdose, will use q2 hour albuterol nebs. had calcium and will get 85u insulin followed by D50 x2 and D5 1 /2NSS 20meq KCL at 200cc/hr. Vasopressin, dopamine for now, wean as his BP is improving Left lower lobe pneumonia - given empiric antibiotics per ED, has pleural effusion as well, this could be 2/2 pneumonic process or more likely from his h/ o CHF. Will consult pulm AFIB - chronic on BB, CCB and eliquis, hold rate control, cont eliquis 2.5mg BID CAD - stable on meds CHF - hold BB for hypotension and MIGUE for , statin. HTN - hypotensive currently, will monitor, hold off on BB, CCB, consult cardiology Hyperlipidemia - cont statin Asthma with COPD - will give aggressive albuterol nebs for possible overdose and for respiratory status Peripheral neuropathy - likely 2/2 DM Osteoarthritis - will control pain with topical voltaren prn DAVID on Chronic renal insufficiency - will monitor, IVF for likely vasomotor nephropathy Diabetes - with hypoglycemia - will change to sliding scale now that he is eating Hypothyroidism - cont synthroid Abdominal pain - Resolved, initially was with nausea and vomiting, this could have been 2/2 his overdose and hypoglycemia/hypotension/bradycardia. Abdominal US was benign, though left renal cyst noted. FEN - ADA diet, fluids as above PPX - Eliquis 2.5mg BID FULL CODE ICU for critical hypoglycemia, hypotension, confusion, hopefully can downgrade tomorrow. Appreciate integrity consultant assistance with this interesting case Vitals Vitals Vital Signs Date Time Temp Pulse Resp B/P (MAP) Pulse Ox O2 Delivery O2 Flow Rate FiO2 08/07/18 09:00 80 18 102/55 (71) 91 Nasal Cannula 1.0 08/07/18 08:00 98.3 98.3 Physical Exam General: Alert, Cooperative, moderate distress Heart: Other (Irregularly irregular, rate controlled) Lungs: Clear Abdomen: Normal bowel sounds, No hepatosplenomegaly, Other (diffusely mildly tender) Extremities: No clubbing, No cyanosis, No edema, Normal pulses, No tenderness/ swelling Skin: No rashes, No breakdown, No significant lesion Labs LABS Laboratory Tests Test 08/06/18 18:25 08/06/18 18:59 08/06/18 19:21 08/06/18 19:41 White Blood Count 9.8 x10^3/uL (4.0-11.0) Red Blood Count 5.02 x10^6/uL (4.30-5.70) Hemoglobin 14.3 g/dL (13.0-17.5) Hematocrit 43.1 % (39.0-53.0) Mean Corpuscular Volume 86 fL (79-100) Mean Corpuscular Hemoglobin 29 pg (25-35) Mean Corpuscular Hemoglobin Concent 33 g/dL (31-37) Red Cell Distribution Width 13.8 % (11.5-14.5) Platelet Count 228 x10^3/uL (140-400) Neutrophils (%) (Auto) 38 % (31-73) Lymphocytes (%) (Auto) 47 % (24-48) Monocytes (%) (Auto) 13 % (0-9) Eosinophils (%) (Auto) 1 % (0-3) Basophils (%) (Auto) 1 % (0-3) Neutrophils # (Auto) 3.7 x10^3uL (1.8-7.7) Lymphocytes # (Auto) 4.6 x10^3/uL (1.0-4.8) Monocytes # (Auto) 1.3 x10^3/uL (0.0-1.1) Eosinophils # (Auto) 0.1 x10^3/uL (0.0-0.7) Basophils # (Auto) 0.1 x10^3/uL (0.0-0.2) D-Dimer (Evelyn) 1.04 ug/mlFEU (0.00-0.50) Sodium Level 143 mmol/L (136-145) Potassium Level 3.8 mmol/L (3.5-5.1) Chloride Level 104 mmol/L (98-107) Carbon Dioxide Level 27 mmol/L (21-32) Anion Gap 12 (6-14) Blood Urea Nitrogen 46 mg/dL (8-26) Creatinine 2.7 mg/dL (0.7-1.3) Estimated GFR (Cockcroft-Gault) 22.8 Glucose Level 30 mg/dL (70-99) Lactic Acid Level 1.9 mmol/L (0.4-2.0) Calcium Level 9.2 mg/dL (8.5-10.1) Magnesium Level 1.7 mg/dL (1.8-2.4) Total Bilirubin 0.5 mg/dL (0.2-1.0) Direct Bilirubin 0.1 mg/dL (0.0-0.2) Aspartate Amino Transf (AST/SGOT) 18 U/L (15-37) Alanine Aminotransferase (ALT/SGPT) 16 U/L (16-63) Alkaline Phosphatase 101 U/L (46-116) Troponin I Quantitative < 0.017 ng/mL (0.000-0.055) Total Protein 7.5 g/dL (6.4-8.2) Albumin 3.5 g/dL (3.4-5.0) Procalcitonin 0.28 ng/mL (0.00-0.10) Thyroid Stimulating Hormone (TSH) 3.160 uIU/mL (0.358-3.74) Salicylates Level < 2.8 mg/dL (2.8-20.0) Salicylate Last Dose Date Unk Salicylate Last Dose Time Unk Acetaminophen Level < 2 mcg/ml (10-30) Acetaminophen Last Dose Date Unk Acetaminophen Last Dose Time Unk Glucose (Fingerstick) 17 mg/dL (70-99) 157 mg/dL (70-99) 119 mg/dL (70-99) Test 08/06/18 20:35 08/06/18 21:25 18 00:00 Glucose (Fingerstick) 127 mg/dL (70-99) 156 mg/dL (70-99) White Blood Count 6.9 x10^3/uL (4.0-11.0) Red Blood Count 4.25 x10^6/uL (4.30-5.70) Hemoglobin 12.1 g/dL (13.0-17.5) Hematocrit 36.1 % (39.0-53.0) Mean Corpuscular Volume 85 fL (79-100) Mean Corpuscular Hemoglobin 29 pg (25-35) Mean Corpuscular Hemoglobin Concent 34 g/dL (31-37) Red Cell Distribution Width 13.4 % (11.5-14.5) Platelet Count 154 x10^3/uL (140-400) Neutrophils (%) (Auto) 64 % (31-73) Lymphocytes (%) (Auto) 15 % (24-48) Monocytes (%) (Auto) 20 % (0-9) Eosinophils (%) (Auto) 0 % (0-3) Basophils (%) (Auto) 0 % (0-3) Neutrophils # (Auto) 4.4 x10^3uL (1.8-7.7) Lymphocytes # (Auto) 1.0 x10^3/uL (1.0-4.8) Monocytes # (Auto) 1.4 x10^3/uL (0.0-1.1) Eosinophils # (Auto) 0.0 x10^3/uL (0.0-0.7) Basophils # (Auto) 0.0 x10^3/uL (0.0-0.2) Segmented Neutrophils % 66 % (35-66) Lymphocytes % 20 % (24-48) Monocytes % 14 % (0-10) Platelet Estimate Adequate (ADEQUATE) Large Platelets Occ Polychromasia Slight Sodium Level 143 mmol/L (136-145) Potassium Level 3.3 mmol/L (3.5-5.1) Chloride Level 107 mmol/L (98-107) Carbon Dioxide Level 24 mmol/L (21-32) Anion Gap 12 (6-14) Blood Urea Nitrogen 43 mg/dL (8-26) Creatinine 2.4 mg/dL (0.7-1.3) Estimated GFR (Cockcroft-Gault) 26.1 Glucose Level 76 mg/dL (70-99) Calcium Level 8.3 mg/dL (8.5-10.1) RP-Dhu-Y-Type Natriuretic Peptide 3022 pg/mL (0-449) Comment Review of Relevant I have reviewed the following items jack (where applicable) has been applied. Labs Laboratory Tests Test 08/06/18 18:25 08/06/18 18:59 08/06/18 19:21 08/06/18 19:41 White Blood Count 9.8 x10^3/uL (4.0-11.0) Red Blood Count 5.02 x10^6/uL (4.30-5.70) Hemoglobin 14.3 g/dL (13.0-17.5) Hematocrit 43.1 % (39.0-53.0) Mean Corpuscular Volume 86 fL (79-100) Mean Corpuscular Hemoglobin 29 pg (25-35) Mean Corpuscular Hemoglobin Concent 33 g/dL (31-37) Red Cell Distribution Width 13.8 % (11.5-14.5) Platelet Count 228 x10^3/uL (140-400) Neutrophils (%) (Auto) 38 % (31-73) Lymphocytes (%) (Auto) 47 % (24-48) Monocytes (%) (Auto) 13 % (0-9) Eosinophils (%) (Auto) 1 % (0-3) Basophils (%) (Auto) 1 % (0-3) Neutrophils # (Auto) 3.7 x10^3uL (1.8-7.7) Lymphocytes # (Auto) 4.6 x10^3/uL (1.0-4.8) Monocytes # (Auto) 1.3 x10^3/uL (0.0-1.1) Eosinophils # (Auto) 0.1 x10^3/uL (0.0-0.7) Basophils # (Auto) 0.1 x10^3/uL (0.0-0.2) D-Dimer (Evelyn) 1.04 ug/mlFEU (0.00-0.50) Sodium Level 143 mmol/L (136-145) Potassium Level 3.8 mmol/L (3.5-5.1) Chloride Level 104 mmol/L (98-107) Carbon Dioxide Level 27 mmol/L (21-32) Anion Gap 12 (6-14) Blood Urea Nitrogen 46 mg/dL (8-26) Creatinine 2.7 mg/dL (0.7-1.3) Estimated GFR (Cockcroft-Gault) 22.8 Glucose Level 30 mg/dL (70-99) Lactic Acid Level 1.9 mmol/L (0.4-2.0) Calcium Level 9.2 mg/dL (8.5-10.1) Magnesium Level 1.7 mg/dL (1.8-2.4) Total Bilirubin 0.5 mg/dL (0.2-1.0) Direct Bilirubin 0.1 mg/dL (0.0-0.2) Aspartate Amino Transf (AST/SGOT) 18 U/L (15-37) Alanine Aminotransferase (ALT/SGPT) 16 U/L (16-63) Alkaline Phosphatase 101 U/L (46-116) Troponin I Quantitative < 0.017 ng/mL (0.000-0.055) Total Protein 7.5 g/dL (6.4-8.2) Albumin 3.5 g/dL (3.4-5.0) Procalcitonin 0.28 ng/mL (0.00-0.10) Thyroid Stimulating Hormone (TSH) 3.160 uIU/mL (0.358-3.74) Salicylates Level < 2.8 mg/dL (2.8-20.0) Salicylate Last Dose Date Unk Salicylate Last Dose Time Unk Acetaminophen Level < 2 mcg/ml (10-30) Acetaminophen Last Dose Date Unk Acetaminophen Last Dose Time Unk Glucose (Fingerstick) 17 mg/dL (70-99) 157 mg/dL (70-99) 119 mg/dL (70-99) Test 08/06/18 20:35 08/06/18 21:25 08/07/18 00:00 Glucose (Fingerstick) 127 mg/dL (70-99) 156 mg/dL (70-99) White Blood Count 6.9 x10^3/uL (4.0-11.0) Red Blood Count 4.25 x10^6/uL (4.30-5.70) Hemoglobin 12.1 g/dL (13.0-17.5) Hematocrit 36.1 % (39.0-53.0) Mean Corpuscular Volume 85 fL (79-100) Mean Corpuscular Hemoglobin 29 pg (25-35) Mean Corpuscular Hemoglobin Concent 34 g/dL (31-37) Red Cell Distribution Width 13.4 % (11.5-14.5) Platelet Count 154 x10^3/uL (140-400) Neutrophils (%) (Auto) 64 % (31-73) Lymphocytes (%) (Auto) 15 % (24-48) Monocytes (%) (Auto) 20 % (0-9) Eosinophils (%) (Auto) 0 % (0-3) Basophils (%) (Auto) 0 % (0-3) Neutrophils # (Auto) 4.4 x10^3uL (1.8-7.7) Lymphocytes # (Auto) 1.0 x10^3/uL (1.0-4.8) Monocytes # (Auto) 1.4 x10^3/uL (0.0-1.1) Eosinophils # (Auto) 0.0 x10^3/uL (0.0-0.7) Basophils # (Auto) 0.0 x10^3/uL (0.0-0.2) Segmented Neutrophils % 66 % (35-66) Lymphocytes % 20 % (24-48) Monocytes % 14 % (0-10) Platelet Estimate Adequate (ADEQUATE) Large Platelets Occ Polychromasia Slight Sodium Level 143 mmol/L (136-145) Potassium Level 3.3 mmol/L (3.5-5.1) Chloride Level 107 mmol/L (98-107) Carbon Dioxide Level 24 mmol/L (21-32) Anion Gap 12 (6-14) Blood Urea Nitrogen 43 mg/dL (8-26) Creatinine 2.4 mg/dL (0.7-1.3) Estimated GFR (Cockcroft-Gault) 26.1 Glucose Level 76 mg/dL (70-99) Calcium Level 8.3 mg/dL (8.5-10.1) SC-Cht-P-Type Natriuretic Peptide 3022 pg/mL (0-449) Laboratory Tests Test 08/06/18 18:25 08/06/18 18:59 08/06/18 19:21 08/06/18 19:41 White Blood Count 9.8 x10^3/uL (4.0-11.0) Red Blood Count 5.02 x10^6/uL (4.30-5.70) Hemoglobin 14.3 g/dL (13.0-17.5) Hematocrit 43.1 % (39.0-53.0) Mean Corpuscular Volume 86 fL (79-100) Mean Corpuscular Hemoglobin 29 pg (25-35) Mean Corpuscular Hemoglobin Concent 33 g/dL (31-37) Red Cell Distribution Width 13.8 % (11.5-14.5) Platelet Count 228 x10^3/uL (140-400) Neutrophils (%) (Auto) 38 % (31-73) Lymphocytes (%) (Auto) 47 % (24-48) Monocytes (%) (Auto) 13 % (0-9) Eosinophils (%) (Auto) 1 % (0-3) Basophils (%) (Auto) 1 % (0-3) Neutrophils # (Auto) 3.7 x10^3uL (1.8-7.7) Lymphocytes # (Auto) 4.6 x10^3/uL (1.0-4.8) Monocytes # (Auto) 1.3 x10^3/uL (0.0-1.1) Eosinophils # (Auto) 0.1 x10^3/uL (0.0-0.7) Basophils # (Auto) 0.1 x10^3/uL (0.0-0.2) D-Dimer (Evelyn) 1.04 ug/mlFEU (0.00-0.50) Sodium Level 143 mmol/L (136-145) Potassium Level 3.8 mmol/L (3.5-5.1) Chloride Level 104 mmol/L (98-107) Carbon Dioxide Level 27 mmol/L (21-32) Anion Gap 12 (6-14) Blood Urea Nitrogen 46 mg/dL (8-26) Creatinine 2.7 mg/dL (0.7-1.3) Estimated GFR (Cockcroft-Gault) 22.8 Glucose Level 30 mg/dL (70-99) Lactic Acid Level 1.9 mmol/L (0.4-2.0) Calcium Level 9.2 mg/dL (8.5-10.1) Magnesium Level 1.7 mg/dL (1.8-2.4) Total Bilirubin 0.5 mg/dL (0.2-1.0) Direct Bilirubin 0.1 mg/dL (0.0-0.2) Aspartate Amino Transf (AST/SGOT) 18 U/L (15-37) Alanine Aminotransferase (ALT/SGPT) 16 U/L (16-63) Alkaline Phosphatase 101 U/L (46-116) Troponin I Quantitative < 0.017 ng/mL (0.000-0.055) Total Protein 7.5 g/dL (6.4-8.2) Albumin 3.5 g/dL (3.4-5.0) Procalcitonin 0.28 ng/mL (0.00-0.10) Thyroid Stimulating Hormone (TSH) 3.160 uIU/mL (0.358-3.74) Salicylates Level < 2.8 mg/dL (2.8-20.0) Salicylate Last Dose Date Unk Salicylate Last Dose Time Unk Acetaminophen Level < 2 mcg/ml (10-30) Acetaminophen Last Dose Date Unk Acetaminophen Last Dose Time Unk Glucose (Fingerstick) 17 mg/dL (70-99) 157 mg/dL (70-99) 119 mg/dL (70-99) Test 08/06/18 20:35 08/06/18 21:25 18 00:00 Glucose (Fingerstick) 127 mg/dL (70-99) 156 mg/dL (70-99) White Blood Count 6.9 x10^3/uL (4.0-11.0) Red Blood Count 4.25 x10^6/uL (4.30-5.70) Hemoglobin 12.1 g/dL (13.0-17.5) Hematocrit 36.1 % (39.0-53.0) Mean Corpuscular Volume 85 fL (79-100) Mean Corpuscular Hemoglobin 29 pg (25-35) Mean Corpuscular Hemoglobin Concent 34 g/dL (31-37) Red Cell Distribution Width 13.4 % (11.5-14.5) Platelet Count 154 x10^3/uL (140-400) Neutrophils (%) (Auto) 64 % (31-73) Lymphocytes (%) (Auto) 15 % (24-48) Monocytes (%) (Auto) 20 % (0-9) Eosinophils (%) (Auto) 0 % (0-3) Basophils (%) (Auto) 0 % (0-3) Neutrophils # (Auto) 4.4 x10^3uL (1.8-7.7) Lymphocytes # (Auto) 1.0 x10^3/uL (1.0-4.8) Monocytes # (Auto) 1.4 x10^3/uL (0.0-1.1) Eosinophils # (Auto) 0.0 x10^3/uL (0.0-0.7) Basophils # (Auto) 0.0 x10^3/uL (0.0-0.2) Segmented Neutrophils % 66 % (35-66) Lymphocytes % 20 % (24-48) Monocytes % 14 % (0-10) Platelet Estimate Adequate (ADEQUATE) Large Platelets Occ Polychromasia Slight Sodium Level 143 mmol/L (136-145) Potassium Level 3.3 mmol/L (3.5-5.1) Chloride Level 107 mmol/L (98-107) Carbon Dioxide Level 24 mmol/L (21-32) Anion Gap 12 (6-14) Blood Urea Nitrogen 43 mg/dL (8-26) Creatinine 2.4 mg/dL (0.7-1.3) Estimated GFR (Cockcroft-Gault) 26.1 Glucose Level 76 mg/dL (70-99) Calcium Level 8.3 mg/dL (8.5-10.1) AV-Pcz-W-Type Natriuretic Peptide 3022 pg/mL (0-449) Medications Current Medications Ondansetron HCl (Zofran) 4 mg 1X ONCE IV Last administered on 08/06/18at 19:15 ; Start 08/06/18 at 18:45; Stop 08/06/18 at 18:48; Status DC Dextrose (Dextrose 50%-Water Syringe) 25 gm STK-MED ONCE IV ; Start 08/06/18 at 19:00; Stop 08/06/18 at 19:01; Status DC Sodium Chloride 500 ml @ 500 mls/hr 1X ONCE IV Last administered on at 19:15; Start 08/06/18 at 19:15; Stop 08/06/18 at 20:14; Status DC Dextrose (Dextrose 50%-Water Syringe) 25 gm 1X ONCE IV Last administered on at 19:45; Start 08/06/18 at 19:30; Stop 08/06/18 at 19:31; Status DC Sodium Chloride 1,000 ml @ 1,000 mls/hr 1X ONCE IV Last administered on 08/06at 19:35; Start 08/06/18 at 19:45; Stop 08/06/18 at 20:44; Status DC Calcium Gluconate (Calcium Gluconate) 1,000 mg 1X ONCE IVP Last administered on 08/06/18at 19:50; Start 08/06/18 at 19:45; Stop 08/06/18 at 19:48; Status DC Calcium Gluconate (Calcium Gluconate) 1,000 mg 1X ONCE IVP Last administered on 08/06/18at 19:45; Start 08/06/18 at 19:45; Stop 08/06/18 at 19:48; Status DC Dopamine HCl/ Dextrose 250 ml @ 0 mls/hr 1X ONCE IV Last administered on 08/06at 20:04; Start 08/06/18 at 20:00; Stop 08/06/18 at 20:01; Status DC Sodium Chloride 500 ml @ 500 mls/hr 1X ONCE IV Last administered on at 20:40; Start 08/06/18 at 20:45; Stop 08/06/18 at 21:45; Status DC Glucagon (Glucagen) 5 mg 1X ONCE IV Last administered on 08/06/18at 20:58; Start 08/06/18 at 21:00; Stop 08/06/18 at 21:01; Status DC Vancomycin HCl (Vanco Per Pharmacy) 1 each PRN DAILY PRN MC SEE COMMENTS Last administered on 08/07/18at 01:43; Start 08/06/18 at 21:15 Piperacillin Sod/ Tazobactam Sod (Zosyn Per Pharmacy) 1 each PRN DAILY PRN MC SEE COMMENTS; Start 08/06/18 at 21:15 Piperacillin Sod/ Tazobactam Sod 2.25 gm/Sodium Chloride 50 ml @ 100 mls/hr Q6HRS IV Last administered on 08/07/18at 05:40; Start 08/06/18 at 22:00 Vancomycin HCl 2 gm/Sodium Chloride 500 ml @ 250 mls/hr 1X ONCE IV Last administered on 08/06/18at 21:56; Start 08/06/18 at 22:00; Stop 08/06/18 at 23 :59; Status DC Ondansetron HCl (Zofran) 4 mg 1X ONCE IV Last administered on 08/06/18at 22:00 ; Start 08/06/18 at 22:00; Stop 08/06/18 at 22:01; Status DC Glucagon 5 mg/ Dextrose 255 ml @ 250 mls/hr 1X ONCE IM ; Start 08/06/18 at 22 :30; Stop 08/06/18 at 23:31; Status Cancel Glucagon 5 mg/ Dextrose 255 ml @ 250 mls/hr 1X ONCE IV Last administered on 08/06/18at 22:07; Start 08/06/18 at 22:30; Stop 08/06/18 at 23:31; Status DC Insulin Human Regular 150 unit/ Sodium Chloride 151.5 ml @ 42.5 mls/hr CONT PRN IV SEE I/O RECORD Last administered on 08/07/18at 00:23; Start 08/06/18 at 23:00; Stop 08/07/18 at 05:00; Status DC Insulin Human Regular (HumuLIN R VIAL) 85 unit 1X ONCE IV Last administered on 08/07/18at 00:24; Start 08/06/18 at 23:00; Stop 08/06/18 at 23:01; Status DC Ondansetron HCl (Zofran) 4 mg 1X ONCE IV ; Start 08/06/18 at 23:00; Stop at 23:01; Status DC Ondansetron HCl (Zofran) 4 mg 1X ONCE IV ; Start 08/06/18 at 23:00; Stop at 23:01; Status DC Dextrose (Dextrose 50%-Water Syringe) 12.5 gm PRN Q15MIN PRN IV LOW BLOOD SUGAR ; Start 08/06/18 at 22:45; Stop 08/06/18 at 23:23; Status DC Dextrose 500 ml @ 400 mls/hr 1X ONCE IV ; Start 08/06/18 at 23:00; Stop at 00:14; Status DC Potassium Chloride/Dextrose/ Sod Cl 1,000 ml @ 125 mls/hr Q8H IV Last administered on 08/07/18at 00:26; Start 08/06/18 at 23:00; Stop 08/07/18 at 07 :38; Status DC Albuterol Sulfate (Ventolin Neb Soln) 2.5 mg 1X ONCE NEB Last administered on 08/07/18at 00:25; Start 08/06/18 at 23:00; Stop 08/06/18 at 23:01; Status DC Albuterol Sulfate (Ventolin Neb Soln) 2.5 mg PRN Q2HR PRN NEB SHORTNESS OF BREATH Last administered on 08/07/18at 02:42; Start 08/06/18 at 23:00 Albuterol Sulfate (Ventolin Neb Soln) 2.5 mg RTQID INH Last administered on at 08:27; Start 08/07/18 at 08:00 Apixaban (Eliquis) 2.5 mg BID PO Last administered on 08/07/18at 08:40; Start 08/07/18 at 09:00 Potassium Chloride (Klor-Con) 20 meq BID PO Last administered on 08/07/18at 08: 40; Start 08/07/18 at 09:00 Budesonide (Pulmicort) 0.5 mg RTBID NEB Last administered on 08/07/18at 08:27; Start 08/07/18 at 08:00 Acetaminophen/ Hydrocodone Bitart (Lortab 7.5/325) 1 tab PRN Q4HRS PRN PO SEVERE PAIN; Start 08/06/18 at 23:15 Levothyroxine Sodium (Synthroid) 50 mcg DAILY06 PO Last administered on at 06:01; Start 08/07/18 at 06:00 Montelukast Sodium (Singulair) 10 mg QEVNG PO ; Start 08/07/18 at 18:00 Pantoprazole Sodium (Protonix) 40 mg DAILYAC PO Last administered on at 08:40; Start 08/07/18 at 07:30 Sacubitril/ Valsartan (Entresto 24 Mg-26 Mg) 1 tab DAILY PO ; Start 08/07/18 at 09:00; Stop 08/07/18 at 09:00; Status DC Simvastatin (Zocor) 40 mg QHS PO ; Start 08/07/18 at 21:00 Prochlorperazine Edisylate (Compazine) 10 mg PRN Q6HRS PRN IV NAUSEA/VOMITING 2ND CHOICE Last administered on 08/07/18at 00:25; Start 08/06/18 at 23:15 Prochlorperazine (Compazine) 25 mg PRN Q12HR PRN UT NAUSEA/VOMITING 3RD CHOICE ; Start 08/06/18 at 23:15 Info (Anti-Coagulation Monitoring By Pharmacy) 1 each PRN DAILY PRN MC SEE COMMENTS Last administered on 08/07/18at 08:44; Start 08/06/18 at 23:15 Info (Icu Electrolyte Protocol) 1 ea DAILY MC Last administered on 08/07/18at 08:37; Start 08/07/18 at 09:00 Sodium Chloride (Normal Saline Flush) 3 ml QSHIFT PRN IV AFTER MEDS AND BLOOD DRAWS; Start 08/06/18 at 23:15 Bisacodyl (Dulcolax Supp) 10 mg PRN DAILY PRN [place] CONSTIPATION; Start 08/06/18 at 23:15 Insulin Human Regular 150 unit/ Sodium Chloride 151.5 ml @ 0 mls/hr CONT PRN IV SEE I/O RECORD; Start 08/06/18 at 23:15 Dextrose (Dextrose 50%-Water Syringe) 12.5 gm PRN Q15MIN PRN IV LOW BLOOD SUGAR Last administered on 08/07/18at 07:52; Start 08/06/18 at 23:15 Vasopressin 40 unit/Dextrose 102 ml @ 6 mls/hr CONT PRN IV SEE I/O RECORD; Start 08/06/18 at 23:30 Vancomycin HCl (Vancomycin Random Level) 1 each 1X ONCE MC ; Start 08/07/18 at 22:00; Stop 08/07/18 at 22:01 Dextrose 1,000 ml @ 75 mls/hr [id number] IV ; Start 08/07/18 at 08:00; Stop at 09:09; Status DC Potassium Chloride/Dextrose/ Sod Cl 1,000 ml @ 125 mls/hr Q8H IV ; Start 08/07 at 10:00 Active Scripts Active Proair Hfa Inhaler (Albuterol Sulfate) 8.5 Gm Hfa.aer.ad 1 Puff INH PRN Q6HRS PRN Symbicort 80-4.5 Mcg Inhaler (Budesonide/Formoterol Fumarate) 10.2 Gm Hfa.aer.ad 2 Puff IH BID Cardizem Cd (Diltiazem Hcl) 120 Mg Cap.er.24h 120 Mg PO DAILY Reported Lasix (Furosemide) 40 Mg Tablet 1 Tab PO QPM Lasix (Furosemide) 40 Mg Tablet 1.5 Tab PO [id number] Isosorbide Mononitrate Er (Isosorbide Mononitrate) 30 Mg Tab.er.24h 1 Tab PO BID Omeprazole 40 Mg Capsule.dr 1 Cap PO DAILY Carvedilol 3.125 Mg Tablet 1 Tab PO BID Entresto 24 mg-26 mg Tablet (Sacubitril/Valsartan) 1 Each Tablet 1 Each PO DAILY Novolog (Insulin Aspart) 100 Unit/1 Ml Cartridge 16 Unit SQ TID Hydrochlorothiazide Capsule (Hydrochlorothiazide) 12.5 Mg Capsule 12.5 Mg PO DAILY Levothyroxine Sodium 50 Mcg Tablet 1 Tab PO DAILY Eliquis (Apixaban) 2.5 Mg Tablet 2.5 Mg PO BID Montelukast Sodium Tablet (Montelukast Sodium) 10 Mg Tablet 10 Mg PO QEVNG Potassium Chloride 20 Meq Tab.er.prt 1 Tab PO BID Lortab 7.5-500 Tablet (Hydrocodone Bit/Acetaminophen) 1 Each Tablet 1 Each PO PRN Q4HRS Simvastatin 40 Mg Tablet 40 Mg PO QHS Vitals/I & O Vital Sign - Last 24 Hours 08/06/18 08/06/18 08/06/18 08/06/18 18:15 18:15 18:45 20:00 Temp 98.0 98.0 Pulse 81 84 51 41 Resp 16 22 16 16 B/P (MAP) 118/65 (82) 107/59 (75) 119/62 (81) 85/47 (60) Pulse Ox 94 97 92 91 O2 Delivery Room Air 08/06/18 08/06/18 08/06/18 08/06/18 20:05 20:10 20:15 20:15 Pulse 58 72 56 57 Resp 18 16 16 B/P (MAP) 84/51 (62) 72/53 (59) 71/50 (57) 72/53 (59) Pulse Ox 92 93 92 97 O2 Delivery Room Air 08/06/18 08/06/18 08/06/18 08/06/18 20:20 20:25 20:30 20:35 Pulse 49 61 64 54 Resp 18 14 16 14 B/P (MAP) 71/49 (56) 76/54 (61) 101/48 (65) 70/43 (52) Pulse Ox 91 90 90 90 08/06/18 08/06/18 08/06/18 08/06/18 20:40 20:50 21:00 21:05 Pulse 70 49 76 84 Resp 12 12 14 16 B/P (MAP) 85/36 (52) 77/32 (47) 73/41 (52) 102/45 (64) Pulse Ox 90 90 91 90 08/06/18 08/06/18 08/06/18 08/06/18 21:10 21:15 21:20 21:33 Pulse 78 84 82 98 Resp 16 18 14 20 B/P (MAP) 102/44 (63) 92/38 (56) 92/44 (60) 95/45 (62) Pulse Ox 94 93 92 61 O2 Delivery Nasal Cannula Room Air O2 Flow Rate 2.0 08/06/18 08/06/18 08/06/18 08/06/18 21:55 22:04 22:10 22:25 Pulse 82 80 82 80 Resp 20 20 20 20 B/P (MAP) 78/41 (53) 77/39 (52) 84/34 (51) 72/39 (50) Pulse Ox 94 93 91 94 O2 Delivery Room Air Room Air Room Air Room Air 08/06/18 08/06/18 08/06/18 08/06/18 22:29 22:40 23:00 23:15 Temp 96.7 96.7 Pulse 82 98 94 92 Resp 20 20 22 B/P (MAP) 80/57 (65) 71/46 (54) 88/52 (64) 82/56 (65) Pulse Ox 95 89 88 O2 Delivery Room Air Room Air Room Air Room Air 08/06/18 08/06/18 08/07/18 08/07/18 23:30 23:45 00:30 01:00 Pulse 96 100 86 78 B/P (MAP) 80/45 (57) 86/51 (63) 122/38 (66) 124/52 (76) Pulse Ox 88 90 88 94 O2 Delivery Room Air Room Air Room Air Nasal Cannula O2 Flow Rate 3.0 08/07/18 08/07/18 08/07/18 08/07/18 02:00 03:00 04:00 04:00 Temp 98.3 98.3 Pulse 71 86 71 Resp 16 16 B/P (MAP) 136/51 (79) 122/38 (66) 136/51 (79) Pulse Ox 96 95 96 O2 Delivery Nasal Cannula Nasal Cannula Nasal Cannula O2 Flow Rate 3.0 3.0 3.0 08/07/18 08/07/18 08/07/18 08/07/18 05:00 06:00 07:00 08:00 Temp 98.6 98.3 98.6 98.3 Pulse 76 71 68 74 Resp 16 18 20 18 B/P (MAP) 126/51 (76) 131/44 (73) 131/54 (79) 158/76 (103) Pulse Ox 96 96 97 94 O2 Delivery Nasal Cannula Nasal Cannula Nasal Cannula Nasal Cannula O2 Flow Rate 3.0 3.0 3.0 1.0 08/07/18 08/07/18 08:27 09:00 Pulse 80 Resp 18 B/P (MAP) 102/55 (71) Pulse Ox 98 91 O2 Delivery Nasal Cannula Nasal Cannula O2 Flow Rate 3.0 1.0 Intake and Output 08/06/18 08/06/18 08/07/18 15:01 23:01 07:01 Intake Total 2050 ml 0 ml Balance 2050 ml 0 ml Nutrition Consultation Dietary Evaluation: Recommendations by RD: Increase Calorie Intake, Protein supplementation Comments: diet advancement to ADA, Cardiac when able Expected Outcomes/Goals: to meet > 75% est nutr needs Malnutrition Findings: Body Fat Depletion (Non Severe: Mild Depletion Weight Status: Overweight ACE MYERS MD Aug 07, 2018 09:52
[2018-08-07] MEDS ORDERED: DEXTROSE 50% 25 GM / 50ML DISP.SYRIN. IV PRN (10:00)
[2018-08-07] MEDS: INSULIN LISPRO 300 UNITS/3 ML INSULN.PEN. SQ SCH ×4 (10:00→22:23)
[2018-08-07] MEDS ORDERED: POTASSIUM CL 20MEQ D5-0.45NACL 1,000 ML IV SCH (10:00)
--- NOTE | 2018-08-07 10:41 | PDOC ---
PULMONARY PROGRESS NOTES Vitals Vital Signs Date Time Temp Pulse Resp B/P (MAP) Pulse Ox O2 Delivery O2 Flow Rate FiO2 08/07/18 10:00 64 20 106/75 (85) 97 Nasal Cannula 1.0 08/07/18 08:00 98.3 98.3 General: Alert, No acute distress Lungs: Clear Cardiovascular: S1, S2, Other Abdomen: Soft, Non-tender Extremities: No Edema Labs Laboratory Tests Test 08/06/18 18:25 08/06/18 18:59 08/06/18 19:21 08/06/18 19:41 White Blood Count 9.8 x10^3/uL (4.0-11.0) Red Blood Count 5.02 x10^6/uL (4.30-5.70) Hemoglobin 14.3 g/dL (13.0-17.5) Hematocrit 43.1 % (39.0-53.0) Mean Corpuscular Volume 86 fL (79-100) Mean Corpuscular Hemoglobin 29 pg (25-35) Mean Corpuscular Hemoglobin Concent 33 g/dL (31-37) Red Cell Distribution Width 13.8 % (11.5-14.5) Platelet Count 228 x10^3/uL (140-400) Neutrophils (%) (Auto) 38 % (31-73) Lymphocytes (%) (Auto) 47 % (24-48) Monocytes (%) (Auto) 13 % (0-9) Eosinophils (%) (Auto) 1 % (0-3) Basophils (%) (Auto) 1 % (0-3) Neutrophils # (Auto) 3.7 x10^3uL (1.8-7.7) Lymphocytes # (Auto) 4.6 x10^3/uL (1.0-4.8) Monocytes # (Auto) 1.3 x10^3/uL (0.0-1.1) Eosinophils # (Auto) 0.1 x10^3/uL (0.0-0.7) Basophils # (Auto) 0.1 x10^3/uL (0.0-0.2) D-Dimer (Evelyn) 1.04 ug/mlFEU (0.00-0.50) Sodium Level 143 mmol/L (136-145) Potassium Level 3.8 mmol/L (3.5-5.1) Chloride Level 104 mmol/L (98-107) Carbon Dioxide Level 27 mmol/L (21-32) Anion Gap 12 (6-14) Blood Urea Nitrogen 46 mg/dL (8-26) Creatinine 2.7 mg/dL (0.7-1.3) Estimated GFR (Cockcroft-Gault) 22.8 Glucose Level 30 mg/dL (70-99) Lactic Acid Level 1.9 mmol/L (0.4-2.0) Calcium Level 9.2 mg/dL (8.5-10.1) Magnesium Level 1.7 mg/dL (1.8-2.4) Total Bilirubin 0.5 mg/dL (0.2-1.0) Direct Bilirubin 0.1 mg/dL (0.0-0.2) Aspartate Amino Transf (AST/SGOT) 18 U/L (15-37) Alanine Aminotransferase (ALT/SGPT) 16 U/L (16-63) Alkaline Phosphatase 101 U/L (46-116) Troponin I Quantitative < 0.017 ng/mL (0.000-0.055) Total Protein 7.5 g/dL (6.4-8.2) Albumin 3.5 g/dL (3.4-5.0) Procalcitonin 0.28 ng/mL (0.00-0.10) Thyroid Stimulating Hormone (TSH) 3.160 uIU/mL (0.358-3.74) Salicylates Level < 2.8 mg/dL (2.8-20.0) Salicylate Last Dose Date Unk Salicylate Last Dose Time Unk Acetaminophen Level < 2 mcg/ml (10-30) Acetaminophen Last Dose Date Unk Acetaminophen Last Dose Time Unk Glucose (Fingerstick) 17 mg/dL (70-99) 157 mg/dL (70-99) 119 mg/dL (70-99) Test 08/06/18 20:35 08/06/18 21:25 18 00:00 Glucose (Fingerstick) 127 mg/dL (70-99) 156 mg/dL (70-99) White Blood Count 6.9 x10^3/uL (4.0-11.0) Red Blood Count 4.25 x10^6/uL (4.30-5.70) Hemoglobin 12.1 g/dL (13.0-17.5) Hematocrit 36.1 % (39.0-53.0) Mean Corpuscular Volume 85 fL (79-100) Mean Corpuscular Hemoglobin 29 pg (25-35) Mean Corpuscular Hemoglobin Concent 34 g/dL (31-37) Red Cell Distribution Width 13.4 % (11.5-14.5) Platelet Count 154 x10^3/uL (140-400) Neutrophils (%) (Auto) 64 % (31-73) Lymphocytes (%) (Auto) 15 % (24-48) Monocytes (%) (Auto) 20 % (0-9) Eosinophils (%) (Auto) 0 % (0-3) Basophils (%) (Auto) 0 % (0-3) Neutrophils # (Auto) 4.4 x10^3uL (1.8-7.7) Lymphocytes # (Auto) 1.0 x10^3/uL (1.0-4.8) Monocytes # (Auto) 1.4 x10^3/uL (0.0-1.1) Eosinophils # (Auto) 0.0 x10^3/uL (0.0-0.7) Basophils # (Auto) 0.0 x10^3/uL (0.0-0.2) Segmented Neutrophils % 66 % (35-66) Lymphocytes % 20 % (24-48) Monocytes % 14 % (0-10) Platelet Estimate Adequate (ADEQUATE) Large Platelets Occ Polychromasia Slight Sodium Level 143 mmol/L (136-145) Potassium Level 3.3 mmol/L (3.5-5.1) Chloride Level 107 mmol/L (98-107) Carbon Dioxide Level 24 mmol/L (21-32) Anion Gap 12 (6-14) Blood Urea Nitrogen 43 mg/dL (8-26) Creatinine 2.4 mg/dL (0.7-1.3) Estimated GFR (Cockcroft-Gault) 26.1 Glucose Level 76 mg/dL (70-99) Calcium Level 8.3 mg/dL (8.5-10.1) HH-Jwy-E-Type Natriuretic Peptide 3022 pg/mL (0-449) Laboratory Tests Test 08/06/18 18:25 08/06/18 18:59 08/06/18 19:21 08/06/18 19:41 White Blood Count 9.8 x10^3/uL (4.0-11.0) Red Blood Count 5.02 x10^6/uL (4.30-5.70) Hemoglobin 14.3 g/dL (13.0-17.5) Hematocrit 43.1 % (39.0-53.0) Mean Corpuscular Volume 86 fL (79-100) Mean Corpuscular Hemoglobin 29 pg (25-35) Mean Corpuscular Hemoglobin Concent 33 g/dL (31-37) Red Cell Distribution Width 13.8 % (11.5-14.5) Platelet Count 228 x10^3/uL (140-400) Neutrophils (%) (Auto) 38 % (31-73) Lymphocytes (%) (Auto) 47 % (24-48) Monocytes (%) (Auto) 13 % (0-9) Eosinophils (%) (Auto) 1 % (0-3) Basophils (%) (Auto) 1 % (0-3) Neutrophils # (Auto) 3.7 x10^3uL (1.8-7.7) Lymphocytes # (Auto) 4.6 x10^3/uL (1.0-4.8) Monocytes # (Auto) 1.3 x10^3/uL (0.0-1.1) Eosinophils # (Auto) 0.1 x10^3/uL (0.0-0.7) Basophils # (Auto) 0.1 x10^3/uL (0.0-0.2) D-Dimer (Evelyn) 1.04 ug/mlFEU (0.00-0.50) Sodium Level 143 mmol/L (136-145) Potassium Level 3.8 mmol/L (3.5-5.1) Chloride Level 104 mmol/L (98-107) Carbon Dioxide Level 27 mmol/L (21-32) Anion Gap 12 (6-14) Blood Urea Nitrogen 46 mg/dL (8-26) Creatinine 2.7 mg/dL (0.7-1.3) Estimated GFR (Cockcroft-Gault) 22.8 Glucose Level 30 mg/dL (70-99) Lactic Acid Level 1.9 mmol/L (0.4-2.0) Calcium Level 9.2 mg/dL (8.5-10.1) Magnesium Level 1.7 mg/dL (1.8-2.4) Total Bilirubin 0.5 mg/dL (0.2-1.0) Direct Bilirubin 0.1 mg/dL (0.0-0.2) Aspartate Amino Transf (AST/SGOT) 18 U/L (15-37) Alanine Aminotransferase (ALT/SGPT) 16 U/L (16-63) Alkaline Phosphatase 101 U/L (46-116) Troponin I Quantitative < 0.017 ng/mL (0.000-0.055) Total Protein 7.5 g/dL (6.4-8.2) Albumin 3.5 g/dL (3.4-5.0) Procalcitonin 0.28 ng/mL (0.00-0.10) Thyroid Stimulating Hormone (TSH) 3.160 uIU/mL (0.358-3.74) Salicylates Level < 2.8 mg/dL (2.8-20.0) Salicylate Last Dose Date Unk Salicylate Last Dose Time Unk Acetaminophen Level < 2 mcg/ml (10-30) Acetaminophen Last Dose Date Unk Acetaminophen Last Dose Time Unk Glucose (Fingerstick) 17 mg/dL (70-99) 157 mg/dL (70-99) 119 mg/dL (70-99) Test 08/06/18 20:35 08/06/18 21:25 18 00:00 Glucose (Fingerstick) 127 mg/dL (70-99) 156 mg/dL (70-99) White Blood Count 6.9 x10^3/uL (4.0-11.0) Red Blood Count 4.25 x10^6/uL (4.30-5.70) Hemoglobin 12.1 g/dL (13.0-17.5) Hematocrit 36.1 % (39.0-53.0) Mean Corpuscular Volume 85 fL (79-100) Mean Corpuscular Hemoglobin 29 pg (25-35) Mean Corpuscular Hemoglobin Concent 34 g/dL (31-37) Red Cell Distribution Width 13.4 % (11.5-14.5) Platelet Count 154 x10^3/uL (140-400) Neutrophils (%) (Auto) 64 % (31-73) Lymphocytes (%) (Auto) 15 % (24-48) Monocytes (%) (Auto) 20 % (0-9) Eosinophils (%) (Auto) 0 % (0-3) Basophils (%) (Auto) 0 % (0-3) Neutrophils # (Auto) 4.4 x10^3uL (1.8-7.7) Lymphocytes # (Auto) 1.0 x10^3/uL (1.0-4.8) Monocytes # (Auto) 1.4 x10^3/uL (0.0-1.1) Eosinophils # (Auto) 0.0 x10^3/uL (0.0-0.7) Basophils # (Auto) 0.0 x10^3/uL (0.0-0.2) Segmented Neutrophils % 66 % (35-66) Lymphocytes % 20 % (24-48) Monocytes % 14 % (0-10) Platelet Estimate Adequate (ADEQUATE) Large Platelets Occ Polychromasia Slight Sodium Level 143 mmol/L (136-145) Potassium Level 3.3 mmol/L (3.5-5.1) Chloride Level 107 mmol/L (98-107) Carbon Dioxide Level 24 mmol/L (21-32) Anion Gap 12 (6-14) Blood Urea Nitrogen 43 mg/dL (8-26) Creatinine 2.4 mg/dL (0.7-1.3) Estimated GFR (Cockcroft-Gault) 26.1 Glucose Level 76 mg/dL (70-99) Calcium Level 8.3 mg/dL (8.5-10.1) XQ-Bye-O-Type Natriuretic Peptide 3022 pg/mL (0-449) Medications Active Scripts Medications Dose Route/Sig Max Daily Dose Days Date Category Proair Hfa Inhaler (Albuterol Sulfate) 8.5 Gm Hfa.aer.ad 1 Puff INH PRN Q6HRS PRN 03/05/18 Rx Symbicort 80-4.5 Mcg Inhaler (Budesonide/Formoterol Fumarate) 10.2 Gm Hfa.aer.ad 2 Puff IH BID 03/05/18 Rx Cardizem Cd (Diltiazem Hcl) 120 Mg Cap.er.24h 120 Mg PO DAILY 03/05/18 Rx Lasix (Furosemide) 40 Mg Tablet 1 Tab PO QPM 03/02/18 Reported Lasix (Furosemide) 40 Mg Tablet 1.5 Tab PO DAILYWBKFT 03/02/18 Reported Isosorbide Mononitrate Er (Isosorbide Mononitrate) 30 Mg Tab.er.24h 1 Tab PO BID 03/02/18 Reported Omeprazole 40 Mg Capsule.dr 1 Cap PO DAILY 03/02/18 Reported Carvedilol 3.125 Mg Tablet 1 Tab PO BID 03/02/18 Reported Entresto 24 mg-26 mg Tablet (Sacubitril/Valsartan) 1 Each Tablet 1 Each PO DAILY 03/02/18 Reported Novolog (Insulin Aspart) 100 Unit/1 Ml Cartridge 16 Unit SQ TID 03/02/18 Reported Hydrochlorothiazide Capsule (Hydrochlorothiazide) 12.5 Mg Capsule 12.5 Mg PO DAILY 06/30/17 Reported Levothyroxine Sodium 50 Mcg Tablet 1 Tab PO DAILY 03/05/16 Reported Eliquis (Apixaban) 2.5 Mg Tablet 2.5 Mg PO BID 03/05/16 Reported Montelukast Sodium Tablet (Montelukast Sodium) 10 Mg Tablet 10 Mg PO QEVNG 03/05/16 Reported Potassium Chloride 20 Meq Tab.er.prt 1 Tab PO BID 04/10/14 Reported Lortab 7.5-500 Tablet (Hydrocodone Bit/Acetaminophen) 1 Each Tablet 1 Each PO PRN Q4HRS 08/19/13 Reported Simvastatin 40 Mg Tablet 40 Mg PO QHS 08/17/13 Reported Impression . DICTATED ABNORMAL CXR CLINICALLY DOUBT PNEUMONIA WILL D/C JANIS GREENE MD Aug 07, 2018 10:41
--- NOTE | 2018-08-07 14:38 | CARD ---
MR#: [id number] Date of Study: 08/07/2018 Ordering Physician: DANA EDDY, Referring Physician: ACE MYERS, Tech: Iliana Shay APPROVED REPORT EXAM: Two-dimensional and M-mode echocardiogram with Doppler and color Doppler. Other Information Quality : AverageHR: 94bpm INDICATION Atrial Fibrillation Congestive Heart Failure RISK FACTORS Diabetes 2D DIMENSIONS RVDd2.3 (2.9-3.5cm)Left Atrium(2D)3.0 (1.6-4.0cm) IVSd1.0 (0.7-1.1cm)Aortic Root(2D)4.4 (2.0-3.7cm) LVDd4.6 (3.9-5.9cm)LVOT Diameter2.4 (1.8-2.4cm) PWd0.9 (0.7-1.1cm)LVDs2.9 (2.5-4.0cm) FS (%) 37.1 %SV65.5 ml Aortic Valve AoV Peak Naeem.104.0cm/sAoV VTI17.6cm AO Peak GR.4.3mmHgLVOT VTI 12.97cm AO Mean GR.2mmHg Mitral Valve MV E Fgoynoyd06.0cm/sMV DECEL [id number] MV A Sbxjmaku32.8cm/sE/A Ratio2.0 TDI Lateral E' P. V4.63cm/sMedial E' P. V7.27cm/s E/Lateral E'17.7E/Medial E'11.3 Tricuspid Valve TR P. Nyuvjggk832jv/sRAP ACWZXKNM78mxRb TR Peak Gr.00caLbYRZD75kyPc Pulmonary Vein S1 Sizsikco43.1cm/sS2 Cdkycqcm34.31cm/s D2 Egimujun16.3cm/sPVa sjmytgoq72mgqc LEFT VENTRICLE The left ventricle is normal size. There is normal left ventricular wall thickness. The left ventricu lar systolic function is low normal. The ejection fraction is estimated at 50%. There is normal LV se gmental wall motion. Diastology indeterminent due to atrial fibrillaion. RIGHT VENTRICLE The right ventricle is borderline dilated. There is normal right ventricular wall thickness. The righ t ventricular systolic function is normal. ATRIA The left atrium is borderline dilated. The right atrium is borderline dilated. The interatrial septum is intact with no evidence for an atrial septal defect or patent foramen ovale as noted on 2-D or Do ppler imaging. AORTIC VALVE The aortic valve is thickened but opens well. Doppler and Color Flow revealed no significant aortic r egurgitation. There is no significant aortic valvular stenosis. MITRAL VALVE The mitral valve is mildly thickened. There is no evidence of mitral valve prolapse. There is no mitr al valve stenosis. Doppler and Color-flow revealed trace mitral regurgitation. TRICUSPID VALVE The tricuspid valve is normal in structure and function. Doppler and Color Flow revealed trace tricus pid valve regurgitation. There is no tricuspid valve stenosis. PULMONIC VALVE The pulmonic valve is not well visualized. Doppler and Color Flow revealed no pulmonic valvular regur gitation. GREAT VESSELS The aortic root is mildly to moderately enlarged. The IVC is dilated and collapses >50% with inspirat ion. PERICARDIAL EFFUSION There is no evidence of significant pericardial effusion. Critical Notification Critical Value: No <Conclusion> The left ventricle is normal size. The left ventricular systolic function is low normal. The ejection fraction is estimated at 50%. There is no significant aortic valvular stenosis. Doppler and Color Flow revealed no significant aortic regurgitation. Doppler and Color-flow revealed trace mitral regurgitation. Doppler and Color Flow revealed trace tricuspid valve regurgitation. The aortic root is mildly to moderately enlarged. There is no evidence of significant pericardial effusion. Signed by : Merritt Fam MD Electronically Approved : 08/07/2018 14:37:18
[2018-08-07] MEDS: POTASSIUM CL 20MEQ-0.45% NACL 1,000 ML IV SCH (16:25)
[2018-08-07] MEDS: MONTELUKAST SODIUM 10 MG TABLET. PO SCH (17:53)
--- NOTE | 2018-08-07 18:32 | CONS ---
DATE OF CONSULTATION: 08/07/2018 ATTENDING PHYSICIAN: Dr. Snyder. REASON FOR CONSULTATION: The patient is seen in pulmonary consultation at the request of Dr. Snyder for abnormal chest x-ray, possible pneumonia. HISTORY OF PRESENT ILLNESS: The patient is an 82-year-old male with a history of atrial fibrillation, CAD, CHF, hyperlipidemia, COPD. He presented with emesis for the past 3 days. He had not been taking p.o. well. He was noted to have hypoglycemia, glucose of 17, was also confused, hypotensive, bradycardic. His creatinine went up to 2.7 from baseline of 1.8. He did take his medications, diltiazem and carvedilol regularly. Apparently, he might have taken more than he should have. He denies fever or chills. No productive cough. He quit tobacco 15 years ago. He does not wear oxygen at home. PAST MEDICAL HISTORY: 1. COPD, tobacco dependence, in remission, quit 15 years ago, utilizes Symbicort and albuterol at home. 2. Coronary artery disease, chronic heart failure, hypertension. 3. Chronic atrial fibrillation. 4. Hyperlipidemia. 5. Peripheral neuropathy. 6. Diabetes. 7. Hypothyroidism. 8. Chronic renal insufficiency. PAST SURGICAL HISTORY: Status post cataract removal. FAMILY HISTORY: Unknown. SOCIAL HISTORY: He quit tobacco 15 years ago. REVIEW OF SYSTEMS: CONSTITUTIONAL: No fever or chills. EYES: No change in visual acuity. HEENT: No nasal congestion or sore throat. PULMONARY: As indicated above. CARDIOVASCULAR: No chest pain or pressure. GASTROINTESTINAL: As indicated above. GENITOURINARY: No dysuria or frequency. MUSCULOSKELETAL: No localized muscle aches or joint pain. SKIN: No new skin rashes. NEUROLOGIC: No headaches, diplopia or blurred vision. CURRENT MEDICATIONS: List was reviewed. ALLERGIES: No known drug allergies. PHYSICAL EXAMINATION: GENERAL: The patient was in no respiratory distress. VITAL SIGNS: Stable. O2 saturation was greater than 92%, currently on 1 liter. HEENT: Eyes, the sclerae were nonicteric. NECK: Jugular venous distention was not elevated. No lymphadenopathy. CHEST: Full expansion. LUNGS: Diminished breath sounds in the left base. No wheezes. CARDIOVASCULAR: Regular rate and rhythm with S1, S2. No S3. ABDOMEN: Soft, nontender, nondistended. EXTREMITIES: No clubbing, cyanosis, some edema. NEUROLOGIC: The patient was awake, alert, following commands. A detailed neuro exam was not performed. LABORATORY DATA: Reviewed. Electrolytes were noted. BUN and creatinine were elevated. White count was normal. Chest x-ray as indicated above, possible increased left base opacity. IMPRESSION: 1. Abnormal x-ray revealing questionable left basilar opacity. I reviewed his previous x-ray. He did have an elevated hemidiaphragm in the past. 2. Chronic atrial fibrillation with bradycardia. The patient might have taken extra Cardizem and Coreg at home. 3. Type 2 diabetes. 4. Hypotension. 5. Acute on chronic kidney disease. 6. Cardiomyopathy, ejection fraction of 40-45%. 7. Hyperlipidemia. 8. Chronic obstructive pulmonary disease. PLAN: Clinically, I do not think that the patient has pneumonia. I am sure his x-ray appears to be abnormal secondary to previously elevated hemidiaphragm. Recommend discontinuing vancomycin. Continue Zosyn for another day or 2. I do appreciate the privilege in participating in this patient's care. JANIS FIGUEROA MD DR: EMILY/christelle JOB#: [id number] / [id number]
[2018-08-07] MEDS ORDERED: VANCOMYCIN RANDOM LEVEL. MC ONE (22:00)
[2018-08-07] MEDS: LACTOBACILLUS RHAMNOSUS GG 1 CAPSULE. PO SCH (22:14)
[2018-08-07] MEDS: SIMVASTATIN 40 MG TABLET. PO SCH (22:15)
[2018-08-08] VITALS (14 sets, daily range): BP systolic 90–122; BP diastolic 40–87
[2018-08-08] MEDS: INSULIN LISPRO 300 UNITS/3 ML INSULN.PEN. SQ SCH ×6 (00:17→20:00)
[2018-08-08] MEDS: PIPERACILLIN/TAZOBACTAM 2.25 GM in IV NORMAL SALINE 50ML 50 ML IV SCH ×4 (00:17→16:46)
[2018-08-08] MEDS: LEVOTHYROXINE 50 MCG TABLET PO SCH (06:00)
[2018-08-08] MEDS: POTASSIUM CL 20MEQ-0.45% NACL 1,000 ML IV SCH (06:20)
[2018-08-08 06:38] LABS: CHOLESTEROL/HDL RATIO 3.3
[2018-08-08] MEDS: PANTOPRAZOLE 40 MG TABLET.DR. PO SCH (08:22)
[2018-08-08] MEDS: LACTOBACILLUS RHAMNOSUS GG 1 CAPSULE. PO SCH ×2 (08:22→20:20)
[2018-08-08] MEDS: POTASSIUM CHLORIDE 20 MEQ TABLET.ER. PO SCH ×2 (08:22→20:19)
[2018-08-08] MEDS: APIXABAN 2.5 MG TABLET. PO SCH ×2 (08:23→20:20)
[2018-08-08] MEDS: ELECTROLYTE (ICU) PROTOCOL. MC SCH (08:29)
[2018-08-08] MEDS: BUDESONIDE 0.5 MG/2 ML NEBU. NEB SCH ×2 (08:59→20:26)
[2018-08-08] MEDS: ALBUTEROL SULFATE 2.5 MG/3 ML NEBU. INH SCH ×4 (08:59→20:26)
--- NOTE | 2018-08-08 09:13 | PDOC ---
PULMONARY PROGRESS NOTES Subjective PT SITTING IN CHAIR NO DISTRESS Vitals Vital Signs Date Time Temp Pulse Resp B/P (MAP) Pulse Ox O2 Delivery O2 Flow Rate FiO2 08/08/18 08:59 90 Room Air 08/08/18 08:00 98.3 94 25 121/65 (83) 98.3 08/08/18 06:00 3.0 ROS: No Nausea, No Chest Pain, No Abdominal Pain, No Increase Cough General: Alert, No acute distress Lungs: Clear Cardiovascular: S1, S2, Other Abdomen: Soft, Non-tender Extremities: No Edema Labs Laboratory Tests Test 08/06/18 18:25 08/06/18 18:59 08/06/18 19:21 08/06/18 19:41 White Blood Count 9.8 x10^3/uL (4.0-11.0) Red Blood Count 5.02 x10^6/uL (4.30-5.70) Hemoglobin 14.3 g/dL (13.0-17.5) Hematocrit 43.1 % (39.0-53.0) Mean Corpuscular Volume 86 fL (79-100) Mean Corpuscular Hemoglobin 29 pg (25-35) Mean Corpuscular Hemoglobin Concent 33 g/dL (31-37) Red Cell Distribution Width 13.8 % (11.5-14.5) Platelet Count 228 x10^3/uL (140-400) Neutrophils (%) (Auto) 38 % (31-73) Lymphocytes (%) (Auto) 47 % (24-48) Monocytes (%) (Auto) 13 % (0-9) Eosinophils (%) (Auto) 1 % (0-3) Basophils (%) (Auto) 1 % (0-3) Neutrophils # (Auto) 3.7 x10^3uL (1.8-7.7) Lymphocytes # (Auto) 4.6 x10^3/uL (1.0-4.8) Monocytes # (Auto) 1.3 x10^3/uL (0.0-1.1) Eosinophils # (Auto) 0.1 x10^3/uL (0.0-0.7) Basophils # (Auto) 0.1 x10^3/uL (0.0-0.2) D-Dimer (Evelyn) 1.04 ug/mlFEU (0.00-0.50) Sodium Level 143 mmol/L (136-145) Potassium Level 3.8 mmol/L (3.5-5.1) Chloride Level 104 mmol/L (98-107) Carbon Dioxide Level 27 mmol/L (21-32) Anion Gap 12 (6-14) Blood Urea Nitrogen 46 mg/dL (8-26) Creatinine 2.7 mg/dL (0.7-1.3) Estimated GFR (Cockcroft-Gault) 22.8 Glucose Level 30 mg/dL (70-99) Lactic Acid Level 1.9 mmol/L (0.4-2.0) Calcium Level 9.2 mg/dL (8.5-10.1) Magnesium Level 1.7 mg/dL (1.8-2.4) Total Bilirubin 0.5 mg/dL (0.2-1.0) Direct Bilirubin 0.1 mg/dL (0.0-0.2) Aspartate Amino Transf (AST/SGOT) 18 U/L (15-37) Alanine Aminotransferase (ALT/SGPT) 16 U/L (16-63) Alkaline Phosphatase 101 U/L (46-116) Troponin I Quantitative < 0.017 ng/mL (0.000-0.055) Total Protein 7.5 g/dL (6.4-8.2) Albumin 3.5 g/dL (3.4-5.0) Procalcitonin 0.28 ng/mL (0.00-0.10) Thyroid Stimulating Hormone (TSH) 3.160 uIU/mL (0.358-3.74) Salicylates Level < 2.8 mg/dL (2.8-20.0) Salicylate Last Dose Date Unk Salicylate Last Dose Time Unk Acetaminophen Level < 2 mcg/ml (10-30) Acetaminophen Last Dose Date Unk Acetaminophen Last Dose Time Unk Glucose (Fingerstick) 17 mg/dL (70-99) 157 mg/dL (70-99) 119 mg/dL (70-99) Test 08/06/18 20:35 08/06/18 21:25 08/06/18 23:09 08/06/18 23:57 Glucose (Fingerstick) 127 mg/dL (70-99) 156 mg/dL (70-99) 283 mg/dL (70-99) 441 mg/dL (70-99) Test 08/07/18 00:00 08/07/18 00:28 08/07/18 01:11 08/07/18 02:02 White Blood Count 6.9 x10^3/uL (4.0-11.0) Red Blood Count 4.25 x10^6/uL (4.30-5.70) Hemoglobin 12.1 g/dL (13.0-17.5) Hematocrit 36.1 % (39.0-53.0) Mean Corpuscular Volume 85 fL (79-100) Mean Corpuscular Hemoglobin 29 pg (25-35) Mean Corpuscular Hemoglobin Concent 34 g/dL (31-37) Red Cell Distribution Width 13.4 % (11.5-14.5) Platelet Count 154 x10^3/uL (140-400) Neutrophils (%) (Auto) 64 % (31-73) Lymphocytes (%) (Auto) 15 % (24-48) Monocytes (%) (Auto) 20 % (0-9) Eosinophils (%) (Auto) 0 % (0-3) Basophils (%) (Auto) 0 % (0-3) Neutrophils # (Auto) 4.4 x10^3uL (1.8-7.7) Lymphocytes # (Auto) 1.0 x10^3/uL (1.0-4.8) Monocytes # (Auto) 1.4 x10^3/uL (0.0-1.1) Eosinophils # (Auto) 0.0 x10^3/uL (0.0-0.7) Basophils # (Auto) 0.0 x10^3/uL (0.0-0.2) Segmented Neutrophils % 66 % (35-66) Lymphocytes % 20 % (24-48) Monocytes % 14 % (0-10) Platelet Estimate Adequate (ADEQUATE) Large Platelets Occ Polychromasia Slight Sodium Level 143 mmol/L (136-145) Potassium Level 3.3 mmol/L (3.5-5.1) Chloride Level 107 mmol/L (98-107) Carbon Dioxide Level 24 mmol/L (21-32) Anion Gap 12 (6-14) Blood Urea Nitrogen 43 mg/dL (8-26) Creatinine 2.4 mg/dL (0.7-1.3) Estimated GFR (Cockcroft-Gault) 26.1 Glucose Level 76 mg/dL (70-99) Calcium Level 8.3 mg/dL (8.5-10.1) KX-Lqc-N-Type Natriuretic Peptide 3022 pg/mL (0-449) Glucose (Fingerstick) 374 mg/dL (70-99) 302 mg/dL (70-99) 179 mg/dL (70-99) Test 08/07/18 02:51 08/07/18 03:55 08/07/18 04:57 08/07/18 05:09 Glucose (Fingerstick) 125 mg/dL (70-99) 76 mg/dL (70-99) 48 mg/dL (70-99) 57 mg/dL (70-99) Test 08/07/18 05:49 08/07/18 06:16 08/07/18 06:24 08/07/18 06:38 Glucose (Fingerstick) 70 mg/dL (70-99) 33 mg/dL (70-99) 156 mg/dL (70-99) Nasal Screen MRSA (PCR) Negative (Negative) Test 08/07/18 07:10 08/07/18 07:48 08/07/18 08:07 08/07/18 10:08 Glucose (Fingerstick) 66 mg/dL (70-99) 40 mg/dL (70-99) 141 mg/dL (70-99) 90 mg/dL (70-99) Test 08/07/18 11:10 08/07/18 12:09 08/07/18 16:09 08/07/18 22:15 Glucose (Fingerstick) 141 mg/dL (70-99) 226 mg/dL (70-99) 329 mg/dL (70-99) 334 mg/dL (70-99) Test 08/08/18 00:12 08/08/18 05:51 08/08/18 06:00 08/08/18 08:05 Glucose (Fingerstick) 270 mg/dL (70-99) 198 mg/dL (70-99) 191 mg/dL (70-99) Triglycerides Level 119 mg/dL (0-150) Cholesterol Level 107 mg/dL (0-200) LDL Cholesterol, Calculated 51 mg/dL (0-100) VLDL Cholesterol, Calculated 24 mg/dL (0-40) Non-HDL Cholesterol Calculated 75 mg/dL (0-129) HDL Cholesterol 32 mg/dL (40-60) Cholesterol/HDL Ratio 3.3 Laboratory Tests Test 08/07/18 10:08 08/07/18 11:10 08/07/18 12:09 08/07/18 16:09 Glucose (Fingerstick) 90 mg/dL (70-99) 141 mg/dL (70-99) 226 mg/dL (70-99) 329 mg/dL (70-99) Test 08/07/18 22:15 08/08/18 00:12 08/08/18 05:51 08/08/18 06:00 Glucose (Fingerstick) 334 mg/dL (70-99) 270 mg/dL (70-99) 198 mg/dL (70-99) Triglycerides Level 119 mg/dL (0-150) Cholesterol Level 107 mg/dL (0-200) LDL Cholesterol, Calculated 51 mg/dL (0-100) VLDL Cholesterol, Calculated 24 mg/dL (0-40) Non-HDL Cholesterol Calculated 75 mg/dL (0-129) HDL Cholesterol 32 mg/dL (40-60) Cholesterol/HDL Ratio 3.3 Test 08/08/18 08:05 Glucose (Fingerstick) 191 mg/dL (70-99) Medications Active Scripts Medications Dose Route/Sig Max Daily Dose Days Date Category Proair Hfa Inhaler (Albuterol Sulfate) 8.5 Gm Hfa.aer.ad 1 Puff INH PRN Q6HRS PRN 03/05/18 Rx Symbicort 80-4.5 Mcg Inhaler (Budesonide/Formoterol Fumarate) 10.2 Gm Hfa.aer.ad 2 Puff IH BID 03/05/18 Rx Cardizem Cd (Diltiazem Hcl) 120 Mg Cap.er.24h 120 Mg PO DAILY 03/05/18 Rx Lasix (Furosemide) 40 Mg Tablet 1 Tab PO QPM 03/02/18 Reported Lasix (Furosemide) 40 Mg Tablet 1.5 Tab PO [id number] 03/02/18 Reported Isosorbide Mononitrate Er (Isosorbide Mononitrate) 30 Mg Tab.er.24h 1 Tab PO BID 03/02/18 Reported Omeprazole 40 Mg Capsule.dr 1 Cap PO DAILY 03/02/18 Reported Carvedilol 3.125 Mg Tablet 1 Tab PO BID 03/02/18 Reported Entresto 24 mg-26 mg Tablet (Sacubitril/Valsartan) 1 Each Tablet 1 Each PO DAILY 03/02/18 Reported Novolog (Insulin Aspart) 100 Unit/1 Ml Cartridge 16 Unit SQ TID 03/02/18 Reported Hydrochlorothiazide Capsule (Hydrochlorothiazide) 12.5 Mg Capsule 12.5 Mg PO DAILY 06/30/17 Reported Levothyroxine Sodium 50 Mcg Tablet 1 Tab PO DAILY 03/05/16 Reported Eliquis (Apixaban) 2.5 Mg Tablet 2.5 Mg PO BID 03/05/16 Reported Montelukast Sodium Tablet (Montelukast Sodium) 10 Mg Tablet 10 Mg PO QEVNG 03/05/16 Reported Potassium Chloride 20 Meq Tab.er.prt 1 Tab PO BID 04/10/14 Reported Lortab 7.5-500 Tablet (Hydrocodone Bit/Acetaminophen) 1 Each Tablet 1 Each PO PRN Q4HRS 08/19/13 Reported Simvastatin 40 Mg Tablet 40 Mg PO QHS 08/17/13 Reported Impression . IMPRESSION: 1. Abnormal x-ray revealing questionable left basilar opacity. I reviewed his previous x-ray. He did have an elevated hemidiaphragm in the past. 2. Chronic atrial fibrillation with bradycardia. The patient might have taken extra Cardizem and Coreg at home. 3. Type 2 diabetes. 4. Hypotension. 5. Acute on chronic kidney disease. 6. Cardiomyopathy, ejection fraction of 40-45%. 7. Hyperlipidemia. 8. Chronic obstructive pulmonary disease. Plan . D/C ANTIBX D/W DR MYERS TRANSFER OUT OF ICU JANIS FIGUEROA MD Aug 08, 2018 09:12
[2018-08-08] MEDS: ANTI-COAG MONITOR BY PHARMACY. MC PRN (11:02)
--- NOTE | 2018-08-08 11:22 | PDOC ---
PROGRESS NOTES Chief Complaint Chief Complaint Hypoglycemia Hypotension BB/CCB overdose Left lower lobe pneumonia AFIB CAD CHF HTN Hyperlipidemia Asthma with COPD Peripheral neuropathy Osteoarthritis DAVID on Chronic renal insufficiency Diabetes type 2 Hypothyroidism Abdominal pain History of Present Illness History of Present Illness Mr Goff is an 81yo M w/ PMHx AFIB, CAD, CHF, HTN, Hyperlipidemia, Asthma, COPD, Periperal neuropathy, Osteoarthritis, Chronic renal insufficiency, Diabetes, Hypothyroidism who p/w abdominal pain, nausea, and vomiting for the past 3 days. Has not been taking PO well. Noted enroute with hypoglycemia, glucose of 17, and 30 after glucose. Also with confusion, hypotension and bradycardia. Also with Cr to 2.7 from baseline 1.8 this past February. He did note cough as well and had CXR showing LLL infiltrate and concern for pleural effusion as well. Treated overnight initially for his hypotension, bradycardia and hypoglycemia as a BB and CCB overdose, given glucagon and calcium in ED and started on dopamine, large dose insulin and D5 and D10 gtt. Central line placed urgently last 08/06/18 overnight. No further hypoglycemia this morning. BP up off dopamine and vasopressin. He is feeling better, asking when he can go home A/P: Hypoglycemia - known diabetic, but this may have been a BB/CCB overdose. Monitor Hypotension - with bradycardia, suspect BB/CCB overdose, will use q2 hour albuterol nebs. had calcium and will get 85u insulin followed by D50 x2 and D5 1 /2NSS 20meq KCL at 200cc/hr. Vasopressin, dopamine for now, wean as his BP is improving Left lower lobe pneumonia - given empiric antibiotics per ED, has pleural effusion as well, this could be 2/2 pneumonic process or more likely from his h/ o CHF. Will consult pulm AFIB - chronic on BB, CCB and eliquis, hold rate control, cont eliquis 2.5mg BID CAD - stable on meds CHF - hold BB for hypotension and MIGUE for , statin. HTN - hypotensive currently, will monitor, hold off on BB, CCB, consult cardiology Hyperlipidemia - cont statin Asthma with COPD - will give aggressive albuterol nebs for possible overdose and for respiratory status Peripheral neuropathy - likely 2/2 DM Osteoarthritis - will control pain with topical voltaren prn DAVID on Chronic renal insufficiency - will monitor, IVF for likely vasomotor nephropathy Diabetes - with hypoglycemia - will change to sliding scale now that he is eating Hypothyroidism - cont synthroid Abdominal pain - Resolved, initially was with nausea and vomiting, this could have been 2/2 his overdose and hypoglycemia/hypotension/bradycardia. Abdominal US was benign, though left renal cyst noted. FEN - ADA diet, fluids as above PPX - Eliquis 2.5mg BID FULL CODE ICU for critical hypoglycemia, hypotension, confusion, hopefully can downgrade tomorrow. Appreciate consultant [employer]. vice president [employer] (ex ) assistance with this interesting case Vitals Vitals Vital Signs Date Time Temp Pulse Resp B/P (MAP) Pulse Ox O2 Delivery O2 Flow Rate FiO2 08/08/18 10:00 108 23 98/72 (81) 92 Room Air 08/08/18 08:00 98.3 98.3 08/08/18 06:00 3.0 Physical Exam General: Alert, Oriented X3, Cooperative, No acute distress, Other ([place]) Heart: Other (Irregularly irregular, rate controlled) Lungs: Clear Abdomen: Soft, No tenderness Extremities: No edema, Normal pulses Skin: No significant lesion Labs LABS Laboratory Tests Test 08/07/18 12:09 08/07/18 16:09 08/07/18 22:15 08/08/18 00:12 Glucose (Fingerstick) 226 mg/dL (70-99) 329 mg/dL (70-99) 334 mg/dL (70-99) 270 mg/dL (70-99) Test 08/08/18 05:51 08/08/18 06:00 08/08/18 08:05 Glucose (Fingerstick) 198 mg/dL (70-99) 191 mg/dL (70-99) Triglycerides Level 119 mg/dL (0-150) Cholesterol Level 107 mg/dL (0-200) LDL Cholesterol, Calculated 51 mg/dL (0-100) VLDL Cholesterol, Calculated 24 mg/dL (0-40) Non-HDL Cholesterol Calculated 75 mg/dL (0-129) HDL Cholesterol 32 mg/dL (40-60) Cholesterol/HDL Ratio 3.3 Comment Review of Relevant I have reviewed the following items jack (where applicable) has been applied. Labs Laboratory Tests Test 08/06/18 18:25 08/06/18 18:59 08/06/18 19:21 08/06/18 19:41 White Blood Count 9.8 x10^3/uL (4.0-11.0) Red Blood Count 5.02 x10^6/uL (4.30-5.70) Hemoglobin 14.3 g/dL (13.0-17.5) Hematocrit 43.1 % (39.0-53.0) Mean Corpuscular Volume 86 fL (79-100) Mean Corpuscular Hemoglobin 29 pg (25-35) Mean Corpuscular Hemoglobin Concent 33 g/dL (31-37) Red Cell Distribution Width 13.8 % (11.5-14.5) Platelet Count 228 x10^3/uL (140-400) Neutrophils (%) (Auto) 38 % (31-73) Lymphocytes (%) (Auto) 47 % (24-48) Monocytes (%) (Auto) 13 % (0-9) Eosinophils (%) (Auto) 1 % (0-3) Basophils (%) (Auto) 1 % (0-3) Neutrophils # (Auto) 3.7 x10^3uL (1.8-7.7) Lymphocytes # (Auto) 4.6 x10^3/uL (1.0-4.8) Monocytes # (Auto) 1.3 x10^3/uL (0.0-1.1) Eosinophils # (Auto) 0.1 x10^3/uL (0.0-0.7) Basophils # (Auto) 0.1 x10^3/uL (0.0-0.2) D-Dimer (Evelyn) 1.04 ug/mlFEU (0.00-0.50) Sodium Level 143 mmol/L (136-145) Potassium Level 3.8 mmol/L (3.5-5.1) Chloride Level 104 mmol/L (98-107) Carbon Dioxide Level 27 mmol/L (21-32) Anion Gap 12 (6-14) Blood Urea Nitrogen 46 mg/dL (8-26) Creatinine 2.7 mg/dL (0.7-1.3) Estimated GFR (Cockcroft-Gault) 22.8 Glucose Level 30 mg/dL (70-99) Lactic Acid Level 1.9 mmol/L (0.4-2.0) Calcium Level 9.2 mg/dL (8.5-10.1) Magnesium Level 1.7 mg/dL (1.8-2.4) Total Bilirubin 0.5 mg/dL (0.2-1.0) Direct Bilirubin 0.1 mg/dL (0.0-0.2) Aspartate Amino Transf (AST/SGOT) 18 U/L (15-37) Alanine Aminotransferase (ALT/SGPT) 16 U/L (16-63) Alkaline Phosphatase 101 U/L (46-116) Troponin I Quantitative < 0.017 ng/mL (0.000-0.055) Total Protein 7.5 g/dL (6.4-8.2) Albumin 3.5 g/dL (3.4-5.0) Procalcitonin 0.28 ng/mL (0.00-0.10) Thyroid Stimulating Hormone (TSH) 3.160 uIU/mL (0.358-3.74) Salicylates Level < 2.8 mg/dL (2.8-20.0) Salicylate Last Dose Date Unk Salicylate Last Dose Time Unk Acetaminophen Level < 2 mcg/ml (10-30) Acetaminophen Last Dose Date Unk Acetaminophen Last Dose Time Unk Glucose (Fingerstick) 17 mg/dL (70-99) 157 mg/dL (70-99) 119 mg/dL (70-99) Test 08/06/18 20:35 08/06/18 21:25 08/06/18 23:09 08/06/18 23:57 Glucose (Fingerstick) 127 mg/dL (70-99) 156 mg/dL (70-99) 283 mg/dL (70-99) 441 mg/dL (70-99) Test 08/07/18 00:00 08/07/18 00:28 08/07/18 01:11 08/07/18 02:02 White Blood Count 6.9 x10^3/uL (4.0-11.0) Red Blood Count 4.25 x10^6/uL (4.30-5.70) Hemoglobin 12.1 g/dL (13.0-17.5) Hematocrit 36.1 % (39.0-53.0) Mean Corpuscular Volume 85 fL (79-100) Mean Corpuscular Hemoglobin 29 pg (25-35) Mean Corpuscular Hemoglobin Concent 34 g/dL (31-37) Red Cell Distribution Width 13.4 % (11.5-14.5) Platelet Count 154 x10^3/uL (140-400) Neutrophils (%) (Auto) 64 % (31-73) Lymphocytes (%) (Auto) 15 % (24-48) Monocytes (%) (Auto) 20 % (0-9) Eosinophils (%) (Auto) 0 % (0-3) Basophils (%) (Auto) 0 % (0-3) Neutrophils # (Auto) 4.4 x10^3uL (1.8-7.7) Lymphocytes # (Auto) 1.0 x10^3/uL (1.0-4.8) Monocytes # (Auto) 1.4 x10^3/uL (0.0-1.1) Eosinophils # (Auto) 0.0 x10^3/uL (0.0-0.7) Basophils # (Auto) 0.0 x10^3/uL (0.0-0.2) Segmented Neutrophils % 66 % (35-66) Lymphocytes % 20 % (24-48) Monocytes % 14 % (0-10) Platelet Estimate Adequate (ADEQUATE) Large Platelets Occ Polychromasia Slight Sodium Level 143 mmol/L (136-145) Potassium Level 3.3 mmol/L (3.5-5.1) Chloride Level 107 mmol/L (98-107) Carbon Dioxide Level 24 mmol/L (21-32) Anion Gap 12 (6-14) Blood Urea Nitrogen 43 mg/dL (8-26) Creatinine 2.4 mg/dL (0.7-1.3) Estimated GFR (Cockcroft-Gault) 26.1 Glucose Level 76 mg/dL (70-99) Calcium Level 8.3 mg/dL (8.5-10.1) ZB-Uyc-Q-Type Natriuretic Peptide 3022 pg/mL (0-449) Glucose (Fingerstick) 374 mg/dL (70-99) 302 mg/dL (70-99) 179 mg/dL (70-99) Test 08/07/18 02:51 08/07/18 03:55 08/07/18 04:57 08/07/18 05:09 Glucose (Fingerstick) 125 mg/dL (70-99) 76 mg/dL (70-99) 48 mg/dL (70-99) 57 mg/dL (70-99) Test 08/07/18 05:49 08/07/18 06:16 08/07/18 06:24 08/07/18 06:38 Glucose (Fingerstick) 70 mg/dL (70-99) 33 mg/dL (70-99) 156 mg/dL (70-99) Nasal Screen MRSA (PCR) Negative (Negative) Test 08/07/18 07:10 08/07/18 07:48 08/07/18 08:07 08/07/18 10:08 Glucose (Fingerstick) 66 mg/dL (70-99) 40 mg/dL (70-99) 141 mg/dL (70-99) 90 mg/dL (70-99) Test 08/07/18 11:10 08/07/18 12:09 08/07/18 16:09 08/07/18 22:15 Glucose (Fingerstick) 141 mg/dL (70-99) 226 mg/dL (70-99) 329 mg/dL (70-99) 334 mg/dL (70-99) Test 08/08/18 00:12 08/08/18 05:51 08/08/18 06:00 08/08/18 08:05 Glucose (Fingerstick) 270 mg/dL (70-99) 198 mg/dL (70-99) 191 mg/dL (70-99) Triglycerides Level 119 mg/dL (0-150) Cholesterol Level 107 mg/dL (0-200) LDL Cholesterol, Calculated 51 mg/dL (0-100) VLDL Cholesterol, Calculated 24 mg/dL (0-40) Non-HDL Cholesterol Calculated 75 mg/dL (0-129) HDL Cholesterol 32 mg/dL (40-60) Cholesterol/HDL Ratio 3.3 Laboratory Tests Test 08/07/18 12:09 08/07/18 16:09 08/07/18 22:15 08/08/18 00:12 Glucose (Fingerstick) 226 mg/dL (70-99) 329 mg/dL (70-99) 334 mg/dL (70-99) 270 mg/dL (70-99) Test 08/08/18 05:51 08/08/18 06:00 08/08/18 08:05 Glucose (Fingerstick) 198 mg/dL (70-99) 191 mg/dL (70-99) Triglycerides Level 119 mg/dL (0-150) Cholesterol Level 107 mg/dL (0-200) LDL Cholesterol, Calculated 51 mg/dL (0-100) VLDL Cholesterol, Calculated 24 mg/dL (0-40) Non-HDL Cholesterol Calculated 75 mg/dL (0-129) HDL Cholesterol 32 mg/dL (40-60) Cholesterol/HDL Ratio 3.3 Microbiology 08/06/18 Blood Culture - Preliminary, Resulted NO GROWTH AFTER 1 DAY Medications Current Medications Ondansetron HCl (Zofran) 4 mg 1X ONCE IV Last administered on 08/06/18at 19:15 ; Start 08/06/18 at 18:45; Stop 08/06/18 at 18:48; Status DC Dextrose (Dextrose 50%-Water Syringe) 25 gm STK-MED ONCE IV ; Start 08/06/18 at 19:00; Stop 08/06/18 at 19:01; Status DC Sodium Chloride 500 ml @ 500 mls/hr 1X ONCE IV Last administered on at 19:15; Start 08/06/18 at 19:15; Stop 08/06/18 at 20:14; Status DC Dextrose (Dextrose 50%-Water Syringe) 25 gm 1X ONCE IV Last administered on at 19:45; Start 08/06/18 at 19:30; Stop 08/06/18 at 19:31; Status DC Sodium Chloride 1,000 ml @ 1,000 mls/hr 1X ONCE IV Last administered on 08/06at 19:35; Start 08/06/18 at 19:45; Stop 08/06/18 at 20:44; Status DC Calcium Gluconate (Calcium Gluconate) 1,000 mg 1X ONCE IVP Last administered on 08/06/18at 19:50; Start 08/06/18 at 19:45; Stop 08/06/18 at 19:48; Status DC Calcium Gluconate (Calcium Gluconate) 1,000 mg 1X ONCE IVP Last administered on 08/06/18at 19:45; Start 08/06/18 at 19:45; Stop 08/06/18 at 19:48; Status DC Dopamine HCl/ Dextrose 250 ml @ 0 mls/hr 1X ONCE IV Last administered on 08/06at 20:04; Start 08/06/18 at 20:00; Stop 08/06/18 at 20:01; Status DC Sodium Chloride 500 ml @ 500 mls/hr 1X ONCE IV Last administered on at 20:40; Start 08/06/18 at 20:45; Stop 08/06/18 at 21:45; Status DC Glucagon (Glucagen) 5 mg 1X ONCE IV Last administered on 08/06/18at 20:58; Start 08/06/18 at 21:00; Stop 08/06/18 at 21:01; Status DC Vancomycin HCl (Vanco Per Pharmacy) 1 each PRN DAILY PRN MC SEE COMMENTS Last administered on 08/07/18at 01:43; Start 08/06/18 at 21:15; Stop 08/07/18 at 10 :44; Status DC Piperacillin Sod/ Tazobactam Sod (Zosyn Per Pharmacy) 1 each PRN DAILY PRN MC SEE COMMENTS; Start 08/06/18 at 21:15 Piperacillin Sod/ Tazobactam Sod 2.25 gm/Sodium Chloride 50 ml @ 100 mls/hr Q6HRS IV Last administered on 08/08/18at 06:06; Start 08/06/18 at 22:00 Vancomycin HCl 2 gm/Sodium Chloride 500 ml @ 250 mls/hr 1X ONCE IV Last administered on 08/06/18at 21:56; Start 08/06/18 at 22:00; Stop 08/07/18 at 10 :40; Status DC Ondansetron HCl (Zofran) 4 mg 1X ONCE IV Last administered on 08/06/18at 22:00 ; Start 08/06/18 at 22:00; Stop 08/06/18 at 22:01; Status DC Glucagon 5 mg/ Dextrose 255 ml @ 250 mls/hr 1X ONCE IM ; Start 08/06/18 at 22 :30; Stop 08/06/18 at 23:31; Status Cancel Glucagon 5 mg/ Dextrose 255 ml @ 250 mls/hr 1X ONCE IV Last administered on 08/06/18at 22:07; Start 08/06/18 at 22:30; Stop 08/06/18 at 23:31; Status DC Insulin Human Regular 150 unit/ Sodium Chloride 151.5 ml @ 42.5 mls/hr CONT PRN IV SEE I/O RECORD Last administered on 08/07/18at 00:23; Start 08/06/18 at 23:00; Stop 08/07/18 at 05:00; Status DC Insulin Human Regular (HumuLIN R VIAL) 85 unit 1X ONCE IV Last administered on 08/07/18at 00:24; Start 08/06/18 at 23:00; Stop 08/06/18 at 23:01; Status DC Ondansetron HCl (Zofran) 4 mg 1X ONCE IV ; Start 08/06/18 at 23:00; Stop at 23:01; Status DC Ondansetron HCl (Zofran) 4 mg 1X ONCE IV ; Start 08/06/18 at 23:00; Stop at 23:01; Status DC Dextrose (Dextrose 50%-Water Syringe) 12.5 gm PRN Q15MIN PRN IV LOW BLOOD SUGAR ; Start 08/06/18 at 22:45; Stop 08/06/18 at 23:23; Status DC Dextrose 500 ml @ 400 mls/hr 1X ONCE IV ; Start 08/06/18 at 23:00; Stop at 00:14; Status DC Potassium Chloride/Dextrose/ Sod Cl 1,000 ml @ 125 mls/hr Q8H IV Last administered on 08/07/18at 00:26; Start 08/06/18 at 23:00; Stop 08/07/18 at 07 :38; Status DC Albuterol Sulfate (Ventolin Neb Soln) 2.5 mg 1X ONCE NEB Last administered on 08/07/18at 00:25; Start 08/06/18 at 23:00; Stop 08/06/18 at 23:01; Status DC Albuterol Sulfate (Ventolin Neb Soln) 2.5 mg PRN Q2HR PRN NEB SHORTNESS OF BREATH Last administered on 08/07/18at 02:42; Start 08/06/18 at 23:00 Albuterol Sulfate (Ventolin Neb Soln) 2.5 mg RTQID INH Last administered on at 08:59; Start 08/07/18 at 08:00 Apixaban (Eliquis) 2.5 mg BID PO Last administered on 08/08/18at 08:23; Start 08/07/18 at 09:00 Potassium Chloride (Klor-Con) 20 meq BID PO Last administered on 08/08/18at 08: 22; Start 08/07/18 at 09:00 Budesonide (Pulmicort) 0.5 mg RTBID NEB Last administered on 08/08/18at 08:59; Start 08/07/18 at 08:00 Acetaminophen/ Hydrocodone Bitart (Lortab 7.5/325) 1 tab PRN Q4HRS PRN PO SEVERE PAIN; Start 08/06/18 at 23:15 Levothyroxine Sodium (Synthroid) 50 mcg DAILY06 PO Last administered on at 06:00; Start 08/07/18 at 06:00 Montelukast Sodium (Singulair) 10 mg QEVNG PO Last administered on 08/07/18at 17:53; Start 08/07/18 at 18:00 Pantoprazole Sodium (Protonix) 40 mg DAILYAC PO Last administered on at 08:22; Start 08/07/18 at 07:30 Sacubitril/ Valsartan (Entresto 24 Mg-26 Mg) 1 tab DAILY PO ; Start 08/07/18 at 09:00; Stop 08/07/18 at 09:00; Status DC Simvastatin (Zocor) 40 mg QHS PO Last administered on 08/07/18at 22:15; Start 08/07/18 at 21:00 Prochlorperazine Edisylate (Compazine) 10 mg PRN Q6HRS PRN IV NAUSEA/VOMITING 2ND CHOICE Last administered on 08/07/18at 00:25; Start 08/06/18 at 23:15 Prochlorperazine (Compazine) 25 mg PRN Q12HR PRN AR NAUSEA/VOMITING 3RD CHOICE ; Start 08/06/18 at 23:15 Info (Anti-Coagulation Monitoring By Pharmacy) 1 each PRN DAILY PRN MC SEE COMMENTS Last administered on 08/08/18at 11:02; Start 08/06/18 at 23:15 Info (Icu Electrolyte Protocol) 1 ea DAILY MC Last administered on 08/08/18at 08:29; Start 08/07/18 at 09:00 Sodium Chloride (Normal Saline Flush) 3 ml QSHIFT PRN IV AFTER MEDS AND BLOOD DRAWS; Start 08/06/18 at 23:15 Bisacodyl (Dulcolax Supp) 10 mg PRN DAILY PRN AR CONSTIPATION; Start 08/06/18 at 23:15 Insulin Human Regular 150 unit/ Sodium Chloride 151.5 ml @ 0 mls/hr CONT PRN IV SEE I/O RECORD; Start 08/06/18 at 23:15 Dextrose (Dextrose 50%-Water Syringe) 12.5 gm PRN Q15MIN PRN IV LOW BLOOD SUGAR Last administered on 08/07/18at 07:52; Start 08/06/18 at 23:15 Vasopressin 40 unit/Dextrose 102 ml @ 6 mls/hr CONT PRN IV SEE I/O RECORD Last administered on 08/07/18at 14:45; Start 08/06/18 at 23:30 Vancomycin HCl (Vancomycin Random Level) 1 each 1X ONCE MC ; Start 08/07/18 at 22:00; Stop 08/07/18 at 22:00; Status DC Dextrose 1,000 ml @ 75 mls/hr [id number] IV ; Start 08/07/18 at 08:00; Stop at 09:09; Status DC Potassium Chloride/Dextrose/ Sod Cl 1,000 ml @ 125 mls/hr Q8H IV Last administered on 08/07/18at 10:08; Start 08/07/18 at 10:00; Stop 08/07/18 at 16 :19; Status DC Insulin Human Lispro (HumaLOG) 0-7 UNITS Q4HRS SQ Last administered on at 08:24; Start 08/07/18 at 10:00 Dextrose (Dextrose 50%-Water Syringe) 12.5 gm PRN Q15MIN PRN IV SEE COMMENTS; Start 08/07/18 at 10:00; Status UNV Lactobacillus Rhamnosus (Culturelle) 1 cap BID PO Last administered on at 08:22; Start 08/07/18 at 21:00 Potassium Chloride/Sodium Chloride 1,000 ml @ 75 mls/hr [id number] IV Last administered on 08/08/18at 06:20; Start 08/07/18 at 16:30 Active Scripts Active Proair Hfa Inhaler (Albuterol Sulfate) 8.5 Gm Hfa.aer.ad 1 Puff INH PRN Q6HRS PRN Symbicort 80-4.5 Mcg Inhaler (Budesonide/Formoterol Fumarate) 10.2 Gm Hfa.aer.ad 2 Puff IH BID Cardizem Cd (Diltiazem Hcl) 120 Mg Cap.er.24h 120 Mg PO DAILY Reported Lasix (Furosemide) 40 Mg Tablet 1 Tab PO QPM Lasix (Furosemide) 40 Mg Tablet 1.5 Tab PO DAILYWBKFT Isosorbide Mononitrate Er (Isosorbide Mononitrate) 30 Mg Tab.er.24h 1 Tab PO BID Omeprazole 40 Mg Capsule.dr 1 Cap PO DAILY Carvedilol 3.125 Mg Tablet 1 Tab PO BID Entresto 24 mg-26 mg Tablet (Sacubitril/Valsartan) 1 Each Tablet 1 Each PO DAILY Novolog (Insulin Aspart) 100 Unit/1 Ml Cartridge 16 Unit SQ TID Hydrochlorothiazide Capsule (Hydrochlorothiazide) 12.5 Mg Capsule 12.5 Mg PO DAILY Levothyroxine Sodium 50 Mcg Tablet 1 Tab PO DAILY Eliquis (Apixaban) 2.5 Mg Tablet 2.5 Mg PO BID Montelukast Sodium Tablet (Montelukast Sodium) 10 Mg Tablet 10 Mg PO QEVNG Potassium Chloride 20 Meq Tab.er.prt 1 Tab PO BID Lortab 7.5-500 Tablet (Hydrocodone Bit/Acetaminophen) 1 Each Tablet 1 Each PO PRN Q4HRS Simvastatin 40 Mg Tablet 40 Mg PO QHS Vitals/I & O Vital Sign - Last 24 Hours 08/07/18 08/07/18 08/07/18 08/07/18 12:00 12:00 12:41 12:55 Temp 98.4 98.4 Pulse 72 Resp 22 B/P (MAP) 132/76 (94) Pulse Ox 98 95 O2 Delivery Nasal Cannula Nasal Cannula Nasal Cannula Nasal Cannula O2 Flow Rate 1.0 1.0 1.0 1.0 08/07/18 08/07/18 08/07/18 08/07/18 13:00 14:00 15:00 16:00 Pulse 82 79 88 Resp 20 20 22 B/P (MAP) 103/51 (68) 84/52 (63) 85/49 (61) Pulse Ox 92 95 96 O2 Delivery Nasal Cannula Nasal Cannula Room Air Room Air O2 Flow Rate 1.0 1.0 08/07/18 08/07/18 08/07/18 08/07/18 16:00 16:19 17:00 18:00 Temp 97.7 97.7 Pulse 76 82 92 Resp 18 18 B/P (MAP) 87/55 (66) 96/58 (71) 105/54 (71) Pulse Ox 92 94 96 92 O2 Delivery Room Air Room Air Room Air Room Air 08/07/18 08/07/18 08/07/18 08/07/18 19:00 19:38 20:00 20:00 Temp 97.4 97.4 Pulse 87 90 Resp 18 16 B/P (MAP) 87/58 (68) 98/52 (67) Pulse Ox 95 92 96 O2 Delivery Room Air Room Air Nasal Cannula Nasal Cannula O2 Flow Rate 3.0 08/07/18 08/07/18 08/07/18 08/08/18 21:00 22:00 23:00 00:00 Temp 97.4 97.4 Pulse 100 96 87 85 Resp 18 18 18 16 B/P (MAP) 102/54 (70) 114/61 (78) 91/44 (60) 94/54 (67) Pulse Ox 97 95 99 96 O2 Delivery Nasal Cannula Nasal Cannula Nasal Cannula Nasal Cannula O2 Flow Rate 3.0 3.0 08/08/18 08/08/18 08/08/18 08/08/18 00:00 01:00 02:00 03:00 Pulse 87 94 88 Resp 18 18 16 B/P (MAP) 92/53 (66) 90/40 (57) 96/47 (63) Pulse Ox 97 99 95 O2 Delivery Nasal Cannula Nasal Cannula Nasal Cannula Nasal Cannula O2 Flow Rate 3.0 3.0 3.0 3.0 08/08/18 08/08/18 08/08/18 08/08/18 04:00 04:00 05:00 06:00 Temp 97.6 97.6 Pulse 82 80 88 Resp 16 16 16 B/P (MAP) 100/52 (68) 97/51 (66) 112/53 (72) Pulse Ox 96 100 95 O2 Delivery Nasal Cannula Nasal Cannula Nasal Cannula Nasal Cannula O2 Flow Rate 3.0 3.0 3.0 3.0 08/08/18 08/08/18 08/08/18 08/08/18 07:00 08:00 08:00 08:59 Temp 98.3 98.3 Pulse 95 94 Resp 24 25 B/P (MAP) 122/64 (83) 121/65 (83) Pulse Ox 92 91 90 O2 Delivery Room Air Room Air Room Air Room Air 08/08/18 08/08/18 09:00 10:00 Pulse 102 108 Resp 24 23 B/P (MAP) 102/50 (67) 98/72 (81) Pulse Ox 93 92 O2 Delivery Room Air Room Air Intake and Output 08/07/18 08/07/18 08/08/18 15:01 23:01 07:01 Intake Total 650.97 ml 796.24 ml Output Total 1100 ml Balance -449.03 ml 796.24 ml Nutrition Consultation Dietary Evaluation: Recommendations by RD: Increase Calorie Intake, Protein supplementation Comments: diet advancement to ADA, Cardiac when able Expected Outcomes/Goals: to meet > 75% est nutr needs Malnutrition Findings: Body Fat Depletion (Non Severe: Mild Depletion Weight Status: Overweight ACE MYERS MD Aug 08, 2018 11:22
--- NOTE | 2018-08-08 12:26 | PDOC ---
CARDIO Progress Notes Date and Time Date of Service 08/08/2018 Time of Evaluation 1200 Subjective Subjective: No Chest Pain, No shortness of breath, No Palpitations, Other ( sitting up wants to go home) Vitals Vitals Vital Signs Date Time Temp Pulse Resp B/P (MAP) Pulse Ox O2 Delivery O2 Flow Rate FiO2 08/08/18 11:18 97.8 95 28 100/64 (76) 94 Nasal Cannula 1.0 97.8 Weight Weight [ ] Input and Output Intake and Output Intake and Output 08/08/18 07:01 Intake Total 1447.21 ml Output Total 1100 ml Balance 347.21 ml Intake Oral 360 ml IV Total 1087.21 ml Output Urine Total 1100 ml # Voids 3 Laboratory Labs Laboratory Tests Test 08/07/18 12:09 08/07/18 16:09 08/07/18 22:15 08/08/18 00:12 Glucose (Fingerstick) 226 mg/dL (70-99) 329 mg/dL (70-99) 334 mg/dL (70-99) 270 mg/dL (70-99) Test 08/08/18 05:51 08/08/18 06:00 08/08/18 08:05 Glucose (Fingerstick) 198 mg/dL (70-99) 191 mg/dL (70-99) Triglycerides Level 119 mg/dL (0-150) Cholesterol Level 107 mg/dL (0-200) LDL Cholesterol, Calculated 51 mg/dL (0-100) VLDL Cholesterol, Calculated 24 mg/dL (0-40) Non-HDL Cholesterol Calculated 75 mg/dL (0-129) HDL Cholesterol 32 mg/dL (40-60) Cholesterol/HDL Ratio 3.3 Microbiology Micro Microbiology 08/06/18 Blood Culture - Preliminary, Resulted NO GROWTH AFTER 1 DAY Physical Exam HEENT: Neck Supple W Full Motion Chest: Symmetric LUNGS: Clear to Auscultation Heart: S1S2, irregularly irregular (AFIB) Abdomen: Soft N/T Extremities: No Calf Tenderness, Other (1+ bilateral LE pitting edema) Neurology: alert, oriented, follow commands Assessment Assessment 1. Permanent atrial fibrillation presenting with bradycardia in the 30s due to CCB and BB 2. Diabetes, II with hypoglycemia: per PCP 3. Hypotension; BP better. off pressors. 4. DAVID on CKD; Cr 2.4 5. Chronic systolic CHF; LVEF 40-45% () now at 50%, compensated 6. Hyperlipidemia; statin 7. Hypokalemia/hypomagnesemia 8. Abdominal pain/nausea and vomiting: resolved 9. Hypothyroidism; TSH WNL Recommendations 1. Pt was treated with dopamine and glucagon. Possible extra dose of BB or CCB ingested, poor historian. Will completely DC cardizem but will start metoprolol mg instead of coreg tomorrow given that his BP is still currently marginal. 2. Will monitor BP trend and rhythm overnight, BMP and Mg today. Push PO fluids. Continue eliquis for stroke prevention. 3. Wilil benefit SNU. Follow up with his regular rebeamer post discharge as outpt. ALLISON RAZO APRN Aug 08, 2018 12:26
[2018-08-08] MEDS ORDERED: METOPROLOL TARTRATE 5 MG/5 ML VIAL. IVP PRN (12:30)
[2018-08-08 13:00] LABS: CREATININE 2.3 mg/dL (0.7-1.3); GFR 27.4; MAGNESIUM 1.8 mg/dL (1.8-2.4); POTASSIUM 4.6 mmol/L (3.5-5.1)
[2018-08-08] MEDS: MONTELUKAST SODIUM 10 MG TABLET. PO SCH (16:46)
[2018-08-08] MEDS: SIMVASTATIN 40 MG TABLET. PO SCH (20:19)
[2018-08-09] MEDS: PIPERACILLIN/TAZOBACTAM 2.25 GM in IV NORMAL SALINE 50ML 50 ML IV SCH ×3 (00:51→11:47)
[2018-08-09] MEDS: INSULIN LISPRO 300 UNITS/3 ML INSULN.PEN. SQ SCH ×4 (04:00→11:57)
[2018-08-09] MEDS: LEVOTHYROXINE 50 MCG TABLET PO SCH (06:23)
[2018-08-09 07:00] VITALS: BP 98/47
[2018-08-09 07:40] LABS: CREATININE 2.1 mg/dL (0.7-1.3); GFR 30.5; MAGNESIUM 1.7 mg/dL (1.8-2.4); POTASSIUM 4.5 mmol/L (3.5-5.1)
[2018-08-09] MEDS: ALBUTEROL SULFATE 2.5 MG/3 ML NEBU. INH SCH ×2 (08:00→11:28)
[2018-08-09] MEDS: BUDESONIDE 0.5 MG/2 ML NEBU. NEB SCH (08:01)
[2018-08-09] MEDS ORDERED: METOPROLOL TART IMMED RELEASE 25 MG TABLET. PO SCH ×2 (09:00→21:00)
[2018-08-09] MEDS: APIXABAN 2.5 MG TABLET. PO SCH (10:16)
[2018-08-09] MEDS: PANTOPRAZOLE 40 MG TABLET.DR. PO SCH (10:16)
[2018-08-09] MEDS: LACTOBACILLUS RHAMNOSUS GG 1 CAPSULE. PO SCH (10:16)
[2018-08-09] MEDS: POTASSIUM CHLORIDE 20 MEQ TABLET.ER. PO SCH (10:17)
--- NOTE | 2018-08-09 10:31 | PDOC ---
PULMONARY PROGRESS NOTES Vitals Vital Signs Date Time Temp Pulse Resp B/P (MAP) Pulse Ox O2 Delivery O2 Flow Rate FiO2 08/09/18 08:01 93 Room Air 08/09/18 07:00 97.8 92 16 98/47 (64) 97.8 08/08/18 20:00 1.0 General: Alert, No acute distress Lungs: Clear Cardiovascular: S1, S2, Other Abdomen: Soft, Non-tender Extremities: No Edema Labs Laboratory Tests Test 08/07/18 11:10 08/07/18 12:09 08/07/18 16:09 08/07/18 22:15 Glucose (Fingerstick) 141 mg/dL (70-99) 226 mg/dL (70-99) 329 mg/dL (70-99) 334 mg/dL (70-99) Test 08/08/18 00:12 08/08/18 05:51 08/08/18 06:00 08/08/18 08:05 Glucose (Fingerstick) 270 mg/dL (70-99) 198 mg/dL (70-99) 191 mg/dL (70-99) Sodium Level 140 mmol/L (136-145) Potassium Level 4.6 mmol/L (3.5-5.1) Chloride Level 106 mmol/L (98-107) Carbon Dioxide Level 21 mmol/L (21-32) Anion Gap 13 (6-14) Blood Urea Nitrogen 34 mg/dL (8-26) Creatinine 2.3 mg/dL (0.7-1.3) Estimated GFR (Cockcroft-Gault) 27.4 Glucose Level 219 mg/dL (70-99) Calcium Level 8.0 mg/dL (8.5-10.1) Magnesium Level 1.8 mg/dL (1.8-2.4) Triglycerides Level 119 mg/dL (0-150) Cholesterol Level 107 mg/dL (0-200) LDL Cholesterol, Calculated 51 mg/dL (0-100) VLDL Cholesterol, Calculated 24 mg/dL (0-40) Non-HDL Cholesterol Calculated 75 mg/dL (0-129) HDL Cholesterol 32 mg/dL (40-60) Cholesterol/HDL Ratio 3.3 Test 08/08/18 12:13 08/08/18 16:41 08/08/18 20:28 08/09/18 02:10 Glucose (Fingerstick) 238 mg/dL (70-99) 216 mg/dL (70-99) 166 mg/dL (70-99) 188 mg/dL (70-99) Test 08/09/18 07:15 08/09/18 08:01 Sodium Level 143 mmol/L (136-145) Potassium Level 4.5 mmol/L (3.5-5.1) Chloride Level 109 mmol/L (98-107) Carbon Dioxide Level 24 mmol/L (21-32) Anion Gap 10 (6-14) Blood Urea Nitrogen 28 mg/dL (8-26) Creatinine 2.1 mg/dL (0.7-1.3) Estimated GFR (Cockcroft-Gault) 30.5 Glucose Level 193 mg/dL (70-99) Calcium Level 8.0 mg/dL (8.5-10.1) Magnesium Level 1.7 mg/dL (1.8-2.4) Glucose (Fingerstick) 171 mg/dL (70-99) Laboratory Tests Test 08/08/18 12:13 08/08/18 16:41 08/08/18 20:28 08/09/18 02:10 Glucose (Fingerstick) 238 mg/dL (70-99) 216 mg/dL (70-99) 166 mg/dL (70-99) 188 mg/dL (70-99) Test 08/09/18 07:15 08/09/18 08:01 Sodium Level 143 mmol/L (136-145) Potassium Level 4.5 mmol/L (3.5-5.1) Chloride Level 109 mmol/L (98-107) Carbon Dioxide Level 24 mmol/L (21-32) Anion Gap 10 (6-14) Blood Urea Nitrogen 28 mg/dL (8-26) Creatinine 2.1 mg/dL (0.7-1.3) Estimated GFR (Cockcroft-Gault) 30.5 Glucose Level 193 mg/dL (70-99) Calcium Level 8.0 mg/dL (8.5-10.1) Magnesium Level 1.7 mg/dL (1.8-2.4) Glucose (Fingerstick) 171 mg/dL (70-99) Medications Active Scripts Medications Dose Route/Sig Max Daily Dose Days Date Category Proair Hfa Inhaler (Albuterol Sulfate) 8.5 Gm Hfa.aer.ad 1 Puff INH PRN Q6HRS PRN 03/05/18 Rx Symbicort 80-4.5 Mcg Inhaler (Budesonide/Formoterol Fumarate) 10.2 Gm Hfa.aer.ad 2 Puff IH BID 03/05/18 Rx Cardizem Cd (Diltiazem Hcl) 120 Mg Cap.er.24h 120 Mg PO DAILY 03/05/18 Rx Lasix (Furosemide) 40 Mg Tablet 1 Tab PO QPM 03/02/18 Reported Lasix (Furosemide) 40 Mg Tablet 1.5 Tab PO DAILYWBKFT 03/02/18 Reported Isosorbide Mononitrate Er (Isosorbide Mononitrate) 30 Mg Tab.er.24h 1 Tab PO BID 03/02/18 Reported Omeprazole 40 Mg Capsule.dr 1 Cap PO DAILY 03/02/18 Reported Carvedilol 3.125 Mg Tablet 1 Tab PO BID 03/02/18 Reported Entresto 24 mg-26 mg Tablet (Sacubitril/Valsartan) 1 Each Tablet 1 Each PO DAILY 03/02/18 Reported Novolog (Insulin Aspart) 100 Unit/1 Ml Cartridge 16 Unit SQ TID 03/02/18 Reported Hydrochlorothiazide Capsule (Hydrochlorothiazide) 12.5 Mg Capsule 12.5 Mg PO DAILY 06/30/17 Reported Levothyroxine Sodium 50 Mcg Tablet 1 Tab PO DAILY 03/05/16 Reported Eliquis (Apixaban) 2.5 Mg Tablet 2.5 Mg PO BID 03/05/16 Reported Montelukast Sodium Tablet (Montelukast Sodium) 10 Mg Tablet 10 Mg PO QEVNG 03/05/16 Reported Potassium Chloride 20 Meq Tab.er.prt 1 Tab PO BID 04/10/14 Reported Lortab 7.5-500 Tablet (Hydrocodone Bit/Acetaminophen) 1 Each Tablet 1 Each PO PRN Q4HRS 08/19/13 Reported Simvastatin 40 Mg Tablet 40 Mg PO QHS 08/17/13 Reported Impression . IMPRESSION: 1. Abnormal x-ray revealing questionable left basilar opacity. I reviewed his previous x-ray. He did have an elevated hemidiaphragm in the past. 2. Chronic atrial fibrillation with bradycardia. The patient might have taken extra Cardizem and Coreg at home. 3. Type 2 diabetes. 4. Hypotension. 5. Acute on chronic kidney disease. 6. Cardiomyopathy, ejection fraction of 40-45%. 7. Hyperlipidemia. 8. Chronic obstructive pulmonary disease. Plan . patient to discharge home today on Augmentin JANIS FIGUEROA MD Aug 09, 2018 10:31
[2018-08-09 10:47] VITALS: BP 113/63
--- NOTE | 2018-08-09 11:33 | PDOC ---
CARDIO Progress Notes Date and Time Date of Service 08/09/2018 Time of Evaluation 1110 Subjective Subjective: No Chest Pain, No shortness of breath, No Palpitations Vitals Vitals Vital Signs Date Time Temp Pulse Resp B/P (MAP) Pulse Ox O2 Delivery O2 Flow Rate FiO2 08/09/18 10:47 97.9 98 16 113/63 (80) 93 Room Air 97.9 08/08/18 20:00 1.0 Weight Weight [ ] Input and Output Intake and Output Intake and Output 08/09/18 07:01 Intake Total 250 ml Balance 250 ml Intake Oral 100 ml Other 150 ml # Voids 3 Laboratory Labs Laboratory Tests Test 08/08/18 12:13 08/08/18 16:41 08/08/18 20:28 08/09/18 02:10 Glucose (Fingerstick) 238 mg/dL (70-99) 216 mg/dL (70-99) 166 mg/dL (70-99) 188 mg/dL (70-99) Test 08/09/18 07:15 08/09/18 08:01 Sodium Level 143 mmol/L (136-145) Potassium Level 4.5 mmol/L (3.5-5.1) Chloride Level 109 mmol/L (98-107) Carbon Dioxide Level 24 mmol/L (21-32) Anion Gap 10 (6-14) Blood Urea Nitrogen 28 mg/dL (8-26) Creatinine 2.1 mg/dL (0.7-1.3) Estimated GFR (Cockcroft-Gault) 30.5 Glucose Level 193 mg/dL (70-99) Calcium Level 8.0 mg/dL (8.5-10.1) Magnesium Level 1.7 mg/dL (1.8-2.4) Glucose (Fingerstick) 171 mg/dL (70-99) Microbiology Micro Microbiology 08/06/18 Blood Culture - Preliminary, Resulted NO GROWTH AFTER 2 DAYS Physical Exam HEENT: Neck Supple W Full Motion Chest: Symmetric LUNGS: Clear to Auscultation Heart: S1S2, irregularly irregular (AFIB) Abdomen: Soft N/T Extremities: No Calf Tenderness Neurology: alert, oriented, follow commands Assessment Assessment 1. Permanent atrial fibrillation presenting with bradycardia in the 30s due to CCB and BB and possible extra dosing. No further jonathan episodes for 48 hours 2. Diabetes, II with hypoglycemia: per PCP 3. Hypotension: resolved. 4. DAVID on CKD; better, Cr 2.1 5. Chronic systolic CHF; LVEF 40-45% (11/17) now at 50%, compensated 6. Hyperlipidemia; statin 7. Hypokalemia resolved/hypomagnesemia 8. Abdominal pain/nausea and vomiting: resolved 9. Hypothyroidism; TSH WNL Recommendations 1. BP slightly marginal. Rate 90-110 at rest. No further coreg and start on po metoprolol 25 mg po bid. No further cardizem for now. 2. May need outpt event monitor and note any alternating tachy-jonathan arrhythmias if pt is able to comply. 2. Continue eliquis for stroke prevention. Replace Mg. 3. Will benefit SNU. Follow up with his regular research dietitian (Dr. López) post discharge as outpt. ALLISON RAZO APRN Aug 09, 2018 11:33
[2018-08-09 11:48] VITALS: BP 113/63
[2018-08-09] MEDS ORDERED: METOPROLOL TART IMMED RELEASE 25 MG TABLET. PO ONE (12:00)
[2018-08-09] MEDS ORDERED: MAGNESIUM SULFATE 1GM 100 ML IV ONE (12:00)
[2018-08-09] MEDS ORDERED: METO25TA4 PO (12:52)
--- NOTE | 2018-08-09 12:53 | DISCH ---
DISCHARGE WITH HOME HEALTH DISCHARGE INFORMATION: Discharge Date: Aug 09, 2018 Condition on Discharge: Stable CODE STATUS: Code Status: Full HOME HEALTH: Face to Face: I certify this patient is under my care and that I, or a nurse practitioner or physician's patent legal assistant working with me, had a face to face encounter that meets the physician face to face encounter requirements with this patient on 08/09 Medical Complications: CHF Halfway For: Assess Cardiopulm Status, Medication Management Physical Therapy For: Evalulation/Treatment Occupational Therapy For: Evaluation/Treatment POST DISCHARGE ORDERS: Activity Instructions for Disc: Activity as tolerated Weight Bearing Status after Di: Full weight bearing DIET AFTER DISCHARGE: ADA CHECKS AFTER DISCHARGE: Checks after discharge: Check blood press - daily, Check blood sugar, ac/hs FOLLOW-UP: Follow up with: cardiology a few weeks Follow Up With: primary care 2 weeks TREATMENT/EQUIPMENT ORDERS: Adaptive Equipment Issued: Front wheeled walker CERTIFICATION STATEMENT: Certification Statement: Certification Statement: Based on the above finding, I certify that this patient is confined to the home and needs intermittent fci care, physical therapy and/or speech therapy, or continues to need occupational therapy.~ This patient is under my care, and I have initiated the establishment of the plan of care.~ This patient will be followed by myself or a community physician who will periodically review the plan of care. Home Meds Active Scripts Metoprolol Tartrate (METOPROLOL TARTRATE) 25 Mg Tablet, 25 MG PO BID for heart function, #60 TAB 2 Refills Prov:BONNIE CAMPA MD 08/09/18 Albuterol Sulfate (PROAIR HFA INHALER) 8.5 Gm Hfa.aer.ad, 1 PUFF INH PRN Q6HRS PRN for SHORTNESS OF BREATH, #1 INHALER 0 Refills Prov:BONNIE CAMPA MD 03/05/18 Budesonide/Formoterol Fumarate (SYMBICORT 80-4.5 MCG INHALER) 10.2 Gm Hfa.aer.ad , 2 PUFF IH BID, #10.2 GM 1 Refill Prov:BONNIE CAMPA MD 03/05/18 Diltiazem Hcl (CARDIZEM CD) 120 Mg Cap.er.24h, 120 MG PO DAILY for FOR HYPERTENSION, #30 CAP 0 Refills Prov:BONNIE CAMPA MD 03/05/18 Reported Medications Furosemide (LASIX) 40 Mg Tablet, 1 TAB PO QPM, #90 TAB 1 Refill 03/02/18 Furosemide (LASIX) 40 Mg Tablet, 1.5 TAB PO DAILYWBKFT, #90 TAB 1 Refill 03/02/18 Isosorbide Mononitrate (ISOSORBIDE MONONITRATE ER) 30 Mg Tab.er.24h, 1 TAB PO BID, #30 TAB 5 Refills 03/02/18 Omeprazole (OMEPRAZOLE) 40 Mg Capsule.dr, 1 CAP PO DAILY, #30 CAP 3 Refills 03/02/18 Carvedilol (CARVEDILOL ) 3.125 Mg Tablet, 1 TAB PO BID, #60 TAB 3 Refills 03/02/18 Sacubitril/Valsartan (Entresto 24 mg-26 mg Tablet) 1 Each Tablet, 1 EACH PO DAILY, TAB 03/02/18 Insulin Aspart (NOVOLOG) 100 Unit/1 Ml Cartridge, 16 UNIT SQ TID, EACH 03/02/18 Hydrochlorothiazide (HYDROCHLOROTHIAZIDE CAPSULE ) 12.5 Mg Capsule, 12.5 MG PO DAILY for DIURETIC, CAP 0 Refills 06/30/17 Levothyroxine Sodium (LEVOTHYROXINE SODIUM) 50 Mcg Tablet, 1 TAB PO DAILY, #30 TAB 5 Refills 03/05/16 Apixaban (ELIQUIS) 2.5 Mg Tablet, 2.5 MG PO BID 03/05/16 Montelukast Sodium (MONTELUKAST SODIUM TABLET) 10 Mg Tablet, 10 MG PO QEVNG for FOR ASTHMA, #30 TAB 0 Refills 03/05/16 Potassium Chloride (POTASSIUM CHLORIDE) 20 Meq Tab.er.prt, 1 TAB PO BID, #180 TAB 3 Refills 04/10/14 Hydrocodone Bit/Acetaminophen (LORTAB 7.5-500 TABLET) 1 Each Tablet, 1 EACH PO PRN Q4HRS 08/19/13 Simvastatin (SIMVASTATIN) 40 Mg Tablet, 40 MG PO QHS 08/17/13 BONNIE CAMPA MD Aug 09, 2018 12:53
--- NOTE | 2018-08-09 14:09 | PDOC3 ---
Discharge Summary Visit Information Date of Admission: Aug 06, 2018 Date of Discharge: Aug 09, 2018 Admitting Diagnosis: acute encephalppathy Final Diagnosis Hypoglycemia Hypotension BB/CCB overdose Left lower lobe pneumonia AFIB CAD CHF HTN Hyperlipidemia Asthma with COPD Peripheral neuropathy Osteoarthritis DAVID on Chronic renal insufficiency Diabetes type 2 Hypothyroidism Abdominal pain Brief Hospital Course Allergies Allergies Coded Allergies Type Severity Reaction Last Updated Verified No Known Drug Allergies 08/16/13 No Vital Signs Vital Signs Date Time Temp Pulse Resp B/P (MAP) Pulse Ox O2 Delivery O2 Flow Rate FiO2 08/09/18 11:48 98 113/63 08/09/18 11:28 93 Room Air 08/09/18 10:47 97.9 16 97.9 08/08/18 20:00 1.0 Lab Results Laboratory Tests Test 08/07/18 16:09 08/07/18 22:15 08/08/18 00:12 08/08/18 05:51 Glucose (Fingerstick) 329 mg/dL (70-99) 334 mg/dL (70-99) 270 mg/dL (70-99) 198 mg/dL (70-99) Test 08/08/18 06:00 08/08/18 08:05 08/08/18 12:13 08/08/18 16:41 Sodium Level 140 mmol/L (136-145) Potassium Level 4.6 mmol/L (3.5-5.1) Chloride Level 106 mmol/L (98-107) Carbon Dioxide Level 21 mmol/L (21-32) Anion Gap 13 (6-14) Blood Urea Nitrogen 34 mg/dL (8-26) Creatinine 2.3 mg/dL (0.7-1.3) Estimated GFR (Cockcroft-Gault) 27.4 Glucose Level 219 mg/dL (70-99) Calcium Level 8.0 mg/dL (8.5-10.1) Magnesium Level 1.8 mg/dL (1.8-2.4) Triglycerides Level 119 mg/dL (0-150) Cholesterol Level 107 mg/dL (0-200) LDL Cholesterol, Calculated 51 mg/dL (0-100) VLDL Cholesterol, Calculated 24 mg/dL (0-40) Non-HDL Cholesterol Calculated 75 mg/dL (0-129) HDL Cholesterol 32 mg/dL (40-60) Cholesterol/HDL Ratio 3.3 Glucose (Fingerstick) 191 mg/dL (70-99) 238 mg/dL (70-99) 216 mg/dL (70-99) Test 08/08/18 20:28 08/09/18 02:10 08/09/18 07:15 08/09/18 08:01 Glucose (Fingerstick) 166 mg/dL (70-99) 188 mg/dL (70-99) 171 mg/dL (70-99) Sodium Level 143 mmol/L (136-145) Potassium Level 4.5 mmol/L (3.5-5.1) Chloride Level 109 mmol/L (98-107) Carbon Dioxide Level 24 mmol/L (21-32) Anion Gap 10 (6-14) Blood Urea Nitrogen 28 mg/dL (8-26) Creatinine 2.1 mg/dL (0.7-1.3) Estimated GFR (Cockcroft-Gault) 30.5 Glucose Level 193 mg/dL (70-99) Calcium Level 8.0 mg/dL (8.5-10.1) Magnesium Level 1.7 mg/dL (1.8-2.4) Test 08/09/18 11:19 Glucose (Fingerstick) 206 mg/dL (70-99) Laboratory Tests Test 08/08/18 16:41 08/08/18 20:28 08/09/18 02:10 08/09/18 07:15 Glucose (Fingerstick) 216 mg/dL (70-99) 166 mg/dL (70-99) 188 mg/dL (70-99) Sodium Level 143 mmol/L (136-145) Potassium Level 4.5 mmol/L (3.5-5.1) Chloride Level 109 mmol/L (98-107) Carbon Dioxide Level 24 mmol/L (21-32) Anion Gap 10 (6-14) Blood Urea Nitrogen 28 mg/dL (8-26) Creatinine 2.1 mg/dL (0.7-1.3) Estimated GFR (Cockcroft-Gault) 30.5 Glucose Level 193 mg/dL (70-99) Calcium Level 8.0 mg/dL (8.5-10.1) Magnesium Level 1.7 mg/dL (1.8-2.4) Test 08/09/18 08:01 08/09/18 11:19 Glucose (Fingerstick) 171 mg/dL (70-99) 206 mg/dL (70-99) Brief Hospital Course Mr Goff is an 82yo M w/ PMHx AFIB, CAD, CHF, HTN, Hyperlipidemia, Asthma, COPD, Periperal neuropathy, Osteoarthritis, Chronic renal insufficiency, Diabetes, Hypothyroidism who p/w abdominal pain, nausea, and vomiting for 3 days. Noted hypoglycemia, glucose of 17, and 30 after glucose. Also with confusion, hypotension and bradycardia. ACute renal failuire with Cr to 2.7 from baseline 1.8 this past February. he refused, PT and OT refused SNU, wanted DC home, I insisted on home health meds changed by CV consult CXR showing LLL infiltrate started on rocephin, cont augmentin on DC Discharge Information Condition at Discharge: Improved Follow Up: Weeks Disposition/Orders: D/C to Home w/ HH Scheduled Apixaban (Eliquis) 2.5 Mg Tablet, 2.5 MG PO BID, (Reported) Entered as Reported by: TRINO CLARKE on 03/05/16 1536 Last Action: Continued on 08/06/182301 by ACE MYERS MD Budesonide/Formoterol Fumarate (Symbicort 80-4.5 Mcg Inhaler) 10.2 Gm Hfa.aer.ad , 2 PUFF IH BID, #10.2 Ref 1 Prescribed by: BONNIE CAMPA on 03/05/18 1311 Last Action: Converted on 08/06/182301 by ACE MYERS MD Carvedilol (Carvedilol ) 3.125 Mg Tablet, 1 TAB PO BID, #60 Ref 3 (Reported) Entered as Reported by: DANA ROWLAND on 03/02/18 1204 Diltiazem Hcl (Cardizem Cd) 120 Mg Cap.er.24h, 120 MG PO DAILY for FOR HYPERTENSION, #30 Ref 0 Prescribed by: BONNIE CAMPA on 03/05/18 1257 Furosemide (Lasix) 40 Mg Tablet, 1.5 TAB PO DAILYWBKFT, #90 Ref 1 (Reported) Entered as Reported by: DANA ROWLAND on 03/02/18 1207 Furosemide (Lasix) 40 Mg Tablet, 1 TAB PO QPM, #90 Ref 1 (Reported) Entered as Reported by: DANA ROWLAND on 03/02/18 1207 Hydrochlorothiazide (Hydrochlorothiazide Capsule ) 12.5 Mg Capsule, 12.5 MG PO DAILY for DIURETIC, Ref 0 (Reported) Entered as Reported by: WANDA PRIEST on 06/30/17 1357 Hydrocodone Bit/Acetaminophen (Lortab 7.5-500 Tablet) 1 Each Tablet, 1 EACH PO PRN Q4HRS, (Reported) Entered as Reported by: LYNN MORALES on 08/19/13 1352 Last Action: Converted on 08/06/182301 by ACE MYERS MD Insulin Aspart (Novolog) 100 Unit/1 Ml Cartridge, 16 UNIT SQ TID, (Reported) Entered as Reported by: DANA ROWLAND on 03/02/18 1204 Isosorbide Mononitrate (Isosorbide Mononitrate Er) 30 Mg Tab.er.24h, 1 TAB PO BID, #30 Ref 5 (Reported) Entered as Reported by: DANA ROWLAND on 03/02/18 1204 Levothyroxine Sodium (Levothyroxine Sodium) 50 Mcg Tablet, 1 TAB PO DAILY, #30 Ref 5 (Reported) Entered as Reported by: TRINO CLARKE on 03/05/16 1536 Last Action: Converted on 08/06/182301 by ACE MYERS MD Metoprolol Tartrate (Metoprolol Tartrate) 25 Mg Tablet, 25 MG PO BID for heart function, #60 Ref 2 Prescribed by: BONNIE CAMPA on 08/09/18 1252 Montelukast Sodium (Montelukast Sodium Tablet) 10 Mg Tablet, 10 MG PO QEVNG for FOR ASTHMA, #30 Ref 0 (Reported) Entered as Reported by: TRINO CLARKE on 03/05/16 1536 Last Action: Converted on 08/06/182301 by ACE MYERS MD Omeprazole (Omeprazole) 40 Mg Capsule.dr, 1 CAP PO DAILY, #30 Ref 3 (Reported) Entered as Reported by: DANA ROWLAND on 03/02/18 120 Last Action: Converted on 08/06/182301 by ACE MYERS MD Potassium Chloride (Potassium Chloride) 20 Meq Tab.er.prt, 1 TAB PO BID, #180 Ref 3 (Reported) Entered as Reported by: RICH CYR on 04/10/14 0637 Last Action: Continued on 08/06/182301 by ACE MYERS MD Sacubitril/Valsartan (Entresto 24 mg-26 mg Tablet) 1 Each Tablet, 1 EACH PO DAILY, (Reported) Entered as Reported by: DANA ROWLAND on 03/02/18 1204 Last Action: Converted on 08/06/182301 by ACE MYERS MD Simvastatin (Simvastatin) 40 Mg Tablet, 40 MG PO QHS, (Reported) Entered as Reported by: KATALINA LATIF, RN on 08/17/13 0858 Last Action: Converted on 08/06/182301 by ACE MYERS MD Scheduled PRN Albuterol Sulfate (Proair Hfa Inhaler) 8.5 Gm Hfa.aer.ad, 1 PUFF INH PRN Q6HRS PRN for SHORTNESS OF BREATH, #1 Ref 0 Prescribed by: BONNIE CAMPA on 03/05/18 1311 Last Action: Continued on 08/06/182301 by ACE MYERS MD Patient Instructions Patient Instructions > 30 min face to face, 2 visits BONNIE CAMPA MD Aug 09, 2018 14:09
[2018-08-09] MEDS ORDERED: AMOX1TAB58 PO (14:21)
== END 2018-08-09 16:09 | disposition home or self-care (01) | DRG 871 ==
LOC: ER 18:15 → 1 WEST ICU 20:40 → 2 SOUTH 08-08 15:05
PROVIDERS: ADMIT Internal Medicine; ATTEND Internal Medicine
DX: A41.9 Sepsis, unspecified organism (principal); N17.0 Acute kidney failure with tubular necrosis; J18.9 Pneumonia, unspecified organism; I50.22 Chronic systolic (congestive) heart failure; I13.0 Hypertensive heart and chronic kidney disease with heart failure and stage 1 through stage 4 chronic kidney disease, or unspecified chronic kidney disease; I42.9 Cardiomyopathy, unspecified; J44.0 Chronic obstructive pulmonary disease with (acute) lower respiratory infection; T38.3X1A Poisoning by insulin and oral hypoglycemic [antidiabetic] drugs, accidental (unintentional), initial encounter; E03.9 Hypothyroidism, unspecified; E11.22 Type 2 diabetes mellitus with diabetic chronic kidney disease; E11.42 Type 2 diabetes mellitus with diabetic polyneuropathy; E11.649 Type 2 diabetes mellitus with hypoglycemia without coma; E78.00 Pure hypercholesterolemia, unspecified; E78.5 Hyperlipidemia, unspecified; E83.42 Hypomagnesemia; E87.6 Hypokalemia; F03.90 Unspecified dementia, unspecified severity, without behavioral disturbance, psychotic disturbance, mood disturbance, and anxiety; H91.90 Unspecified hearing loss, unspecified ear; I25.10 Atherosclerotic heart disease of native coronary artery without angina pectoris; I48.2 Chronic atrial fibrillation; K21.9 Gastro-esophageal reflux disease without esophagitis; M19.90 Unspecified osteoarthritis, unspecified site; N18.9 Chronic kidney disease, unspecified; N28.1 Cyst of kidney, acquired; Z87.891 Personal history of nicotine dependence; Z90.49 Acquired absence of other specified parts of digestive tract; F17.201 Nicotine dependence, unspecified, in remission; K57.90 Diverticulosis of intestine, part unspecified, without perforation or abscess without bleeding; M54.5 Low back pain; Y92.89 Other specified places as the place of occurrence of the external cause
CPT/HCPCS: 36415; 71045; 76700; 80048; 80061; 80076; 80329; 82962; 83605; 83735; 83880; 84145; 84443; 84484; 85007; 85025; 85379; 87040; 87641; 93005; 93306; 94640; 94760; 96361; 96365; 96367; 96368; 96375; 96376; G6039; J0610; J0780; J1265; J1610; J1815; J2405; J2543; J3370; J3475; J3490; J7030; J7040; J7042; J7613; J7626; 97535; 99285-25; G0480

== ENCOUNTER 2019-08-21 12:15 | Emergency (ER) | payer MEDICARE, MEDICAID ==
[~2019-08-21] VITALS: Ht 177.8 cm; Wt 86.2 kg
[~2019-08-21 12:15] MED LIST changes: +AMOX1TAB58 PO; +DOXY100C2 PO; -FLUT30CR TP; +FLUT30CR2 TP; +LISI1TAB23 PO; -LISI1TAB3 PO; +METO10TA81 PO; +METO25TA4 PO; +MONT10TA49 PO; -MONT10TA9 PO; +OMEP40CA45 PO; -OMEP40CA5 PO; +SIMV40TA18 PO; -SIMV40TA3 PO
[2019-08-21] MEDS ORDERED: IV NORMAL SALINE 1000ML BAG 1,000 ML IV ONE ×3 (12:45→16:45)
--- NOTE | 2019-08-21 12:58 | RAD ---
CHEST AP ONLY 08/21/2019 12:35 PM INDICATION: Shortness of air COMPARISON: CT chest 07/06/2019 TECHNIQUE: Portable frontal view of the chest is provided. FINDINGS: The cardiomediastinal silhouette is similar in appearance. There is a moderate left pleural effusion with adjacent compressive atelectasis versus infiltrate which is increased since the prior examination. Mild pulmonary vascular congestion. No pneumothorax. IMPRESSION: Increase in moderate left pleural effusion with adjacent compressive atelectasis versus infiltrate. Electronically signed by: Teri Baker MD (08/21/2019 12:55 PM) [id number]
[2019-08-21 13:17] LABS: BASO % 0 % (0-3); EOS # 0.2 x10^3/uL (0.0-0.7); EOS % 2 % (0-3); HEMATOCRIT 42.6 % (39.0-53.0); HEMOGLOBIN 13.9 g/dL (13.0-17.5); LYMPH % 26 % (24-48); MEAN CORPUSCULAR HEMOGLOBIN 27 pg (25-35); MEAN CORPUSCULAR HGB CONC 33 g/dL (31-37); MEAN CORPUSCULAR VOLUME 84 fL (79-100); MONO % 13 % (0-9); NEUT # 4.7 x10^3/uL (1.8-7.7); NEUT % 59 % (31-73); PLATELET COUNT 211 x10^3/uL (140-400); RED BLOOD COUNT 5.07 x10^6/uL (4.30-5.70); RED CELL DISTRIBUTION WIDTH 15.7 % (11.5-14.5); WHITE BLOOD COUNT 7.9 x10^3/uL (4.0-11.0)
[2019-08-21 13:50] LABS: CREATININE 1.9 mg/dL (0.7-1.3); GFR 34.1; POTASSIUM 4.1 mmol/L (3.5-5.1)
[2019-08-21 13:55] LABS: ALBUMIN 3.4 g/dL (3.4-5.0); TOTAL BILIRUBIN 0.4 mg/dL (0.2-1.0); TOTAL PROTEIN 6.7 g/dL (6.4-8.2)
[2019-08-21 14:39] LABS: BILIRUBIN,URINE NEGATIVE (NEG); CLARITY,URINE CLEAR; COLOR,URINE YELLOW; NITRITE,URINE NEGATIVE (NEG); PH,URINE 6.5; PROTEIN,URINE NEGATIVE (NEG-TRACE); UROBILINOGEN,URINE 0.2 mg/dL (0.2 mg/dL)
[2019-08-21 14:47] LABS: BACTERIA,URINE 0 /HPF (0-FEW); HYALINE CASTS, URINE FEW /HPF; RBC,URINE 0 /HPF (0-2); WBC,URINE OCC /HPF (0-4)
[2019-08-21 16:21] VITALS: BP 165/88
--- NOTE | 2019-08-21 17:19 | PHYS DOC ---
Past Medical History Past Medical History: A-Fib, Diabetes-Type II, Heart Disease, Hypertension, Renal Disease Additional Past Medical Histor: EMPHYSEMA; [place] Past Surgical History: Appendectomy, Tonsillectomy Alcohol Use: None Drug Use: None Adult General Chief Complaint Chief Complaint: HYPERGLYCEMIA HPI HPI Patient is a 83 year old with history of insulin-dependent diabetes who presents with reported elevated blood sugar greater than 400. Patient denies any symptoms and states that is weakly home health nurse came fitted him today and noted that his blood sugar was greater than 400 instructed the patient coated emergency department. Patient states he is compliant with his insulin and me tformin. He last took his medications prior to breakfast. Patient states he checks his blood sugar twice daily which is normally well controlled and he is compliant with diet. He denies recent illness, cough, sore throat, chest pain palpitations, abdominal pain, urinary frequency urgency dysuria and abdominal pain. No other acute symptoms or complaints. Review of Systems Review of Systems ROS as per HPI All other systems were reviewed and found to be within normal limits, except as documented in this note. Current Medications Current Medications Current Medications Medications (Trade) Dose Ordered Sig/Anna Start Time Stop Time Status Last Admin Dose Admin Sodium Chloride 1,000 ml @ 1,000 mls/hr 1X ONCE 08/21/19 16:45 08/21/19 17:44 Allergies Allergies Allergies Coded Allergies Type Severity Reaction Last Updated Verified No Known Drug Allergies 08/16/13 No Physical Exam Physical Exam Constitutional: Well developed, well nourished, no acute distress, hard-of- hearing. [] HENT: Normocephalic, atraumatic, bilateral external ears normal, oropharynx moist, no oral exudates, nose normal. [] Eyes: PERRLA, EOMI, conjunctiva normal, no discharge. [] Neck: Normal range of motion, no tenderness. [] Cardiovascular:Heart rate regular rhythm, no murmur [] Lungs & Thorax: Bilateral breath sounds clear to auscultation [] Abdomen: Bowel sounds normal, soft, no tenderness. [] Skin: Warm, dry. [] Back: No tenderness. [] Extremities: No tenderness, no edema. [] Neurologic: Alert and oriented X 3, normal motor function, normal sensory function, no focal deficits noted. [] Psychologic: Affect normal, judgement normal, mood normal. [] Current Patient Data Vital Signs Vital Signs Date Time Temp Pulse Resp B/P (MAP) Pulse Ox O2 Delivery O2 Flow Rate FiO2 08/21/19 12:26 97.6 90 20 143/80 (101) 97 Room Air 97.6 Lab Values Laboratory Tests Test 08/21/19 12:23 08/21/19 13:04 08/21/19 13:30 08/21/19 14:33 Glucose (Fingerstick) 400 mg/dL (70-99) H White Blood Count 7.9 x10^3/uL (4.0-11.0) Red Blood Count 5.07 x10^6/uL (4.30-5.70) Hemoglobin 13.9 g/dL (13.0-17.5) Hematocrit 42.6 % (39.0-53.0) Mean Corpuscular Volume 84 fL (79-100) Mean Corpuscular Hemoglobin 27 pg (25-35) Mean Corpuscular Hemoglobin Concent 33 g/dL (31-37) Red Cell Distribution Width 15.7 % (11.5-14.5) H Platelet Count 211 x10^3/uL (140-400) Neutrophils (%) (Auto) 59 % (31-73) Lymphocytes (%) (Auto) 26 % (24-48) Monocytes (%) (Auto) 13 % (0-9) H Eosinophils (%) (Auto) 2 % (0-3) Basophils (%) (Auto) 0 % (0-3) Neutrophils # (Auto) 4.7 x10^3/uL (1.8-7.7) Lymphocytes # (Auto) 2.0 x10^3/uL (1.0-4.8) Monocytes # (Auto) 1.0 x10^3/uL (0.0-1.1) Eosinophils # (Auto) 0.2 x10^3/uL (0.0-0.7) Basophils # (Auto) 0.0 x10^3/uL (0.0-0.2) Sodium Level 140 mmol/L (136-145) Potassium Level 4.1 mmol/L (3.5-5.1) Chloride Level 100 mmol/L (98-107) Carbon Dioxide Level 31 mmol/L (21-32) Anion Gap 9 (6-14) Blood Urea Nitrogen 37 mg/dL (8-26) H Creatinine 1.9 mg/dL (0.7-1.3) H Estimated GFR (Cockcroft-Gault) 34.1 BUN/Creatinine Ratio 19 (6-20) Glucose Level 387 mg/dL (70-99) H Calcium Level 9.0 mg/dL (8.5-10.1) Total Bilirubin 0.4 mg/dL (0.2-1.0) Aspartate Amino Transferase (AST) 18 U/L (15-37) Alanine Aminotransferase (ALT) 26 U/L (16-63) Alkaline Phosphatase 122 U/L (46-116) H Troponin I Quantitative < 0.017 ng/mL (0.000-0.055) Total Protein 6.7 g/dL (6.4-8.2) Albumin 3.4 g/dL (3.4-5.0) Albumin/Globulin Ratio 1.0 (1.0-1.7) Urine Collection Type Unknown Urine Color Yellow Urine Clarity Clear Urine pH 6.5 Urine Specific [place] 1.010 Urine Protein Negative mg/dL (NEG-TRACE) Urine Glucose (UA) 500 mg/dL (NEG) Urine Ketones (Stick) Negative mg/dL (NEG) Urine Blood Negative (NEG) Urine Nitrite Negative (NEG) Urine Bilirubin Negative (NEG) Urine Urobilinogen Dipstick 0.2 mg/dL (0.2 mg/dL) Urine Leukocyte Esterase Negative (NEG) Urine RBC 0 /HPF (0-2) Urine WBC Occ /HPF (0-4) Urine Bacteria 0 /HPF (0-FEW) Urine Hyaline Casts Few /HPF Test 08/21/19 14:45 08/21/19 17:02 Glucose (Fingerstick) 340 mg/dL (70-99) H 256 mg/dL (70-99) H Laboratory Tests 08/21/19 13:04 Laboratory Tests 08/21/19 13:30 EKG EKG [EKG: reviewed] Radiology/Procedures Radiology/Procedures CXR: NAD] Course & Med Decision Making Course & Med Decision Making Pertinent Labs and Imaging studies reviewed. (See chart for details) [Patient asymptomatic. Vital signs stable. Basic labs reviewed. IV fluids given. Blood sugar improved with treatment. Recommend continue home insulin regimen with close PCP follow-up. Return precautions reviewed.] Dragon Disclaimer Dragon Disclaimer This electronic medical record was generated, in whole or in part, using a voice recognition dictation system. Departure Departure Impression: Primary Impression: Hyperglycemia Disposition: 01 HOME, SELF-CARE Condition: GOOD Patient Instructions: Hyperglycemia, [id number] Additional Instructions: Please continue medications and check blood sugar frequesntly throughout the day. Follow-up with your PCP tomorrow or early next week for reevaluation. Return to the ED if new or concerning symptoms. MIRELLA GE DO Aug 21, 2019 17:19
== END 2019-08-21 17:20 | disposition home or self-care (01) ==
LOC: ER 12:15
DX: E11.65 Type 2 diabetes mellitus with hyperglycemia (principal); I48.91 Unspecified atrial fibrillation; I11.9 Hypertensive heart disease without heart failure; N28.9 Disorder of kidney and ureter, unspecified
CPT/HCPCS: 36415; 71045; 80053; 81001; 82962; 84484; 85025; 96360; 96361; 99285; J7030